=== PATIENT | female | born 1970 | race Caucasian/White ===

== ENCOUNTER 2019-08-09 12:50 | Outpatient (CLI) | payer OTHER, SELFPAY ==
--- NOTE | 2019-08-09 | ECHO_ITS ---
Patient Info Name: Vandana Ojeda Age: 49 years : 1970 Gender: Female Ht: 60 in Wt: 200 lbs BSA: 2.01 m2 HR: 62 bpm BP: 136 Heart Rhythm: Sinus Rhythm Technical Quality: Good Exam Date: 08/09/2019 1:31 PM Exam Location: [facility] Patient Status: Outpatient Admit Date: 08/09/2019 Staff Ordering Physician: RamuNathalia APRN Donkey Engine Firer/Fireman: Karo Meng RDCS Attending Provider: Bernadine*Nathalia APRN Exam Type: CA echo doppler color flow Study Info Indications - C/O SOB PULM HTN Complete two-dimensional, color flow and Doppler transthoracic echocardiogram is performed. Summary 1. Left ventricular chamber dimension is normal. 2. Left ventricular systolic function is normal, estimated at 65-70%. 3. There is mildly increased left ventricular wall thickness. 4. Left ventricular septal wall motion is normal. 5. The left ventricular diastolic function is grade I diastolic dysfunction. 6. Global longitudinal strain is normal at -17 %. 7. There is mild mitral valve regurgitation. 8. There is mild tricuspid valve regurgitation. 9. No pulmonary hypertension, estimated pulmonary arterial systolic pressure is 20 mmHg. Left Ventricle Left ventricular chamber dimension is normal. Left ventricular systolic function is normal, estimated at 65-70%. There is mildly increased left ventricular wall thickness. Left ventricular septal wall motion is normal. The left ventricular diastolic function is grade I diastolic dysfunction. Global longitudinal strain is normal at -17 %. Right Ventricle Right ventricular chamber dimension is normal. Right ventricular systolic function is normal. Left Atria Left atrial chamber dimension is normal. Right Atria Right atrial chamber dimension is normal. Atrial Septum Intact interatrial septum visualized by color flow imaging. Aortic Valve The aortic valve is trileaflet. There is mild aortic valve sclerosis. There is no aortic valve stenosis. There is trace aortic valve regurgitation. Pulmonic Valve The pulmonic valve is normal. There is no pulmonic valve stenosis. There is trace pulmonic regurgitation. Mitral Valve The mitral valve has calcified annulus. There is no mitral valve stenosis. There is mild mitral valve regurgitation. Tricuspid Valve The tricuspid valve leaflets are normal. There is no significant tricuspid valve stenosis. There is mild tricuspid valve regurgitation. No pulmonary hypertension, estimated pulmonary arterial systolic pressure is 20 mmHg. Pericardium/Pleural The pericardium appears normal. There is no pericardial effusion. Inferior Vena Cava Dilated inferior vena cava with >50% collapse upon inspiration consistent with elevated right atrial pressure, 10 mmHg. Aorta The aortic root size at the sinus of Valsalva is normal. The prox ascending aorta size is normal. Left Ventricular Outflow Tract Name Value Normal LVOT 2D LVOT Diameter 2.0 cm LVOT Doppler LVOT Peak Gradient 6 mmHg LVOT Mean Gradient 3 mmHg LVOT VTI
== END 2019-08-09 12:51 | disposition home or self-care (01) ==
PROVIDERS: PCP Physician Assistant; Visit Provider Nurse Practitioner Gerontology
DX: I27.20 Pulmonary hypertension, unspecified (principal); I34.0 Nonrheumatic mitral (valve) insufficiency; I36.1 Nonrheumatic tricuspid (valve) insufficiency
CPT/HCPCS: 93306

== ENCOUNTER 2019-12-04 07:45 | Outpatient (CLI) | payer OTHER, SELFPAY ==
--- NOTE | 2019-12-08 03:17 | SLEEP_ITS ---
Home Sleep Study DATE OF STUDY: 12/04/2019 ORDERING PROVIDER: Nathalia Guallpa, nurse practitioner. REASON FOR THE STUDY: EB. HISTORY: This patient is a 49-year-old female, 5 feet tall, weighing 205 pounds with a body mass index of 40 kg/metered square. She did not indicate on the sleep survey what her main problem is regarding her sleep. She does say that she has had problems for greater than 2 years. It is mildly upsetting that she does wake up during the night and has excessive daytime sleepiness. She does not awaken from sleep feeling short of breath. She rarely awakens at night with heartburn, belching, or coughing. She rarely snores at night and rarely is loud enough that others complain about it. She occasionally has trouble sleeping with a cold. She does not wake up gasping for breath at night. She occasionally has breathing problems at night observed by others and occasionally sweats excessively at night. She rarely notices her heart pounding or beating irregularly at night. She frequently falls asleep during the day, but never involuntarily, never while driving. She does not fall asleep during physical effort. She does not experience muscle tone, weakness with strong emotion. She rarely has daytime difficulties due to excessive sleepiness. She does not feel paralyzed on waking or falling asleep. Does not have vivid dreamlike scenes upon awakening or falling asleep and is never afraid to go to sleep. She denies having nightmares. She does not remember her dreams. She rarely has racing thoughts. She denies feeling sadness or depression. She rarely has anxiety. She frequently has muscular tension. She occasionally notices parts of her body jerking. She occasionally kicks at night. She frequently has crawling and aching feelings in her legs. She occasionally has leg pain at night. She does not have morning jaw pain. She occasionally grinds her teeth at night. She is not bothered during the day by pain. She rarely is awakened by pain during the night. She occasionally wakes up feeling stiff in the morning, rarely with sore achy muscles, frequently with pain in the neck and spine. She has stomach problems, headaches, and takes antacids regularly. She goes to bed at midnight, takes a variable amount of time for her to fall asleep. She typically wakes up 4-5 times at night and will stay awake for 20 minutes. She wakes in the morning at 8:30 a.m. Weekend reveals that she goes to bed later about 1 a.m. and wakes up at 8:30 a.m. as well. She does take naps. A short nap may be refreshing. She feels good most mornings. She feels better in the morning than other times a day. MEDICAL COMORBIDITIES: Hypertension, hyperlipidemia, pulmonary hypertension, asthma. MEDICATIONS: 1. Atorvastatin 1 daily. 2. Metoprolol once daily. 3. Lisinopril 1 daily. HABITS: Quit tobacco 5 years ago. Caffeine, 2 L soda per day. No alcohol. DESCRIPTION OF THE STUDY: On the [place] Sleepiness Scale, her score is 9. This was conducted as a portable unattended type III home sleep test with 4-channel monitoring including respiratory effort channel, snoring channel, oxygen saturation channel, and heart rate channel. The study was scored using [facility] guidelines. Duration of the study was 9 hours 13 minutes. The apnea-hypopnea index is 2.8. Oxygen desaturation index is 2.1. Both of these are normal values. Lowest desaturation is 80%, which is below normal. She had 7 apneas. Four apneas or 57% of her apneas were obstructive, 3 apneas or 43% were central, she had 19 hypopneas, 270 snoring events and 19 desaturations, spending no time below 88%. Heart rate ranged from 45 to 128. IMPRESSION: 1. This home sleep test does not show evidence of significant sl
== END 2019-12-04 07:46 | disposition home or self-care (01) ==
LOC: ANHCSM 07:45
PROVIDERS: PCP Physician Assistant; Visit Provider Nurse Practitioner Gerontology
DX: G47.33 Obstructive sleep apnea (adult) (pediatric) (principal); Z68.41 Body mass index [BMI] 40.0-44.9, adult; I10 Essential (primary) hypertension; E78.5 Hyperlipidemia, unspecified; J45.909 Unspecified asthma, uncomplicated; I27.20 Pulmonary hypertension, unspecified
CPT/HCPCS: 95806

== ENCOUNTER 2020-09-25 14:52 | Outpatient (CLI) | payer OTHER, SELFPAY ==
--- NOTE | ~2020-09-25 | MM_ITS ---
EXAMINATION: MM screening [facility] BI w shira HISTORY: Screening mammogram TECHNIQUE: Craniocaudal and mediolateral oblique 3-D tomosynthesis images were obtained and synthetic 2-D images were generated. CAD analysis was submitted and interpreted. COMPARISON: 04/10/1917, 04/06/2013 BREAST PARENCHYMAL COMPOSITION: There are scattered areas of fibroglandular density. FINDINGS: There is no evidence of suspicious mass, calcification, or architectural distortion to sugg est malignancy in either breast. There has been no suspicious interval change. IMPRESSION: 1. No mammographic evidence of malignancy. 2. Recommend routine screening mammography in one year. BI-RADS Category 1: Negative Reviewed, dictated and finalized at location A.
== END 2020-09-25 14:53 | disposition home or self-care (01) ==
LOC: ANHIMG 14:53
PROVIDERS: PCP Physician Assistant; Visit Provider Physician Assistant
DX: Z12.31 Encounter for screening mammogram for malignant neoplasm of breast (principal)
CPT/HCPCS: 77063; 77067

== ENCOUNTER 2021-09-15 10:44 | Emergency (ER) | payer OTHER, SELFPAY ==
[2021-09-15] VITALS (11 sets, daily range): BP systolic 166–184; BP diastolic 86–116; PULSE 78–90; RESP 16–31; TEMP 36.6; O2SAT 95–100
--- NOTE | ~2021-09-15 | XR_ITS ---
XR chest 2V DATE: 09/15/2021 13:03 INDICATION: Shortness of breath. History of asthma. TECHNIQUE: PA and lateral views COMPARISON: 03/09/2019 2 view chest FINDINGS: Normal heart size. No hilar or mediastinal enlargement. No pulmonary infiltrate or consolid ation, pleural effusion or pulmonary vascular congestion or pneumothorax. Postoperative change of the posteromedial left upper quadrant of the abdomen. Included skeletal structures are unremarkable. IMPRESSION: Postoperative change, left posteromedial abdomen No active cardiopulmonary disease Reviewed, dictated and finalized at location B.
--- NOTE | 2021-09-15 10:55 | ECG_ITS ---
Measurements Intervals [place] Rate: 81 P: 68 FL: 225 QRS: 23 QRSD: 93 T: 47 QT: 346 QTc: 403 Interpretive Statements REDUCED ECG QUALITY BECAUSE OF BASELINE MOTION ARTIFACT SINUS RHYTHM WITH FIRST DEGREE AV BLOCK NO PREVIOUS ECG AVAILABLE FOR COMPARISON Electronically Signed On 09-15-2021 15:50:26 CDT by Manuelito Tan M.D.
[2021-09-15 11:11] LABS: Basophils Percent Auto 0.3 % (0.2-1.2); Eosinophils Absolute Auto 0.5 K/mm3 (0-0.3); Eosinophils Percent Auto 4.7 % (0-4.4); Hematocrit 43.3 % (37.0-47.0); Hemoglobin 14.5 g/dL (12.0-15.0); Immature Granulocyte Absolute 0.03 K/mm3 (0.00-0.031); Immature Granulocyte Percent A 0.3 % (0-0.5); Lymphocytes Absolute Auto 2.72 K/mm3 (0.9-3.2); Mean Corpuscular HGB Conc 33.5 g/dl (32-36); Mean Corpuscular Hemoglobin 29.7 pg (26-34); Mean Corpuscular Volume 88.7 fl (80-100); Mean Platelet Volume 9.3 fl (7.4-10.4); Monocytes Absolute Auto 0.5 K/mm3 (0.1-0.6); Monocytes Percent Auto 5.5 % (2.6-8.5); Neutrophils Absolute Auto 5.9 K/mm3 (1.3-6.7); Neutrophils Percent Auto 61.2 % (45.5-73.1); Platelet Count Result 319 k/mm3 (150-375); Red Blood Count 4.88 M/mm3 (4.2-5.4); Red Cell Distribution Width 13.1 % (11.5-14.5); White Blood Count 9.7 K/mm3 (4.5-10.0)
--- NOTE | 2021-09-15 11:14 | PC.NURSE ---
RT at bedside to obtain blood gas and provide breathing tx.
[2021-09-15] MEDS: ALBUTEROL SULFATE NEB 2.5 MG/3 ML INH 15 MG INHALATION (11:15)
[2021-09-15] MEDS: IPRATROPIUM BR 0.02% INH SOLN 0.5 MG/2.5 ML VIAL 1.5 MG INHALATION (11:16)
[2021-09-15] MEDS: methylPREDNISolone SOD SUCC 125 MG VIAL IV PUSH (11:22)
[2021-09-15 11:24] LABS: Alanine Aminotransferase 21 U/L (6-35); Albumin Level 4.4 g/dL (3.5-5.1); Alkaline Phosphatase 113 U/L (38-126); Anion Gap 5 mmol/L (8-16); Aspartate Amino Transferase 22 U/L (14-36); Bilirubin,Total 0.3 mg/dL (0.2-1.3); Blood Urea Nitrogen 13 mg/dL (7-17); Calcium 8.9 mg/dL (8.4-10.2); Carbon Dioxide 28 mmol/L (22-30); Chloride 106 mmol/L (98-107); Estimated CRCL calculation 63 ml/min; Estimated Glomerular Filt Rate 59; Glucose 131 mg/dL (65-110); Potassium 4.8 mmol/L (3.4-5.0); Sodium 139 mmol/L (137-145)
--- NOTE | 2021-09-15 13:35 | ED.SOB ---
HPI - SOB/Dyspnea General Chief Complaint: Shortness of Breath/Dyspnea Stated Complaint: dificulty breathing - thinks it could be covid Time Seen by Provider: 09/15/21 11:02 History of Present Illness HPI Narrative: Patient is a 51-year-old female who presents ER with shortness of breath. Worsening over the last week. No improvement with nebulizers at home. No fevers or chills or sweats. No chest pain or chest pressure. Has history of asthma. No productive cough. Related Data Home Medications Medication Instructions Recorded Confirmed albuterol sulfate 90 mcg/actuation inhalation 03/09/19 05/05/21 aerosol inhaler atorvastatin 20 mg tablet 03/09/19 05/05/21 fluticasone furoate 100 inhalation 03/09/19 05/05/21 mcg/actuation blister powder for inhalation (Arnuity Ellipta) lisinopril 20 mg tablet 03/09/19 05/05/21 metoprolol tartrate 50 mg tablet 03/09/19 05/05/21 Allergies Allergy/AdvReac Type Severity Reaction Status Date / Time DOGS Allergy Severe ASTHMA Uncoded 09/15/21 11:23 ATTACKS Review of Systems Review of Systems: All systems reviewed & are unremarkable except as noted in HPI and below Constitutional: Constitutional: Denies chills, Denies fatigue and Denies fever(s) ENT: Denies nasal congestion and Denies sore throat Cardiovascular: Cardiovascular: Denies chest pain, Denies rapid heart rate and Denies radiating jaw, neck or arm pain Respiratory: Respiratory: Reports cough, Reports dyspnea and Reports wheezing Gastrointestinal: Gastrointestinal: Denies abdominal pain, Denies nausea and Denies vomiting Genitourinary: Genitourinary: Denies nocturia and Denies dysuria [facility] Past Medical History Medical History (Updated 09/15/21 @ 13:49 by Jeremi Potter MD) Anemia no iron--had IV injection Asthma Hypercholesterolemia Hypertension Screening mammogram, encounter for Surgical History Surgical History (Updated 05/01/21 @ 11:24 by Mili Savage) History of abdominal supracervical subtotal hysterectomy 08/26/17 Supracx abdominal hyst w/ovarian preservation--enlarged uterine fibroid History of 02/01/98 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 History of tubal ligation 02/01/98 Family History Family History (Updated 05/01/21 @ 11:25 by Mili Savage) Other Acute myocardial infarction maternal uncle Sibling Kidney disease brother--pt donated 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 Social History Social History (Updated 05/05/21 @ 10:55 by Nellie Montgomery, [facility]) Smoking status: Former smoker Alcohol intake: never Substance use: never Substance use type: does not use Additional living arrangements comments: spouse Additional occupation/education comments: housewife Gender identity (if verbalized by the patient): Female Sexual Orientation (if Verbalized by the Patient): Straight or Heterosexual Exam Narrative: GENERAL: Uncomfortable-appearing, well-nourished, and in mild distress. HEAD: Normocephalic, atraumatic. ENT: Mucous membranes moist. CHEST: Increased respiratory rate with diffuse expiratory wheezing with poor air volume. HEART: Tachycardic and regular. Normal peripheral pulses. ABDOMEN: Soft, nontender, nondistended. EXTREMITIES: Normal range of motion. No edema. SKIN: Warm, dry, no rash. NEURO: Alert and oriented x3. PSYCH: Normal mood and affect. Course Course Emergency Course: Lungs markedly improved after an hour-long nebulizer treatment. We will start on steroids. Patient requesting COVID swabs will be provided. Vital Signs Vital signs: Vital Signs Temperature 97.8 F 09/15/21 10:49 Pulse Rate 86 09/15/21 10:49 Respiratory Rate 20 09/15/21 10:49 Blood Pressure 184/116 H 09/15/21 10:49 Pulse Oximetry 99 09/15/21 10:49 Oxygen Delivery Room Air 09/15/21 10:49 Temperature 97.8 F 09/15/21 10:49 Pulse Rate 90 09/15/21 13:00 Respiratory Rate 23 H 09/15/21 13:00 Bl
[2021-09-15 14:42] LABS: SARS-CoV-2 RNA PCR Negative
== END 2021-09-15 14:04 | disposition home or self-care (01) ==
PROVIDERS: Emergency Provider Emergency Medicine; PCP Physician Assistant
DX: J45.901 Unspecified asthma with (acute) exacerbation (principal); Z20.822 Contact with and (suspected) exposure to COVID-19; E78.00 Pure hypercholesterolemia, unspecified; I10 Essential (primary) hypertension; Z90.5 Acquired absence of kidney; Z90.710 Acquired absence of both cervix and uterus; Z86.2 Personal history of diseases of the blood and blood-forming organs and certain disorders involving the immune mechanism; Z87.891 Personal history of nicotine dependence; I44.0 Atrioventricular block, first degree
CPT/HCPCS: 36415; 71046; 80053; 85025; 93005; 94640; 96374; 99284; C9803; J2930; U0003; U0005

== ENCOUNTER 2021-09-17 02:42 | Inpatient (IN) | payer OTHER, SELFPAY ==
[2021-09-17] VITALS (64 sets, daily range): BP systolic 86–207; BP diastolic 52–152; PULSE 89–154; RESP 24–43; TEMP 36–37.6; O2SAT 86–100; BMI 43.0
--- NOTE | ~2021-09-17 | CT_ITS ---
EXAMINATION: CT soft tissue neck wo con DATE: 09/21/2021 09:52 INDICATION: Evaluate for swelling TECHNIQUE: Computed tomography (CT) of the neck was performed without intravenous contrast. Automated exposure control and iterative reconstruction technique were employed. The dose-length product was 5 99.36 mGy-cm. COMPARISON: None FINDINGS: Motion limited examination. Endotracheal tube, in good position. Partially visualized NG tube. The th yroid gland is unremarkable. The submandibular and parotid glands are symmetric. There is no cerv ical lymphadenopathy. There are no masses identified. The superior mediastinum is unremarkable. The airway is unremarkable. Parapharyngeal and pre-glottic fat planes are preserved. The orbits a re unremarkable. Visualized sinuses and mastoid air cells are well aerated. Apices are clear. Re versed cervical lordosis, likely positional. IMPRESSION: Motion limited examination. Within that constraint, no significant abnormality detected in the neck. Reviewed, dictated and finalized at location K.
--- NOTE | ~2021-09-17 | XR_ITS ---
XR chest 1V portable DATE: 09/22/2021 05:49 INDICATION: Acute respiratory failure TECHNIQUE: Portable upright AP chest on 09/2021 at 0513 hours COMPARISON: 09/21/2021 CT chest high resolution scan 09/21/2021 portable AP chest at 0522 hours FINDINGS: ET and NG tubes have been removed since 09/22/2019. Right upper extremity PIC catheter tip overlies superior vena cava. No pulmonary infiltrate or consolidation, pleural effusion or pulmonary vascular congestion or pneumo thorax. Normal heart size. IMPRESSION: Removal of ET and NG tubes; no active cardiopulmonary disease Reviewed, dictated and finalized at location A.
--- NOTE | ~2021-09-17 | CT_ITS ---
EXAMINATION: CT chest high resolution wo co DATE: 09/21/2021 09:53 INDICATION: respiratory failure TECHNIQUE: Computed tomography (CT) of the chest was performed without intravenous contrast. Automate d exposure control and iterative reconstruction technique were employed. The dose-length product was 763.88 mGy-cm. COMPARISON: CT soft tissue neck, same date. FINDINGS: CHEST: Motion limited examination. Endotracheal and nasogastric tubes, in good position. Thoracic aorta: No significant dilation or calcification. Lung parenchyma and airways: Lungs are clear. Secretions in the right mainstem bronchus. Thoracic inlet, axillae and chest wall: No thyroid or soft tissue mass. No axillary lymphadenopathy. Lateral subcutaneous chest wall edema. Mediastinum: No mass or lymphadenopathy. Heart and pericardium: Normal heart size. No pericardial effusion. Coronary artery calcifications: Mild. Pleura: No effusion or mass. Upper abdomen: Partially visualized air-filled dilated loop of transverse colon, otherwise no signifi cant finding. Thoracic bones: No acute osseous finding in the chest. IMPRESSION: Motion limited examination. Endotracheal and nasogastric tubes, in good position. Small focus of secr etions in the right mainstem bronchus. I'll chest wall edema. Partially visualized air-filled, dilate d loop of transverse colon. Reviewed, dictated and finalized at location K. IMPRESSION: Motion limited examination. Endotracheal and nasogastric tubes, in good positio n. Small focus of secretions in the right mainstem bronchus. I'll chest wall ed percy. Partially visualized air-filled, dilated loop of transverse colon.
--- NOTE | ~2021-09-17 | XR_ITS ---
EXAMINATION: XR chest 1V portable 09/17/2021 03:51 INDICATION: Shortness of breath PROCEDURE: AP portable chest COMPARISON: Comparison to multiple prior studies sequentially, with oldest reviewed study dated 02/19. FINDINGS: The lungs are clear. The lungs are hyperinflated which is consistent with, but not diagnost ic of chronic obstructive pulmonary disease. The cardiomediastinal silhouette is within normal limits . There are no pleural effusions. There is no pneumothorax suspected. IMPRESSION: 1: NO ACUTE CARDIOPULMONARY DISEASE. Reviewed, dictated and finalized at location A.
--- NOTE | ~2021-09-17 | XR_ITS ---
MODIFIED ESOPHAGRAM HISTORY: Recent extubation TECHNIQUE: Modified barium esophagram was performed on 03/29/2021. I administered fluoroscopy and perfo rmed the exam with speech pathologist. Patient was seated for lateral fluoroscopic imaging for inges tion of thin liquids, pudding, solids and quantified amounts, followed by thin liquids in uncontrolle d amounts. This was recorded on tape. A single fluoroscopic spot image was also recorded. The DAP for this procedure was 1.127 Gycm2. The amount of fluoroscopy time used during this procedure was 1.3 mi nutes. FINDINGS: Oral stage: Adequate function. Pharyngeal stage: Adequate function. Cervical/esophageal stage: Adequate function. There appeared to be subtle increased soft tissue density projecting over the region of the piriform sinuses although no filling defect is appreciated with real-time swallowing. On review of the recent prior CT of the neck there appears to be some mild swelling along the bilateral aryepiglottic folds. The epiglottis however appears normal in the current study. IMPRESSION: 1. Patient tolerated regular consistency oral feedings in the upright position. Please correlate wit h speech pathologist findings and specific feeding recommendations. 2. Subtle increased soft tissue density project over the region of the piriform sinuses which based o n prior CT appears to result from relatively symmetric swelling along the aryepiglottic folds but wit h normal-appearing epiglottis. There is may reflect response to recent intubation. Reviewed, dictated and finalized at location A. IMPRESSION: 1. Patient tolerated regular consistency oral feedings in the upright position. Please correlate with speech pathologist findings and specific feeding recomm endations. 2. Subtle increased soft tissue density project over the region of the piriform sinuses which based on prior CT appears to result from relatively symmetric sw elling along the aryepiglottic folds but with normal-appearing epiglottis. Ther e is may reflect response to recent intubation.
--- NOTE | ~2021-09-17 | XR_ITS ---
XR chest 1V portable DATE: 09/19/2021 05:53 INDICATION: Acute respiratory failure TECHNIQUE: Portable AP chest on 09/19/2021 at 0522 hours COMPARISON: 09/18/2021 portable AP chest at 0525 hours FINDINGS: ET tube tip in satisfactory position 4.5 cm above pati. NG tube in stomach. Right upper extremity PIC catheter tip overlies the mid superior vena cava. Normal heart size. The lungs are clear of infiltrate or consolidation. No pleural effusion or pulmona ry vascular congestion or pneumothorax. Surgical clips, medial left upper quadrant. IMPRESSION: No active cardiopulmonary disease or significant change since 09/18/2021 Reviewed, dictated and finalized at location A. IMPRESSION: No active cardiopulmonary disease or significant change since 2021
--- NOTE | ~2021-09-17 | XR_ITS ---
XR chest 1V portable DATE: 09/21/2021 05:50 INDICATION: Acute respiratory failure TECHNIQUE: Portable AP chest on 09/21/2021 at 0522 hours COMPARISON: 09/20/2021 portable AP chest at 1314 hours FINDINGS: ET tube in satisfactory position 4.6 cm above pati. NG tube in stomach. Right upper extremity PIC catheter tip overlies superior vena cava. Normal heart size. No pulmonary infiltrate or consolidation, pleural effusion or pulmonary vascular congestion or pneumo thorax is detected. Surgical clips overlie the upper mid abdomen. IMPRESSION: No active cardiopulmonary disease Reviewed, dictated and finalized at location A.
--- NOTE | ~2021-09-17 | XR_ITS ---
EXAMINATION: XR chest ET placement, XR abdomen NG/feed tube insert DATE: 09/17/2021 07:31 INDICATION: Endotracheal tube placement TECHNIQUE: 1. Frontal view of the chest was obtained. 2. Portable AP supine view of the upper abdomen was obtained for assessment of nasogastric tube place ment. COMPARISON: Chest radiograph dated 09/17/2021 FINDINGS: Chest: Endotracheal tube tip at the level of the thoracic inlet projecting 8 cm above level of the pati. L ungs are clear with no focal airspace opacities, pulmonary edema, pleural effusion or pneumothorax. T he cardiomediastinal silhouette is normal. Visualized bones and soft tissues are unremarkable. Abdomen: Nasogastric tube tip in proximal side port in the body of the stomach. Surgical clips in the left upp er quadrant IMPRESSION: 1. Endotracheal tube tip 8 cm above the pati. Consider advancement by 5 cm. 2. No acute cardiopulmonary disease. 3. Nasogastric tube in the stomach. Reviewed, dictated and finalized at location A. IMPRESSION: 1. Endotracheal tube tip 8 cm above the pati. Consider advancement by 5 cm. 2. No acute cardiopulmonary disease. 3. Nasogastric tube in the stomach.
--- NOTE | ~2021-09-17 | XR_ITS ---
EXAMINATION: XR chest 1V portable DATE: 09/18/2021 06:02 INDICATION: Acute respiratory failure TECHNIQUE: AP view of the chest was obtained. COMPARISON: Chest radiograph dated 09/17/21 FINDINGS: Endotracheal tube tip 5.5 cm above the pati. Nasogastric tube extends below the left hemidiaphragm with distal tip collimated off the study. Right upper extremity peripherally inserted central venous catheter (PICC) tip at the mid superior vena cava. Lungs are remain clear with no focal airspace opacities, pulmonary edema, pleural effusion or pneumot horax. The cardiomediastinal silhouette is normal. Surgical clips in the left epigastric region. IMPRESSION: 1. No acute cardiopulmonary disease. Reviewed, dictated and finalized at location A.
--- NOTE | ~2021-09-17 | XR_ITS ---
XR chest 1V portable DATE: 09/20/2021 13:19 INDICATION: Decreased oxygenation TECHNIQUE: Portable AP chest on 09/20/2021 at 1314 hours COMPARISON: 09/20/2021 portable AP chest at 0541 hours FINDINGS: ET tube 5 cm above pati. NG tube in stomach. Right upper stomach the catheter tip overlie s superior vena cava. Normal heart size. No pulmonary infiltrate or consolidation, pleural effusion or pulmonary vascular congestion or pneumo thorax is detected. IMPRESSION: No active cardiopulmonary disease Reviewed, dictated and finalized at location A.
--- NOTE | ~2021-09-17 | XR_ITS ---
XR chest 1V portable DATE: 09/20/2021 06:41 INDICATION: Acute respiratory failure TECHNIQUE: Portable AP chest on 09/20/2021 at 0541 hours COMPARISON: 09/19/2021 portable AP chest at 0522 hours FINDINGS: ET tube tip approximately 5.5 cm above pati; ideal range is 2 5 cm. NG tube in stomach. Right extremity PIC catheter tip overlies superior vena cava. Normal heart size. No pulmonary infiltrate or consolidation, pleural effusion or pulmonary vascular congestion or pneumo thorax. IMPRESSION: No active cardiopulmonary disease Reviewed, dictated and finalized at location A.
[2021-09-17 03:04] LABS: Alveolar/Arterial O2 Gradient 561.1 mmHg; Base Excess ABG -7.6 mEq/l (+/-2.0); Fractional Inspired Oxygen 100 %; HCO3 ABG 23.9 mEq/l (22.0-26.0); Oxygen Content ABG 19.4 %vol (16.0-22.0); Oxygen Saturation ABG 88.6 % (95.0-100.0); Oxyhemoglobin 89.4 % THb (90.0-100.0); PO2 ABG 74.2 mmHg (80.0-100.0); PO2 FiO2 Ratio Arterial Blood 0.74 %; Total Hemoglobin 15.4 g/dL (12.0-18.0)
[2021-09-17 03:05] LABS: Device NASAL CANNULA; Modified Allen's Test Pass; PCO2 ABG 77.7 mmHg (35.0-45.0); Site Drawn LEFT RADIAL; pH ABG 7.105 (7.350-7.450)
[2021-09-17] MEDS: IPRATROPIUM BR 0.02% INH SOLN 0.5 MG/2.5 ML VIAL 2 MG INHALATION (03:06)
[2021-09-17] MEDS: ALBUTEROL SULFATE NEB 2.5 MG/3 ML INH 10 MG INHALATION (03:06)
[2021-09-17 03:36] LABS: Basophils Percent Auto 0.1 % (0.2-1.2); Eosinophils Percent Auto 0.1 % (0-4.4); Hematocrit 43.7 % (37.0-47.0); Hemoglobin 14.2 g/dL (12.0-15.0); Immature Granulocyte Absolute 0.42 K/mm3 (0.00-0.031); Immature Granulocyte Percent A 1.1 % (0-0.5); Lymphocytes Absolute Auto 7.78 K/mm3 (0.9-3.2); Lymphocytes Percent Auto 20.4 % (18.3-44.2); Mean Corpuscular HGB Conc 32.5 g/dl (32-36); Mean Corpuscular Hemoglobin 29.8 pg (26-34); Mean Corpuscular Volume 91.6 fl (80-100); Mean Platelet Volume 9.9 fl (7.4-10.4); Neutrophils Absolute Auto 26.8 K/mm3 (1.3-6.7); Neutrophils Percent Auto 70.3 % (45.5-73.1); Platelet Count Result 517 k/mm3 (150-375); Red Blood Count 4.77 M/mm3 (4.2-5.4); Red Cell Distribution Width 13.4 % (11.5-14.5); White Blood Count 38.1 K/mm3 (4.5-10.0)
--- NOTE | 2021-09-17 03:39 | ECG_ITS ---
Measurements Intervals [place] Rate: 124 P: 77 CA: 184 QRS: -16 QRSD: 106 T: 83 QT: 303 QTc: 436 Interpretive Statements SINUS TACHYCARDIA WITH FREQUENT VENTRICULAR PREMATURE COMPLEXES INCOMPLETE RIGHT BUNDLE BRANCH BLOCK [90+ ms QRS DURATION, TERMINAL R IN V1/V2, 40+ ms S IN I/aVL/V4/V5/V6] SEPTAL MYOCARDIAL INFARCTION , OF INDETERMINATE AGE [40+ ms Q WAVE IN V1/V2] LARGE AMOUNT OF BASELINE ARTIFACT BUT PROBABLY NO SIGNIFICANT CHANGE COMPARED TO THE PRIOR TRACING Electronically Signed On 09-17-2021 12:42:25 CDT by Beata Hernández M.D.
--- NOTE | 2021-09-17 03:52 | ED.ASTHMA ---
HPI - Asthma General Chief Complaint: Asthma Stated Complaint: SOB/Asthma Time Seen by Provider: 09/17/21 02:44 History of Present Illness HPI Narrative: 51-year-old female history of asthma presented to the emergency department for evaluation of worsening shortness of breath. Patient states over the last few days she has had a persistent asthma exacerbation. Patient was evaluated in the emergency department on Wednesday and states she did get a continuous neb and did feel improved at the time. Patient states that Wednesday night she began worsening and felt poorly throughout the day on Wednesday. Patient presented to the emerge department on Wednesday night with significant difficulty breathing. Patient was tripoding and in mild distress. Patient states her last admission for asthma was approximately 3 years ago. Patient has never been intubated. Patient is unsure of any triggers that may have caused this asthma exacerbation. Patient denies any changes to medications and denies any new pets or exposure to allergens. Related Data Home Medications Medication Instructions Recorded Confirmed albuterol sulfate 90 mcg/actuation inhalation 03/09/19 05/05/21 aerosol inhaler atorvastatin 20 mg tablet 03/09/19 05/05/21 fluticasone furoate 100 inhalation 03/09/19 05/05/21 mcg/actuation blister powder for inhalation (Arnuity Ellipta) lisinopril 20 mg tablet 03/09/19 05/05/21 metoprolol tartrate 50 mg tablet 03/09/19 05/05/21 Allergies Allergy/AdvReac Type Severity Reaction Status Date / Time DOGS Allergy Severe ASTHMA Uncoded 09/15/21 11:23 ATTACKS Review of Systems Review of Systems: CONSTITUTIONAL: Denies fever, chills, or sweats. EYES: Denies visual changes, redness, or discharge. ENT: Denies rhinorrhea, congestion, sore throat, or otalgia. CARDIOVASCULAR: Denies chest pain, palpitations, or edema. RESPIRATORY: Respiratory distress, see HPI GASTROINTESTINAL: Denies abdominal pain, nausea, vomiting, or diarrhea. GENITOURINARY: Denies dysuria or hematuria. SKIN: Denies rash or itching. MUSCULOSKELETAL: Denies back pain, joint pain, or myalgia. NEUROLOGIC: Denies headache, numbness, or weakness. [facility] Past Medical History Medical History (Updated 09/17/21 @ 06:16 by Tim Griffin MD) Anemia no iron--had IV injection Asthma Hypercholesterolemia Hypertension Screening mammogram, encounter for Surgical History Surgical History (Updated 05/01/21 @ 11:24 by Mili Savage) History of abdominal supracervical subtotal hysterectomy 08/26/17 Supracx abdominal hyst w/ovarian preservation--enlarged uterine fibroid History of 02/01/98 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 History of tubal ligation 02/01/98 Family History Family History (Updated 05/01/21 @ 11:25 by Mili Savage) Other Acute myocardial infarction maternal uncle Sibling Kidney disease brother--pt donated 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 Social History Social History (Updated 05/05/21 @ 10:55 by Nellie Montgomery [facility]) Smoking status: Former smoker Alcohol intake: never Substance use: never Substance use type: does not use Additional living arrangements comments: spouse Additional occupation/education comments: housewife Gender identity (if verbalized by the patient): Female Sexual Orientation (if Verbalized by the Patient): Straight or Heterosexual Exam Narrative: APPEARANCE: Respiratory distress HEAD: normocephalic, atraumatic. EYES: PERRLA/EOMI, conjunctivae clear. NOSE: Normal no drainage THROAT: Pharynx clear, no exudate. NECK: Supple. No adenopathy, no masses. RESPIRATORY: Extensive wheezing, tachypnea CARDIOVASCULAR: Tachycardia ABDOMINAL: Soft, nontender, nondistended, normal bowel sounds MUSCULOSKELETAL: Moves all extremities. Strength/ROM intact, No edema, No calf tenderness. NEURO: Alert. Cranial nerves II through XII intact. Grossly intact SKIN: Warm, dry. Nor
[2021-09-17] MEDS: MAGNESIUM SULF 1 GM/D5W 100 ML 1 GM/100 ML BAG IVPB (03:55)
[2021-09-17 04:07] LABS: Alanine Aminotransferase 53 U/L (6-35); Albumin Level 4.3 g/dL (3.5-5.1); Alkaline Phosphatase 102 U/L (38-126); Anion Gap 11 mmol/L (8-16); Aspartate Amino Transferase 63 U/L (14-36); Bilirubin,Total 0.2 mg/dL (0.2-1.3); Blood Urea Nitrogen 27 mg/dL (7-17); Calcium 8.7 mg/dL (8.4-10.2); Carbon Dioxide 23 mmol/L (22-30); Chloride 109 mmol/L (98-107); Estimated CRCL calculation 53 ml/min; Estimated Glomerular Filt Rate 48; Glucose 260 mg/dL (65-110); Potassium 4.4 mmol/L (3.4-5.0); Sodium 143 mmol/L (137-145)
[2021-09-17] MEDS: SODIUM CHLORIDE 0.9% IV 1,000 ML 999 ML IV CONT (04:15)
[2021-09-17] MEDS: ALBUTEROL SULFATE NEB 2.5 MG/3 ML INH 5 MG INHALATION (05:25)
--- NOTE | 2021-09-17 06:28 | ADMGEN ---
This patient, Vandana Ojeda, was admitted to Intensive Care Unit-7. Patient/family oriented to hospital policies and general routines including ID bracelet, bed and alarms, visiting hours, pain management, procedures, bathroom and other care routines, personal items, smoking policy, room service/diet, and visiting hours. Information on how to activate the Rapid Response Team has been discussed. Patient/Family are encouraged to report perceived risks to care and to ask questions if they do not understand what they are told or what they should do.
[2021-09-17 06:34] LABS: Alveolar/Arterial O2 Gradient 51.1 mmHg; Base Excess ABG -7.6 mEq/l (+/-2.0); Fractional Inspired Oxygen 35 %; HCO3 ABG 18.3 mEq/l (22.0-26.0); Oxygen Content ABG 20.3 %vol (16.0-22.0); Oxygen Saturation ABG 98.8 % (95.0-100.0); Oxyhemoglobin 97.5 % THb (90.0-100.0); PCO2 ABG 38.3 mmHg (35.0-45.0); PO2 ABG 153.9 mmHg (80.0-100.0); Total Hemoglobin 14.6 g/dL (12.0-18.0)
[2021-09-17 06:35] LABS: pH ABG 7.296 (7.350-7.450)
[2021-09-17 06:36] LABS: Site Drawn RIGHT RADIAL
[2021-09-17 06:37] LABS: Modified Allen's Test Pass
[2021-09-17] MEDS: methylPREDNISolone SOD SUCC 125 MG VIAL IV PUSH (07:37)
[2021-09-17] MEDS: MIDAZOLAM 100MG/NS 100ML(*CRX) 100 MG/100 ML BAG IV CONT (07:38)
[2021-09-17] MEDS: FENTANYL 2,500MCG/NS250ML(*CRX 2,500 MCG/250 ML BAG IV CONT (07:39)
[2021-09-17] MEDS: ROCURONIUM BROMIDE 50 MG/5 ML VIAL IV PUSH ×2 (08:05→09:53)
[2021-09-17] MEDS: fentaNYL CITRATE INJ (*CRX) 100 MCG/2 ML VIAL IV PUSH ×2 (08:06→08:30)
[2021-09-17 08:09] LABS: Device NON-INVASIVE VENT
[2021-09-17] MEDS: BUDESONIDE RESPULE NEB 0.5 MG/2 ML AMP INHALATION ×2 (08:10→19:40)
[2021-09-17] MEDS: IPRATROPIUM BR 0.02% INH SOLN 0.5 MG/2.5 ML VIAL INHALATION ×2 (08:10→19:40)
[2021-09-17] MEDS: SODIUM CHLORIDE 0.9% IV 500 ML IV CONT ×2 (08:30→09:53)
[2021-09-17] MEDS: LIDOCAINE HCL 1% PF INJ 5 ML VIAL INFILTRATE (08:45)
[2021-09-17] MEDS: SODIUM CHLORIDE 0.9% IV 1,000 ML 75 ML IV CONT ×2 (08:46→15:48)
[2021-09-17] MEDS: MAGNESIUM SULF 2 GM/WATER 50ML 2 GM/50 ML BAG IVPB (08:47)
[2021-09-17 09:38] LABS: Alveolar/Arterial O2 Gradient 188.1 mmHg; Base Excess ABG -9.1 mEq/l (+/-2.0); Fractional Inspired Oxygen 100 %; HCO3 ABG 20.4 mEq/l (22.0-26.0); Oxygen Content ABG 20.7 %vol (16.0-22.0); Oxygen Saturation ABG 99.8 % (95.0-100.0); Oxyhemoglobin 98.2 % THb (90.0-100.0); PCO2 ABG 59.4 mmHg (35.0-45.0); PO2 ABG 465.5 mmHg (80.0-100.0); PO2 FiO2 Ratio Arterial Blood 4.66 %; Total Hemoglobin 14.1 g/dL (12.0-18.0)
[2021-09-17 09:39] LABS: pH ABG 7.153 (7.350-7.450)
[2021-09-17] MEDS: PANTOPRAZOLE SODIUM IV 40 MG VIAL IV PUSH (09:39)
[2021-09-17] MEDS: ENOXAPARIN 40 MG/0.4 ML SYRINGE SUB-Q (09:39)
[2021-09-17 09:40] LABS: Arterial Blood Gas PEEP 5 cmH2O; Arterial Blood Gas Tidal Volume 350 ml; Arterial Blood Gas Vent Mode CMV; Arterial Blood Gas Ventilator rate 22 /MIN; Device VENTILATOR; Modified Allen's Test Pass; Site Drawn RIGHT RADIAL
[2021-09-17] MEDS: CISATRACURIUM BESYLATE 200 MG in DEXTROSE 5% 80 ML 9 ML IV CONT (10:32)
--- NOTE | 2021-09-17 11:30 | PM.CNPUL ---
Assessment and Plan Assessment and plan (1) Asthma with status asthmaticus in adult: Qualifiers: Asthma severity: severe Code(s): J45.902 - Unspecified asthma with status asthmaticus Status: Acute Assessment and Plan: patient with a history of lifelong asthma was never been intubated and over the last year was only using p.r.n. inhaled corticosteroids on an infrequent basis according to the . Patient with 5 days worsening shortness of breath and she told her that this was her typical asthma symptoms. Patient continue to deteriorate and presented to the hospital on 09/15 and was treated with oral oral prednisone. She continued to do worsen was re-presented to the emergency room on 09/17 with status asthmaticus failing BiPAP and requiring intubation. Chest x-ray with no evidence of focal infiltrates, no evidence of cardiac diseases. Patient had 1 COVID test negative on 09/15 and I will repeat that today. Will send blood and sputum cultures. She is unvaccinated. I will send influenza swab. I will send an extended viral RNA pathogen swab looking for additional respiratory viral infections. Agree with Solu-Medrol 60 mg IV q.6 hours, levalbuterol 1.25 Q 6, ipratropium 0.5 mg q.4 hours, budesonide 0.5 mg q.12 hours. Agree with empiric treatment with ceftriaxone. Vent management per ICU team. Agree with paralytic and goal plateau pressure less than 30 at this time. Discussed with over the phone. Discussed with wet end helper Dr. Griffin at bedside. will follow with you. History of Present Illness History of Present Illness Consult date: 09/17/21 Chief complaint: Status asthmaticus Narrative: 09/17/2021: This is a new pulmonary consult for asthma exacerbation requiring mechanical ventilation 51-year-old woman with a history of obesity and asthma. I spoke with the . The patient has asthma since childhood and is been on and off of Medicine since then. She has never been intubated in the past and her asthma is monitored by her primary physician. She takes an inhaler and uses it intermittently and at times does not need any inhalers. He says her activities of daily living are on limited by her asthma. On 09/12 the patient developed mild shortness of breath and she started using her inhalers more regularly. The denied any fever, chills, rigors, change in her breathing status at that time. She continued to get worse and the patient was seen in the emergency department on 09/15/2021 for shortness of breath and dyspnea. The note stated she was worse over the last week with no improvement with nebulizers at home. She denied fever chills or sweat this. No cough. She had diffuse expiratory wheezes with poor air volume, she was afebrile, sats were 99% on room air white blood cell count was 9.7 with eosinophils 4.7% equal 456/uL. chest x-ray was with no active disease. COVID RT PCR test was negative. Patient was discharged home with prednisone 50 mg p.o. q.day x7 days and to continue her Arnuity ellipta 100. patient returned to the emergency department on 09/17/2021 at 2:44 a.m. with worsening shortness of breath. the note states that she got worse on 09/16 and presented in a tripod in position in mild respiratory distress. the patient was given Decadron by EMS.Patient was treated for an asthma exacerbation with IV steroids, bronchodilators, magnesium and Initial blood gas was 7.11/78/74. Patient was placed on BiPAP and the ED note states that she looked improved. Repeat blood gas at 6:20 a.m. on noninvasive ventilation demonstrates a pH of 7.38/38/153. It appears patient was intubated shortly after this blood gas. patient smoked tobacco from [id number] at approximately a quarter pack a day For 0 point 2 5 pack years. Patient smokes marijuana cigarettes 1-2 a day for as long as the has known her which is 27 years. The denies that
[2021-09-17 12:04] LABS: Alveolar/Arterial O2 Gradient 149.3 mmHg; Base Excess ABG -8.3 mEq/l (+/-2.0); Fractional Inspired Oxygen 50 %; HCO3 ABG 20.4 mEq/l (22.0-26.0); Oxygen Content ABG 19.6 %vol (16.0-22.0); Oxygen Saturation ABG 98.3 % (95.0-100.0); Oxyhemoglobin 97.1 % THb (90.0-100.0); PCO2 ABG 54.9 mmHg (35.0-45.0); PO2 ABG 145.4 mmHg (80.0-100.0); PO2 FiO2 Ratio Arterial Blood 2.91 %; Total Hemoglobin 14.2 g/dL (12.0-18.0)
[2021-09-17 12:05] LABS: Arterial Blood Gas PEEP 0 cmH2O; Arterial Blood Gas Vent Mode CMV; Arterial Blood Gas Ventilator rate 24 /MIN; Device VENTILATOR; Modified Allen's Test Pass; Site Drawn RIGHT RADIAL; pH ABG 7.188 (7.350-7.450)
[2021-09-17 12:06] LABS: Arterial Blood Gas Tidal Volume 420 ml
[2021-09-17 12:28] LABS: Amphetamine Screen Urine Negative (Negative); Barbiturate Screen Urine Negative (Negative); Benzodiazepines Screen Urine Positive (Negative); Cannabinoid Screen Urine Positive (Negative); Cocaine Screen Urine Negative (Negative); Methadone Screen Urine Negative (Negative); Opiate Screen Urine Negative (Negative); Phencyclidine Screen Urine Negative (Negative)
[2021-09-17 13:05] LABS: Influenza A QL RT-PCR Negative (Negative); Influenza B QL RT-PCR Negative (Negative); SARS-CoV-2 RNA PCR Negative
[2021-09-17] MEDS: methylPREDNISolone SOD SUCC 125 MG VIAL 60 MG IV PUSH ×3 (13:08→23:39)
[2021-09-17] MEDS: CENTRAL LINE FLUSH 10 ML IV PUSH ×2 (13:09→20:31)
[2021-09-17] MEDS: IPRATROPIUM BR 0.02% INH SOLN 0.5 MG/2.5 ML VIAL 1 MG INHALATION (13:37)
[2021-09-17] MEDS: ALBUTEROL SULFATE NEB 2.5 MG/3 ML INH 15 MG INHALATION (13:38)
--- NOTE | 2021-09-17 13:51 | WPDCNINT ---
Assessment and Plan Assessment and plan (1) Asthma with status asthmaticus in adult: Qualifiers: Asthma severity: severe Code(s): J45.902 - Unspecified asthma with status asthmaticus Status: Acute Assessment and Plan: Patient presented with increasing shortness of breath, likely related to asthma exacerbation/status asthmaticus. -patient is intubated on 09/17/2021 upon arrival to the ICU as she was in impending respiratory failure with significant tachypnea with respiratory rates of 40s to 50s, in tripod position, using accessory muscles of respiration. -currently on CMV mode of ventilation, peep of 6 and 50% FiO2 -chest x-ray and ABGs reviewed -patient had some elevated peak pressures which are likely from increased airway resistance -continue bronchodilators and p.r.n. continuous nebs as needed -continue Pulmicort -continue steroids -start patient on ceftriaxone -sedated with fentanyl, Versed. - Nimbex infusion neuromuscular blockade -appreciate pulmonology evaluation and recommendations (2) Hypertension: Code(s): I10 - Essential (primary) hypertension Status: Acute Assessment and Plan: Blood pressures have been stable off blood pressure medications -likely due to positive pressure ventilation and sedation medication (3) Hypercholesterolemia: Code(s): E78.00 - Pure hypercholesterolemia, unspecified Status: Acute Assessment and Plan: Will restart statin once patient is able to take p.o. Additional Plan DVT prophylaxis: Lovenox Stress ulcer prophylaxis: Protonix Nutrition: Will start tube feeds in a.m. Discussed with and daughter and updated them with patient's condition and plan of care. I answered all questions Code status: Full code Critical care time spent: 47 minutes This dictation may have been done utilizing a voice recognition system. Attempts have been made to correct errors. However, there may be uncorrected grammatical, spelling, and recognition errors present. Due to a high probability of clinically significant, life threatening deterioration, the patient required my highest level of preparedness to intervene emergently and I personally spent this critical care time directly and personally managing the patient. This critical care time included obtaining a history; examining the patient; pulse oximetry; ordering and review of studies; arranging urgent treatment with development of a management plan; evaluation of patient's response to treatment; frequent reassessment; and discussions with other providers. It was exclusive of separately billable procedures and treating other patients and teaching time. Please see Assessment and Plan section and the rest of the note for further information on patient assessment and treatment Survey Data Technician Consult Note Consult date: 09/17/21 Reason for consult: Asthma exacerbation/status asthmaticus, elevated creatinine HPI: Vandana Ojeda is a 51 year old female with past medical history of asthma, anemia, hyperlipidemia, essential hypertension presented the ED with increasing shortness of breath which has been ongoing for almost a week with worsened in the last few days. She was in the ED on 09/15/2021 and was given a continuous neb and improved at that time was sent home. Patient was tripoding and was in respiratory distress in the ED. She was placed on BiPAP as her initial ABGs were 7.10/77/74/23/80 8% on 10 L nasal cannula. Patient was placed on BiPAP and sent to the ICU for further management. When I saw the patient this morning she was breathing 40-50 times a minute and was using her accessory muscles of respiration. She was in impending respiratory failure and I discussed with her regarding early intubation to which she agreed. Patient was successfully intubated and placed on mechanical ventilation. Currently sedated with fentanyl and Versed infusion, she is also on Nimbex infusion for neuromuscular blockad
--- NOTE | 2021-09-17 13:54 | PM.IMHP ---
H&P: HPI History of Present Illness Date/Time: 09/17/21 13:54 Chief Complaint: 51-year-old female history of asthma presented to the emergency department for evaluation of worsening shortness of breath.? Patient states over the last few days she has had a persistent asthma exacerbation.? Patient was evaluated in the emergency department on Wednesday and states she did get a continuous neb and did feel improved at the time.? Patient states that Wednesday night she began worsening and felt poorly throughout the day on Wednesday.? Patient presented to the emerge department on Wednesday night with significant difficulty breathing.? Patient was tripoding and in mild distress. Patient states her last admission for asthma was approximately 3 years ago.? Patient has never been intubated.? Patient is unsure of any triggers that may have caused this asthma exacerbation.? Patient denies any changes to medications and denies any new pets or exposure to allergens. Review of Systems Review of Systems: ROS unobtainable: Yes unobtainable due to endotracheal tube, unobtainable due to medical condition and unobtainable due to mental status PMFSH Past Medical History Medical History (Updated 09/17/21 @ 13:57 by Manuelito Narvaez MD) Anemia no iron--had IV injection Asthma Hypercholesterolemia Hypertension Screening mammogram, encounter for Surgical History Surgical History (Updated 05/01/21 @ 11:24 by Mili Savage) History of abdominal supracervical subtotal hysterectomy 08/26/17 Supracx abdominal hyst w/ovarian preservation--enlarged uterine fibroid History of 02/01/98 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 History of tubal ligation 02/01/98 Family History Family History Other Acute myocardial infarction maternal uncle Sibling Kidney disease brother--pt donated 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 Social History Social History (Updated 05/05/21 @ 10:55 by KIMMIE Godinez) Smoking packs per day: 0.5 Smoking cigarettes per day: 10.0 Years smoked: 5 Smoking pack-years: 2.50 Smoking status: Former smoker Second hand tobacco smoke exposure: Yes Alcohol intake: never Substance use: never Substance use type: does not use Additional living arrangements comments: spouse Additional occupation/education comments: housewife Gender identity (if verbalized by the patient): Female Sexual Orientation (if Verbalized by the Patient): Straight or Heterosexual Spiritual care concerns: No Meds Home Medications and Allergies Home Medications Medication Instructions Recorded Confirmed Type albuterol sulfate 90 mcg/actuation 2 puff inhalation Q4-6H PRN 03/09/19 09/17/21 Rx aerosol inhaler (Ventolin HFA) shortness of breath or wheezing #18 grams atorvastatin 20 mg tablet 20 mg PO DAILY 03/09/19 09/17/21 History fluticasone furoate 100 100 mcg inhalation BID 03/09/19 09/17/21 History mcg/actuation blister powder for inhalation (Arnuity Ellipta) lisinopril 20 mg tablet 20 mg PO DAILY 03/09/19 09/17/21 History metoprolol tartrate 50 mg tablet 50 mg PO DAILY 03/09/19 09/17/21 History prednisone 50 mg tablet 50 mg PO DAILY #7 tabs 09/15/21 09/17/21 Rx Allergies Allergy/AdvReac Type Severity Reaction Status Date / Time dog dander Allergy Wheezing Verified 09/17/21 10:23 Vital Signs Vital Signs - 24 hr 09/17/21 02:44 09/17/21 03:00 09/17/21 03:16 Temperature 97.6 F Pulse Rate 128 H Respiratory Rate 40 H 38 H 39 H Blood Pressure 174/126 H Pulse Oximetry 86 L 97 Oxygen Delivery Non-Rebreather Mask BiPAP Oxygen Flow Rate 12 Fraction of Inspired Oxygen 09/17/21 03:40 09/17/21 03:36 09/17/21 04:16 Temperature Pulse Rate Respiratory Rate 41 H Blood Pressure Pulse Oximetry 100 Oxygen Delivery BiPAP BiPAP Oxygen Flow Rate Fraction of Inspired Oxygen 09/17/21 04:32 06
[2021-09-17 15:48] LABS: Alveolar/Arterial O2 Gradient 94.4 mmHg; Base Excess ABG -8.5 mEq/l (+/-2.0); Fractional Inspired Oxygen 40 %; HCO3 ABG 19.1 mEq/l (22.0-26.0); Oxygen Content ABG 18.5 %vol (16.0-22.0); Oxygen Saturation ABG 98.2 % (95.0-100.0); Oxyhemoglobin 97.6 % THb (90.0-100.0); PCO2 ABG 47.6 mmHg (35.0-45.0); PO2 ABG 136.1 mmHg (80.0-100.0); Total Hemoglobin 13.3 g/dL (12.0-18.0)
[2021-09-17 15:50] LABS: Modified Allen's Test Pass; Site Drawn RIGHT RADIAL; pH ABG 7.221 (7.350-7.450)
[2021-09-17 15:51] LABS: Arterial Blood Gas PEEP 6 cmH2O; Arterial Blood Gas Tidal Volume 380 ml; Arterial Blood Gas Vent Mode CMV; Arterial Blood Gas Ventilator rate 24 /MIN; Device VENTILATOR
[2021-09-17 16:45] LABS: Glucose Point of Care 201 mg/dl (65-105)
[2021-09-17] MEDS: CISATRACURIUM BESYLATE 200 MG in DEXTROSE 5% 80 ML 12 ML IV CONT (17:17)
[2021-09-17] MEDS: INSULIN ASPART (*BKC) 100 UNITS/ML SUB-Q (17:19)
[2021-09-17] MEDS: MINERAL OIL/WHITE PETROLATUM OINTMENT 1 APPLIC EACH EYE (20:31)
[2021-09-17 23:58] LABS: Glucose Point of Care 138 mg/dl (65-105)
[2021-09-18] VITALS (51 sets, daily range): BP systolic 94–138; BP diastolic 55–81; PULSE 81–104; RESP 20–28; TEMP 36.4–36.9; O2SAT 95–100
[2021-09-18] MEDS: IPRATROPIUM BR 0.02% INH SOLN 0.5 MG/2.5 ML VIAL INHALATION ×7 (00:50→23:53)
[2021-09-18] MEDS: MIDAZOLAM 100MG/NS 100ML(*CRX) 100 MG/100 ML BAG IV CONT (01:37)
[2021-09-18] MEDS: FENTANYL 2,500MCG/NS250ML(*CRX 2,500 MCG/250 ML BAG 12.5 MCG IV CONT (03:20)
[2021-09-18] MEDS: SODIUM CHLORIDE 0.9% IV 1,000 ML 75 ML IV CONT ×2 (03:24→17:20)
[2021-09-18] MEDS: CISATRACURIUM BESYLATE 200 MG in DEXTROSE 5% 80 ML 7.5 ML IV CONT (03:24)
[2021-09-18] MEDS: methylPREDNISolone SOD SUCC 125 MG VIAL 60 MG IV PUSH ×4 (05:24→23:47)
[2021-09-18 05:27] LABS: Basophils Percent Auto 0.1 % (0.2-1.2); Hematocrit 36.7 % (37.0-47.0); Hemoglobin 11.9 g/dL (12.0-15.0); Immature Granulocyte Percent A 0.7 % (0-0.5); Lymphocytes Percent Auto 5.7 % (18.3-44.2); Mean Corpuscular HGB Conc 32.4 g/dl (32-36); Mean Corpuscular Volume 92.4 fl (80-100); Mean Platelet Volume 9.5 fl (7.4-10.4); Monocytes Absolute Auto 0.7 K/mm3 (0.1-0.6); Monocytes Percent Auto 4.7 % (2.6-8.5); Neutrophils Absolute Auto 12.4 K/mm3 (1.3-6.7); Neutrophils Percent Auto 88.8 % (45.5-73.1); Platelet Count Result 227 k/mm3 (150-375); Red Blood Count 3.97 M/mm3 (4.2-5.4); Red Cell Distribution Width 13.6 % (11.5-14.5)
[2021-09-18 05:31] LABS: Glucose Point of Care 172 mg/dl (65-105)
[2021-09-18 05:40] LABS: Alanine Aminotransferase 36 U/L (6-35); Albumin Level 3.3 g/dL (3.5-5.1); Alkaline Phosphatase 74 U/L (38-126); Anion Gap 2 mmol/L (8-16); Aspartate Amino Transferase 35 U/L (14-36); Bilirubin,Total 0.2 mg/dL (0.2-1.3); Blood Urea Nitrogen 22 mg/dL (7-17); Calcium 7.8 mg/dL (8.4-10.2); Carbon Dioxide 22 mmol/L (22-30); Chloride 113 mmol/L (98-107); Estimated CRCL calculation 63 ml/min; Estimated Glomerular Filt Rate 59; Glucose 163 mg/dL (65-110); Potassium 5.2 mmol/L (3.4-5.0); Sodium 137 mmol/L (137-145)
[2021-09-18 05:42] LABS: Lactic Acid Reflex 1.1 mmol/L (0.7-2.0); Magnesium 2.7 mg/dL (1.6-2.3); Phosphorus 2.3 mg/dL (2.5-4.5)
[2021-09-18 05:50] LABS: Alveolar/Arterial O2 Gradient 89.6 mmHg; Base Excess ABG -2.4 mEq/l (+/-2.0); Carboxyhemoglobin 0.3 % THb (0-2.0); Fractional Inspired Oxygen 30 %; HCO3 ABG 22.6 mEq/l (22.0-26.0); Methemoglobin ABG 0.4 %THb (0-1.5); Oxygen Content ABG 17.2 %vol (16.0-22.0); Oxygen Saturation ABG 95.1 % (95.0-100.0); Oxyhemoglobin 94.7 % THb (90.0-100.0); PO2 ABG 77.3 mmHg (80.0-100.0); PO2 FiO2 Ratio Arterial Blood 2.58 %; Reduced Hemoglobin 4.6 %THb (0-5.0); Total Hemoglobin 12.9 g/dL (12.0-18.0)
[2021-09-18 05:52] LABS: Device VENTILATOR; Modified Allen's Test Pass; Site Drawn LEFT RADIAL
[2021-09-18 05:53] LABS: Arterial Blood Gas PEEP 6 cmH2O; Arterial Blood Gas Tidal Volume 380 ml; Arterial Blood Gas Vent Mode CMV; Arterial Blood Gas Ventilator rate 24 /MIN
[2021-09-18] MEDS: BUDESONIDE RESPULE NEB 0.5 MG/2 ML AMP INHALATION ×2 (08:11→20:44)
[2021-09-18] MEDS: ENOXAPARIN 40 MG/0.4 ML SYRINGE SUB-Q (08:38)
[2021-09-18] MEDS: MINERAL OIL/WHITE PETROLATUM OINTMENT 1 APPLIC EACH EYE ×2 (08:38→20:15)
[2021-09-18] MEDS: PANTOPRAZOLE SODIUM IV 40 MG VIAL IV PUSH (08:38)
[2021-09-18] MEDS: CENTRAL LINE FLUSH 10 ML IV PUSH ×3 (08:39→20:15)
[2021-09-18] MEDS: SODIUM PHOSPHATE 20 MM in DEXTROSE 5% IN WATER 250 ML 50 MM IVPB (08:39)
--- NOTE | 2021-09-18 09:31 | WPDINTPN ---
Progress Note: A&P Assessment and Plan (1) Asthma with status asthmaticus in adult: Qualifiers: Asthma severity: severe Code(s): J45.902 - Unspecified asthma with status asthmaticus Status: Acute Assessment and Plan: Patient presented with increasing shortness of breath, likely related to asthma exacerbation/status asthmaticus. -patient is intubated on 09/17/2021 upon arrival to the ICU as she was in impending respiratory failure with significant tachypnea with respiratory rates of 40s to 50s, in tripod position, using accessory muscles of respiration. -currently on CMV mode of ventilation, peep of 6 and 30% FiO2 -chest x-ray and ABGs reviewed -patient had some elevated peak pressures which are likely from increased airway resistance, peak airway pressures have been < 30 this morning -continue bronchodilators and continuous nebs as needed -continue Pulmicort -continue steroids -continue ceftriaxone -sedated with fentanyl, Versed. - Nimbex infusion neuromuscular blockade, will start weaning Nimbex -appreciate pulmonology evaluation and recommendations (2) Hypertension: Code(s): I10 - Essential (primary) hypertension Status: Acute Assessment and Plan: Blood pressures have been stable off blood pressure medications -likely due to positive pressure ventilation and sedation medication (3) Hypercholesterolemia: Code(s): E78.00 - Pure hypercholesterolemia, unspecified Status: Acute Assessment and Plan: Will restart statin once patient is able to take p.o. Plan Wean Nimbex Continue mechanical ventilation Continue steroids, antibiotics, bronchodilators Additional Plan DVT prophylaxis: Lovenox Stress ulcer prophylaxis: Protonix Nutrition: Continue tube feeds, patient tolerating Discussed with and daughter and updated them with patient's condition and plan of care. I answered all questions Discussed with business education professor Code status: Full code Critical care time spent: 34 minutes This dictation may have been done utilizing a voice recognition system. Attempts have been made to correct errors. However, there may be uncorrected grammatical, spelling, and recognition errors present. Due to a high probability of clinically significant, life threatening deterioration, the patient required my highest level of preparedness to intervene emergently and I personally spent this critical care time directly and personally managing the patient. This critical care time included obtaining a history; examining the patient; pulse oximetry; ordering and review of studies; arranging urgent treatment with development of a management plan; evaluation of patient's response to treatment; frequent reassessment; and discussions with other providers. It was exclusive of separately billable procedures and treating other patients and teaching time. Please see Assessment and Plan section and the rest of the note for further information on patient assessment and treatment Subjective Date/time seen: 09/18/21 09:31 Interval history: Reason for consult: Asthma exacerbation/status asthmaticus, elevated creatinine 09/18/2021: Patient seen and examined the ICU, remains intubated on CMV mode of ventilation, 40% FiO2 and peep of 6. Sedated with fentanyl, Versed infusion. Patient also on Nimbex for neuromuscular blockade. ABGs much improved this morning. Urine output has been adequate, urine is cloudy. Patient is hemodynamically stable, afebrile. She is tolerating tube feeds Review of Systems Review of Systems: ROS unobtainable: Yes unobtainable due to endotracheal tube, unobtainable due to medical condition and unobtainable due to mental status Exam Narrative: General: Patient is intubated and sedated HEENT: Pupils equal and reactive, ETT in place Neck: Supple, no cervical lymphadenopathy Respiratory: Expiratory and inspiratory wheezing noted, adequate air entry, lung sounds are dim
--- NOTE | 2021-09-18 09:55 | PM.PNPUL ---
Progress Note: A&P Assessment and Plan (1) Asthma with status asthmaticus in adult: Qualifiers: Asthma severity: severe Code(s): J45.902 - Unspecified asthma with status asthmaticus Status: Acute Assessment and Plan: 09/17 patient with a history of lifelong asthma was never been intubated and over the last year was only using p.r.n. inhaled corticosteroids on an infrequent basis according to the . Patient with 5 days worsening shortness of breath and she told her that this was her typical asthma symptoms. Patient continue to deteriorate and presented to the hospital on 09/15 and was treated with oral oral prednisone. She continued to do worsen was re-presented to the emergency room on 09/17 with status asthmaticus failing BiPAP and requiring intubation. Chest x-ray with no evidence of focal infiltrates, no evidence of cardiac diseases. Patient had 1 COVID test negative on 09/15 and I will repeat that today. Will send blood and sputum cultures. She is unvaccinated. I will send influenza swab. I will send an extended viral RNA pathogen swab looking for additional respiratory viral infections. Agree with Solu-Medrol 60 mg IV q.6 hours, levalbuterol 1.25 Q 6, ipratropium 0.5 mg q.4 hours, budesonide 0.5 mg q.12 hours. Agree with empiric treatment with ceftriaxone. Vent management per ICU team. Agree with paralytic and goal plateau pressure less than 30 at this time. Discussed with over the phone. Discussed with software test engineer Dr. Griffin at bedside. 09/18 Patient remains intubated, sedated with fentanyl and Versed, paralyzed. She has faint mid expiratory wheezes today on exam. Her peak airway pressures are improved and currently she is on a rate of 24, tidal volume 380, 30% and 6 of peep with a peak airway pressure of 30. Her blood gases 7.37/40/77. Chest x-ray without acute disease. Overall she has improved. She has less wheezing and her peak airway pressures are decreased. Agree with an attempt to discontinue the paralytic today. Will continue Solu-Medrol 60 mg IV q.6 hours. Continue levalbuterol and ipratropium nebulizers q.4 hours. Empiric treatment with ceftriaxone for now. Blood cultures are negative. Discussed with Dr. Karmally will follow with you. Subjective Date/time seen: 09/18/21 09:55 Interval history: 09/17/2021:? This is a new pulmonary consult for asthma exacerbation requiring mechanical ventilation ?51-year-old woman with a history of obesity and asthma.? ? I spoke with the .? The patient has asthma since childhood and is been on and off of Medicine since then.? She has never been intubated in the past and her asthma is monitored by her primary physician.? She takes an inhaler and uses it intermittently and at times does not need any inhalers.? He says her activities of daily living are on limited by her asthma. ? On 09/12 the patient developed mild shortness of breath and she started using her inhalers more regularly.? The denied any fever, chills, rigors, change in her breathing status at that time.? She continued to get worse and the patient was seen in the emergency department on 09/15/2021 for shortness of breath and dyspnea.? The note stated she was worse over the last week with no improvement with nebulizers at home.? She denied fever chills or sweat this.? No cough.? She had diffuse expiratory wheezes with poor air volume, she was afebrile, sats were 99% on room air white blood cell count was 9.7 with eosinophils 4.7% equal 456/uL.? chest x-ray was with no active disease.? ? COVID RT PCR test was negative.? Patient was discharged home with prednisone 50 mg p.o. q.day x7 days and to continue her Arnuity ellipta 100. ?patient returned to the emergency department on 09/17/2021 at 2:44 a.m. with worsening shortness of breath.? the note states that she got worse on 09/16 and presented in a tripod in position in mild respiratory
--- NOTE | 2021-09-18 11:04 | PCFNICU ---
ICU Rounding Note: Pt current nutrition is Vital 1.2 @ 60ml/hr which is the recommended goal rate. This provides 1584kcals, 99g protein over 22 hrs Nutrition recommendation: Continue with current nutrition support orders. Last recorded weight is 100.5 kg - stable. Bowel Motility: no BM recorded at this time, + bowel sounds Labs Reviewed: hgb:11.9, HCT:36.7, Alb:3.3, K:5.2, BUN:22, Glu:163 Meds Noted: lovenox, solumedrol, versed, protonix Skin: WNL Additional Notes: Pt remains on mechanical ventilation. Started on tube feeds yesterday, advanced to goal rate and is tolerating well. Current tube feed is meeting 100% of estimated needs. Agree with diet orders. Following daily in ICU rounds. Monitor and follow up every /Wednesday.
[2021-09-18 11:05] LABS: Add Urine Microscopic? YES; Appearance Urine Slightly Cloudy (Clear); Bilirubin Urine Negative (Negative); Blood Urine 2+ (Negative); Color Urine Yellow (Yellow); Glucose Urine UA Trace mg/dL (Negative); Ketones Urine Negative (Negative); Leukocyte Esterase Ur Negative LEU/UL (NEGATIVE); Nitrate Urine Negative (Negative); Protein Urine Negative (Negative); Specific Grav Ur >= 1.030 (1.001-1.035); Urobilinogen Urine 0.2 mg/dL (<2.0)
[2021-09-18 11:20] LABS: Mucus Urine Rare /lpf
[2021-09-18 11:48] LABS: Glucose Point of Care 188 mg/dl (65-105)
--- NOTE | 2021-09-18 12:52 | PM.IMPN ---
Progress Note: A&P Assessment and Plan (1) Asthma with status asthmaticus in adult: Qualifiers: Asthma severity: severe Code(s): J45.902 - Unspecified asthma with status asthmaticus Status: Acute Assessment and Plan: the patient is currently sedated on the vent. Continue supportive care. Continue Solu-Medrol and antibiotics. Chest x-ray noted Managed per ICU (2) Asthma: Code(s): J45.909 - Unspecified asthma, uncomplicated Status: Acute Assessment and Plan: see plan above. (3) Hypercholesterolemia: Code(s): E78.00 - Pure hypercholesterolemia, unspecified Status: Acute Assessment and Plan: Monitor (4) Hypertension: Code(s): I10 - Essential (primary) hypertension Status: Acute Assessment and Plan: monitor Subjective Date/time seen: 09/18/21 12:52 Still intubated. Exam Narrative: General: Patient is intubated and sedated HEENT: Pupils equal and reactive, ETT in place Neck: Supple, no cervical lymphadenopathy Respiratory: Expiratory and inspiratory wheezing noted, adequate air entry, lung sounds are diminished Cardiac: S1-S2 is normal, regular rate and rhythm Abdomen: Soft, nontender, obese, nondistended, hypoactive bowel sounds Extremities: No edema, palpable pedal pulses Neuro: Patient is intubated and sedated, currently on neuromuscular blockade. Prior to intubation patient was awake, moving all extremities and answering to questions Skin: No lesions noted Psych: Unable to assess at this time Objective Data Vital Signs Vital Signs: Vital Signs - 24 hr 09/17/21 13:07 09/17/21 13:42 09/17/21 13:43 Temperature Pulse Rate 95 98 96 Respiratory Rate 24 H 24 H Blood Pressure 96/69 L Pulse Oximetry 100 Oxygen Delivery Mechanical Ventilation Fraction of Inspired Oxygen 40 09/17/21 14:00 09/17/21 14:00 09/17/21 15:28 Temperature 97 F L Pulse Rate 96 96 100 Respiratory Rate 24 H 24 H Blood Pressure 97/69 L Pulse Oximetry 100 Oxygen Delivery Fraction of Inspired Oxygen 09/17/21 15:58 09/17/21 16:00 09/17/21 16:00 Temperature 97.1 F L Pulse Rate 101 H 100 Respiratory Rate 24 H Blood Pressure 96/66 L Pulse Oximetry 99 Oxygen Delivery Fraction of Inspired Oxygen 30 09/17/21 16:00 09/17/21 16:32 09/17/21 16:34 Temperature Pulse Rate 100 100 Respiratory Rate 24 H 24 H Blood Pressure 96/66 L Pulse Oximetry 99 Oxygen Delivery Mechanical Ventilation Fraction of Inspired Oxygen 30 09/17/21 16:35 09/17/21 17:17 09/17/21 17:17 Temperature Pulse Rate 100 100 100 Respiratory Rate 24 H 24 H 24 H Blood Pressure 91/61 L 91/61 L Pulse Oximetry Oxygen Delivery Fraction of Inspired Oxygen 09/17/21 17:24 09/17/21 17:19 09/17/21 18:00 Temperature 97.4 F L Pulse Rate 94 93 95 Respiratory Rate 24 H Blood Pressure 88/56 L Pulse Oximetry 100 98 Oxygen Delivery Mechanical Ventilation Fraction of Inspired Oxygen 30 09/17/21 19:44 09/17/21 19:46 09/17/21 19:46 Temperature Pulse Rate 95 95 92 Respiratory Rate 24 H 24 H Blood Pressure 92/57 L Pulse Oximetry 97 Oxygen Delivery Mechanical Ventilation Fraction of Inspired Oxygen 30 09/17/21 19:48 09/17/21 19:50 09/17/21 19:57 Temperature Pulse Rate 92 Respiratory Rate 24 H Blood Pressure Pulse Oximetry Oxygen Delivery Mechanical Ventilation Fraction of Inspired Oxygen 30 30 09/17/21 19:59 09/17/21 20:00 09/17/21 20:00 Temperature 97.2 F L Pulse Rate 92 93 100 Respiratory Rate 24 H 24 H Blood Pressure 94/62 L Pulse Oximetry 99 Oxygen Delivery Fraction of Inspired Oxygen 09/17/21 21:28 09/17/21 22:00 09/17/21 22:00 Temperature 97.4 F L Pulse Rate 94 90 90 Respiratory Rate 24 H 24 H Blood Pressure 90/54 L 94/52 L Pulse Oximetry 100 Oxygen Delivery Fraction of Inspired Oxygen 06
[2021-09-18 16:15] LABS: Glucose Point of Care 156 mg/dl (65-105)
[2021-09-18] MEDS: MIDAZOLAM 100MG/NS 100ML(*CRX) 100 MG/100 ML BAG 6 MG IV CONT (20:16)
[2021-09-18] MEDS: FENTANYL 2,500MCG/NS250ML(*CRX 2,500 MCG/250 ML BAG 15 MCG IV CONT (22:48)
[2021-09-18 23:28] LABS: Glucose Point of Care 181 mg/dl (65-105)
[2021-09-19] VITALS (44 sets, daily range): BP systolic 120–185; BP diastolic 66–124; PULSE 80–142; RESP 17–26; TEMP 36.8–37.5; O2SAT 94–99
[2021-09-19] MEDS: IPRATROPIUM BR 0.02% INH SOLN 0.5 MG/2.5 ML VIAL INHALATION ×5 (04:47→20:11)
[2021-09-19] MEDS: CENTRAL LINE FLUSH 10 ML IV PUSH ×3 (05:18→21:28)
[2021-09-19] MEDS: methylPREDNISolone SOD SUCC 125 MG VIAL 60 MG IV PUSH (05:18)
[2021-09-19 05:21] LABS: Alveolar/Arterial O2 Gradient 86.1 mmHg; Base Excess ABG -2.7 mEq/l (+/-2.0); Carboxyhemoglobin 0.7 % THb (0-2.0); Fractional Inspired Oxygen 30 %; HCO3 ABG 23.1 mEq/l (22.0-26.0); Methemoglobin ABG 0.1 %THb (0-1.5); Oxygen Content ABG 17.5 %vol (16.0-22.0); Oxygen Saturation ABG 94.5 % (95.0-100.0); PCO2 ABG 43.9 mmHg (35.0-45.0); PO2 ABG 76.2 mmHg (80.0-100.0); PO2 FiO2 Ratio Arterial Blood 2.54 %; Reduced Hemoglobin 5.2 %THb (0-5.0); Total Hemoglobin 13.2 g/dL (12.0-18.0); pH ABG 7.339 (7.350-7.450)
[2021-09-19 05:22] LABS: Arterial Blood Gas PEEP 5 cmH2O; Arterial Blood Gas Tidal Volume 380 ml; Arterial Blood Gas Vent Mode CMV; Arterial Blood Gas Ventilator rate 24 /MIN; Device VENTILATOR; Modified Allen's Test Unable to perform; Site Drawn LEFT RADIAL
[2021-09-19 05:45] LABS: Basophils Percent Auto 0.1 % (0.2-1.2); Hematocrit 39.7 % (37.0-47.0); Hemoglobin 12.8 g/dL (12.0-15.0); Immature Granulocyte Percent A 1.7 % (0-0.5); Lymphocytes Absolute Auto 0.75 K/mm3 (0.9-3.2); Lymphocytes Percent Auto 4.3 % (18.3-44.2); Mean Corpuscular HGB Conc 32.2 g/dl (32-36); Mean Corpuscular Volume 93.2 fl (80-100); Mean Platelet Volume 9.6 fl (7.4-10.4); Monocytes Absolute Auto 0.6 K/mm3 (0.1-0.6); Monocytes Percent Auto 3.3 % (2.6-8.5); Neutrophils Absolute Auto 15.7 K/mm3 (1.3-6.7); Neutrophils Percent Auto 90.6 % (45.5-73.1); Platelet Count Result 260 k/mm3 (150-375); Red Blood Count 4.26 M/mm3 (4.2-5.4); Red Cell Distribution Width 13.6 % (11.5-14.5); White Blood Count 17.3 K/mm3 (4.5-10.0)
[2021-09-19 05:53] LABS: Magnesium 2.5 mg/dL (1.6-2.3); Phosphorus 2.8 mg/dL (2.5-4.5)
[2021-09-19 06:37] LABS: Glucose Point of Care 171 mg/dl (65-105)
[2021-09-19] MEDS: SODIUM CHLORIDE 0.9% IV 1,000 ML 75 ML IV CONT (06:45)
[2021-09-19 07:54] LABS: Alanine Aminotransferase 29 U/L (6-35); Albumin Level 3.3 g/dL (3.5-5.1); Alkaline Phosphatase 73 U/L (38-126); Anion Gap 3 mmol/L (8-16); Aspartate Amino Transferase 23 U/L (14-36); Bilirubin,Total < 0.1 mg/dL (0.2-1.3); Blood Urea Nitrogen 27 mg/dL (7-17); Carbon Dioxide 24 mmol/L (22-30); Chloride 114 mmol/L (98-107); Estimated CRCL calculation 71 ml/min; Estimated Glomerular Filt Rate > 60; Glucose 163 mg/dL (65-110); Potassium 5.3 mmol/L (3.4-5.0); Sodium 141 mmol/L (137-145)
[2021-09-19] MEDS: BUDESONIDE RESPULE NEB 0.5 MG/2 ML AMP INHALATION ×2 (08:35→20:11)
[2021-09-19] MEDS: FUROSEMIDE INJ 40 MG/4 ML VIAL 20 MG IV PUSH (09:22)
[2021-09-19] MEDS: MINERAL OIL/WHITE PETROLATUM OINTMENT 1 APPLIC EACH EYE ×2 (09:23→21:28)
[2021-09-19] MEDS: ENOXAPARIN 40 MG/0.4 ML SYRINGE SUB-Q (09:23)
[2021-09-19] MEDS: PANTOPRAZOLE SODIUM IV 40 MG VIAL IV PUSH (09:23)
--- NOTE | 2021-09-19 12:06 | PM.PNPUL ---
Progress Note: A&P Assessment and Plan (1) Asthma with status asthmaticus in adult: Qualifiers: Asthma severity: severe Code(s): J45.902 - Unspecified asthma with status asthmaticus Status: Acute Assessment and Plan: 09/17 patient with a history of lifelong asthma was never been intubated and over the last year was only using p.r.n. inhaled corticosteroids on an infrequent basis according to the . Patient with 5 days worsening shortness of breath and she told her that this was her typical asthma symptoms. Patient continue to deteriorate and presented to the hospital on 09/15 and was treated with oral oral prednisone. She continued to do worsen was re-presented to the emergency room on 09/17 with status asthmaticus failing BiPAP and requiring intubation. Chest x-ray with no evidence of focal infiltrates, no evidence of cardiac diseases. Patient had 1 COVID test negative on 09/15 and I will repeat that today. Will send blood and sputum cultures. She is unvaccinated. I will send influenza swab. I will send an extended viral RNA pathogen swab looking for additional respiratory viral infections. Agree with Solu-Medrol 60 mg IV q.6 hours, levalbuterol 1.25 Q 6, ipratropium 0.5 mg q.4 hours, budesonide 0.5 mg q.12 hours. Agree with empiric treatment with ceftriaxone. Vent management per ICU team. Agree with paralytic and goal plateau pressure less than 30 at this time. Discussed with over the phone. Discussed with leather belt loop cutter Dr. Griffin at bedside. 09/18 Patient remains intubated, sedated with fentanyl and Versed, paralyzed. She has faint mid expiratory wheezes today on exam. Her peak airway pressures are improved and currently she is on a rate of 24, tidal volume 380, 30% and 6 of peep with a peak airway pressure of 30. Her blood gases 7.37/40/77. Chest x-ray without acute disease. Overall she has improved. She has less wheezing and her peak airway pressures are decreased. Agree with an attempt to discontinue the paralytic today. Will continue Solu-Medrol 60 mg IV q.6 hours. Continue levalbuterol and ipratropium nebulizers q.4 hours. Empiric treatment with ceftriaxone for now. Blood cultures are negative. 09/19 Patient remains intubated and sedated with fentanyl and Versed. She has no wheeze on exam. Peak airway pressure is 27. [place] rate of 24, tidal volume 380, 30% and a peep of 5 with a blood gas of 7.34/44/76. chest x-ray with no focal infiltrates and no change from 09/18/2021. G stain of the sputum showed few Gram-negative diplococci, few gram-positive cocci. Agree with spontaneous breathing trial with possible extubation. I will decrease her Solu-Medrol to 20 mg IV q.6 hours. If patient continues to improve would switch her to prednisone 50 mg p.o. q.day starting tomorrow. In-hospital Pulmonary Services will resume on 09/22/2021. Call with questions. Discussed with Dr. Griffin Will follow with you. Subjective Date/time seen: 09/19/21 12:06 Interval history: 09/17/2021:? This is a new pulmonary consult for asthma exacerbation requiring mechanical ventilation ?51-year-old woman with a history of obesity and asthma.? ? I spoke with the .? The patient has asthma since childhood and is been on and off of Medicine since then.? She has never been intubated in the past and her asthma is monitored by her primary physician.? She takes an inhaler and uses it intermittently and at times does not need any inhalers.? He says her activities of daily living are on limited by her asthma. ? On 09/12 the patient developed mild shortness of breath and she started using her inhalers more regularly.? The denied any fever, chills, rigors, change in her breathing status at that time.? She continued to get worse and the patient was seen in the emergency department on 09/15/2021 for shortness of breath and dyspnea.? The note stated she was worse ov
[2021-09-19 12:10] LABS: Glucose Point of Care 161 mg/dl (65-105)
--- NOTE | 2021-09-19 12:11 | PCNFU ---
Nutrition Follow-Up Complete: Inadequate energy intake related to NPO with mechanical ventilation as evidenced by current condition. Goal: Meet nutritional needs Patient is progressing towards goal. Pt current nutrition is Vital AF 1.2 at 60 ml/hr over 22 hours. Last recorded weight is 103.2 kg, up from 100 kg on admit. Bowel Motility:No BM reported plans to start miralax today. Labs Reviewed:Glu 163, BUN 27, K 5.3,Alb 3.3,Mg 2.5 Meds Noted:Fentanyl, Versed, Miralax, Rocephin, Lovenox, Solu Medrol, Protonix Skin: WNL Additional Notes: Patient seen today for nutrition follow up. She remains on mechanical vent and tube feedings of Vital AF 1.2 at 60 ml/hr and tolerating per nursing. Hopefully extubating today, Sedation coming down. Current tube feeding is providing 1584 kcals/99 gms protein, meeting 100% of caloric and protein needs. Free water flush 30 ml q 4 hours. Agree with diet orders. MOnitoring: Monitor start of tubefeeding, tolerance, wt, labs. Follow in ICU rounds daily and /Wednesday
--- NOTE | 2021-09-19 12:14 | PM.IMPN ---
Progress Note: A&P Assessment and Plan (1) Asthma with status asthmaticus in adult: Qualifiers: Asthma severity: severe Code(s): J45.902 - Unspecified asthma with status asthmaticus Status: Acute Assessment and Plan: the patient is currently sedated on the vent. Continue supportive care. Continue Solu-Medrol and antibiotics. Chest x-ray noted Will follow sputum cultures (2) Asthma: Code(s): J45.909 - Unspecified asthma, uncomplicated Status: Acute Assessment and Plan: see plan above. (3) Hypercholesterolemia: Code(s): E78.00 - Pure hypercholesterolemia, unspecified Status: Acute Assessment and Plan: Monitor (4) Hypertension: Code(s): I10 - Essential (primary) hypertension Status: Acute Assessment and Plan: monitor Additional Plan DVT prophylaxis: Lovenox Stress ulcer prophylaxis: Protonix Nutrition: Continue tube feeds, patient tolerating Discussed with and daughter and updated them with patient's condition and plan of care. I answered all questions Discussed with dean of admissions Code status: Full code Critical care time spent: 34 minutes This dictation may have been done utilizing a voice recognition system. Attempts have been made to correct errors. However, there may be uncorrected grammatical, spelling, and recognition errors present. Due to a high probability of clinically significant, life threatening deterioration, the patient required my highest level of preparedness to intervene emergently and I personally spent this critical care time directly and personally managing the patient. This critical care time included obtaining a history; examining the patient; pulse oximetry; ordering and review of studies; arranging urgent treatment with development of a management plan; evaluation of patient's response to treatment; frequent reassessment; and discussions with other providers. It was exclusive of separately billable procedures and treating other patients and teaching time. Please see Assessment and Plan section and the rest of the note for further information on patient assessment and treatment Subjective Date/time seen: 09/19/21 12:14 Still intubated and sedated Exam Narrative: General: Patient is intubated and sedated HEENT: Pupils equal and reactive, ETT in place Neck: Supple, no cervical lymphadenopathy Respiratory: Expiratory and inspiratory wheezing noted, adequate air entry, lung sounds are diminished Cardiac: S1-S2 is normal, regular rate and rhythm Abdomen: Soft, nontender, obese, nondistended, hypoactive bowel sounds Extremities: No edema, palpable pedal pulses Neuro: Patient is intubated and sedated, currently on neuromuscular blockade. Prior to intubation patient was awake, moving all extremities and answering to questions Skin: No lesions noted Psych: Unable to assess at this time Objective Data Vital Signs Vital Signs: Vital Signs - 24 hr 09/18/21 12:26 09/18/21 12:27 09/18/21 13:51 Temperature Pulse Rate 104 H 102 H 104 H Respiratory Rate 24 H 24 H 28 H Blood Pressure Pulse Oximetry Oxygen Delivery Fraction of Inspired Oxygen 09/18/21 15:20 09/18/21 15:22 09/18/21 14:00 Temperature Pulse Rate 94 93 97 Respiratory Rate 24 H Blood Pressure Pulse Oximetry 99 Oxygen Delivery Mechanical Ventilation Fraction of Inspired Oxygen 09/18/21 14:00 09/18/21 14:00 09/18/21 15:55 Temperature 98.1 F Pulse Rate 97 97 95 Respiratory Rate 24 H 24 H 24 H Blood Pressure 122/70 Pulse Oximetry 96 Oxygen Delivery Fraction of Inspired Oxygen 09/18/21 15:56 09/18/21 16:00 09/18/21 16:00 Temperature 98.3 F Pulse Rate 95 95 Respiratory Rate 24 H 24 H Blood Pressure 109/67 Pulse Oximetry 98 Oxygen Delivery Fraction of Inspired Oxygen 09/18/21 16:00 09/18/21 16:00 09/18/21 17:16 Temperature Pul
--- NOTE | 2021-09-19 12:15 | WPDINTPN ---
Progress Note: A&P Assessment and Plan (1) Asthma with status asthmaticus in adult: Qualifiers: Asthma severity: severe Code(s): J45.902 - Unspecified asthma with status asthmaticus Status: Acute Assessment and Plan: Patient presented with increasing shortness of breath, likely related to asthma exacerbation/status asthmaticus. -patient is intubated on 09/17/2021 upon arrival to the ICU as she was in impending respiratory failure with significant tachypnea with respiratory rates of 40s to 50s, in tripod position, using accessory muscles of respiration. -currently on CMV mode of ventilation, peep of 6 and 30% FiO2 -chest x-ray and ABGs reviewed -patient had some elevated peak pressures which are likely from increased airway resistance, peak airway pressures have been < 30 this morning -continue bronchodilators and continuous nebs as needed -continue Pulmicort -decrease Solu-Medrol -continue ceftriaxone -sedated with fentanyl, Versed. Have asked the bedside RN to decreased/wean sedation to evaluate for extubation -patient has been off Nimbex in 09/18 -appreciate pulmonology evaluation and recommendations (2) Hypertension: Code(s): I10 - Essential (primary) hypertension Status: Acute Assessment and Plan: Blood pressures have been stable off blood pressure medications -likely due to positive pressure ventilation and sedation medication (3) Hypercholesterolemia: Code(s): E78.00 - Pure hypercholesterolemia, unspecified Status: Acute Assessment and Plan: Will restart statin once patient is able to take p.o. Plan Wean sedation to of to evaluate for extubation Will decrease steroids Additional Plan DVT prophylaxis: Lovenox Stress ulcer prophylaxis: Protonix Nutrition: Tolerating tube feeds, will currently hold it for possible extubation Discussed with and daughter and updated them with patient's condition and plan of care. I answered all questions Discussed with transportation mechanic Code status: Full code Critical care time spent: 35 minutes This dictation may have been done utilizing a voice recognition system. Attempts have been made to correct errors. However, there may be uncorrected grammatical, spelling, and recognition errors present. Due to a high probability of clinically significant, life threatening deterioration, the patient required my highest level of preparedness to intervene emergently and I personally spent this critical care time directly and personally managing the patient. This critical care time included obtaining a history; examining the patient; pulse oximetry; ordering and review of studies; arranging urgent treatment with development of a management plan; evaluation of patient's response to treatment; frequent reassessment; and discussions with other providers. It was exclusive of separately billable procedures and treating other patients and teaching time. Please see Assessment and Plan section and the rest of the note for further information on patient assessment and treatment Subjective Date/time seen: 09/19/21 12:15 Interval history: Reason for consult: Asthma exacerbation/status asthmaticus, elevated creatinine 09/19/2021: Patient seen and examined the ICU, remains intubated on CMV mode of ventilation, peep of 5 and 30% FiO2. Sedated with fentanyl and Versed infusion. Patient does open her eyes and follows simple commands. She has off Nimbex since yesterday. Urine output has been adequate. Hemodynamically stable, tolerating tube feeds and afebrile Review of Systems Review of Systems: ROS unobtainable: Yes unobtainable due to endotracheal tube, unobtainable due to medical condition and unobtainable due to mental status Exam Narrative: General: Patient is intubated and sedated HEENT: Pupils equal and reactive, ETT in place Neck: Supple, no cervical lymphadenopathy Respiratory: Clear to auscultation bilaterally, d
[2021-09-19] MEDS: MIDAZOLAM 100MG/NS 100ML(*CRX) 100 MG/100 ML BAG IV CONT (13:27)
[2021-09-19 15:54] LABS: Glucose Point of Care 151 mg/dl (65-105)
[2021-09-19] MEDS: FENTANYL 2,500MCG/NS250ML(*CRX 2,500 MCG/250 ML BAG 10 MCG IV CONT (16:01)
[2021-09-19] MEDS: methylPREDNISolone SOD SUCC 40 MG VIAL 20 MG IV PUSH (17:17)
[2021-09-19 17:53] LABS: Glucose Point of Care 157 mg/dl (65-105)
[2021-09-19 18:07] LABS: Glucose Point of Care 163 mg/dl (65-105)
[2021-09-20] VITALS (64 sets, daily range): BP systolic 115–168; BP diastolic 70–118; PULSE 71–154; RESP 17–50; TEMP 37.1–37.9; O2SAT 92–99
[2021-09-20 00:47] LABS: Glucose Point of Care 156 mg/dl (65-105)
[2021-09-20] MEDS: methylPREDNISolone SOD SUCC 40 MG VIAL 20 MG IV PUSH ×2 (01:04→06:18)
[2021-09-20] MEDS: IPRATROPIUM BR 0.02% INH SOLN 0.5 MG/2.5 ML VIAL INHALATION ×7 (01:14→23:47)
[2021-09-20 04:47] LABS: Basophils Percent Auto 0.1 % (0.2-1.2); Hematocrit 39.5 % (37.0-47.0); Hemoglobin 12.6 g/dL (12.0-15.0); Immature Granulocyte Absolute 0.33 K/mm3 (0.00-0.031); Immature Granulocyte Percent A 2.2 % (0-0.5); Lymphocytes Absolute Auto 0.96 K/mm3 (0.9-3.2); Lymphocytes Percent Auto 6.5 % (18.3-44.2); Mean Corpuscular HGB Conc 31.9 g/dl (32-36); Mean Corpuscular Hemoglobin 29.6 pg (26-34); Mean Corpuscular Volume 92.7 fl (80-100); Mean Platelet Volume 9.6 fl (7.4-10.4); Monocytes Absolute Auto 0.7 K/mm3 (0.1-0.6); Monocytes Percent Auto 4.9 % (2.6-8.5); Neutrophils Absolute Auto 12.7 K/mm3 (1.3-6.7); Neutrophils Percent Auto 86.3 % (45.5-73.1); Nucleated Red Blood Cells Perc 0.2 % (0.0-0.2); Platelet Count Result 215 k/mm3 (150-375); Red Blood Count 4.26 M/mm3 (4.2-5.4); Red Cell Distribution Width 13.6 % (11.5-14.5); White Blood Count 14.7 K/mm3 (4.5-10.0)
[2021-09-20 05:00] LABS: Alanine Aminotransferase 24 U/L (6-35); Albumin Level 3.4 g/dL (3.5-5.1); Alkaline Phosphatase 81 U/L (38-126); Anion Gap 0 mmol/L (8-16); Aspartate Amino Transferase 26 U/L (14-36); Bilirubin,Total 0.2 mg/dL (0.2-1.3); Blood Urea Nitrogen 35 mg/dL (7-17); Calcium 8.1 mg/dL (8.4-10.2); Carbon Dioxide 30 mmol/L (22-30); Chloride 110 mmol/L (98-107); Estimated CRCL calculation 74 ml/min; Estimated Glomerular Filt Rate > 60; Glucose 191 mg/dL (65-110); Magnesium 2.2 mg/dL (1.6-2.3); Phosphorus 3.2 mg/dL (2.5-4.5); Potassium 5.8 mmol/L (3.4-5.0); Sodium 140 mmol/L (137-145)
[2021-09-20 05:17] LABS: Alveolar/Arterial O2 Gradient 86.2 mmHg; Base Excess ABG 2.5 mEq/l (+/-2.0); Carboxyhemoglobin 0.3 % THb (0-2.0); Fractional Inspired Oxygen 30 %; HCO3 ABG 28.3 mEq/l (22.0-26.0); Methemoglobin ABG 0.3 %THb (0-1.5); Oxygen Content ABG 18.1 %vol (16.0-22.0); Oxygen Saturation ABG 93.9 % (95.0-100.0); Oxyhemoglobin 93.4 % THb (90.0-100.0); PCO2 ABG 48.4 mmHg (35.0-45.0); PO2 ABG 70.8 mmHg (80.0-100.0); PO2 FiO2 Ratio Arterial Blood 2.36 %; Total Hemoglobin 13.8 g/dL (12.0-18.0); pH ABG 7.385 (7.350-7.450)
[2021-09-20 05:18] LABS: Device VENTILATOR; Modified Allen's Test Pass; Site Drawn LEFT RADIAL
[2021-09-20 05:19] LABS: Arterial Blood Gas PEEP 5 cmH2O; Arterial Blood Gas Tidal Volume 380 ml; Arterial Blood Gas Vent Mode CMV; Arterial Blood Gas Ventilator rate 24 /MIN
[2021-09-20] MEDS: INSULIN ASPART (*BKC) 100 UNITS/ML SUB-Q (06:17)
[2021-09-20] MEDS: CENTRAL LINE FLUSH 10 ML IV PUSH ×3 (06:18→22:00)
[2021-09-20] MEDS: ALBUTEROL SULFATE NEB 2.5 MG/3 ML INH (07:47)
[2021-09-20] MEDS: ALBUTEROL SULFATE NEB 2.5 MG/3 ML INH 10 MG INHALATION (07:50)
[2021-09-20] MEDS: DEXTROSE 50% 25 GM/50 ML SYRINGE IV PUSH (08:01)
[2021-09-20] MEDS: SODIUM BICARBONATE 8.4% 50 MEQ/50 ML SYRINGE IV PUSH (08:01)
[2021-09-20] MEDS: SODIUM POLYSTYRENE SULFONONATE 15 GM/60 ML BTL 30 GM PO (08:01)
[2021-09-20] MEDS: dexmedeTOMIDine 400 MCG/100 ML 400 MCG/100 ML BAG 5.47 MCG IV CONT (08:02)
[2021-09-20] MEDS: INSULIN HUMAN REGULAR (*BKC) 100 UNITS/ML 10 UNITS IV PUSH (08:02)
[2021-09-20] MEDS: MINERAL OIL/WHITE PETROLATUM OINTMENT 1 APPLIC EACH EYE ×2 (08:03→21:00)
[2021-09-20] MEDS: ENOXAPARIN 40 MG/0.4 ML SYRINGE SUB-Q (08:03)
[2021-09-20] MEDS: PANTOPRAZOLE SODIUM IV 40 MG VIAL IV PUSH (08:03)
[2021-09-20] MEDS: BUDESONIDE RESPULE NEB 0.5 MG/2 ML AMP INHALATION ×2 (08:52→20:00)
[2021-09-20] MEDS: FENTANYL 2,500MCG/NS250ML(*CRX 2,500 MCG/250 ML BAG 7.5 MCG IV CONT (08:56)
--- NOTE | 2021-09-20 09:21 | WPDINTPN ---
Progress Note: A&P Assessment and Plan (1) Asthma with status asthmaticus in adult: Qualifiers: Asthma severity: severe Code(s): J45.902 - Unspecified asthma with status asthmaticus Status: Acute Assessment and Plan: Patient presented with increasing shortness of breath, likely related to asthma exacerbation/status asthmaticus. -patient is intubated on 09/17/2021 upon arrival to the ICU as she was in impending respiratory failure with significant tachypnea with respiratory rates of 40s to 50s, in tripod position, using accessory muscles of respiration. -currently on CMV mode of ventilation, peep of 6 and 30% FiO2 -chest x-ray and ABGs reviewed -patient had some elevated peak pressures which are likely from increased airway resistance, peak airway pressures have been < 30 this morning -continue bronchodilators and continuous nebs as needed -continue Pulmicort -decrease Solu-Medrol -continue ceftriaxone -patient started on Precedex infusion, have asked the bedside RN to decrease the fentanyl and Versed to off. Once patient is more awake will place patient on SBT and evaluate for extubation -patient has been off Nimbex in 09/18 -appreciate pulmonology evaluation and recommendations (2) Hypertension: Code(s): I10 - Essential (primary) hypertension Status: Acute Assessment and Plan: Blood pressures have been stable off blood pressure medications -likely due to positive pressure ventilation and sedation medication (3) Hypercholesterolemia: Code(s): E78.00 - Pure hypercholesterolemia, unspecified Status: Acute Assessment and Plan: Will restart statin once patient is able to take p.o. (4) Hyperkalemia: Code(s): E87.5 - Hyperkalemia Status: Acute Assessment and Plan: Will treat with insulin, D50, bicarb, Kayexalate -check repeat potassium today Plan Wean sedation to of to evaluate for extubation Will decrease steroids Additional Plan DVT prophylaxis: Lovenox Stress ulcer prophylaxis: Protonix Nutrition: Tolerating tube feeds, will currently hold it for possible extubation Discussed with and daughter and updated them with patient's condition and plan of care. I answered all questions Code status: Full code Critical care time spent: 33 minutes This dictation may have been done utilizing a voice recognition system. Attempts have been made to correct errors. However, there may be uncorrected grammatical, spelling, and recognition errors present. Due to a high probability of clinically significant, life threatening deterioration, the patient required my highest level of preparedness to intervene emergently and I personally spent this critical care time directly and personally managing the patient. This critical care time included obtaining a history; examining the patient; pulse oximetry; ordering and review of studies; arranging urgent treatment with development of a management plan; evaluation of patient's response to treatment; frequent reassessment; and discussions with other providers. It was exclusive of separately billable procedures and treating other patients and teaching time. Please see Assessment and Plan section and the rest of the note for further information on patient assessment and treatment Subjective Date/time seen: 09/20/21 09:21 Interval history: Reason for consult: Asthma exacerbation/status asthmaticus, elevated creatinine 09/20/2021: Patient remains intubated, CMV mode of ventilation, peep of 5, 30% FiO2. Sedated with fentanyl and Versed infusion, opens eyes and follows simple commands in all extremities. Urine output has been good in response to diuresis. Patient is hemodynamically stable, T-max of 100.1?. Patient has been tolerating the tube feeds. Potassium 5.8 this morning Review of Systems Review of Systems: ROS unobtainable: Yes unobtainable due to endotracheal tube, unobtainable due to medical
[2021-09-20 10:20] LABS: Anion Gap -1 mmol/L (8-16); Blood Urea Nitrogen 34 mg/dL (7-17); Calcium 8.1 mg/dL (8.4-10.2); Carbon Dioxide 33 mmol/L (22-30); Chloride 111 mmol/L (98-107); Estimated CRCL calculation 67 ml/min; Estimated Glomerular Filt Rate 59; Glucose 145 mg/dL (65-110); Potassium 4.5 mmol/L (3.4-5.0); Sodium 143 mmol/L (137-145)
--- NOTE | 2021-09-20 10:48 | PCFNICU ---
ICU Rounding Note: Pt current nutrition is Vital AF 1.2 at 60 ml/hr over 22 hours. Last recorded weight is 109.3 kg, up from 100 kg on admit. Bowel Motility:No BM noted, starting Miralax today. Labs Reviewed:Glu 191, BUN 35, K 5.8,Alb 3.4 Meds Noted:Miralax,Solu Medrol, Lovenox, Rocephin, NovoLog, Atrovent, Protonix, Xopenex. Skin: WNL Additional Notes: Patient remains on mechanical vent. Plans for possible extubation today, breathing trial. TF on hold. Sedation is off. Monitoring: Following daily in ICU rounds and reassessing ever /Wednesday.
--- NOTE | 2021-09-20 11:23 | PCRCNOTE ---
Cuff Leak maneuver performed at 1035. Positive for air leak. Cuff returned to mimimal leak for correct ventilation.
[2021-09-20 12:02] LABS: Glucose Point of Care 168 mg/dl (65-105)
--- NOTE | 2021-09-20 12:42 | PM.IMPN ---
Progress Note: A&P Assessment and Plan (1) Asthma with status asthmaticus in adult: Qualifiers: Asthma severity: severe Code(s): J45.902 - Unspecified asthma with status asthmaticus Status: Acute Assessment and Plan: the patient is currently sedated on the vent. Continue supportive care. Continue Solu-Medrol and antibiotics. Chest x-ray noted Will follow sputum cultures (2) Asthma: Code(s): J45.909 - Unspecified asthma, uncomplicated Status: Acute Assessment and Plan: see plan above. (3) Hypercholesterolemia: Code(s): E78.00 - Pure hypercholesterolemia, unspecified Status: Acute Assessment and Plan: Monitor (4) Hypertension: Code(s): I10 - Essential (primary) hypertension Status: Acute Assessment and Plan: monitor Additional Plan DVT prophylaxis: Lovenox Stress ulcer prophylaxis: Protonix Nutrition: Continue tube feeds, patient tolerating Discussed with and daughter and updated them with patient's condition and plan of care. I answered all questions Discussed with semiconductor dies loader Code status: Full code Critical care time spent: 34 minutes This dictation may have been done utilizing a voice recognition system. Attempts have been made to correct errors. However, there may be uncorrected grammatical, spelling, and recognition errors present. Due to a high probability of clinically significant, life threatening deterioration, the patient required my highest level of preparedness to intervene emergently and I personally spent this critical care time directly and personally managing the patient. This critical care time included obtaining a history; examining the patient; pulse oximetry; ordering and review of studies; arranging urgent treatment with development of a management plan; evaluation of patient's response to treatment; frequent reassessment; and discussions with other providers. It was exclusive of separately billable procedures and treating other patients and teaching time. Please see Assessment and Plan section and the rest of the note for further information on patient assessment and treatment Subjective Date/time seen: 09/20/21 12:42 Intubated Exam Narrative: General: Patient is intubated and sedated HEENT: Pupils equal and reactive, ETT in place Neck: Supple, no cervical lymphadenopathy Respiratory: Clear to auscultation bilaterally, decreased at bases, no wheezing noted today Cardiac: S1-S2 is normal, regular rate and rhythm Abdomen: Soft, nontender, obese, nondistended, hypoactive bowel sounds Extremities: No edema, palpable pedal pulses Neuro: Patient is intubated and sedated. She opens her eyes and follows simple commands Skin: No lesions noted Psych: Unable to assess at this time Objective Data Vital Signs Vital Signs: Vital Signs - 24 hr 09/19/21 13:23 09/19/21 13:24 09/19/21 13:27 Temperature Pulse Rate 93 91 97 Respiratory Rate 24 H 24 H 24 H Blood Pressure Pulse Oximetry Oxygen Delivery Fraction of Inspired Oxygen 09/19/21 13:27 09/19/21 14:01 09/19/21 14:03 Temperature Pulse Rate 97 89 82 Respiratory Rate 24 H 24 H Blood Pressure Pulse Oximetry 98 Oxygen Delivery Mechanical Ventilation Fraction of Inspired Oxygen 30 09/19/21 14:00 09/19/21 14:44 09/19/21 14:00 Temperature 99.0 F Pulse Rate 89 89 91 Respiratory Rate 24 H Blood Pressure 139/92 H Pulse Oximetry 95 Oxygen Delivery Fraction of Inspired Oxygen 09/19/21 15:20 09/19/21 15:22 09/19/21 16:00 Temperature 99.0 F Pulse Rate 93 100 94 Respiratory Rate 24 H 24 H 17 Blood Pressure 140/91 H Pulse Oximetry 99 Oxygen Delivery Fraction of Inspired Oxygen 09/19/21 16:01 09/19/21 16:01 09/19/21 16:00 Temperature Pulse Rate 102 H 102 H 99 Respiratory Rate 26 H 26 H 26 H Blood Pressure Pulse Oximetry Oxygen Delivery
[2021-09-20] MEDS: FUROSEMIDE INJ 40 MG/4 ML VIAL 20 MG IV PUSH (13:18)
[2021-09-20] MEDS: methylPREDNISolone SOD SUCC 125 MG VIAL IV PUSH (13:18)
[2021-09-20] MEDS: dexmedeTOMIDine 400 MCG/100 ML 400 MCG/100 ML BAG 13.66 MCG IV CONT (15:15)
[2021-09-20] MEDS: hydrALAZINE HCL 20 MG/ML VIAL 10 MG IV PUSH (15:16)
[2021-09-20] MEDS: MIDAZOLAM HCL (*CRX) 2 MG/2 ML VIAL IV PUSH ×2 (15:42→16:07)
[2021-09-20] MEDS: MIDAZOLAM 100MG/NS 100ML(*CRX) 100 MG/100 ML BAG IV CONT (16:17)
[2021-09-20] MEDS: methylPREDNISolone SOD SUCC 40 MG VIAL IV PUSH (17:33)
[2021-09-20 17:39] LABS: Glucose Point of Care 195 mg/dl (65-105)
[2021-09-20] MEDS: dexmedeTOMIDine 400 MCG/100 ML 400 MCG/100 ML BAG 30.06 MCG IV CONT (18:19)
--- NOTE | 2021-09-20 19:23 | PC.NURSE ---
Patient become excessively agitated at approximately 1500, patient was gagging, attempting to reach for intubation tube, sitting up in bed. Patient became tachycardic, and hypertensive. Dr. Griffin notified, orders obtained for Versed 2 mg ivp. Will continue to monitor closely.
[2021-09-20] MEDS: dexmedeTOMIDine 400 MCG/100 ML 400 MCG/100 ML BAG 35.52 MCG IV CONT (21:24)
[2021-09-21] VITALS (41 sets, daily range): BP systolic 121–173; BP diastolic 49–102; PULSE 69–122; RESP 17–37; TEMP 35.9–36.8; O2SAT 95–100
[2021-09-21] MEDS: INSULIN ASPART (*BKC) 100 UNITS/ML SUB-Q ×3 (00:06→13:00)
[2021-09-21] MEDS: dexmedeTOMIDine 400 MCG/100 ML 400 MCG/100 ML BAG 35.52 MCG IV CONT (00:08)
[2021-09-21 00:14] LABS: Glucose Point of Care 207 mg/dl (65-105)
[2021-09-21] MEDS: methylPREDNISolone SOD SUCC 40 MG VIAL IV PUSH ×5 (00:59→23:46)
[2021-09-21] MEDS: hydrALAZINE HCL 20 MG/ML VIAL 10 MG IV PUSH ×4 (02:31→22:12)
[2021-09-21] MEDS: dexmedeTOMIDine 400 MCG/100 ML 400 MCG/100 ML BAG 32.79 MCG IV CONT ×3 (03:00→08:45)
[2021-09-21] MEDS: IPRATROPIUM BR 0.02% INH SOLN 0.5 MG/2.5 ML VIAL INHALATION ×6 (04:04→23:28)
[2021-09-21 04:34] LABS: Basophils Percent Auto 0.2 % (0.2-1.2); Hematocrit 41.6 % (37.0-47.0); Hemoglobin 13.6 g/dL (12.0-15.0); Immature Granulocyte Absolute 0.22 K/mm3 (0.00-0.031); Lymphocytes Absolute Auto 0.86 K/mm3 (0.9-3.2); Lymphocytes Percent Auto 7.9 % (18.3-44.2); Mean Corpuscular HGB Conc 32.7 g/dl (32-36); Mean Corpuscular Hemoglobin 29.5 pg (26-34); Mean Corpuscular Volume 90.2 fl (80-100); Mean Platelet Volume 9.3 fl (7.4-10.4); Monocytes Absolute Auto 0.4 K/mm3 (0.1-0.6); Monocytes Percent Auto 3.4 % (2.6-8.5); Neutrophils Absolute Auto 9.4 K/mm3 (1.3-6.7); Neutrophils Percent Auto 86.5 % (45.5-73.1); Nucleated Red Blood Cells Perc 0.2 % (0.0-0.2); Platelet Count Result 190 k/mm3 (150-375); Red Blood Count 4.61 M/mm3 (4.2-5.4); Red Cell Distribution Width 13.2 % (11.5-14.5); White Blood Count 10.9 K/mm3 (4.5-10.0)
[2021-09-21 04:43] LABS: Alanine Aminotransferase 24 U/L (6-35); Albumin Level 3.3 g/dL (3.5-5.1); Alkaline Phosphatase 66 U/L (38-126); Anion Gap 4 mmol/L (8-16); Aspartate Amino Transferase 24 U/L (14-36); Bilirubin,Total 0.4 mg/dL (0.2-1.3); Blood Urea Nitrogen 35 mg/dL (7-17); Calcium 8.1 mg/dL (8.4-10.2); Carbon Dioxide 31 mmol/L (22-30); Chloride 104 mmol/L (98-107); Estimated CRCL calculation 82 ml/min; Estimated Glomerular Filt Rate > 60; Glucose 214 mg/dL (65-110); Magnesium 2.2 mg/dL (1.6-2.3); Phosphorus 4.5 mg/dL (2.5-4.5); Sodium 139 mmol/L (137-145)
[2021-09-21] MEDS: CENTRAL LINE FLUSH 10 ML IV PUSH ×3 (05:10→21:05)
[2021-09-21 05:33] LABS: Alveolar/Arterial O2 Gradient 88.8 mmHg; Base Excess ABG 4.4 mEq/l (+/-2.0); Carboxyhemoglobin 0.3 % THb (0-2.0); Device VENTILATOR; Fractional Inspired Oxygen 30 %; HCO3 ABG 28.1 mEq/l (22.0-26.0); Methemoglobin ABG 0.4 %THb (0-1.5); Modified Allen's Test Unable to perform; Oxygen Content ABG 19.5 %vol (16.0-22.0); Oxygen Saturation ABG 96.5 % (95.0-100.0); Oxyhemoglobin 94.7 % THb (90.0-100.0); PCO2 ABG 38.6 mmHg (35.0-45.0); PO2 ABG 79.7 mmHg (80.0-100.0); PO2 FiO2 Ratio Arterial Blood 2.66 %; Reduced Hemoglobin 4.6 %THb (0-5.0); Site Drawn LEFT RADIAL; Total Hemoglobin 14.6 g/dL (12.0-18.0)
[2021-09-21 05:34] LABS: Arterial Blood Gas PEEP 5 cmH2O; Arterial Blood Gas Tidal Volume 380 ml; Arterial Blood Gas Vent Mode CMV; Arterial Blood Gas Ventilator rate 24 /MIN
[2021-09-21] MEDS: BUDESONIDE RESPULE NEB 0.5 MG/2 ML AMP INHALATION ×2 (08:12→20:10)
[2021-09-21] MEDS: MIDAZOLAM 100MG/NS 100ML(*CRX) 100 MG/100 ML BAG IV CONT (08:48)
[2021-09-21] MEDS: MINERAL OIL/WHITE PETROLATUM OINTMENT 1 APPLIC EACH EYE (08:49)
[2021-09-21] MEDS: ENOXAPARIN 40 MG/0.4 ML SYRINGE SUB-Q (08:51)
[2021-09-21] MEDS: PANTOPRAZOLE SODIUM IV 40 MG VIAL IV PUSH (08:52)
[2021-09-21] MEDS: MIDAZOLAM HCL (*CRX) 2 MG/2 ML VIAL 4 MG IV PUSH (09:23)
--- NOTE | 2021-09-21 11:12 | PM.IMPN ---
Progress Note: A&P Assessment and Plan (1) Asthma with status asthmaticus in adult: Qualifiers: Asthma severity: severe Code(s): J45.902 - Unspecified asthma with status asthmaticus Status: Acute Assessment and Plan: Patient is now extubated and on BiPAP. Continue Solu-Medrol and antibiotics. Continue bronchodilators. Chest x-ray noted Will follow sputum cultures (2) Asthma: Code(s): J45.909 - Unspecified asthma, uncomplicated Status: Acute Assessment and Plan: see plan above. (3) Hypercholesterolemia: Code(s): E78.00 - Pure hypercholesterolemia, unspecified Status: Acute Assessment and Plan: Monitor (4) Hypertension: Code(s): I10 - Essential (primary) hypertension Status: Acute Assessment and Plan: monitor Subjective Date/time seen: 09/21/21 11:12 September 21, 2021 Patient is now extubated and on BiPAP. Exam Narrative: General: Patient is intubated and sedated HEENT: Pupils equal and reactive, ETT in place Neck: Supple, no cervical lymphadenopathy Respiratory: Clear to auscultation bilaterally, decreased at bases, no wheezing noted today Cardiac: S1-S2 is normal, regular rate and rhythm Abdomen: Soft, nontender, obese, nondistended, hypoactive bowel sounds Extremities: No edema, palpable pedal pulses Neuro: Patient is intubated and sedated. She opens her eyes and follows simple commands Skin: No lesions noted Psych: Unable to assess at this time Objective Data Vital Signs Vital Signs: Vital Signs - 24 hr 09/20/21 11:40 09/20/21 12:00 09/20/21 13:19 Temperature 99.8 F H Pulse Rate 82 88 104 H Respiratory Rate 17 27 H 30 H Blood Pressure 168/93 H Pulse Oximetry 96 Oxygen Delivery Fraction of Inspired Oxygen 09/20/21 12:45 09/20/21 12:00 09/20/21 12:00 Temperature Pulse Rate 86 86 Respiratory Rate Blood Pressure Pulse Oximetry 95 Oxygen Delivery Mechanical Ventilation Fraction of Inspired Oxygen 30 30 09/20/21 14:00 09/20/21 12:00 09/20/21 14:00 Temperature Pulse Rate 83 91 86 Respiratory Rate 24 H 24 H Blood Pressure 167/107 H Pulse Oximetry 94 92 Oxygen Delivery Mechanical Ventilation Fraction of Inspired Oxygen 30 09/20/21 15:15 09/20/21 15:15 09/20/21 15:42 Temperature Pulse Rate 81 81 124 H Respiratory Rate 24 H 24 H 46 H Blood Pressure Pulse Oximetry Oxygen Delivery Fraction of Inspired Oxygen 09/20/21 14:00 09/20/21 12:20 09/20/21 15:59 Temperature Pulse Rate 86 132 H 86 Respiratory Rate 48 H Blood Pressure Pulse Oximetry 95 95 Oxygen Delivery Mechanical Ventilation Mechanical Ventilation Fraction of Inspired Oxygen 30 30 09/20/21 16:03 09/20/21 16:17 09/20/21 16:00 Temperature Pulse Rate 102 H 102 H 99 Respiratory Rate 30 H 35 H 30 H Blood Pressure Pulse Oximetry 98 Oxygen Delivery Mechanical Ventilation Fraction of Inspired Oxygen 35 09/20/21 17:00 09/20/21 17:45 09/20/21 12:30 Temperature Pulse Rate 99 120 H 120 H Respiratory Rate 26 H 35 H 34 H Blood Pressure Pulse Oximetry Oxygen Delivery Fraction of Inspired Oxygen 09/20/21 16:20 09/20/21 18:17 09/20/21 18:19 Temperature Pulse Rate 116 H 115 H 115 H Respiratory Rate 32 H 49 H 49 H Blood Pressure Pulse Oximetry Oxygen Delivery Fraction of Inspired Oxygen 09/20/21 18:19 09/20/21 18:20 09/20/21 16:00 Temperature Pulse Rate 115 H 115 H Respiratory Rate 49 H 49 H Blood Pressure Pulse Oximetry Oxygen Delivery Fraction of Inspired Oxygen 35 09/20/21 16:00 09/20/21 18:00 09/20/21 16:00 Temperature 100.3 F H Pulse Rate 103 H 99 103 H Respiratory Rate 30 H 35 H Blood Pressure 145/118 H 135/116 H Pulse Oximetry 97 98 Oxygen Delivery Fraction of Inspired Oxygen 09/20/21 18:00 09/20/21 20:00 09/20/21 20:10 Temperature Pulse
[2021-09-21 12:22] LABS: Glucose Point of Care 202 mg/dl (65-105)
--- NOTE | 2021-09-21 12:30 | WPDINTPN ---
Progress Note: A&P Assessment and Plan (1) Asthma with status asthmaticus in adult: Qualifiers: Asthma severity: severe Code(s): J45.902 - Unspecified asthma with status asthmaticus Status: Acute Assessment and Plan: Patient presented with increasing shortness of breath, likely related to asthma exacerbation/status asthmaticus. -patient is intubated on 09/17/2021 upon arrival to the ICU as she was in impending respiratory failure with significant tachypnea with respiratory rates of 40s to 50s, in tripod position, using accessory muscles of respiration. -currently on CMV mode of ventilation, peep of 6 and 30% FiO2 -chest x-ray and ABGs reviewed -continue bronchodilators and continuous nebs as needed -continue Pulmicort -decrease Solu-Medrol -continue ceftriaxone -patient was down in the radiology department over CT scan of the soft tissue neck and CT chest and axilla extubated herself. Sedation was stopped completely and patient was bagged up to the ICU, placed on BiPAP doing well (2) Hypertension: Code(s): I10 - Essential (primary) hypertension Status: Acute Assessment and Plan: Blood pressures have been stable off blood pressure medications -likely due to positive pressure ventilation and sedation medication -p.r.n. hydralazine for the (3) Hypercholesterolemia: Code(s): E78.00 - Pure hypercholesterolemia, unspecified Status: Acute Assessment and Plan: Will restart statin once patient is able to take p.o. (4) Hyperkalemia: Code(s): E87.5 - Hyperkalemia Status: Acute Assessment and Plan: Resolved Plan Continue BiPAP Additional Plan DVT prophylaxis: Lovenox Stress ulcer prophylaxis: Protonix Nutrition: Continue NPO for now, will obtain swallow test in the morning Discussed with and daughter and updated them with patient's condition and plan of care. I answered all questions Code status: Full code Critical care time spent: 33 minutes This dictation may have been done utilizing a voice recognition system. Attempts have been made to correct errors. However, there may be uncorrected grammatical, spelling, and recognition errors present. Due to a high probability of clinically significant, life threatening deterioration, the patient required my highest level of preparedness to intervene emergently and I personally spent this critical care time directly and personally managing the patient. This critical care time included obtaining a history; examining the patient; pulse oximetry; ordering and review of studies; arranging urgent treatment with development of a management plan; evaluation of patient's response to treatment; frequent reassessment; and discussions with other providers. It was exclusive of separately billable procedures and treating other patients and teaching time. Please see Assessment and Plan section and the rest of the note for further information on patient assessment and treatment Subjective Date/time seen: 09/21/21 12:30 Interval history: Reason for consult: Asthma exacerbation/status asthmaticus, elevated creatinine 09/21/2020: Patient patient remains intubated on CMV mode of ventilation, peep of 5 in 30% FiO2. She was on Precedex infusion and Versed infusion for sedation. Patient was down for CT scan of the soft tissue neck and CT chest and Ext accidentally extubated herself and accidentally extubated herself. Patient was brought up to the ICU, placed on BiPAP and remained stable. Patient is afebrile, hemodynamically stable, adequate urine output. Off all sedation at this time. On BiPAP as she was drowsy. Review of Systems Review of Systems: ROS unobtainable: Yes unobtainable due to medical condition and unobtainable due to mental status Exam Narrative: General: Patient is intubated and sedated HEENT: Pupils equal and reactive, BiPAP in place Neck: Supple, no cervical lymphadenopathy R
[2021-09-22] VITALS (30 sets, daily range): BP systolic 151–182; BP diastolic 88–101; PULSE 81–124; RESP 11–22; TEMP 35.9–37.4; O2SAT 93–98
[2021-09-22] MEDS: hydrALAZINE HCL 20 MG/ML VIAL 10 MG IV PUSH ×3 (02:30→12:17)
[2021-09-22 04:52] LABS: Basophils Absolute Auto 0.1 K/mm3 (0.0-0.1); Basophils Percent Auto 0.4 % (0.2-1.2); Hematocrit 44.8 % (37.0-47.0); Hemoglobin 15.1 g/dL (12.0-15.0); Immature Granulocyte Absolute 0.71 K/mm3 (0.00-0.031); Immature Granulocyte Percent A 3.7 % (0-0.5); Lymphocytes Absolute Auto 0.84 K/mm3 (0.9-3.2); Lymphocytes Percent Auto 4.4 % (18.3-44.2); Mean Corpuscular HGB Conc 33.7 g/dl (32-36); Mean Corpuscular Hemoglobin 29.8 pg (26-34); Mean Corpuscular Volume 88.5 fl (80-100); Monocytes Absolute Auto 0.9 K/mm3 (0.1-0.6); Monocytes Percent Auto 4.6 % (2.6-8.5); Neutrophils Absolute Auto 16.8 K/mm3 (1.3-6.7); Neutrophils Percent Auto 86.9 % (45.5-73.1); Nucleated Red Blood Cells Perc 0.1 % (0.0-0.2); Platelet Count Result 309 k/mm3 (150-375); Red Blood Count 5.06 M/mm3 (4.2-5.4); Red Cell Distribution Width 13.6 % (11.5-14.5); White Blood Count 19.3 K/mm3 (4.5-10.0)
[2021-09-22 05:01] LABS: Alanine Aminotransferase 25 U/L (6-35); Albumin Level 3.4 g/dL (3.5-5.1); Alkaline Phosphatase 75 U/L (38-126); Anion Gap 0 mmol/L (8-16); Aspartate Amino Transferase 25 U/L (14-36); Bilirubin,Total 0.5 mg/dL (0.2-1.3); Blood Urea Nitrogen 32 mg/dL (7-17); Calcium 8.3 mg/dL (8.4-10.2); Carbon Dioxide 33 mmol/L (22-30); Chloride 106 mmol/L (98-107); Estimated CRCL calculation 79 ml/min; Estimated Glomerular Filt Rate > 60; Glucose 194 mg/dL (65-110); Magnesium 2.3 mg/dL (1.6-2.3); Phosphorus 3.6 mg/dL (2.5-4.5); Potassium 4.6 mmol/L (3.4-5.0); Sodium 139 mmol/L (137-145)
[2021-09-22] MEDS: IPRATROPIUM BR 0.02% INH SOLN 0.5 MG/2.5 ML VIAL INHALATION ×5 (05:06→20:02)
[2021-09-22] MEDS: CENTRAL LINE FLUSH 10 ML IV PUSH ×3 (05:08→21:04)
[2021-09-22] MEDS: methylPREDNISolone SOD SUCC 40 MG VIAL IV PUSH ×4 (05:08→23:47)
[2021-09-22 05:33] LABS: Alveolar/Arterial O2 Gradient 89.1 mmHg; Base Excess ABG 5.4 mEq/l (+/-2.0); Carboxyhemoglobin 0.3 % THb (0-2.0); Fractional Inspired Oxygen 30 %; HCO3 ABG 28.2 mEq/l (22.0-26.0); Methemoglobin ABG 0.3 %THb (0-1.5); Oxygen Content ABG 21.7 %vol (16.0-22.0); Oxygen Saturation ABG 97.1 % (95.0-100.0); Oxyhemoglobin 95.7 % THb (90.0-100.0); PCO2 ABG 35.6 mmHg (35.0-45.0); PO2 FiO2 Ratio Arterial Blood 2.77 %; Reduced Hemoglobin 3.7 %THb (0-5.0); Total Hemoglobin 16.1 g/dL (12.0-18.0)
[2021-09-22 05:38] LABS: Device BIPAP; Inspiratory Pressure 12 cmH2O; Modified Allen's Test Pass; Site Drawn LEFT RADIAL; pH ABG 7.517 (7.350-7.450)
[2021-09-22 05:39] LABS: Expiratory Pressure 6 cmH2O
[2021-09-22] MEDS: BUDESONIDE RESPULE NEB 0.5 MG/2 ML AMP INHALATION ×2 (08:23→20:02)
[2021-09-22] MEDS: ENOXAPARIN 40 MG/0.4 ML SYRINGE SUB-Q (08:49)
[2021-09-22] MEDS: PANTOPRAZOLE SODIUM IV 40 MG VIAL IV PUSH (08:51)
--- NOTE | 2021-09-22 09:15 | WPDINTPN ---
Progress Note: A&P Assessment and Plan (1) Asthma with status asthmaticus in adult: Qualifiers: Asthma severity: severe Code(s): J45.902 - Unspecified asthma with status asthmaticus Status: Acute Assessment and Plan: Patient presented with increasing shortness of breath, likely related to asthma exacerbation/status asthmaticus. -patient is intubated on 09/17/2021 upon arrival to the ICU as she was in impending respiratory failure with significant tachypnea with respiratory rates of 40s to 50s, in tripod position, using accessory muscles of respiration. -09/21/2021: patient was down in the radiology department over CT scan of the soft tissue neck and CT chest and self extubated. Sedation was stopped completely and patient was bagged up to the ICU, -currently on BiPAP, will switch to nasal cannula -chest x-ray and ABGs reviewed -continue bronchodilators and continuous nebs as needed -continue Pulmicort -decrease Solu-Medrol -continue ceftriaxone -up in chair -speech for swallow evaluation (2) Hypertension: Code(s): I10 - Essential (primary) hypertension Status: Acute Assessment and Plan: Blood pressures have been stable off blood pressure medications -will restart home blood pressure medications once able to take p.o. -p.r.n. hydralazine (3) Hypercholesterolemia: Code(s): E78.00 - Pure hypercholesterolemia, unspecified Status: Acute Assessment and Plan: Will restart statin once patient is able to take p.o. (4) Hyperkalemia: Code(s): E87.5 - Hyperkalemia Status: Acute Assessment and Plan: Resolved Plan Speech consult for bedside swallow test Additional Plan DVT prophylaxis: Lovenox Stress ulcer prophylaxis: Protonix Nutrition: Continue NPO for now, will obtain swallow test this morning Discussed with and daughter and updated them with patient's condition and plan of care. I answered all questions Code status: Full code Critical care time spent: 32 minutes This dictation may have been done utilizing a voice recognition system. Attempts have been made to correct errors. However, there may be uncorrected grammatical, spelling, and recognition errors present. Due to a high probability of clinically significant, life threatening deterioration, the patient required my highest level of preparedness to intervene emergently and I personally spent this critical care time directly and personally managing the patient. This critical care time included obtaining a history; examining the patient; pulse oximetry; ordering and review of studies; arranging urgent treatment with development of a management plan; evaluation of patient's response to treatment; frequent reassessment; and discussions with other providers. It was exclusive of separately billable procedures and treating other patients and teaching time. Please see Assessment and Plan section and the rest of the note for further information on patient assessment and treatment Subjective Date/time seen: 09/22/21 09:15 Interval history: Reason for consult: Asthma exacerbation/status asthmaticus, elevated creatinine 09/22/2021: Patient remains on BiPAP, 02/24, 30% FiO2 with good O2 sats. Patient is awake, nods to questions and follows simple commands in all extremities. Urine output has been adequate, patient is afebrile, hemodynamically stable. Had been hypertensive overnight requiring hydralazine p.r.n. no issues overnight. Patient denies any chest pain, shortness of breath, abdominal pain, nausea, vomiting Review of Systems Review of Systems: All systems reviewed & are unremarkable except as noted in HPI and below Exam Narrative: General: Patient in bed with no acute distress HEENT: Pupils equal and reactive, BiPAP in place Neck: Supple, no cervical lymphadenopathy Respiratory: Clear to auscultation bilaterally, decreased at bases, no wheezing noted today Cardiac:
--- NOTE | 2021-09-22 10:21 | PCSTNOTE ---
Please refer to the Bedside Swallow Evaluation in the EMR. Please note, silent aspiration cannot be ruled out at bedside.
--- NOTE | 2021-09-22 11:03 | PCOTNOTE ---
Attempted to see patient for OT evaluation. BP is high at this time. RN reports they are waiting on BP meds at this time. Will continue to attempt when more medically stable.
--- NOTE | 2021-09-22 11:07 | PCPTNOTE ---
Attempted to see patient for PT evaluation. BP is high at this time and RN reports they are waiting on BP meds at this time. Will continue to attempt when more medically stable.
[2021-09-22] MEDS: lisinopriL 20 MG TABLET PO (11:30)
[2021-09-22] MEDS: METOPROLOL TARTRATE 50 MG TAB PO (11:30)
[2021-09-22 12:43] LABS: Glucose Point of Care 184 mg/dl (65-105)
--- NOTE | 2021-09-22 12:53 | PM.IMPN ---
Progress Note: A&P Assessment and Plan (1) Asthma with status asthmaticus in adult: Qualifiers: Asthma severity: severe Code(s): J45.902 - Unspecified asthma with status asthmaticus Status: Acute Assessment and Plan: Extubated Continue steroids and Rocephin. Continue inhalers and bronchodilators. Continue oxygen. Speech pathology see the patient (2) Hypertension: Code(s): I10 - Essential (primary) hypertension Status: Acute Assessment and Plan: Continue home meds. Monitor blood pressure (3) Hypercholesterolemia: Code(s): E78.00 - Pure hypercholesterolemia, unspecified Status: Acute Assessment and Plan: Continue home meds (4) Hyperkalemia: Code(s): E87.5 - Hyperkalemia Status: Acute Assessment and Plan: Resolved Subjective Date/time seen: 09/22/21 12:53 Off the ventilator. Now on 4liters nasal cannula. Exam Narrative: General: Patient in bed with no acute distress HEENT: Pupils equal and reactive, Neck: Supple, no cervical lymphadenopathy Respiratory: Clear to auscultation bilaterally, decreased at bases, no wheezing noted today Cardiac: S1-S2 is normal, tachycardic Abdomen: Soft, nontender, obese, nondistended, hypoactive bowel sounds Extremities: No edema, palpable pedal pulses Neuro: Patient is awake, alert, follows simple commands and nods to questions Skin: No lesions noted Psych: Anxious Objective Data Vital Signs Vital Signs: Vital Signs - 24 hr 09/21/21 14:04 09/21/21 14:00 09/21/21 14:00 Temperature Pulse Rate 95 96 96 Respiratory Rate 18 18 Blood Pressure 157/49 H Pulse Oximetry 99 99 Oxygen Delivery BiPAP Fraction of Inspired Oxygen 09/21/21 16:19 09/21/21 16:22 09/21/21 16:34 Temperature Pulse Rate 110 H 110 H 110 H Respiratory Rate 21 H 21 H 22 H Blood Pressure Pulse Oximetry 98 Oxygen Delivery BiPAP Fraction of Inspired Oxygen 09/21/21 16:00 09/21/21 16:00 09/21/21 16:00 Temperature 97.8 F Pulse Rate 95 114 H 114 H Respiratory Rate 20 20 Blood Pressure 160/93 H Pulse Oximetry 98 98 Oxygen Delivery BiPAP Fraction of Inspired Oxygen 50 09/21/21 18:00 09/21/21 18:00 09/21/21 19:52 Temperature Pulse Rate 107 H 107 H 118 H Respiratory Rate 17 24 H Blood Pressure 173/94 H Pulse Oximetry 99 Oxygen Delivery Fraction of Inspired Oxygen 09/21/21 20:00 09/21/21 20:00 09/21/21 20:00 Temperature 97.8 F Pulse Rate 119 H 120 H 120 H Respiratory Rate 20 22 H Blood Pressure 166/102 H Pulse Oximetry 96 96 Oxygen Delivery BiPAP Fraction of Inspired Oxygen 40 09/21/21 19:45 09/21/21 20:49 09/21/21 20:10 Temperature Pulse Rate 122 H 114 H 116 H Respiratory Rate 22 H 22 H 22 H Blood Pressure 162/94 H Pulse Oximetry 98 Oxygen Delivery BiPAP Fraction of Inspired Oxygen 09/21/21 21:00 09/21/21 22:00 09/21/21 22:00 Temperature Pulse Rate 117 H 117 H Respiratory Rate 21 H Blood Pressure 161/89 H 162/97 H Pulse Oximetry 97 Oxygen Delivery Fraction of Inspired Oxygen 09/21/21 23:01 09/21/21 23:28 09/21/21 23:41 Temperature Pulse Rate 120 H 118 H Respiratory Rate 18 18 Blood Pressure 152/82 H Pulse Oximetry 95 Oxygen Delivery BiPAP Fraction of Inspired Oxygen 09/21/21 23:42 09/21/21 23:53 09/22/21 00:00 Temperature 99.3 F Pulse Rate 118 H 120 H 120 H Respiratory Rate 20 17 19 Blood Pressure 156/88 H Pulse Oximetry 96 95 Oxygen Delivery BiPAP Fraction of Inspired Oxygen 30 09/22/21 00:00 09/22/21 02:15 09/22/21 02:00 Temperature Pulse Rate 124 H 113 H 116 H Respiratory Rate 18 Blood Pressure Pulse Oximetry 96 Oxygen Delivery BiPAP Fraction of Inspired Oxygen 09/22/21 02:00 09/22/21 04:00 09/22/21 04:00 Temperature 98.6 F Pulse Rate 116 H 116 H 116 H Respiratory Rate 18 20 15 Blood Pressure 169/98 H 161/
--- NOTE | 2021-09-22 12:58 | PC.NURSE ---
This patient, Vandana Ojeda, was transferred to [facility] on 09/22/21 at 1232. Personal belongings sent with patient. Report given to Chloé MARTE. Appropriate documentation sent with patient.
--- NOTE | 2021-09-22 18:35 | PM.PNPUL ---
Progress Note: A&P Assessment and Plan (1) Asthma with status asthmaticus in adult: Qualifiers: Asthma severity: severe Code(s): J45.902 - Unspecified asthma with status asthmaticus Status: Acute Assessment and Plan: 09/17 patient with a history of lifelong asthma was never been intubated and over the last year was only using p.r.n. inhaled corticosteroids on an infrequent basis according to the . Patient with 5 days worsening shortness of breath and she told her that this was her typical asthma symptoms. Patient continue to deteriorate and presented to the hospital on 09/15 and was treated with oral oral prednisone. She continued to do worsen was re-presented to the emergency room on 09/17 with status asthmaticus failing BiPAP and requiring intubation. Chest x-ray with no evidence of focal infiltrates, no evidence of cardiac diseases. Patient had 1 COVID test negative on 09/15 and I will repeat that today. Will send blood and sputum cultures. She is unvaccinated. I will send influenza swab. I will send an extended viral RNA pathogen swab looking for additional respiratory viral infections. Agree with Solu-Medrol 60 mg IV q.6 hours, levalbuterol 1.25 Q 6, ipratropium 0.5 mg q.4 hours, budesonide 0.5 mg q.12 hours. Agree with empiric treatment with ceftriaxone. Vent management per ICU team. Agree with paralytic and goal plateau pressure less than 30 at this time. Discussed with over the phone. Discussed with cupola melter helper Dr. Griffin at bedside. 09/18 Patient remains intubated, sedated with fentanyl and Versed, paralyzed. She has faint mid expiratory wheezes today on exam. Her peak airway pressures are improved and currently she is on a rate of 24, tidal volume 380, 30% and 6 of peep with a peak airway pressure of 30. Her blood gases 7.37/40/77. Chest x-ray without acute disease. Overall she has improved. She has less wheezing and her peak airway pressures are decreased. Agree with an attempt to discontinue the paralytic today. Will continue Solu-Medrol 60 mg IV q.6 hours. Continue levalbuterol and ipratropium nebulizers q.4 hours. Empiric treatment with ceftriaxone for now. Blood cultures are negative. 09/19 Patient remains intubated and sedated with fentanyl and Versed. Peak airway pressure is 27, rate of 24, tidal volume 380, 30% and a peep of 5 with a blood gas of 7.34/44/76. Chest x-ray with no focal infiltrates and no change from 09/18/2021. G stain of the sputum showed few Gram-negative diplococci, few gram-positive cocci. Decrease her Solu-Medrol to 20 mg IV q.6 hours. 09/21 Patient self extubated. 09/22 Improving; moved to Room 261. Will get Adrian out. Dr Griffin ordered PT/OT to start tomorrow. transition to oral steroids. She needs swallow evaluation tomorrow, coughs with eating. Time Spent With Patient Time with patient: 15 - 25 minutes Subjective Date/time seen: 09/22/21 18:35 Interval history: Her and son are at the bedside. She feels better, has a Adrian in place, and has not been out of bed today. Moved to [address] [place] [address]. Little coughing, less wheezing. follow up : ?51-year-old woman with a history of asthma since childhood, on and off of medication since then. ? She developed symptoms 09/12 with shortness of breath, increased use of her inhalers, worsened, came to the ER 09/15 as she was no better using her nebulizer at home, no fever, cough. She went home with prednisone 50 mg x 7 days and her baseline Arnuity Ellipta, COVID test negative. Saturation was 99% on RA. Returned to ER 09/17 hand i blocker hours with increased dyspnea, was treated for an asthma exacerbation with IV steroids, bronchodilators, magnesium and?initial blood gas was 7.11/78/74, treated with BiPAP and looked better in the ER. Repeat blood gas at 6:20 a.m. on noninvasive ventilation demonstrates a pH of 7
[2021-09-22 18:55] LABS: Glucose Point of Care 192 mg/dl (65-105)
[2021-09-23] VITALS (24 sets, daily range): BP systolic 147–177; BP diastolic 76–98; PULSE 70–101; RESP 16–22; TEMP 35.9–37.1; O2SAT 91–98
[2021-09-23 00:13] LABS: Glucose Point of Care 155 mg/dl (65-105)
[2021-09-23] MEDS: IPRATROPIUM BR 0.02% INH SOLN 0.5 MG/2.5 ML VIAL INHALATION ×5 (00:32→20:13)
[2021-09-23] MEDS: methylPREDNISolone SOD SUCC 40 MG VIAL IV PUSH ×2 (06:06→16:34)
[2021-09-23] MEDS: CENTRAL LINE FLUSH 10 ML IV PUSH ×3 (06:14→20:52)
[2021-09-23 06:24] LABS: Glucose Point of Care 194 mg/dl (65-105)
[2021-09-23 08:00] LABS: Glucose Point of Care 187 mg/dl (65-105)
[2021-09-23] MEDS: ENOXAPARIN 40 MG/0.4 ML SYRINGE SUB-Q (09:02)
[2021-09-23] MEDS: PANTOPRAZOLE SODIUM IV 40 MG VIAL IV PUSH (09:03)
[2021-09-23] MEDS: METOPROLOL TARTRATE 50 MG TAB PO (09:04)
[2021-09-23] MEDS: lisinopriL 20 MG TABLET PO (09:05)
[2021-09-23] MEDS: ATORVASTATIN 20 MG TABLET PO (09:05)
[2021-09-23] MEDS: BUDESONIDE RESPULE NEB 0.5 MG/2 ML AMP INHALATION ×2 (09:05→20:13)
[2021-09-23 12:05] LABS: Glucose Point of Care 193 mg/dl (65-105)
--- NOTE | 2021-09-23 12:17 | PM.IMPN ---
Progress Note: A&P Assessment and Plan (1) Asthma with status asthmaticus in adult: Qualifiers: Asthma severity: severe Code(s): J45.902 - Unspecified asthma with status asthmaticus Status: Acute Assessment and Plan: Extubated and she is currently on 2-3 L nasal cannula Will decrease her steroids stopped her antibiotics Patient received days of Rocephin Continue inhalers and bronchodilators. Continue oxygen. (2) Hypertension: Code(s): I10 - Essential (primary) hypertension Status: Acute Assessment and Plan: Continue home meds. Monitor blood pressure (3) Hypercholesterolemia: Code(s): E78.00 - Pure hypercholesterolemia, unspecified Status: Acute Assessment and Plan: Continue home meds (4) Hyperkalemia: Code(s): E87.5 - Hyperkalemia Status: Acute Assessment and Plan: Resolved Additional Plan DVT prophylaxis: Lovenox Stress ulcer prophylaxis: Protonix Nutrition: Continue NPO for now, will obtain swallow test this morning Discussed with and daughter and updated them with patient's condition and plan of care. I answered all questions Code status: Full code Critical care time spent: 32 minutes This dictation may have been done utilizing a voice recognition system. Attempts have been made to correct errors. However, there may be uncorrected grammatical, spelling, and recognition errors present. Due to a high probability of clinically significant, life threatening deterioration, the patient required my highest level of preparedness to intervene emergently and I personally spent this critical care time directly and personally managing the patient. This critical care time included obtaining a history; examining the patient; pulse oximetry; ordering and review of studies; arranging urgent treatment with development of a management plan; evaluation of patient's response to treatment; frequent reassessment; and discussions with other providers. It was exclusive of separately billable procedures and treating other patients and teaching time. Please see Assessment and Plan section and the rest of the note for further information on patient assessment and treatment Subjective Date/time seen: 09/23/21 12:17 Reports shortness of breath is much improved Exam Narrative: General: Patient in bed with no acute distress HEENT: Pupils equal and reactive, Neck: Supple, no cervical lymphadenopathy Respiratory: Clear to auscultation bilaterally, decreased at bases, no wheezing noted today Cardiac: S1-S2 is normal, tachycardic Abdomen: Soft, nontender, obese, nondistended, hypoactive bowel sounds Extremities: No edema, palpable pedal pulses Neuro: Patient is awake, alert, follows simple commands and nods to questions Skin: No lesions noted Psych: Anxious Objective Data Vital Signs Vital Signs: Vital Signs - 24 hr 09/22/21 12:48 09/22/21 12:58 09/22/21 16:00 Temperature Pulse Rate 110 H 107 H 84 Respiratory Rate 20 20 Blood Pressure Pulse Oximetry Oxygen Delivery Oxygen Flow Rate 09/22/21 14:00 09/22/21 16:51 09/22/21 16:58 Temperature 97.8 F Pulse Rate 99 98 102 H Respiratory Rate 18 20 20 Blood Pressure 151/92 H Pulse Oximetry 96 Oxygen Delivery Oxygen Flow Rate 09/22/21 16:59 09/22/21 18:00 09/22/21 20:05 Temperature 98.7 F Pulse Rate 84 81 Respiratory Rate 18 19 Blood Pressure 173/95 H Pulse Oximetry 96 98 Oxygen Delivery Nasal Cannula Oxygen Flow Rate 4 09/22/21 20:06 09/22/21 20:15 09/22/21 21:16 Temperature 96.6 F L Pulse Rate 90 87 Respiratory Rate 19 20 Blood Pressure 182/98 H Pulse Oximetry 96 96 Oxygen Delivery Nasal Cannula Oxygen Flow Rate 4 09/22/21 20:00 09/22/21 20:00 09/22/21 23:49 Temperature 97.1 F L Pulse Rate 84 87 Respiratory Rate 20 Blood Pressure 166/89 H Pulse Oximetry 96 93 Oxygen Delivery Francisco
--- NOTE | 2021-09-23 13:09 | PCNFU ---
Nutrition Follow-Up Complete: Suboptimal po intake related to appetite and recent extubation as evidenced by pt report Goal:Meet nutritional needs. Pt is progressing towards goal. Continue with current goal. Pt current nutrition is heart health, soft and bite sized level 6. Nutrition recommendation: Add Ensure compact BID Last recorded weight is 101.2 kg - stable. Bowel Motility: No BM recorded Labs Reviewed: Hgb: 15.1, BUN:32, Glu:194 Meds Noted:lovenox, solumedrol Skin: WNL Additional Notes: pt has been extubated, po diet initiated. Pt reports poor appetite at this time, intake overall poor but is improving. Agreed to ensure compact BID until appetite picks up. Agree with diet orders. Monitor intake, wt, labs. Follow up in 3 days.
[2021-09-23] MEDS: hydrALAZINE HCL 20 MG/ML VIAL 10 MG IV PUSH (16:33)
[2021-09-24] VITALS (24 sets, daily range): BP systolic 141–159; BP diastolic 83–92; PULSE 64–99; RESP 12–22; TEMP 36–36.4; O2SAT 94–100
[2021-09-24] MEDS: IPRATROPIUM BR 0.02% INH SOLN 0.5 MG/2.5 ML VIAL INHALATION ×5 (00:07→23:51)
[2021-09-24] MEDS: CENTRAL LINE FLUSH 10 ML IV PUSH ×2 (05:37→13:21)
[2021-09-24 06:17] LABS: Hematocrit 42.6 % (37.0-47.0); Hemoglobin 13.9 g/dL (12.0-15.0); Mean Corpuscular HGB Conc 32.6 g/dl (32-36); Mean Corpuscular Hemoglobin 29.4 pg (26-34); Mean Corpuscular Volume 90.1 fl (80-100); Mean Platelet Volume 9.9 fl (7.4-10.4); Platelet Count Result 188 k/mm3 (150-375); Red Blood Count 4.73 M/mm3 (4.2-5.4); Red Cell Distribution Width 13.2 % (11.5-14.5); White Blood Count 16.3 K/mm3 (4.5-10.0)
[2021-09-24 08:06] LABS: Anion Gap 2 mmol/L (8-16); Blood Urea Nitrogen 27 mg/dL (7-17); Calcium 7.8 mg/dL (8.4-10.2); Carbon Dioxide 28 mmol/L (22-30); Chloride 101 mmol/L (98-107); Estimated CRCL calculation 79 ml/min; Estimated Glomerular Filt Rate > 60; Glucose 174 mg/dL (65-110); Potassium 5.8 mmol/L (3.4-5.0); Sodium 131 mmol/L (137-145)
[2021-09-24] MEDS: BUDESONIDE RESPULE NEB 0.5 MG/2 ML AMP INHALATION ×2 (08:45→20:45)
[2021-09-24] MEDS: METOPROLOL TARTRATE 50 MG TAB PO (08:46)
[2021-09-24] MEDS: PANTOPRAZOLE SODIUM IV 40 MG VIAL IV PUSH (08:46)
[2021-09-24] MEDS: ATORVASTATIN 20 MG TABLET PO (08:47)
[2021-09-24] MEDS: ENOXAPARIN 40 MG/0.4 ML SYRINGE SUB-Q (08:47)
[2021-09-24] MEDS: lisinopriL 20 MG TABLET PO (08:47)
[2021-09-24] MEDS: SODIUM ZIRCONIUM CYCLOSILICATE 10 GM POWD.PACK PO (10:24)
[2021-09-24] MEDS: methylPREDNISolone SOD SUCC 40 MG VIAL IV PUSH ×2 (11:11→17:10)
[2021-09-24 13:26] LABS: Reference Lab Test Result Not Detected
--- NOTE | 2021-09-24 15:59 | PM.IMPN ---
Progress Note: A&P Assessment and Plan (1) Asthma with status asthmaticus in adult: Qualifiers: Asthma severity: severe Code(s): J45.902 - Unspecified asthma with status asthmaticus Status: Acute Assessment and Plan: self extubated on 09/21 and she is currently on 2-3 L nasal cannula Will will taper her steroids currently taking methylprednisone 40 mg b.i.d., patient seen pulmonology and further recommendation to follow, stopped her antibiotics Patient received days of Rocephin Continue inhalers and bronchodilators. Continue oxygen. (2) Hypertension: Code(s): I10 - Essential (primary) hypertension Status: Acute Assessment and Plan: Continue home meds. Monitor blood pressure (3) Hypercholesterolemia: Code(s): E78.00 - Pure hypercholesterolemia, unspecified Status: Acute Assessment and Plan: Continue home meds (4) Hyperkalemia: Code(s): E87.5 - Hyperkalemia Status: Acute Assessment and Plan: Resolved Subjective Date/time seen: 09/24/21 15:59 today patient states feeling been ambulating in the room when working with physical therapy, had a BM today, has no new complaints Review of Systems Review of Systems: All systems reviewed & are unremarkable except as noted in HPI and below Exam Narrative: morbidly obese Patient is comfortable, NAD HEENT: eyes are clear and none icteric LUNGS: normal respiratory effort ABD: distended Lower extremities: no edema SKIN: nonjaundiced Neuro: grossly intact. Objective Data Vital Signs Vital Signs: Vital Signs - 24 hr 09/23/21 16:00 09/23/21 16:10 09/23/21 18:50 Temperature 96.7 F L Pulse Rate 85 78 94 Respiratory Rate 17 18 Blood Pressure 147/76 H Pulse Oximetry 91 Oxygen Delivery Oxygen Flow Rate 09/23/21 20:17 09/23/21 20:18 09/23/21 20:31 Temperature Pulse Rate 97 89 Respiratory Rate 22 H 19 Blood Pressure Pulse Oximetry 93 Oxygen Delivery Nasal Cannula Oxygen Flow Rate 4 09/23/21 21:01 09/23/21 20:00 09/24/21 00:10 Temperature 98.7 F Pulse Rate 97 101 H 98 Respiratory Rate 20 20 Blood Pressure 164/93 H Pulse Oximetry 93 Oxygen Delivery Oxygen Flow Rate 09/24/21 00:20 09/24/21 00:00 09/24/21 00:45 Temperature 97 F L Pulse Rate 95 99 89 Respiratory Rate 20 20 Blood Pressure 156/84 H Pulse Oximetry 95 Oxygen Delivery Oxygen Flow Rate 09/24/21 03:46 09/24/21 04:00 09/24/21 04:19 Temperature 97.2 F L Pulse Rate 81 96 85 Respiratory Rate 20 16 Blood Pressure 159/83 H Pulse Oximetry 94 Oxygen Delivery Oxygen Flow Rate 09/24/21 04:27 09/24/21 08:46 09/24/21 08:50 Temperature Pulse Rate 89 84 81 Respiratory Rate 16 14 12 Blood Pressure Pulse Oximetry Oxygen Delivery Oxygen Flow Rate 09/24/21 08:46 09/24/21 10:22 09/24/21 08:00 Temperature 96.8 F L Pulse Rate 89 64 90 Respiratory Rate 20 Blood Pressure 157/91 H Pulse Oximetry 100 Oxygen Delivery Oxygen Flow Rate 09/24/21 08:00 09/24/21 12:00 09/24/21 14:14 Temperature Pulse Rate 78 72 Respiratory Rate 12 Blood Pressure Pulse Oximetry 95 Oxygen Delivery Nasal Cannula Oxygen Flow Rate 4 09/24/21 14:16 09/24/21 14:05 Temperature 97.2 F L Pulse Rate 82 71 Respiratory Rate 14 20 Blood Pressure 150/89 H Pulse Oximetry 96 Oxygen Delivery Oxygen Flow Rate Intake/Output Intake/Output: Intake & Output 09/21/21 09/22/21 09/23/21 09/24/21 23:59 23:59 23:59 23:59 Intake Total 1036 170 680 750 Output Total 1179 2050 1350 200 Balance 139 -3719 -882 550 Meds/Results Medications: Active Medications Generic Name Dose Route Start Last Admin Trade Name Freq PRN Reason Stop Dose Admin Atorvastatin Calcium 20 mg 09/23/21 09:00 09/24/21 08:47 Atorvastatin 20 Mg Tablet PO 20 mg DAILY JULIANA Administration Budesonide 0.5 m
[2021-09-25] VITALS (27 sets, daily range): BP systolic 141–151; BP diastolic 78–94; PULSE 62–87; RESP 14–20; TEMP 36.2–36.8; O2SAT 95–98
[2021-09-25] MEDS: CENTRAL LINE FLUSH 10 ML IV PUSH ×4 (00:14→21:00)
[2021-09-25] MEDS: IPRATROPIUM BR 0.02% INH SOLN 0.5 MG/2.5 ML VIAL INHALATION ×4 (04:32→19:55)
[2021-09-25] MEDS: PANTOPRAZOLE SODIUM IV 40 MG VIAL IV PUSH (09:34)
[2021-09-25] MEDS: ENOXAPARIN 40 MG/0.4 ML SYRINGE SUB-Q (09:34)
[2021-09-25] MEDS: lisinopriL 20 MG TABLET PO (09:34)
[2021-09-25] MEDS: methylPREDNISolone SOD SUCC 40 MG VIAL IV PUSH ×2 (09:34→16:56)
[2021-09-25] MEDS: ATORVASTATIN 20 MG TABLET PO (09:35)
[2021-09-25] MEDS: METOPROLOL TARTRATE 50 MG TAB PO (09:35)
[2021-09-25] MEDS: SODIUM ZIRCONIUM CYCLOSILICATE 10 GM POWD.PACK PO (09:35)
--- NOTE | 2021-09-25 11:00 | PCRCNOTE ---
Window of time for administration has passed. See next scheduled administration.
--- NOTE | 2021-09-25 15:04 | PM.PNPUL ---
Progress Note: A&P Assessment and Plan (1) Asthma with status asthmaticus in adult: Qualifiers: Asthma severity: severe Code(s): J45.902 - Unspecified asthma with status asthmaticus Status: Acute Assessment and Plan: 09/17 patient with lifelong asthma, never before intubated, worse over the last year, only using p.r.n. inhaled corticosteroids on an infrequent basis according to the . Admitted with 5 days worsening shortness of breath, presented at the hospital 09/15, treated with oral prednisone, deteriorated, re-presented to the emergency room on 09/17 with status asthmaticus failing BiPAP and requiring intubation. Chest x-ray with no evidence of focal infiltrates, no evidence of cardiac diseases. COVID test negative on 09/15. She is unvaccinated. Negative influenza A and B, negative COVID SARS-CoV-2 PRC 09/15 and 09/17. Solu-Medrol 60 mg IV q.6 hours, levalbuterol 1.25 Q 6, ipratropium 0.5 mg q.4 hours, budesonide 0.5 mg q.12 hours. Agree with empiric treatment with ceftriaxone. Vent management per ICU team. Agree with paralytic and goal plateau pressure less than 30 at this time. 09/18 Patient remains intubated, sedated with fentanyl and Versed, paralyzed. She has faint mid expiratory wheezes today on exam. Her peak airway pressures are improved and currently she is on a rate of 24, tidal volume 380, 30% and 6 of peep with a peak airway pressure of 30. Her blood gases 7.37/40/77. Chest x-ray without acute disease. Overall she has improved. She has less wheezing and her peak airway pressures are decreased. Agree with an attempt to discontinue the paralytic today. Will continue Solu-Medrol 60 mg IV q.6 hours. Continue levalbuterol and ipratropium nebulizers q.4 hours. Empiric treatment with ceftriaxone for now. Blood cultures are negative. 09/19 Patient remains intubated and sedated with fentanyl and Versed. Peak airway pressure is 27, rate of 24, tidal volume 380, 30% and a peep of 5 with a blood gas of 7.34/44/76. Chest x-ray with no focal infiltrates and no change from 09/18/2021. G stain of the sputum showed few Gram-negative diplococci, few gram-positive cocci. Decrease her Solu-Medrol to 20 mg IV q.6 hours. 09/21 Patient self extubated. 09/22 Improving; moved to Room 261. Will get Adrian out. Dr Griffin ordered PT/OT to start tomorrow. transition to oral steroids. She needs swallow evaluation tomorrow, coughs with eating. 09/25 Better, on 2 L/min; less coughing with eating. She will need a modified barium swallow with Speech Therapy, peak flow monitoring, more intensive education and follow up. She has a PF meter somewhere at home, does not know where, and she has never used it consistently. This is important as peak flows can drop 12-24 hours before symptoms appear. Plan PLAN: 1. Mod Barium Swallow with Speech Therapy. 2. Wean O2. She is on 2 L/minute, saturation is 95%, has been weaning O2 each day. 3. Peak Flow monitoring. She has a monitor at home, needs education, training to use and understand meaning of the values. 4. Stop solumedrol 40 mg IV BID, start oral prednisone 50 mg Q am starting tomorrow. Discussed with Dr Hill. She is better and close to discharge. Subjective Date/time seen: 09/25/21 15:04 Interval history: Her daughter Jerry is at the bedside. The patient feels better, now in Room 259. She has less coughing, no wheezing, and she is not coughing as much with eating. Her bedside swallow said that she could still have silent aspiration. follow up : ?51-year-old woman with a history of asthma since childhood, on and off of medication since then. ? She developed symptoms 09/12 with shortness of breath, increased use of her inhalers, worsened, came to the ER 09/15 as she was no better using her nebulizer at home, no fever, cough. She went home with prednisone 50 mg x 7 days and her baseline Arnuity Ellipt
--- NOTE | 2021-09-25 16:13 | PM.IMPN ---
Progress Note: A&P Assessment and Plan (1) Asthma with status asthmaticus in adult: Qualifiers: Asthma severity: severe Code(s): J45.902 - Unspecified asthma with status asthmaticus Status: Acute Assessment and Plan: self extubated on 09/21 and she is currently on 2-3 L nasal cannula Will will taper her steroids currently taking methylprednisone 40 mg b.i.d., patient seen pulmonology and further recommendation to follow, stopped her antibiotics Patient received days of Rocephin Continue inhalers and bronchodilators. Continue oxygen. 09/25/2021 interval history: today patient remains on room air sitting in the chair and working with physical therapy is feeling much better denies any cough shortness of breath or wheeze, currently patient is being treated methylprednisone 40 mg b.i.d. and bronchodilator patient is seen by Dr. Bland skelp processor and discussed concern for aspiration pneumonia to further evaluate modified swallow study is ordered will follow-up and further recommendation to follow. (2) Hypertension: Code(s): I10 - Essential (primary) hypertension Status: Acute Assessment and Plan: Continue home meds. Monitor blood pressure (3) Hypercholesterolemia: Code(s): E78.00 - Pure hypercholesterolemia, unspecified Status: Acute Assessment and Plan: Continue home meds (4) Hyperkalemia: Code(s): E87.5 - Hyperkalemia Status: Acute Assessment and Plan: Resolved Subjective Date/time seen: 09/25/21 16:13 09/25/2021 interval history: today patient remains on room air sitting in the chair and working with physical therapy is feeling much better denies any cough shortness of breath or wheeze, currently patient is being treated methylprednisone 40 mg b.i.d. and bronchodilator patient is seen by Dr. Bland skelp processor and discussed concern for aspiration pneumonia to further evaluate modified swallow study is ordered will follow-up and further recommendation to follow. Review of Systems Review of Systems: All systems reviewed & are unremarkable except as noted in HPI and below Exam Narrative: morbidly obese Patient is comfortable, NAD HEENT: eyes are clear and none icteric LUNGS: normal respiratory effort ABD: distended Lower extremities: no edema SKIN: nonjaundiced Neuro: grossly intact. Objective Data Vital Signs Vital Signs: Vital Signs - 24 hr 09/24/21 17:55 09/24/21 20:38 09/24/21 20:50 Temperature 97.4 F L 97.6 F Pulse Rate 85 72 Respiratory Rate 22 H 12 Blood Pressure 156/85 H 141/92 H Pulse Oximetry 99 99 97 Oxygen Delivery Nasal Cannula Oxygen Flow Rate 4 09/24/21 20:50 09/24/21 20:00 09/24/21 20:00 Temperature Pulse Rate 80 72 Respiratory Rate 14 Blood Pressure Pulse Oximetry 97 Oxygen Delivery Nasal Cannula Oxygen Flow Rate 4 09/24/21 23:53 09/24/21 21:35 09/24/21 21:17 Temperature Pulse Rate 74 77 Respiratory Rate 14 14 Blood Pressure Pulse Oximetry 97 Oxygen Delivery Nasal Cannula Oxygen Flow Rate 3 09/25/21 01:47 09/25/21 00:00 09/25/21 01:04 Temperature 98.2 F Pulse Rate 71 77 71 Respiratory Rate 16 14 Blood Pressure 145/91 H Pulse Oximetry 98 Oxygen Delivery Oxygen Flow Rate 09/25/21 04:34 09/25/21 04:44 09/25/21 04:48 Temperature 97.7 F Pulse Rate 72 70 85 Respiratory Rate 14 14 16 Blood Pressure 151/91 H Pulse Oximetry 95 Oxygen Delivery Oxygen Flow Rate 09/25/21 04:00 09/25/21 04:40 09/25/21 05:05 Temperature Pulse Rate 80 Respiratory Rate Blood Pressure Pulse Oximetry 98 97 Oxygen Delivery Nasal Cannula Nasal Cannula Oxygen Flow Rate 3 2 09/25/21 09:35 09/25/21 09:51 09/25/21 08:00 Temperature Pulse Rate 87 83 85 Respiratory Rate 16 Blood Pressure Pulse Oximetry 98 Oxygen Delivery Nasal Cannula Oxygen Flow Rate 2 09/25/21 09:58 09/25/21 11:16 07
[2021-09-25] MEDS: BUDESONIDE RESPULE NEB 0.5 MG/2 ML AMP INHALATION (19:55)
[2021-09-26] VITALS (28 sets, daily range): BP systolic 113–148; BP diastolic 63–99; PULSE 64–111; RESP 12–20; TEMP 36–37; O2SAT 94–98
[2021-09-26] MEDS: IPRATROPIUM BR 0.02% INH SOLN 0.5 MG/2.5 ML VIAL INHALATION ×6 (00:33→23:24)
[2021-09-26] MEDS: CENTRAL LINE FLUSH 10 ML IV PUSH ×3 (06:57→21:22)
[2021-09-26] MEDS: ENOXAPARIN 40 MG/0.4 ML SYRINGE SUB-Q (08:23)
[2021-09-26] MEDS: ATORVASTATIN 20 MG TABLET PO (08:24)
[2021-09-26] MEDS: lisinopriL 20 MG TABLET PO (08:24)
[2021-09-26] MEDS: METOPROLOL TARTRATE 50 MG TAB PO (08:25)
[2021-09-26] MEDS: predniSONE 40 MG, predniSONE 10 MG 50 MG PO (08:26)
[2021-09-26] MEDS: PANTOPRAZOLE SODIUM IV 40 MG VIAL IV PUSH (08:26)
[2021-09-26] MEDS: BUDESONIDE RESPULE NEB 0.5 MG/2 ML AMP INHALATION ×2 (08:38→19:52)
--- NOTE | 2021-09-26 09:15 | PCNFU ---
Nutrition Follow-Up Complete: Inadequate energy intake related to reduced appetite and intake as evidenced by pt report Goal: PO intake 75% or greater most meals. Pt is progressing towards goal. Continue with current goal. Pt current nutrition is Heart healthy, soft and bite sized level 6, Ensure compact BID in place. Nutrition recommendation: Continue with current plan of care. Last recorded weight is 96.8 kg - down from 100kg at admit. Bowel Motility: +BM 09/25 Labs Reviewed: NA:131, K:5.8, BUN:27, Glu:174 Meds Noted: lovenox, protonix, prednisone Skin: WNL Additional Notes: Pt continues on a heart healthy, soft and bite sized level 6 diet, Ensure compact BID. Intake has improved to 50-75% most meals. Agree with diet order. Monitor intake, wt, labs. Follow up in 5 days.
[2021-09-26] MEDS: SODIUM ZIRCONIUM CYCLOSILICATE 10 GM POWD.PACK 15 GM PO (10:29)
[2021-09-26] MEDS: CENTRAL LINE FLUSH 20 ML IV PUSH (11:12)
[2021-09-26 11:33] LABS: Anion Gap 3 mmol/L (8-16); Blood Urea Nitrogen 25 mg/dL (7-17); Calcium 8.5 mg/dL (8.4-10.2); Carbon Dioxide 30 mmol/L (22-30); Chloride 99 mmol/L (98-107); Estimated CRCL calculation 68 ml/min; Estimated Glomerular Filt Rate > 60; Glucose 177 mg/dL (65-110); Potassium 4.1 mmol/L (3.4-5.0); Sodium 132 mmol/L (137-145)
--- NOTE | 2021-09-26 11:57 | PCCCNOTE ---
On 09/26/21, the student, [Grace Medina ], provided care and completed [facility] documentation on this patient. I have reviewed the student's documentation and agree with the findings.
--- NOTE | 2021-09-26 16:36 | PM.PNPUL ---
Progress Note: A&P Assessment and Plan (1) Asthma with status asthmaticus in adult: Qualifiers: Asthma severity: severe Code(s): J45.902 - Unspecified asthma with status asthmaticus Status: Acute Assessment and Plan: 09/17 patient with lifelong asthma, never before intubated, worse over the last year, only using p.r.n. inhaled corticosteroids on an infrequent basis according to the . Admitted with 5 days worsening shortness of breath, presented at the hospital 09/15, treated with oral prednisone, deteriorated, re-presented to the emergency room on 09/17 with status asthmaticus failing BiPAP and requiring intubation. Chest x-ray with no evidence of focal infiltrates, no evidence of cardiac diseases. COVID test negative on 09/15. She is unvaccinated. Negative influenza A and B, negative COVID SARS-CoV-2 PRC 09/15 and 09/17. Solu-Medrol 60 mg IV q.6 hours, levalbuterol 1.25 Q 6, ipratropium 0.5 mg q.4 hours, budesonide 0.5 mg q.12 hours. Agree with empiric treatment with ceftriaxone. Vent management per ICU team. Agree with paralytic and goal plateau pressure less than 30 at this time. 09/18 Patient remains intubated, fentanyl and Versed, paralyzed. ABG 7.37/40/77. Chest x-ray :without acute disease. Discontinue the paralytic today. Wean Solu-Medrol 60 mg IV q.6 hours. Continue levalbuterol and ipratropium nebulizers q.4 hours. Empiric treatment with ceftriaxone for now. Blood cultures are negative. 09/19 Patient remains intubated and sedated with fentanyl and Versed. Peak airway pressure is 27, rate of 24, tidal volume 380, 30% and a peep of 5 with a blood gas of 7.34/44/76. Chest x-ray with no focal infiltrates and no change from 09/18/2021. G stain of the sputum showed few Gram-negative diplococci, few gram-positive cocci. Decrease her Solu-Medrol to 20 mg IV q.6 hours. 09/21 Patient self extubated. 09/22 Improving; moved to Room 261. Will get Adrian out. Dr Griffin ordered PT/OT to start tomorrow. transition to oral steroids. She needs swallow evaluation tomorrow, coughs with eating. 09/25 Better, on 2 L/min; less coughing with eating. She will need a modified barium swallow with Speech Therapy, peak flow monitoring, more intensive education and follow up. She has a PF meter somewhere at home, does not know where, and she has never used it consistently. This is important as peak flows can drop 12-24 hours before symptoms appear. 09/26/2021 -MBS- nothing terrible. Patient tolerated regular consistency oral feedings in the upright position.? Please correlate with speech pathologist findings and specific feeding recommendations. Subtle increased soft tissue density project over the region of the piriform sinuses which based on prior CT appears to result from relatively symmetric swelling along the aryepiglottic folds but with normal-appearing epiglottis. There is may reflect response to recent intubation. 09/27/2021- better. Had nephrology consult for hyperkalemia. PF 80%. RA saturaton 96%. Education given regarding PF meter use, recording values, website [email or web address] given. She needs prednisone taper, f/u in our office in 2 weeks. Office phone number given. d/w Dr Hill. Needs IgE, [place] Allergen panel and alpha-1 labs on f/u visit in 2 weeks. Subjective Date/time seen: 09/27/21 11:40 Interval history: 09/27/2021; Follow up visit, Room 257. follow up : ?51-year-old woman with a history of asthma since childhood, on and off of medication since then. ? She developed symptoms 09/12 with shortness of breath, increased use of her inhalers, worsened, came to the ER 09/15 as she was no better using her nebulizer at home, no fever, cough. She went home with prednisone 50 mg x 7 days and her baseline Arnuity Ellipta, COVID test negative. Saturation was 99% on RA. Returned to ER 09/17 pearl hand hours with increased dyspnea, was treated for an asthma exace
--- NOTE | 2021-09-26 16:55 | PCOTNOTE ---
D/C pt. from occupational therapy services. Pt. has displayed return to baseline function. No additional skilled OT services recommended at this time.
[2021-09-26 18:18] LABS: Anion Gap 6 mmol/L (8-16); Blood Urea Nitrogen 29 mg/dL (7-17); Calcium 8.4 mg/dL (8.4-10.2); Carbon Dioxide 28 mmol/L (22-30); Chloride 100 mmol/L (98-107); Estimated CRCL calculation 57 ml/min; Estimated Glomerular Filt Rate 53; Glucose 163 mg/dL (65-110); Potassium 4.6 mmol/L (3.4-5.0); Sodium 134 mmol/L (137-145)
[2021-09-27] VITALS (12 sets, daily range): BP systolic 111–129; BP diastolic 74–87; PULSE 72–115; RESP 17–20; TEMP 36.3–36.6; O2SAT 97–100
[2021-09-27] MEDS: IPRATROPIUM BR 0.02% INH SOLN 0.5 MG/2.5 ML VIAL INHALATION ×3 (04:36→12:23)
[2021-09-27] MEDS: CENTRAL LINE FLUSH 10 ML IV PUSH (05:40)
[2021-09-27 06:05] LABS: Anion Gap 0 mmol/L (8-16); Blood Urea Nitrogen 25 mg/dL (7-17); Calcium 8.2 mg/dL (8.4-10.2); Carbon Dioxide 31 mmol/L (22-30); Chloride 102 mmol/L (98-107); Estimated CRCL calculation 67 ml/min; Estimated Glomerular Filt Rate > 60; Glucose 95 mg/dL (65-110); Sodium 133 mmol/L (137-145)
[2021-09-27] MEDS: BUDESONIDE RESPULE NEB 0.5 MG/2 ML AMP INHALATION (07:40)
[2021-09-27] MEDS: ATORVASTATIN 20 MG TABLET PO (08:15)
[2021-09-27] MEDS: lisinopriL 20 MG TABLET PO (08:15)
[2021-09-27] MEDS: predniSONE 40 MG, predniSONE 10 MG 50 MG PO (08:15)
[2021-09-27] MEDS: METOPROLOL TARTRATE 50 MG TAB PO (08:15)
[2021-09-27] MEDS: PANTOPRAZOLE SODIUM IV 40 MG VIAL IV PUSH (08:16)
[2021-09-27] MEDS: ENOXAPARIN 40 MG/0.4 ML SYRINGE SUB-Q (08:21)
[2021-09-27] MEDS: ACETAMINOPHEN 500 MG TABLET 1000 MG PO (08:23)
[2021-09-27 09:26] LABS: Creatine Kinase 60 U/L (30-135)
--- NOTE | 2021-09-27 09:38 | PM.CNNEP ---
Assessment and Plan Additional Plan 1. The patient had hyperkalemia intermittently through the hospital stay. The patient does not have any significant evidence of increased potassium intake orally. Her CPK is normal and her hemoglobin is not dropping so rhabdomyolysis and myolysis are not likely. Large GI bleeds can also increase potassium absorption but her hemoglobin is not dropping and she has no symptoms of this. The patient is on lisinopril which can cause hyperkalemia. Otherwise the patient is not on any medications that would do this. She does not seem to have a renal tubular acidosis as her bicarbonate level is not low. In addition this is not a chronic problem. At this point we should stop her lisinopril. She does not have diabetes or proteinuria so there is nothing special about lisinopril in this particular case. If she remained in the hospital I would just wait for her potassium to rise again and then would check some tests such as urine potassium, creatinine, and also cortisol, renin, and aldosterone levels. The patient is eager to go home. She can follow-up with us as an outpatient or follow with her primary care doctor and come to us if the potassium rises again. She should probably get another potassium on Wednesday just to be sure it does not continue to rise. 2. The patient has hypertension. She is on metoprolol and lisinopril. We are stopping the latter. Perhaps hydrochlorothiazide might be a reasonable option for her to replace the lisinopril. 3. The patient has asthma. Dr. Bland is working on this. 4. patient has hyperlipidemia. She is on atorvastatin. History of Present Illness Reason for Consult Consult date: 09/27/21 Chief Complaint Chief complaint: Status asthmaticus History of Present Illness Narrative: In the meantime she had a high potassium. It was in the mid to high 5s between 09/18 and 09/20. On the was 5.8. Yesterday it was 4.1 and today was 5.0. She was given Lokelma yesterday. The patient has never had high potassium before. She does not eat a high potassium diet. She is not on any potassium retaining drugs. She is on lisinopril. She has normal kidney function. She has never had a history of bloody urine foamy urine kidney stones or bladder infections. She takes an occasional Advil maybe twice a month for headaches. Her creatinine is normal. Her CPK is normal. Her bicarbonate was level is normal to high. She says the sometimes they have some trouble drawing her blood but not consistently. There is no sign of hemolysis on her blood samples. She does have a mildly high white cell count but not severely high. She does not have a high platelet count or hemoglobin. She says she was told that she was going to go home today and is very eager for discharge. Review of Systems Constitutional: Constitutional: Reports no additional constitutional complaints Eyes: Eyes: Reports no additional eye complaints ENT: Reports system reviewed and no additional complaints, except as documented Cardiovascular: Cardiovascular: Reports no additional cardiovascular complaints Respiratory: Respiratory: Reports no additional respiratory complaints Gastrointestinal: Gastrointestinal: Reports no additional gastrointestinal complaints Genitourinary: Genitourinary: Reports no additional female genitourinary complaints Musculoskeletal: Musculoskeletal: Reports no additional musculoskeletal complaints Integumentary/Breasts: Skin/Breast: Reports system reviewed and no additional complaints, except as docu Neurologic: Reports system reviewed and no additional complaints, except as documented Psychiatric: Psychiatric: Reports no additional psychiatric complaints Endocrine: Endocrine: Reports no additional endocrine complaints [facility] Past Medical History Medical History Anemia no iron--had IV injection Asthma Hypercholesterolemia Hyperten
--- NOTE | 2021-09-27 12:32 | PM.DS ---
DS: Admitting Diagnosis Discharge Date 09/27/2021 Admitting Diagnosis exacerbation of asthma DS: Discharge Diagnosis Discharge Diagnosis (1) Asthma with status asthmaticus in adult: Qualifiers: Asthma severity: severe Code(s): J45.902 - Unspecified asthma with status asthmaticus Status: Acute Assessment and Plan: self extubated on 09/21 and she is currently on 2-3 L nasal cannula Will will taper her steroids currently taking methylprednisone 40 mg b.i.d., patient seen pulmonology and further recommendation to follow, stopped her antibiotics Patient received days of Rocephin Continue inhalers and bronchodilators. Continue oxygen. 09/25/2021 interval history: today patient remains on room air sitting in the chair and working with physical therapy is feeling much better denies any cough shortness of breath or wheeze, currently patient is being treated methylprednisone 40 mg b.i.d. and bronchodilator patient is seen by Dr. Bland school traffic supervisor and discussed concern for aspiration pneumonia to further evaluate modified swallow study is ordered will follow-up and further recommendation to follow. (2) Hypertension: Code(s): I10 - Essential (primary) hypertension Status: Acute Assessment and Plan: Continue home meds. Monitor blood pressure (3) Hypercholesterolemia: Code(s): E78.00 - Pure hypercholesterolemia, unspecified Status: Acute Assessment and Plan: Continue home meds (4) Hyperkalemia: Code(s): E87.5 - Hyperkalemia Status: Acute Assessment and Plan: Resolved DS: Summary Hospital Course Reason for hospitalization: Chief Complaint: 51-year-old female history of asthma presented to the emergency department for evaluation of worsening shortness of breath.? Patient states over the last few days she has had a persistent asthma exacerbation.? Patient was evaluated in the emergency department on Wednesday and states she did get a continuous neb and did feel improved at the time.? Patient states that Wednesday night she began worsening and felt poorly throughout the day on Wednesday.? Patient presented to the emerge department on Wednesday night with significant difficulty breathing.? Patient was tripoding and in mild distress. Patient states her last admission for asthma was approximately 3 years ago.? Patient has never been intubated.? Patient is unsure of any triggers that may have caused this asthma exacerbation.? Patient denies any changes to medications and denies any new pets or exposure to allergens. Hospital Course: self extubated on 09/21? and she is currently on 2-3 L nasal cannula Will? will taper her steroids currently taking methylprednisone 40 mg b.i.d., patient seen pulmonology and further recommendation to follow,? stopped her antibiotics Patient received days of Rocephin Continue inhalers and bronchodilators. today patient remains on room air sitting in the chair and working with physical therapy is feeling much better denies any cough shortness of breath or wheeze, currently patient is being treated methylprednisone 40 mg b.i.d. and bronchodilator patient is seen by Dr. Bland? school traffic supervisor and discussed concern for aspiration pneumonia to further evaluate patient had modified swallow study and it showed patient was to tolerate regular consistency oral feeding, pulomonologist suspect difficulty swallowing may be related to intubation, will monitor? and further recommendation to follow. today patient's clinically comfortable has no new complaint and school traffic supervisor is in agreement to discharge the patient follow-up as outpatient in their clinic in 2 weeks. Time Spent with Patient Time attestation: Total time spent providing and/or coordinating discharge services: Exam Narrative: morbidly obese Patient is comfortable, NAD HEENT: eyes are clear and none icteric LUNGS: normal respiratory effort ABD: distended Lower extremities: no andrea
--- NOTE | 2021-10-12 14:58 | PM.IMPN ---
Progress Note: A&P Assessment and Plan (1) Asthma with status asthmaticus in adult: Qualifiers: Asthma severity: severe Code(s): J45.902 - Unspecified asthma with status asthmaticus Status: Acute Assessment and Plan: self extubated on 09/21 and she is currently on 2-3 L nasal cannula Will will taper her steroids currently taking methylprednisone 40 mg b.i.d., patient seen pulmonology and further recommendation to follow, stopped her antibiotics Patient received days of Rocephin Continue inhalers and bronchodilators. Continue oxygen. 09/25/2021 interval history: today patient remains on room air sitting in the chair and working with physical therapy is feeling much better denies any cough shortness of breath or wheeze, currently patient is being treated methylprednisone 40 mg b.i.d. and bronchodilator patient is seen by Dr. Bland mental retardation aide and discussed concern for aspiration pneumonia to further evaluate modified swallow study is ordered will follow-up and further recommendation to follow. 09/26/2021 interval history: today patient remains on room air sitting in the chair and working with physical therapy is feeling much better denies any cough shortness of breath or wheeze, currently patient is being treated methylprednisone 40 mg b.i.d. and bronchodilator patient is seen by Dr. Bland mental retardation aide and discussed concern for aspiration pneumonia to further evaluate patient had modified swallow study and it showed patient was to tolerate regular consistency oral feeding, pulomonologist suspect difficulty swallowing may be related to intubation, will monitor and further recommendation to follow. (2) Hypertension: Code(s): I10 - Essential (primary) hypertension Status: Acute Assessment and Plan: Continue home meds. Monitor blood pressure (3) Hypercholesterolemia: Code(s): E78.00 - Pure hypercholesterolemia, unspecified Status: Acute Assessment and Plan: Continue home meds (4) Hyperkalemia: Code(s): E87.5 - Hyperkalemia Status: Acute Assessment and Plan: Resolved Subjective Date/time seen: 09/26/2021 09/26/2021 interval history: today patient remains on room air sitting in the chair and working with physical therapy is feeling much better denies any cough shortness of breath or wheeze, currently patient is being treated methylprednisone 40 mg b.i.d. and bronchodilator patient is seen by Dr. Bland mental retardation aide and discussed concern for aspiration pneumonia to further evaluate patient had modified swallow study and it showed patient was to tolerate regular consistency oral feeding, pulomonologist suspect difficulty swallowing may be related to intubation, will monitor and further recommendation to follow. Review of Systems Review of Systems: All systems reviewed & are unremarkable except as noted in HPI and below Exam Narrative: morbidly obese Patient is comfortable, NAD HEENT: eyes are clear and none icteric LUNGS: normal respiratory effort ABD: distended Lower extremities: no edema SKIN: nonjaundiced Neuro: grossly intact. Objective Data Meds/Results Radiology Results: ITS Impressions Abdomen X-Ray 09/17/21 07:48 IMPRESSION: 1. Endotracheal tube tip 8 cm above the pati. Consider advancement by 5 cm. 2. No acute cardiopulmonary disease. 3. Nasogastric tube in the stomach. Soft Tissue Neck CT 09/21/21 16:21 IMPRESSION: Motion limited examination. Within that constraint, no significant abnormality detected in the neck. High Resolution CT 09/21/21 16:24 IMPRESSION: Motion limited examination. Endotracheal and nasogastric tubes, in good position. Small focus of secretions in the right mainstem bronchus. I'll chest wall edema. Partially visualized air-filled, dilated loop of transverse colon. Chest X-Ray 09/22/21 08:14 IMPRESSION: Removal of ET and NG tubes; no active cardiopulmonary disease
[2021-10-14 09:02] LABS: Glucose Point of Care 194 mg/dl (65-105)
[2021-10-14 09:02] LABS: Glucose Point of Care 194 mg/dl (65-105)
[2021-10-14 09:02] LABS: Glucose Point of Care 230 mg/dl (65-105)
== END 2021-09-27 14:30 | disposition home health service (06) | DRG 141 ==
LOC: ANHED 03:11 → ANHICU 05:38 → ANH2MED 09-24 14:08 → ANHICU 09-29 10:20
PROVIDERS: Chiropractor; Internal Medicine; Internal Medicine Pulmonary Disease; Admitting Provider Internal Medicine; Emergency Provider Emergency Medicine; PCP Physician Assistant; Visit Provider Family Medicine
DX: J45.902 Unspecified asthma with status asthmaticus (principal); E78.00 Pure hypercholesterolemia, unspecified; I10 Essential (primary) hypertension; Z20.822 Contact with and (suspected) exposure to COVID-19; E66.9 Obesity, unspecified; Z68.41 Body mass index [BMI] 40.0-44.9, adult; J45.901 Unspecified asthma with (acute) exacerbation; Z82.49 Family history of ischemic heart disease and other diseases of the circulatory system; Z87.891 Personal history of nicotine dependence; Z79.899 Other long term (current) drug therapy; Z79.51 Long term (current) use of inhaled steroids; E87.5 Hyperkalemia
CPT/HCPCS: 31500; 36415; 36569; 36600; 70490; 71045; 71250; 80048; 80053; 80307; 81001; 82375; 82550; 82805; 82948; 83050; 83605; 83735; 84100; 85025; 85027; 87040; 87070; 87086; 87205; 87486; 87502; 87581; 87633; 92610; 92611; 93005; 94002; 94003; 94640; 96361; 96365; 96366; 96367; 96368; 96375; 97110; 97116; 97161; 97165; 97530; 97535; 99285; A9270; C1751; C9113; C9803; G0378; G0379; J0360; J0696; J1650; J1815; J1940; J2250; J2920; J2930; J3010; J3475; J7030; J7040; J7060; J7512; U0003; U0005

== ENCOUNTER 2021-09-30 11:26 | Outpatient (NON) | payer OTHER, SELFPAY ==
[2021-09-30 12:13] LABS: Basophils Percent Auto 0.2 % (0.2-1.2); Eosinophils Absolute Auto 0.1 K/mm3 (0-0.3); Eosinophils Percent Auto 0.7 % (0-4.4); Hematocrit 47.8 % (37.0-47.0); Hemoglobin 16.3 g/dL (12.0-15.0); Lymphocytes Absolute Auto 1.67 K/mm3 (0.9-3.2); Lymphocytes Percent Auto 8.7 % (18.3-44.2); Mean Corpuscular HGB Conc 34.1 g/dl (32-36); Mean Corpuscular Hemoglobin 29.9 pg (26-34); Mean Corpuscular Volume 87.5 fl (80-100); Mean Platelet Volume 10.1 fl (7.4-10.4); Neutrophils Absolute Auto 16.1 K/mm3 (1.3-6.7); Neutrophils Percent Auto 84.4 % (45.5-73.1); Platelet Count Result 272 k/mm3 (150-375); Red Blood Count 5.46 M/mm3 (4.2-5.4); White Blood Count 19.1 K/mm3 (4.5-10.0)
[2021-09-30 12:16] LABS: Anion Gap 6 mmol/L (8-16); Blood Urea Nitrogen 21 mg/dL (7-17); Calcium 8.7 mg/dL (8.4-10.2); Carbon Dioxide 25 mmol/L (22-30); Chloride 104 mmol/L (98-107); Cholesterol 206 mg/dL (0-200); Estimated Glomerular Filt Rate > 60; Glucose 129 mg/dL (65-110); HDL Direct 59 mg/dL; Potassium 4.5 mmol/L (3.4-5.0); Sodium 135 mmol/L (137-145); Triglycerides 358 mg/dL (<150)
[2021-09-30 12:27] LABS: LDL Cholesterol Direct 86 mg/dL
== END 2021-09-30 11:27 | disposition home or self-care (01) ==
PROVIDERS: PCP Physician Assistant; Visit Provider Physician Assistant
DX: J45.902 Unspecified asthma with status asthmaticus (principal); I10 Essential (primary) hypertension; E78.00 Pure hypercholesterolemia, unspecified; E66.9 Obesity, unspecified; Z68.41 Body mass index [BMI] 40.0-44.9, adult; Z90.5 Acquired absence of kidney; Z90.710 Acquired absence of both cervix and uterus; Z87.891 Personal history of nicotine dependence
CPT/HCPCS: 36415; 80048; 80061; 85025

== ENCOUNTER 2021-10-02 10:23 | Outpatient (NON) | payer OTHER, SELFPAY ==
[2021-10-03 14:38] LABS: Cholesterol 219 mg/dL (0-200); HDL Direct 53 mg/dL; Triglycerides 377 mg/dL (<150)
[2021-10-03 14:39] LABS: LDL Cholesterol Direct 94 mg/dL
== END 2021-10-02 10:24 | disposition home or self-care (01) ==
LOC: ANHLAB 10:24
PROVIDERS: PCP Physician Assistant; Visit Provider Physician Assistant
DX: I10 Essential (primary) hypertension (principal)
CPT/HCPCS: 36415; 80061

== ENCOUNTER 2021-11-11 08:06 | Outpatient (CLI) | payer OTHER, SELFPAY ==
--- NOTE | 2021-11-12 14:00 | WPDSIXMINUTE ---
Six Minute Walk Procedure Procedure Performed Pulmonary Stress Test (6 min walk) Six Minute Walk Six Minute Walk: This is a 6 minute walk test. The test was performed and interpreted in accordance with the 2014 ERS/ATS task force guidelines. Findings: The patient's resting room air oxygen saturation measured by pulse oximetry was 96% and heart rate was 65 bpm. Patient ambulated for 396 meters and oxygen saturation remained 95 to 97%. Heart rate at the end of the study was 89 bpm. The patient did not qualify for supplemental oxygen at rest or with ambulation. There are no prior studies for comparison.
--- NOTE | 2021-11-12 14:01 | WPDPFTINT ---
PFT Procedure Performed PFT Procedure Performed Spirometry with Pre/Post Bronchodilator Plethysmography (Lung Vol) Diffusing Cap (DLCO) Flow Vol Loop PFT Interpretation This is a pulmonary function test with pre and post-bronchodilator spirometry, plethysmography and diffusing capacity. The test was performed and results interpreted in accordance with the 2019 and 2005 ATS/ERS Task Force guidelines respectively using the Global Lung Function Initiative-2012 reference equations. Patient demonstrated good effort and cooperation. Reproducibility criteria were met. The quality of the pre bronchodilator spirometry maneuver was Grade A and post bronchodilator spirometry maneuver was Grade A. Findings: Spirometry: there is decreased maximal expiratory airflow at all lung volumes with concave expiratory flow tracing. The contour the inspiratory flow tracing is normal. The pre bronchodilator FVC is 2.52 L, 81% predicted. The pre bronchodilator FEV1 is 1.45 L, 58% predicted. The pre bronchodilator FEV1: FVC ratio is 58%. The post bronchodilator FVC is 3.10 L, representing a 23% increase. The post bronchodilator FEV1 is 1.93 L, representing a 33% increase. The post bronchodilator FEV1: FVC ratio 62%. Plethysmography: The total lung capacity is 6.34 L, 138% predicted. Functional residual capacity is 4.36 L, 171% predicted. The residual volume is 3.82 L, 233% predicted. Diffusion capacity: The diffusion capacity unadjusted for hemoglobin and carboxyhemoglobin is 18.9, 88% predicted. The diffusing capacity adjusted for alveolar volume is 4.63, 98% predicted. Impression: There is a moderately severe obstructive abnormality with significant improvement after inhaling a single dose of albuterol. The increase in residual volume is consistent with air trapping from an obstructive abnormality. Hyperinflation is present as demonstrated by the increase in functional residual capacity and total lung capacity and is consistent with an obstructive abnormality. The diffusing capacity is normal. There are no prior studies for comparison
== END 2021-11-11 08:07 | disposition home or self-care (01) ==
LOC: ANHPFT 08:09
PROVIDERS: PCP Physician Assistant; Visit Provider Internal Medicine Critical Care Medicine
DX: J45.909 Unspecified asthma, uncomplicated (principal); R94.2 Abnormal results of pulmonary function studies
CPT/HCPCS: 94060; 94618; 94726; 94729

== ENCOUNTER 2021-12-12 10:52 | Outpatient (CLI) | payer OTHER, SELFPAY ==
--- NOTE | ~2021-12-12 | MM_ITS ---
EXAMINATION: MM screening [facility] BI w shira HISTORY: Screening mammogram TECHNIQUE: Craniocaudal and mediolateral oblique 3-D tomosynthesis images were obtained and synthetic 2-D images were generated. CAD analysis was submitted and interpreted. COMPARISON: 09/25/2020, 04/19/2017, 04/06/2013 BREAST PARENCHYMAL COMPOSITION: There are scattered areas of fibroglandular density. FINDINGS: There is no suspicious mass, calcification, or architectural distortion to suggest malignan cy in either breast. There has been no suspicious interval change. IMPRESSION: 1. No mammographic evidence of malignancy. 2. Recommend routine screening mammography in one year. BI-RADS Category 1: Negative Reviewed, dictated and finalized at location A.
== END 2021-12-12 10:53 | disposition home or self-care (01) ==
LOC: ANHIMG 10:53
PROVIDERS: PCP Physician Assistant; Visit Provider Obstetrics & Gynecology
DX: Z12.31 Encounter for screening mammogram for malignant neoplasm of breast (principal)
CPT/HCPCS: 77063; 77067

== ENCOUNTER 2022-04-18 23:02 | Emergency (ER) | payer OTHER, SELFPAY ==
--- NOTE | ~2022-04-18 | XR_ITS ---
XR chest 2V 04/19/2022 01:17 Indication: Shortness of breath Procedure: 2 view chest Comparison: Comparison to multiple prior studies sequentially, with oldest reviewed study dated 04/2021. Findings: Heart size normal. Left basilar atelectasis. No focal pneumonia, edema, pleural effusion or pneumothorax. There are surgical changes in the left upper abdomen. No acute osseous abnormality. Impression: 1: Left basilar atelectasis. Reviewed, dictated and finalized at location A. EXTINGUISHER REPAIRER Impression: 1: Left basilar atelectasis.
[2022-04-18 23:07] VITALS: PULSE 81; RESP 14; O2SAT 100
[2022-04-18 23:08] VITALS: BP 137/85; PULSE 77; O2SAT 100
[2022-04-18 23:15] VITALS: PULSE 87; RESP 17; O2SAT 100
[2022-04-18 23:16] VITALS: RESP 18
--- NOTE | 2022-04-18 23:18 | ED.ASTHMA ---
HPI - Asthma General Chief Complaint: Asthma Stated Complaint: sob, asthma Time Seen by Provider: 04/18/22 23:13 Source: patient Mode of arrival: ambulatory Limitations: no limitations History of Present Illness HPI Narrative: This is a 52 year old female that presents to the ER for shortness of breath ongoing over the last couple of days. Associated with wheezing. Reports history of asthma. She has been taking her inhalers as prescribed and using her breathing treatments with little relief. Denies fever or cough. Related Data Home Medications Medication Instructions Recorded Confirmed atorvastatin 20 mg tablet 20 mg PO DAILY 03/09/19 01/26/22 metoprolol tartrate 50 mg tablet 50 mg PO DAILY 03/09/19 01/26/22 ipratropium 0.5 mg-albuterol 3 mg 3 ml inhalation Q4H PRN 10/20/21 01/26/22 (2.5 mg base)/3 mL nebulization soln Allergies Allergy/AdvReac Type Severity Reaction Status Date / Time dog dander Allergy Wheezing Verified 04/18/22 23:02 Review of Systems Review of Systems: CONSTITUTIONAL: Denies fever CARDIOVASCULAR: Denies chest pain, or edema. RESPIRATORY: Reports dyspnea. Denies cough All systems reviewed & are unremarkable except as noted in HPI and below PMFSH Past Medical History Medical History Anemia no iron--had IV injection Asthma Hypercholesterolemia Hypertension Screening mammogram, encounter for Surgical History Surgical History History of abdominal supracervical subtotal hysterectomy 08/26/17 Supracx abdominal hyst w/ovarian preservation--enlarged uterine fibroid History of 02/01/98 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 History of tubal ligation 02/01/98 Family History Family History Other Acute myocardial infarction maternal uncle Sibling Kidney disease brother--pt donated 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 Social History Social History Smoking packs per day: 0.5 Smoking cigarettes per day: 10.0 Years smoked: 27 Smoking pack-years: 13.50 Smoking status: Former smoker Tobacco type: cigarettes Smokeless tobacco user: other Second hand tobacco smoke exposure: Yes Smoking end date: 03/22/18 Alcohol intake: never Substance use: former Substance use type: marijuana Last use: Stopped marijuana use prior to hospitalization August 2021. Living arrangements: other Additional living arrangements comments: spouse Occupation/Education: other Additional occupation/education comments: housewife Gender identity (if verbalized by the patient): Female Sexual Orientation (if Verbalized by the Patient): Straight or Heterosexual Spiritual care concerns: No Exam Narrative: GENERAL: Well-appearing, well-nourished, and in no acute distress. HEAD: Normocephalic, atraumatic. EYES: EOMI. ENT: Nares clear, no rhinorrhea or epistaxis. Mucous membranes moist. Oropharynx without tonsillar hypertrophy exudate or other lesions. CHEST: No respiratory distress. Diffuse expiratory wheezing. No rales or rhonchi HEART: Regular rate and rhythm. No murmur heard. Normal peripheral pulses. EXTREMITIES: Normal range of motion. No edema. SKIN: Warm, dry, no rash. NEURO: No focal deficits. Alert and oriented x3. PSYCH: Normal mood and affect Course Course Emergency Course: Patient and family updated on work-up. Reports she feels much better and is ready for discharge home Vital Signs Vital signs: Vital Signs Pulse Rate 81 04/18/22 23:07 Respiratory Rate 14 04/18/22 23:07 Pulse Oximetry 100 04/18/22 23:07 Pulse Rate 77 04/18/22 23:35 Respiratory Rate 16 04/18/22 23:35 Blood Pressure 137/85 04/18/22 23:08 Pulse Oximetry 100 04/18/22 23:15 MDM - Asthma MDM Narrative Medical decision noah
[2022-04-18] MEDS: IPRATROPIUM BR 0.02% INH SOLN 0.5 MG/2.5 ML VIAL 1.5 MG INHALATION (23:33)
[2022-04-18] MEDS: ALBUTEROL SULFATE NEB 2.5 MG/3 ML INH 15 MG INHALATION (23:34)
[2022-04-18 23:35] VITALS: PULSE 77; RESP 16
[2022-04-18] MEDS: methylPREDNISolone SOD SUCC 125 MG VIAL IV PUSH (23:46)
[2022-04-18 23:54] LABS: Basophils Absolute Auto 0.1 K/mm3 (0.0-0.1); Basophils Percent Auto 0.6 % (0.2-1.2); Eosinophils Absolute Auto 0.6 K/mm3 (0-0.3); Eosinophils Percent Auto 5.8 % (0-4.4); Hematocrit 41.1 % (37.0-47.0); Hemoglobin 13.9 g/dL (12.0-15.0); Immature Granulocyte Absolute 0.02 K/mm3 (0.00-0.031); Immature Granulocyte Percent A 0.2 % (0-0.5); Lymphocytes Absolute Auto 3.55 K/mm3 (0.9-3.2); Lymphocytes Percent Auto 35.6 % (18.3-44.2); Mean Corpuscular HGB Conc 33.8 g/dl (32-36); Mean Corpuscular Volume 85.8 fl (80-100); Mean Platelet Volume 9.8 fl (7.4-10.4); Monocytes Absolute Auto 0.7 K/mm3 (0.1-0.6); Monocytes Percent Auto 7.1 % (2.6-8.5); Neutrophils Absolute Auto 5.1 K/mm3 (1.3-6.7); Neutrophils Percent Auto 50.7 % (45.5-73.1); Platelet Count Result 312 k/mm3 (150-375); Red Blood Count 4.79 M/mm3 (4.2-5.4); Red Cell Distribution Width 13.3 % (11.5-14.5)
[2022-04-19 00:20] LABS: Anion Gap 8 mmol/L (8-16); Blood Urea Nitrogen 20 mg/dL (7-17); Calcium 9.4 mg/dL (8.4-10.2); Carbon Dioxide 25 mmol/L (22-30); Chloride 104 mmol/L (98-107); Estimated Glomerular Filt Rate > 60; Glucose 99 mg/dL (65-110); Magnesium 1.7 mg/dL (1.6-2.3); Potassium 4.2 mmol/L (3.4-5.0); Sodium 137 mmol/L (137-145)
[2022-04-19 02:10] VITALS: PULSE 89; O2SAT 98
[2022-04-19 02:18] VITALS: TEMP 36.7
== END 2022-04-19 02:30 | disposition home or self-care (01) ==
PROVIDERS: Physician Assistant; Emergency Provider Emergency Medicine; PCP Physician Assistant
DX: J45.901 Unspecified asthma with (acute) exacerbation (principal); E78.00 Pure hypercholesterolemia, unspecified; I10 Essential (primary) hypertension; Z86.2 Personal history of diseases of the blood and blood-forming organs and certain disorders involving the immune mechanism; Z90.710 Acquired absence of both cervix and uterus; Z90.5 Acquired absence of kidney; Z87.891 Personal history of nicotine dependence
CPT/HCPCS: 36415; 71046; 80048; 83735; 85025; 94640; 96374; 99284; J2930

== ENCOUNTER 2023-03-13 09:31 | Outpatient (CLI) | payer OTHER, SELFPAY ==
--- NOTE | ~2023-03-13 | MM_ITS ---
EXAMINATION: MM screening aminah BI w shira HISTORY: Screening mammogram TECHNIQUE: Craniocaudal and mediolateral oblique 3-D tomosynthesis images were obtained and synthetic 2-D images were generated. CAD analysis was submitted and interpreted. COMPARISON: 12/12/2021, 09/25/2020 bilateral screening mammogram examinations BREAST PARENCHYMAL COMPOSITION: There are scattered areas of fibroglandular density. FINDINGS: There is no evidence of suspicious mass, calcification, or architectural distortion to sugg est malignancy in either breast. There has been no suspicious interval change. IMPRESSION: 1. No mammographic evidence of malignancy. 2. Recommend routine screening mammography in one year. BI-RADS Category 1: Negative Reviewed, dictated and finalized at location A.
== END 2023-03-13 09:32 | disposition home or self-care (01) ==
PROVIDERS: PCP Physician Assistant; Visit Provider Obstetrics & Gynecology
DX: Z12.31 Encounter for screening mammogram for malignant neoplasm of breast (principal)
CPT/HCPCS: 77063; 77067

== ENCOUNTER 2023-03-29 22:47 | Emergency (ER) | payer OTHER, SELFPAY ==
[2023-03-29] VITALS (8 sets, daily range): BP systolic 150–157; BP diastolic 86–94; PULSE 70–76; RESP 16–18; TEMP 36.2; O2SAT 98–100
--- NOTE | ~2023-03-29 | XR_ITS ---
Clinical Indication: Chest pain PA and lateral views of the chest: Comparison: 04/19/2022 Findings: The lungs are clear, without evidence of focal consolidation or pleural effusion. Cardiome diastinal silhouette is within normal limits. Bones and soft tissues are unremarkable. Impression: Normal chest. Reviewed, dictated and finalized at [facility]. T SUPPORT SPECIALIST Impression: Normal chest.
--- NOTE | 2023-03-29 22:55 | ECG_ITS ---
Measurements Intervals [place] Rate: 70 P: 37 UT: 223 QRS: 7 QRSD: 98 T: -10 QT: 398 QTc: 430 Interpretive Statements SINUS RHYTHM WITH FIRST DEGREE AV BLOCK BORDERLINE ST-T WAVE ABNORMALITY- ANT/INF LEADS BASELINE ARTIFACT- I, III, AVL, AVF, V1-V2 BORDERLINE ECG COMPARED TO ECG 09/17/2021 03:38:52 SINUS RHYTHM NOW PRESENT FIRST DEGREE AV BLOCK NOW PRESENT Electronically Signed On 03-30-2023 5:57:11 METAL BOX MAKER by Ilia Velazquez D.O.
[2023-03-29 23:31] LABS: Basophils Percent Auto 0.4 % (0.2-1.2); Eosinophils Absolute Auto 0.5 K/mm3 (0-0.3); Eosinophils Percent Auto 4.3 % (0-4.4); Hematocrit 39.9 % (37.0-47.0); Immature Granulocyte Absolute 0.03 K/mm3 (0.00-0.031); Immature Granulocyte Percent A 0.3 % (0-0.5); Lymphocytes Absolute Auto 3.14 K/mm3 (0.9-3.2); Lymphocytes Percent Auto 29.5 % (18.3-44.2); Mean Corpuscular HGB Conc 32.6 g/dl (32-36); Mean Corpuscular Hemoglobin 29.3 pg (26-34); Mean Corpuscular Volume 90.1 fl (80-100); Mean Platelet Volume 9.3 fl (7.4-10.4); Monocytes Absolute Auto 0.8 K/mm3 (0.1-0.6); Monocytes Percent Auto 7.3 % (2.6-8.5); Neutrophils Absolute Auto 6.2 K/mm3 (1.3-6.7); Neutrophils Percent Auto 58.2 % (45.5-73.1); Platelet Count Result 314 k/mm3 (150-375); Red Blood Count 4.43 M/mm3 (4.2-5.4); Red Cell Distribution Width 12.6 % (11.5-14.5); White Blood Count 10.6 K/mm3 (4.5-10.0)
[2023-03-29 23:42] LABS: Alanine Aminotransferase 22 U/L (6-35); Albumin Level 3.7 g/dL (3.5-5.1); Alkaline Phosphatase 107 U/L (38-126); Anion Gap 7 mmol/L (8-16); Aspartate Amino Transferase 21 U/L (14-36); Bilirubin,Total 0.3 mg/dL (0.2-1.3); Blood Urea Nitrogen 20 mg/dL (7-17); Calcium 8.7 mg/dL (8.4-10.2); Carbon Dioxide 24 mmol/L (22-30); Chloride 105 mmol/L (98-107); Estimated CRCL calculation 63 ml/min; Estimated Glomerular Filt Rate 58; Glucose 94 mg/dL (65-110); INR 0.9; Lipase 142 U/L (23-300); Potassium 4.4 mmol/L (3.4-5.0); Prothrombin Time 12.7 Seconds (11.1-14.7); Sodium 136 mmol/L (137-145)
[2023-03-29 23:43] LABS: Partial Thromboplastin Time 24.7 SECONDS (22.3-36.8)
[2023-03-29 23:53] LABS: Troponin I < 0.012 ng/mL (0.000-0.034)
[2023-03-30] VITALS (21 sets, daily range): BP systolic 117–130; BP diastolic 70–83; PULSE 68–78; RESP 14–20; O2SAT 96–100
[2023-03-30] MEDS: ASPIRIN 81 MG CHEWABLE TABLET 324 MG PO (01:19)
--- NOTE | 2023-03-30 02:00 | ED.GENADULT ---
HPI - General Adult General Chief complaint: Chest Pain Stated complaint: cp Time Seen by Provider: 03/29/23 23:27 History of Present Illness HPI narrative: patient is a 53-year-old female who presents emergency department chief complaint of left-sided chest pain. Patient reports over the last several days she has been having discomfort in the left side of her chest does report that improves with rest reports that it has been worse with exertion. The patient reports that she has no prior history of cardiac disease does have history of hypertension high cholesterol Related Data Home Medications Medication Instructions Recorded Confirmed atorvastatin 20 mg tablet 20 mg PO DAILY 03/09/19 10/26/22 metoprolol tartrate 50 mg tablet 50 mg PO DAILY 03/09/19 10/26/22 lisinopril 20 mg tablet 20 mg PO DAILY 05/06/22 10/26/22 ipratropium 0.5 mg-albuterol 3 mg 3 ml inhalation QID PRN 05/25/22 10/26/22 (2.5 mg base)/3 mL nebulization soln cholecalciferol (vitamin D3) 50 50 mcg PO DAILY 10/26/22 10/26/22 mcg (2,000 unit) capsule Allergies Allergy/AdvReac Type Severity Reaction Status Date / Time dog dander Allergy Wheezing Verified 10/26/22 13:59 Review of Systems Review of Systems: A 10 system review of systems was completed on the patient and is negative except for what is stated in the HPI. Nursing and ancillary documentation was reviewed. [facility] Past Medical History Medical History Anemia no iron--had IV injection Asthma Diabetes Hypercholesterolemia Hypertension Pre-diabetes Screening mammogram, encounter for Screening mammogram, encounter for Surgical History Surgical History History of abdominal supracervical subtotal hysterectomy 08/26/17 Supracx abdominal hyst w/ovarian preservation--enlarged uterine fibroid History of 02/01/98 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 History of tubal ligation 02/01/98 Family History Family History Other Acute myocardial infarction maternal uncle Sibling Kidney disease brother--pt donated 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 Social History Social History Smoking packs per day: 0.5 Smoking cigarettes per day: 10.0 Years smoked: 27 Smoking pack-years: 13.50 Smoking status: Former smoker Tobacco type: cigarettes Smokeless tobacco user: other Second hand tobacco smoke exposure: Yes Smoking end date: 03/22/18 Alcohol intake: never Substance use: former Substance use type: marijuana Last use: Stopped marijuana use prior to hospitalization August 2021. Living arrangements: other Additional living arrangements comments: spouse Occupation/Education: other Additional occupation/education comments: housewife Gender identity (if verbalized by the patient): Female Sexual Orientation (if Verbalized by the Patient): Straight or Heterosexual Spiritual care concerns: No Exam Narrative: GENERAL: Well-appearing, well-nourished, and in no acute distress. HEAD: Normocephalic, atraumatic. EYES: PERRLA and EOMI. ENT: Nares clear, no rhinorrhea or epistaxis. Mucous membranes moist. NECK: Supple. CHEST: Clear to auscultation. No respiratory distress. HEART: Regular rate and rhythm. No murmur heard. Normal peripheral pulses. ABDOMEN: Soft, nontender, nondistended, normal active bowel sounds. EXTREMITIES: Normal range of motion. No edema. SKIN: Warm, dry, no rash. NEURO: No focal deficits. Alert and oriented x3. PSYCH: Normal mood and affect. Course Vital Signs Vital signs: Vital Signs Temperature 36.2 C L 03/29/23 22:51 Pulse Rate 76 03/29/23 22:51 Respiratory Rate 16 03/29/23 22:51 Blood Pressure 150/94 H 03/29/23 22:51 Pulse Oximetry 100
[2023-03-30 02:37] LABS: Troponin I < 0.012 ng/mL (0.000-0.034)
== END 2023-03-30 03:18 | disposition home or self-care (01) ==
PROVIDERS: Emergency Provider Emergency Medicine; PCP Physician Assistant
DX: R07.9 Chest pain, unspecified (principal); I10 Essential (primary) hypertension; J45.909 Unspecified asthma, uncomplicated; E11.9 Type 2 diabetes mellitus without complications; E78.00 Pure hypercholesterolemia, unspecified; Z87.891 Personal history of nicotine dependence; Z90.5 Acquired absence of kidney; I44.0 Atrioventricular block, first degree; R94.31 Abnormal electrocardiogram [ECG] [EKG]
CPT/HCPCS: 36415; 71046; 80053; 83690; 84484; 85025; 85610; 85730; 93005; 99284; A9270

== ENCOUNTER 2024-05-20 19:34 | Emergency (ER) | payer OTHER, SELFPAY ==
[2024-05-20] VITALS (8 sets, daily range): BP systolic 124–159; BP diastolic 69–95; PULSE 77–97; RESP 18–24; TEMP 36.6–37.2; O2SAT 97–100
--- NOTE | 2024-05-20 20:50 | ED.ASTHMA ---
HPI - Asthma General Chief Complaint: Asthma Stated Complaint: asthma attack Time Seen by Provider: 05/20/24 20:40 Source: patient Mode of arrival: ambulatory Limitations: no limitations History of Present Illness HPI Narrative: This is a 54-year-old female that presents to the emergency department for asthma exacerbation. Reports this has been ongoing since last night. She has been having to use her albuterol more than usual. She also reports a mild cough. Denies fevers. Related Data Home Medications ?Medication ?Instructions ?Recorded ?Confirmed ?Last Taken ?Type atorvastatin 20 mg tablet 20 mg PO DAILY 03/09/19 05/12/23 09/16/21 History metoprolol tartrate 50 mg tablet 50 mg PO DAILY 03/09/19 05/12/23 09/17/21 History lisinopril 20 mg tablet 20 mg PO DAILY 05/06/22 05/12/23 Unknown History ipratropium 0.5 mg-albuterol 3 mg 3 ml inhalation QID PRN 05/25/22 05/12/23 Unknown History (2.5 mg base)/3 mL nebulization soln cholecalciferol (vitamin D3) 50 50 mcg PO DAILY 10/26/22 05/12/23 Unknown History mcg (2,000 unit) capsule Allergies Allergy/AdvReac Type Severity Reaction Status Date / Time dog dander Allergy Wheezing Verified 05/20/24 20:35 Review of Systems Review of Systems: CONSTITUTIONAL: Denies fever CARDIOVASCULAR: Denies chest pain RESPIRATORY: Reports cough and dyspnea. All systems reviewed & are unremarkable except as noted in HPI and below PMFSH Past Medical History Medical History Anemia no iron--had IV injection Asthma Diabetes Hypercholesterolemia Hypertension Pre-diabetes Screening mammogram, encounter for Screening mammogram, encounter for Surgical History Surgical History History of abdominal supracervical subtotal hysterectomy 08/26/17 Supracx abdominal hyst w/ovarian preservation--enlarged uterine fibroid History of 02/01/98 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 History of tubal ligation 02/01/98 Family History Family History Other Acute myocardial infarction maternal uncle Sibling Kidney disease brother--pt donated 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 Social History Social History (Updated 05/12/23 @ 08:07 by Nellie Montgomery [facility]) Smoking packs per day: 0.5 Smoking cigarettes per day: 10.0 Years smoked: 27 Smoking pack-years: 13.50 Smoking status: Former smoker Tobacco type: cigarettes Smokeless tobacco user: other Second hand tobacco smoke exposure: Yes Smoking end date: 03/22/18 Alcohol intake: never Substance use: former Substance use type: marijuana Last use: Stopped marijuana use prior to hospitalization August 2021. Do You Feel Safe in your Home?: Yes Lack of Transportation: No Lack of Food: Never True Current Housing: I Have Housing Concerned About Future Housing: No Difficulty Paying Gas/Electric Bills: No Difficulty Paying for Meds: No Currently Unemployed: No Education: High School Diploma/GED Difficulty w/ Childcare or Family Care: No Living arrangements: other Additional living arrangements comments: spouse Occupation/Education: other Additional occupation/education comments: housewife Gender identity (if verbalized by the patient): Female Sexual Orientation (if Verbalized by the Patient): Straight or Heterosexual Spiritual care concerns: No Exam Narrative: GENERAL: Well-appearing, well-nourished, and in no acute distress. HEAD: Normocephalic, atraumatic. EYES: EOMI. ENT: Nares clear, no rhinorrhea or epistaxis. Mucous membranes moist. Oropharynx without tonsillar hypertrophy exudate or other lesions. CHEST: No respiratory distress. Diffuse expiratory wheezing. No rales or rhonchi HEART: Regular rate and rhythm. No murmur heard. Normal peripheral pulses. EXTREMITIES: Normal range of motion. No edema. SKIN: Warm, dry, no rash. NEURO: No focal deficits. Alert and oriented x3. PSYCH: Normal mood and affect Course Course Emergency Course: Patient reports feeling better. She is ready for discharge. She does still have some wheezing, but her lungs are much more open Vital Signs Vital signs: Vital Signs Temperature 98.0 F 05/20/24 19:39 Pulse Rate 97 05/20/24 19:39 Respiratory Rate 22 H 05/20/24 19:39 Blood Pressure 137/84 05/20/24 19:39 Pulse Oximetry 97 05/20/24 19:39 Oxygen Delivery Room Air 05/20/24 19:39 Temperature 97.8 F 05/20/24 22:45 Pulse Rate 77 05/20/24 22:45 Respiratory Rate 18 05/20/24 22:45 Blood Pressure 124/69 05/20/24 22:45 Pulse Oximetry 100 05/20/24 23:15 Oxygen Delivery Room Air 05/20/24 23:15 MDM - Asthma MDM Narrative Medical decision making narrative: Patient presents to the emergency department for asthma exacerbation. Oxygen saturation has remained normal on room air. She was wheezing and diminished upon arrival. Cbc without leukocytosis. Metabolic panel without concerning findings. Influenza, RSV, COVID screens are negative. Chest x-ray without acute cardiopulmonary abnormality. Patient given nebulizer treatment, Solu-Medrol, magnesium. Patient reports feeling better. She is ready for discharge. She does still have some wheezing, but her lungs are much more open. Will be continued on oral steroid. She was given warnings to return to the ER Differential Diagnosis Differential diagnosis: Likely Acute exacerbation and Pneumonia Lab Data Attestation: I reviewed the patient's lab results. 05/20/24 21:16 05/20/24 21:16 Labs: Lab Results 05/20/24 Range/Units 21:16 WBC 7.1 (4.5-10.0) K/mm3 RBC 4.50 (4.2-5.4) M/mm3 Hgb 13.2 (12.0-15.0) g/dL Hct 38.8 (37.0-47.0) % MCV 86.2 (80-100) fl MCH 29.3 (26-34) pg MCHC 34.0 (32-36) g/dl RDW 12.9 (11.5-14.5) % Plt Count 277 (150-375) k/mm3 MPV 9.6 (7.4-10.4) fl Immature Gran % (Auto) 0.1 (0-0.5) % Neut % (Auto) 63.1 (45.5-73.1) % Lymph % (Auto) 17.9 L (18.3-44.2) % Trigg % (Auto) 9.0 H (2.6-8.5) % Eos % (Auto) 9.5 H (0-4.4) % Baso % (Auto) 0.4 (0.2-1.2) % Lymph # (Auto) 1.27 (0.9-3.2) K/mm3 Trigg # (Auto) 0.6 (0.1-0.6) K/mm3 Eos # (Auto) 0.7 H (0-0.3) K/mm3 Baso # (Auto) 0.0 (0.0-0.1) K/mm3 Abs Immat Gran (auto) 0.01 (0.00-0.031) K/mm3 Absolute Neuts (auto) 4.5 (1.3-6.7) K/mm3 Absolute Nucleated RBC 0.000 (0.0-0.012) K/mm3 Nucleated RBC % 0.0 (0.0-0.2) % Sodium 141 (137-145) mmol/L Potassium 3.7 (3.4-5.0) mmol/L Chloride 107 (98-107) mmol/L Carbon Dioxide 24 (22-30) mmol/L Anion Gap 10 (4-12) mmol/L BUN 7 D (7-17) mg/dL Creatinine 0.76 (0.7-1.0) mg/dL Estim Creat Clear Calc 78 ml/min Estimated GFR > 60 (59 - ) Glucose 84 (65-110) mg/dL Calcium 9.1 (8.4-10.2) mg/dL Total Bilirubin 0.5 (0.2-1.3) mg/dL AST 24 (14-36) U/L ALT 24 (6-35) U/L Alkaline Phosphatase 108 (38-126) U/L Total Protein 7.0 (6.3-8.2) g/dL Albumin 4.3 (3.5-5.1) g/dL Influenza A (RT-PCR) Negative (Negative) Influenza B (RT-PCR) Negative (Negative) RSV (RT-PCR) Negative (Negative) SARS-CoV-2 RNA (RT-PCR) Negative (Negative) Imaging Data Radiologist's impression: ITS Impressions Chest X-Ray 05/20/24 21:28 IMPRESSION: No acute pulmonary pathology. Critical Care Time Critical Care Time Critical Care Time: No Discharge Plan Discharge Clinical Impression: Asthma Qualifiers: Asthma severity: moderate Asthma persistence: persistent Asthma complication type: with acute exacerbation Qualified Code(s): J45.41 - Moderate persistent asthma with (acute) exacerbation Patient Disposition: Home, Self-Care Condition: Improved Instructions: Asthma (ED) Additional Instructions: Return to the emergency department if you experience fever, chest pain, shortness of breath, or any other symptoms that are concerning to you. Albuterol 2 puffs every 4-6 hours as needed for shortness of breath or wheezing. Continue oral steroid as prescribed Follow up with your primary care doctor Patient Language: Malay Prescriptions: New prednisone 20 mg tablet 40 mg PO DAILY 4 Days Qty: 8 0RF No Action atorvastatin 20 mg tablet 20 mg PO DAILY metoprolol tartrate 50 mg tablet 50 mg PO DAILY lisinopril 20 mg tablet 20 mg PO DAILY cholecalciferol (vitamin D3) 50 mcg (2,000 unit) capsule 50 mcg PO DAILY ipratropium-albuterol 0.5 mg-3 mg(2.5 mg base)/3 mL solution for nebulization 3 ml inhalation QID PRN budesonide-formoterol [Symbicort] 160-4.5 mcg/actuation HFA aerosol inhaler 2 puff inhalation Q12H 30 Days Qty: 10.2 11RF albuterol sulfate [Ventolin HFA] 90 mcg/actuation HFA aerosol inhaler 2 puff INHALATION Q4-6H PRN (Reason: shortness of breath or wheezing) Qty: 18 2RF Follow-up/Referrals: Benny,MYRA Neumann [Non-Staff] -
[2024-05-20] MEDS: methylPREDNISolone SOD SUCC 125 MG VIAL IV PUSH (21:12)
[2024-05-20] MEDS: MAGNESIUM SULF 2 GM/WATER 50ML 2 GM/50 ML BAG IVPB (21:13)
[2024-05-20 21:22] LABS: Basophils Percent Auto 0.4 % (0.2-1.2); Eosinophils Absolute Auto 0.7 K/mm3 (0-0.3); Eosinophils Percent Auto 9.5 % (0-4.4); Hematocrit 38.8 % (37.0-47.0); Hemoglobin 13.2 g/dL (12.0-15.0); Immature Granulocyte Absolute 0.01 K/mm3 (0.00-0.031); Immature Granulocyte Percent A 0.1 % (0-0.5); Lymphocytes Absolute Auto 1.27 K/mm3 (0.9-3.2); Lymphocytes Percent Auto 17.9 % (18.3-44.2); Mean Corpuscular Hemoglobin 29.3 pg (26-34); Mean Corpuscular Volume 86.2 fl (80-100); Mean Platelet Volume 9.6 fl (7.4-10.4); Monocytes Absolute Auto 0.6 K/mm3 (0.1-0.6); Neutrophils Absolute Auto 4.5 K/mm3 (1.3-6.7); Neutrophils Percent Auto 63.1 % (45.5-73.1); Platelet Count Result 277 k/mm3 (150-375); Red Cell Distribution Width 12.9 % (11.5-14.5); White Blood Count 7.1 K/mm3 (4.5-10.0)
[2024-05-20] MEDS: ALBUTEROL SULFATE NEB 2.5 MG/3 ML INH 15 MG INHALATION (21:23)
[2024-05-20] MEDS: IPRATROPIUM BR 0.02% INH SOLN 0.5 MG/2.5 ML VIAL 1.5 MG INHALATION (21:23)
[2024-05-20 21:32] LABS: Alanine Aminotransferase 24 U/L (6-35); Albumin Level 4.3 g/dL (3.5-5.1); Alkaline Phosphatase 108 U/L (38-126); Anion Gap 10 mmol/L (4-12); Aspartate Amino Transferase 24 U/L (14-36); Bilirubin,Total 0.5 mg/dL (0.2-1.3); Blood Urea Nitrogen 7 mg/dL (7-17); Calcium 9.1 mg/dL (8.4-10.2); Carbon Dioxide 24 mmol/L (22-30); Chloride 107 mmol/L (98-107); Estimated CRCL calculation 78 ml/min; Estimated Glomerular Filt Rate > 60; Glucose 84 mg/dL (65-110); Potassium 3.7 mmol/L (3.4-5.0); Sodium 141 mmol/L (137-145)
[2024-05-20 21:59] LABS: Influenza A QL RT-PCR Negative (Negative); Influenza B QL RT-PCR Negative (Negative); RSV RNA, RT-PCR Negative (Negative); SARS-CoV-2 RNA PCR Negative (Negative)
== END 2024-05-21 | disposition home or self-care (01) ==
PROVIDERS: Emergency Provider Physician Assistant; PCP Family Medicine
DX: J45.41 Moderate persistent asthma with (acute) exacerbation (principal); Z20.822 Contact with and (suspected) exposure to COVID-19; I10 Essential (primary) hypertension; E11.9 Type 2 diabetes mellitus without complications; E78.00 Pure hypercholesterolemia, unspecified; Z86.2 Personal history of diseases of the blood and blood-forming organs and certain disorders involving the immune mechanism; Z87.891 Personal history of nicotine dependence; Z79.899 Other long term (current) drug therapy
CPT/HCPCS: 36415; 71046; 80053; 85025; 87637; 94640; 96365; 96366; 96375; 99284; J2919; J3475

== ENCOUNTER 2024-12-24 14:03 | Emergency (ER) | payer OTHER, SELFPAY ==
[2024-12-24] VITALS (12 sets, daily range): BP systolic 135–163; BP diastolic 73–98; PULSE 92–114; RESP 15–24; TEMP 36.3; O2SAT 95–98
--- NOTE | ~2024-12-24 | XR_ITS ---
EXAMINATION: XR chest 1V portable COMPARISON: No comparisons available. HISTORY: dena, cough FINDINGS: The lungs are clear, no effusion. No pneumothorax. Heart is normal size. Mediastinal and hilar contours are within normal limits. Bony thorax no acute abnormality. Miscellaneous: None Impression: No acute cardiopulmonary abnormality. Reviewed, dictated and finalized at location P. Impression: No acute cardiopulmonary abnormality.
--- OUTSIDE RECORDS SUMMARY | 2024-12-24 14:05 | XMS_ITS | Encounter Summary ---
Author Organization [facility] Address [address] [place] [address] Care Team Providers Care Grant Officer Name Role Phone Elder Mancuso DO Primary Care Provider [phone] Kasi Zapata Primary Care Provider [phone] Salima Sanchez MD Primary Care Provider [phone] Kalin Jara MD Primary Care Provider [phone] Encounter Details Date Type Department Care Team (Latest Contact Info) Description 01/25/2018 Abstract [facility] , Guy Braun MD Social History Tobacco Use Types Packs/Day Years Used Date Smoking Tobacco: Never Assessed Comments Unknown Sex and Gender Information Value Date Recorded Sex Assigned at Not on file Legal Sex Female 9:00 PM CDT Gender Identity Not on file Sexual Orientation Not on file documented as of this encounter Plan of Treatment Not on file documented as of this encounter Visit Diagnoses Not on filedocumented in this encounter Care Teams Grant Officer Relationship Specialty Start Date End Date Elder Mancuso DO PCP - General 12/19/15 07/31/18 Kasi Zapata PA PCP - General PHYSICIAN ANESTHESIOLOGIST ASSISTANT 08/01/18 12/20/23 Salima Sanchez MD [address] [facility] [address] [place] [address] PCP - General FAMILY PRACTICE 12/21/23 01/20/24 Kalin Jara MD [address] [place], [place] [id number] PCP - General FAMILY PRACTICE 01/21/24 documented as of this encounter
--- OUTSIDE RECORDS SUMMARY | 2024-12-24 14:05 | XMS_ITS | Clinical Summary ---
Author Organization [facility] Address [address] [place] [id number] Care Team Providers Care Airport Operations Crew Member Name Role Phone Kalin Jara MD Primary Care Provider [phone] Allergies No known active allergies Medications albuterol 2.5 mg /3 mL (0.083 %) nebulizer solution albuterol sulfate 2.5 mg/3 mL (0.083 %) solution for nebulization Active albuterol HFA (PROVENTIL HFA,VENTOLIN HFA,PROAIR HFA) 90 mcg/actuation inhaler albuterol sulfate HFA 90 mcg/actuation aerosol inhaler 8 Active atorvastatin (LIPITOR) 20 mg tablet Take 1 tablet (20 mg total) by mouth daily 2 Active budesonide-form oteroL (SYMBICORT) 160-4.5 mcg/actuation inhaler Symbicort 160 mcg-4.5 mcg/actuation HFA aerosol inhaler Active cetirizine (ZyrTEC) 10 mg tablet Take 1 tablet (10 mg total) by mouth as needed 0 Active ergocalciferol (VITAMIN D) 50,000 unit capsule TAKE 1 CAPSULE EVERY WEEK BY ORAL ROUTE. 2 Active fluticasone furoate (ARNUITY) 100 mcg/actuation inhaler Arnuity Ellipta 100 mcg/actuation powder for inhalation Active hydrocortisone (ANUSOL-HC) 2.5 % rectal cream as needed 2 Active lisinopriL (PRINIVIL,ZESTR IL) 30 mg tablet Take 1 tablet (30 mg total) by mouth daily 2 Active metoprolol tartrate (LOPRESSOR) 50 mg immediate release tablet Take 1 tablet (50 mg total) by mouth daily 2 Active Dulera 100-5 mcg/actuation inhaler Inhale 2 puffs 2 (two) times a day 2 Active Social History Tobacco Use Types Packs/Day Years Used Date Smoking Tobacco: Former Cigarettes Smokeless Tobacco: Never Tobacco Cessation:Counseling Given: Not Answered Comments Unknown Sex and Gender Information Value Date Recorded Sex Assigned at Not on file Legal Sex Female 11:55 AM CDT Gender Identity Not on file Sexual Orientation Not on file Obstetrics History Last Filed Vital Signs Vital Sign Reading Time Taken Comments Blood Pressure 127/88 02/04/2022 7:50 AM AUXILIARY PLANT OPERATOR Pulse 61 02/04/2022 7:50 AM AUXILIARY PLANT OPERATOR Temperature 36.7 C (98 F) 02/04/2022 7:50 AM AUXILIARY PLANT OPERATOR Respiratory Rate - - Oxygen Saturation 97% 02/04/2022 7:50 AM AUXILIARY PLANT OPERATOR Inhaled Oxygen Concentration - - Weight 102.1 kg (225 lb) 02/04/2022 7:50 AM AUXILIARY PLANT OPERATOR Height 154.9 cm (5' 1) 02/04/2022 7:50 AM AUXILIARY PLANT OPERATOR Body Mass Index 42.51 02/04/2022 7:50 AM AUXILIARY PLANT OPERATOR Plan of Treatment Health Maintenance Due Date Last Done Comments Cervical Cancer Screening 1971 Colon Cancer Screening-Colonoscopy 1971 Depression Screening 1971 Hepatitis C Screening 1971 DTaP/Tdap/Td Vaccine (1 - Tdap) 1982 Hepatitis B Screening 1989 Regular Well Visit/Exam 18-64 1989 Pneumococcal vaccine <65 (1 of 2 - PCV) 1990 Zoster Vaccine (1 of 2) 2021 Influenza Vaccine (#1) 2024 02/28/2019 Breast Cancer Screening-Mammogram 03/20/2025 03/20/2024, 03/16/2024, 03/16/2024 Insurance [facility] [place] [address] Care Teams Airport Operations Crew Member Relationship Specialty Start Date End Date Kalin Jara MD [address] [place] [address] PCP - General Family Medicine 07/19/24
--- OUTSIDE RECORDS SUMMARY | 2024-12-24 14:05 | XMS_ITS | Clinical Summary ---
Author Organization [facility] Address [address] [place] [address] Care Team Providers Care Employment Clerk Name Role Phone Loli Walker MD Primary Care Provider [phone] Source Comments [facility] [employer],non-owned Affiliates and Associated Physician Practices is amultiple site organization consisting of ambulatory clinics and hospital sitesin [place], [place], [place] and [place]. This disclosure is being madepursuant to the Care Everywhere program and may not contain all information available regarding this patient. Last updated 17.[facility] [employer] Medications * Be aware that medications may not be up to date on this document. Alwaysverify current medications with the patient. cetirizine (ZYRTEC) 10 MG tablet Take 1 tablet by mouth once daily as needed for Allergies Active docusate sodium (COLACE) 100 MG capsule Take 1 capsule by mouth 2 times daily 8 Active ferrous sulfate EC (FERROUS SULFATE) 324 (65 FE) MG tablet Take 1 tablet by mouth 3 times daily 8 Active fluticasone propionate (FLONASE) 50 MCG/ACT nasal spray [place] 1 spray into each nostril once daily as needed 7 Active losartan (COZAAR) 25 MG tablet Take 1 tablet by mouth once daily Active beclomethasone dipropionate (QVAR) 80 MCG/ACT inhaler Inhale 2 puffs by mouth 2 times daily 8 Active albuterol HFA (VENTOLIN HFA) 108 (90 BASE) MCG/ACT inhaler Inhale 2 puffs by mouth every 4 hours as needed 8 Active Social History Tobacco Use Types Packs/Day Years Used Date Smoking Tobacco: Never Assessed Comments Unknown Sex and Gender Information Value Date Recorded Sex Assigned at Not on file Legal Sex Female 6:19 AM MEDICAL DETAILIST Gender Identity Not on file Sexual Orientation Not on file Last Filed Vital Signs Vital Sign Reading Time Taken Comments Blood Pressure 131/81 06/24/2017 11:06 AM CDT Pulse 79 06/24/2017 11:06 AM CDT Temperature 36.7 C (98 F) 06/24/2017 11:06 AM CDT Respiratory Rate 18 06/24/2017 11:06 AM CDT Oxygen Saturation 98% 06/24/2017 11:06 AM CDT Inhaled Oxygen Concentration - - Weight 91.9 kg (202 lb 9.6 oz) 05/14/2017 1:35 P M MEDICAL DETAILIST Height 154.9 cm (5' 1) 04/23/2017 12:03 PM MEDICAL DETAILIST Body Mass Index 38.28 04/23/2017 12:03 PM MEDICAL DETAILIST Plan of Treatment Health Maintenance Due Date Last Done Comments COLOGUARD (AGES 45-75) - COL ON CA SCREENING 1971 COLON MONITORING 1971 COLONOSCOPY - COLON CA SCREENING 1971 CT COLONOGRAPHY - COLON CA SCREENING 1971 Colorectal Cancer Screening 1971 FIT - COLON CA SCREENING 1971 FLEX SIG - COLON CA SCREENING 1971 LIPID TESTING 1971 MAMMOGRAM 1971 HIV SCREENING 1986 HEPATITIS C SCREENING 01/16/1989 DTAP/TDAP/TD VACCINES (1 - Tdap) 1990 HEPATITIS B VACCINE (1 of 3 - 19+ 3-dose series) 1990 PAP SMEAR 01/22/1992 SCREENING FOR DIABETES 05/14/2020 8, 04/23/2017 PNEUMOCOCCAL VACCINE 50+ (1 of 1 - PCV) 2021 ZOSTER VACCINE (1 of 2) 2021 DEPRESSION SCREENING 03/22/2024 COVID-19 VACCINE (1 - 2023-2 5 season) 2024 INFLUENZA VACCINE (#1) 2024 HIB VACCINE Aged Out No longer eligi ble based on patient's age to complete this topic HPV VACCINE Aged Out No longer eligi ble based on patient's age to complete this topic MENINGOCOCCAL (Group B) VACCINE SHARED DECISION-MAKING Aged Out No longer eligible based on patient's age to complete this topic MENINGOCOCCAL GROUPS A/C/Y/W VACCINE Aged Out No longer eligible b ased on patient's age to complete this topic Procedures Procedure Name Priority Date/Time Associated Diagnosis Comments COMPREHENSIVE METABOLIC PANEL STAT 05/14/2017 1:47 PM MEDICAL DETAILIST from Last 3 Months or Most Recently Relevant to Health Maintenance Results * (ABNORMAL) COMPREHENSIVE METABOLIC PANEL (05/14/2017 1:47 PM MEDICAL DETAILIST) BUN 8 7 - 26 mg/dL [facility] Creatinine 1.0 0.6 - 1.2 mg/dL [facility] Sodium 141 136 - 145 mmol/L [facility] Potassium 4.6(H) 3.5 - 4.5 mmol/L [facility] Chloride 107 98 - 107 mmol/L [facility] CO2 23 22 - 29 mmol/L [facility] Glucose 81 70 - 115 mg/dL [facility] Calcium 9.1 8.4 - 10.2 mg/dL [facility] Protein Total 6.9 6.0 - 8.3 g/dL [facility] Albumin 3.4 3.4 - 5.0 g/dL [facility] Bilirubin Total 0.2 0.2 - 1.2 mg/dL [facility] Alkaline Phosphatase 88 40 - 150 Units/L [facility] ALT 9 0 - 55 Units/L [facility] AST 11 5 - 34 Units/L [facility] Anion Gap 16 8 - 18 [facility] BUN/Creatinine Ratio 8 7 - 23 [facility] Osmolality Calculated 289 270 - 300 mOsm/kg [facility] Albumin/Globulin Ratio 1.0(L) 1.1 - 2.3 [facility] eGFR 60(L) >60 mL/min/1.7 3 m2 [facility] Blood specimen (specimen) BLOOD SPECIMEN / Unknown 05/14/2017 1:47 PM MEDICAL DETAILIST 05/14/2017 2:05 PM MEDICAL DETAILIST John Mariee MD LAB - CHEMISTRY ORDERABLES Fi nal Result [facility] [address] [place] [address], [facility] [phone] from Last 3 Months or Most Recently Relevant to Health Maintenance Insurance [facility] Care Teams Employment Clerk Relationship Specialty Start Date End Date Loli Walker MD [address] [id number] PCP - General Family Medicine 08/10/17
--- OUTSIDE RECORDS SUMMARY | 2024-12-24 14:05 | XMS_ITS | Clinical Summary ---
Author Organization [facility] Address [address] [address] [place] [address] Care Team Providers Care Insurance Processing Clerk Name Role Phone Kalin Jara MD Primary Care Provider [phone] Allergies Active Allergy Reactions Criticality Noted Date Comments Dog Epithelium (Canis Lupus Familiaris) Shortness of Breath High 05/24/2023 Medications albuterol sulfate HFA 108 (90 Base) MCG/ACT inhaler 2 PUFF INHALED EVERY 4 - 6 HOURS NEEDED FOR SHORTNESS OF BREATH OR WHEEZING Active atorvastatin (LIPITOR) 40 MG tablet TAKE 1 TABLET BY MOUTH EVERYDAY AT BEDTIMELAB DUE 05/03/19 24 Active VITAMIN D3 50 MCG (1999) Cap Take 1 capsule by mouth daily. 04/22/19 24 Active metFORMIN ER (GLUCOPHAGE-XR ) 500 MG 24 hr tablet Take 2 tablets (1,000 mg total) by mouth daily. 03/26/19 24 Active metoprolol tartrate (LOPRESSOR) 50 MG tablet Take 1 tablet (50 mg total) by mouth daily. Active SYMBICORT 160-4.5 MCG/ACT inhaler 2 PUFF INHALED EVERY 12 HOURS FOR 30 DAYS Active montelukast (SINGULAIR) 10 MG tablet Take 1 tablet (10 mg total) by mouth nightly at bedtime. Active cetirizine (ZYRTEC) 10 MG tablet Take 1 tablet (10 mg total) by mouth daily. Active aspirin EC (ECOTRIN) 81 MG tablet Take 1 tablet (81 mg total) by mouth daily. 05/31/19 24 Active nitroglycerin (NITROSTAT) 0.[address] 1 tablet (0.4 mg total) under the tongue every 5 (five) minutes as needed for Chest Pain. Maximum of 3 doses.then call 911. PATIENT TO CALL FOR AN APPOINTMENT 25 tablet 07/19/19 24 Active lisinopril (PRINIVIL) 40 MG tablet Take 1 tablet (40 mg total) by mouth daily. 08/04/19 24 Active clopidogrel (PLAVIX) 75 MG tablet Take 1 tablet (75 mg total) by mouth daily. Pt needs an appt 15 tablet 12/08/19 25 Active clopidogrel (PLAVIX) 75 MG tablet TAKE 1 TABLET BY MOUTH EVERY DAY 30 tablet 11/01/19 25 025 Discontinued Active Problems Problem Noted Date Diagnosed Date Angina pectoris 05/24/2023 Mixed hyperlipidemia 11/12/2021 Overview (05/19/2023): Last Assessment & Plan: Condition: stable / No recent lipid panel Discussed with Vandana behavior modifications to include choosing healthier options for foods and avoiding foods fast foods or foods that are fried, high in trans fats or preservatives. Vandana encouraged to maintain medication compliance and to increase their current level of exercise activity to 3- 4 times weekly. Vandana verbalized understanding and advised to keep all scheduled appointments. Follow up in: three months with PCP Asthma ([facility]) 07/24/2019 Overview (05/19/2023): Last Assessment & Plan: Condition: stable Reviewed trigger avoidance and reviewed proper use of inhalers and rescue medications. Reviewed concerning signs/symptoms and ER precautions. Follow up in: three months with PCP Essential hypertension 07/24/2019 Overview (05/19/2023): Last Assessment & Plan: Condition: stable Discussed target blood pressure. Continue medication as prescribed from PCP/specialist. Take medications at the same time every day. Lifestyle modification advised: DASH diet, reduce stress/anxiety, discussed health weight management, activity as tolerated or advised from PCP, try to avoid alcohol and nicotine. Follow up in: three months with PCP CAD (coronary artery disease) Dyslipidemia Prediabetes Family History Medical History Relation Comments Heart Attack Maternal Grandfather Stroke Maternal Grandfather Heart Attack Maternal Grandmother Open Heart Maternal Grandmother Relation Status Comments Brother Alive Father Alive Maternal Grandfather (Age 74) Maternal Grandmother (Age 54) Mother Alive Paternal Grandmother (Age 66) Social History Tobacco Use Types Packs/Day Years Used Date Smoking Tobacco: Former Cigarettes Q uit: 08/01/2017 Smokeless Tobacco: Never Tobacco Cessation:Counseling Given: Not Answered Alcohol Use Standard Drinks/Week Comments No 0 (1 standard drink = 0.6 oz pur e alcohol) AUDIT-C Answer Date Recorded Frequency of Alcohol Consumption Never 08/01/2018 Average Number of Drinks Not on file 019 Frequency of Binge Drinking Not on file 07/20 Comments Unknown Sex and Gender Information Value Date Recorded Sex Assigned at Not on file Legal Sex Female 9:00 PM CDT Gender Identity Not on file Sexual Orientation Not on file Last Filed Vital Signs Vital Sign Reading Time Taken Comments Blood Pressure 134/88 08/10/2023 8:53 AM CDT Pulse 62 08/10/2023 8:43 AM CDT Temperature 36.7 C (98.1 F) 08/01/2018 3:18 PM CDT Respiratory Rate 19 05/31/2023 6:45 PM CDT Oxygen Saturation 97% 08/10/2023 8:43 AM CDT Inhaled Oxygen Concentration - - Weight 98.4 kg (217 lb) 08/10/2023 8:43 AM CDT Height 152.4 cm (5') 08/10/2023 8:43 AM CDT Body Mass Index 42.38 08/10/2023 8:43 AM CDT Plan of Treatment Health Maintenance Due Date Last Done Comments ASCVD Statin 1971 Colorectal Cancer Screening Colonoscopy (10 Years) 1971 Annual Physical 1974 Hepatitis C 1989 DTaP, Tdap and Td Vaccines ( 1 - Tdap) 1990 Hepatitis B Vaccines (1 of 3 - 19+ 3-dose series) 1990 Pneumococcal Vaccine: 50+ Years (1 of 2 - PCV) 1990 Zoster Vaccines (1 of 2) 2021 ASCVD LDL 05/30/2024 05/31/2023, 01/29/2023, 11/07/2014 COVID-19 Vaccine (1 - 2023-2 5 season) 2024 Mammogram Screening 03/16/2026 03/16/2024 Meningococcal B Vaccine Aged Out No l onger eligible based on patient's age to complete this topic Meningococcal Vaccine Aged Out No daniel lita eligible based on patient's age to complete this topic RSV Immunizations Under 20 Months Aged Out No longer eligible b ased on patient's age to complete this topic Procedures Procedure Name Priority Date/Time Associated Diagnosis Comments MG SCREENING W DELIO SURI DIGI Routine 03/16/2024 9:04 AM HEAD TELLER Encounter for screening mammogram for malignant neoplasm of breast LIPID PANEL Routine 05/31/2023 10:53 AM CDT Angina pectoris from Last 3 Months or Most Recently Relevant to Health Maintenance Results * MG SCREENING W DELIO SURI DIGI (03/16/2024 9:04 AM HEAD TELLER) Anatomical Region Laterality Modality Breast Bilateral Mammography 03/20/2024 7:07 AM HEAD TELLER Impressions 03/20/2024 7:08 AM HEAD TELLER ===== IMPRESSION: ===== 1. Stable mammographic appearance with no new findings to suggest malignancy in either breast. Assessment: ACR BI-RADS 2 - BENIGN FINDING(S) Recommendation: 1:Routine Screening Bilateral Comments: Ordered By: NEYMAR CALDERÓN Interpreted By: Anurag Singh MD, 03/20/2024 7:07 AM Narrative 03/20/2024 7:08 AM HEAD TELLER [facility] [address] [place] [address] Examination: Digital bilateral screening mammogram with 3D Tomosynthesis Exam Date/Time: 03/16/2024 8:59 AM Reason For Exam: routine screening No prior breast procedures. No personal or family history of breast cancer. No current complaints. Comparison: Mammograms from 03/13/2023 12/12/2021 09/25/2020 Technique: Digital screening mammography of both breasts was performed in addition to 3-D Tomosynthesis technique. This study was read with the assistance of a computer-aided detection system. Tissue density: The breasts are heterogeneously dense, which may obscure small masses. Findings: Benign axillary lymph nodes. No suspicious interval change in parenchymal pattern from prior studies. There is no new focal asymmetry, dominant mass lesion, area of skin thickening, or cluster of suspicious appearing calcifications in either breast to suggest malignancy. us Neymar Calderón MD MAMMO Final Result * (ABNORMAL) LIPID PANEL (05/31/2023 10:53 AM CDT) CHOLESTEROL 138 <200 MG/DL 05/31/2023 11:36 AM CDT [facility] TRIGLYCERIDES 230(H) <150 MG/DL 05/31/2023 11:36 AM CDT [facility] HDL 56 >40.0 MG/DL 05/31/2023 11:36 AM T [facility] LDL (CALCULATED) 36 <100 MG/DL 05/31/2023 11:36 AM CDT [facility] NON HDL CHOLESTEROL 82 <130 MG/DL 05/31/2023 11:36 AM T [facility] CHOL/HDL RATIO 2.5 0.0 - 4.5 05/31/2023 11:36 AM T [facility] VLDL CALCULATION 46 5 - 55 MG/DL 05/31/2023 11:36 AM T [facility] LIPID INTERPRETATION 05/31/2023 11:36 AM T [facility] Comment: [facility] CONCENSUS REPORT RECOMMENDATIONS: ADULT CHILD LOW RISK: CHOLESTEROL <200 <170 TRIGLYCERIDE <150 --- HDL >=60 --- LDL <100 <110 BORDERLINE: CHOLESTEROL 200-239 170-199 TRIGLYCERIDE 150-199 --- HDL 40-59 --- LDL 100-159 110-129 HIGH RISK: CHOLESTEROL >=240 >=200 TRIGLYCERIDE >=200 --- HDL <40 --- LDL >=160 >=130 05/31/2023 10:5 3 AM CDT us Mookie Duff MD LABORATORY Final Result [facility] [address] [place] [address], [place] [phone] from Last 3 Months or Most Recently Relevant to Health Maintenance Insurance [facility] Care Teams Insurance Processing Clerk Relationship Specialty Start Date End Date Kalin Jara MD [address] [place] [id number] PCP - General FAMILY PRACTICE 01/21/24
--- OUTSIDE RECORDS SUMMARY | 2024-12-24 14:06 | XMS_ITS | Encounter Summary ---
Author Organization [facility] Address [facility] [place] [address] Care Team Providers Care Legal Manager Name Role Phone Kasi Zapata Primary Care Provider Salima Sanchez MD Primary Care Provider [phone] Kalin Jara MD Primary Care Provider [phone] Encounter Details Date Type Department Care Team (Late st Contact Info) Description 06/02/2023 Abstract [facility] [address] Aleisha Hernandes MA Social History Tobacco Use Types Packs/Day Years Used Date Smoking Tobacco: Former Cigarettes Q uit: 08/01/2017 Smokeless Tobacco: Never Alcohol Use Standard Drinks/Week Comments No 0 [...] on file documented as of this encounter Procedures Procedure Name Priority Date/Time Associated Diagnosis Comments HEMOGLOBIN, GLYCOSYLATED Routine 01/29/2023 COMPREHENSIVE METABOLIC PANEL Routine 01/29/2023 LIPID PANEL Routine 01/29/2023 CBC, MANUAL DIFF Routine 01/29/2023 VITAMIN D, 25 OH Routine 10/30/2022 documented in this encounter Results * COMPREHENSIVE METABOLIC PANEL (01/29/2023) SODIUM S/P/B 143 GLUCOSE 102 mg/dL BUN 12 CREATININE S/P/B 1.0 0.5 - 1.0 CALCIUM S/P/B 9.8 POTASSIUM S/P/B 4.6 CHLORIDE S/P/B 105 GFR ESTIMATE 68 us Default History Genericprovider LABORATORY Final Result * LIPID PANEL (01/29/2023) Pathologist [facility] CHOLESTEROL 178 TRIGLYCERIDES 289 HDL 51 LDL (CALCULATED) 114 us Default History Genericprovider LABORATORY Final Result * CBC, MANUAL DIFF (01/29/2023) Pathologist [facility] WBC 7.6 HGB 14.2 HCT 44.0 PLT 345 us Default History Genericprovider LABORATORY Final Result * HEMOGLOBIN, GLYCOSYLATED (01/29/2023) Pathologist [facility] HGB A1C 5.5 % us Default History Genericprovider LABORATORY Final Result * VITAMIN D, 25 OH (10/30/2022) VITAMIN D 25 HYDROXY S/P/B 36.3 10/30/2022 us Default History Genericprovider LABORATORY Final Result documented in this encounter Visit Diagnoses Not on filedocumented in this encounter Care Teams Legal Manager Relationship Specialty Start Date End Date Kasi Zapata PA PCP - General PHYSICIAN MIG WELDER 08/01/18 12/20/23 Salima Sanchez MD [address] [facility] [address] [place] [address] PCP - General FAMILY PRACTICE 12/21/23 01/20/24 Kalin Jara MD [address] [id number] PCP - General FAMILY PRACTICE 01/21/24 documented as of this encounter
--- OUTSIDE RECORDS SUMMARY | 2024-12-24 14:06 | XMS_ITS | Data Portability ---
Author Organization [facility] [place] Address [address] [place] [address] Care Team Providers Care Networking Specialist Name Role Phone DIANA SUJIT Primary Care Provider [phone] Assessment Encounter Date Assessment Date Assessment LastModified by Organization Details LastModified Time 06/28/2024 06/28/2024 Coronary artery disease , status post PTCA with stent placement in right coronary artery. Proximal sec marginal also has 90% stenosis. Which is managed medically. I will continue with aspirin along with Plavix and statin. I also recommended her to stop taking metoprolol tartrate once a day I will start her on metoprolol succinate at 25 mg p.o. daily. I will check a CBC as she is taking Plavix. Hyperlipidemia , continue with atorvastatin 40 mg daily I will check a lipid profile before follow-up Diabetes , check A1c. I also discussed and advised her to diet exercise and lose weight which will help to improve her diabetes control. Hypertension , continue with lisinopril 40 mg daily I will check a renal function and electrolytes. Blood pressure is in acceptable range. First-degree AV block, I would decrease metoprolol to 25 mg daily. Dyspnea on exertion , I will get an echocardiogram to evaluate left ventricular systolic function and valvular function. I will see her again in 4 weeks ramiro Not available 06/28/2024 14:30:12 08/01/2024 08/01/2024 Coronary artery disease , status post PTCA with stent placement in right coronary artery. Proximal sec marginal also has 90% stenosis. Which is managed medically. I will continue with aspirin along with Plavix and statin. I also recommended her to stop taking metoprolol tartrate once a day I will start her on metoprolol succinate at 25 mg p.o. daily. I will check a CBC as she is taking Plavix. Hyperlipidemia , continue with atorvastatin 40 mg daily I will check a lipid profile before follow-up Diabetes , check A1c. I also discussed and advised her to diet exercise and lose weight which will help to improve her diabetes control. Hypertension , continue with lisinopril 40 mg daily I will check a renal function and electrolytes. Blood pressure is in acceptable range. First-degree AV block, I would decrease metoprolol to 25 mg daily. Dyspnea on exertion , I will get an echocardiogram to evaluate left ventricular systolic function and valvular function. I will see her again in 4 weeks I informed importance of controlling blood pressure as blood pressure can increase risk of heart attack, stroke, congestive heart failure and kidney failure. Kidney failure may require dialysis. August 01, 2024: Coronary artery disease status post PTCA with stent placement in right coronary artery proximal marginal branches 90-95% stenosis she has no symptoms of angina I will continue with aspirin along with the Plavix and statin. Hyperlipidemia , LDL is above the goal of 55 I recommended her to increase atorvastatin to 80 mg p.o. daily. I also discussed and advised her to modify her diet. Triglycerides are also mildly elevated. I discussed and advised her to eat foods high in [place] 3 fatty acids which will help to improve her triglycerides. Diabetes, I will check A1c before follow-up. Hypertension, blood pressure is well-controlled. Continue with lisinopril. Wheezing , I recommended her to decrease metoprolol ER to 12.5 mg p.o. daily. I will see her again in 6 months check lipid profile, CMP and CBC before follow-up. ramiro Not available 08/01/2024 14:55:55 Plan of Treatment Reminders Order Date Submit Date Provider Last Modified By Organization Details Last Modified Time Details Appointments ANY 15 2024 01:45P Kristi pfeiffer MD Not available Not available Not available ANY 15 2025 07:30A Kristi Jara MD Not available Not available Not available Lab CBC 202420/ 025 ramiro [facility], [address] [facility], [address], [place], [address], 08/01/2024 14:48:02 HbA1c (hemog lobin A1c), blood 2024 025 [email or web address] [facility], [address], [address], [place], [address], 08/01/2024 14:48:02 lipid panel, serum 2024 025 [email or web address] [facility], [address], [address], [place], [address], 08/01/2024 14:48:02 CMP, serum or plasma 2024 025 [email or web address] [facility], [address], [address], [place], [address], 08/01/2024 14:48:02 CBC 2024 025 GEORGINA [facility], [address], [address], [place], [address], 07/04/2024 09:04:51 HbA1c (hemog lobin A1c), blood 2024 025 GEORGINA [facility], [address], [address], [place], [address], 07/04/2024 09:04:50 lipid panel, serum 2024 025 GEORGINA [facility], [address], [address], [place], [address], 07/04/2024 09:04:48 CMP, serum or plasma 2024 025 GEORGINA [facility], [address], [address], [place], [address], 07/04/2024 09:04:49 Referral gastro entero logist referr al 2024 025 NALDO Escalante Ahmed MD, [address] [place], [address], 12/19/2024 11:45:28 Procedures None record ed. Surgeries None record ed. Imaging MAMMO, screen ing, digita l, bilate ral 2024 025 [facility], [address], [place] [address], [place], [address], 12/18/2024 12:20:47 electr ocardi ogram 2024 025 [facility] In-Office Order, Internal Use Only DO Not Attach Compendium DO Not Attach Compendium, Do Not Delete/merge, [id number] 06/29/2024 09:14:58 US, echoca rdiogr am, transt horanil c, comple te, w/ color flow 2024 025 [facility] Centralized Scheduling, Centralized Scheduling, [address] [facility] , [place], [address], 07/27/2024 18:32:56 Medication Orders Lipito r 80 mg tablet [address] [id number], [address] [facility], [place], [place], [id number], 08/01/2024 14:48:12 Toprol XL 25 mg tablet ,exten ded releas e 2024 025 [email or web address], [address], [place], [place], [id number], 08/01/2024 14:48:18 albute rol sulfat e HFA 90 mcg/ac tuatio n aeroso l inhale r 2024 025 [email or web address] [facility] #25187, [address] [facility], [place], [place], [id number], 06/19/2024 10:55:55 atorva statin 40 mg tablet 2024 025 [facility] #26993, [address] [facility] [address], [place], [place], [id number], 08/01/2024 14:43:48 lisino pril 40 mg tablet [address] [facility] #44007, [address] [facility], [place], [place], [id number], 06/19/2024 10:55:55 nitrog lyceri n 0.4 mg sublin gual tablet 2024 025 [facility] #19092, [address] [facility], [place], [place], [id number], 06/19/2024 10:55:55 Augmen tin 875 mg-125 mg tablet 2023 024 [facility] #70330, [address] [facility], [place], [place], [id number], 01/07/2024 11:47:21 Patient TargetsNo targets recorded. 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 Referral for Screening for malignant neoplasm of colon Referring Physician: Sujit Jara, Family Medicine, Encounter Date: 12/18/2024 Results Created Date Observation Date Name Description Value Unit Range Abnormal Flag Note LastModifiedBy Organization Detail LastModifiedTime 07/04/1907/04/2024 LIPID PROFI LE cholesterol, total 169 mg/dL 100-19 9 Not Available [facility] ([facility]) [address], [place], [address], 07/04/2024 09:04:48 07/04/19 25 07/04/2024 LIPID PROFI LE triglyceride s 286 mg/dL 0-149 above high normal Not Available [facility] ([facility]) [address] [place], [address], 07/04/2024 09:04:48 07/04/19 25 07/04/2024 LIPID PROFI LE HDL cholesterol 52 mg/dL >39 Not Available [facility]) [address] [place], [address], 07/04/2024 09:04:48 07/04/19 25 07/04/2024 LIPID PROFI LE VLDL cholesterol evelyne 46 mg/dL 5-40 above high normal Not Available [facility] ([facility]) [address] [place], [address], 07/04/2024 09:04:48 07/04/1907/04/2024 LIPID PROFI LE LDL chol calc ([facility]) 71 mg/dL 0-99 Not Available [facility]) [address] [place], [address], 07/04/2024 09:04:48 07/04/19 25 07/04/2024 CMP14 +EGFR glucose 96 mg/dL 70-99 Not Available [facility] ([facility]) [address] [place], [address], 07/04/2024 09:04:49 07/04/1907/04/2024 CMP14 +EGFR BUN 13 mg/dL 6-24 Not Available [facility] ([facility]) [address] [place], [address], 07/04/2024 09:04:49 07/04/1907/04/2024 CMP14 +EGFR creatinine 0.78 mg/dL 0.57-1 .00 Not Available [facility] ([facility]) [address] [place], [address], 07/04/2024 09:04:49 07/04/19 25 07/04/2024 CMP14 +EGFR eGFR 91 mL/mi n/1.7 3 >59 Not Available [facility] ([facility]) [address] [facility] [address], [place], [address], 07/04/2024 09:04:49 07/04/19 25 07/04/2024 CMP14 +EGFR BUN/creatini ne ratio 17 9-23 Not Available [facility] ([facility]) [address] [place], [address], 07/04/2024 09:04:49 07/04/19 25 07/04/2024 CMP14 +EGFR sodium 144 mmol/ L 134-14 4 Not Available [facility] ([facility]) [address] [place], [address], 07/04/2024 09:04:49 07/04/19 25 07/04/2024 CMP14 +EGFR potassium 5.0 mmol/ L 3.5-5. 2 Not Available [facility] ([facility]) [address] [place], [address], 07/04/2024 09:04:49 07/04/19 25 07/04/2024 CMP14 +EGFR chloride 107 mmol/ L 96-106 above high normal Not Available [facility] ([facility]) [address] [place], [address], 07/04/2024 09:04:49 07/04/19 25 07/04/2024 CMP14 +EGFR carbon dioxide, total 23 mmol/ L 20-29 Not Available [facility] ([facility]) [address] [place], [address], 07/04/2024 09:04:49 07/04/19 25 07/04/2024 CMP14 +EGFR calcium 9.7 mg/dL 8.7-10 .2 Not Available [facility] ([facility]) [address] [place], [address], 07/04/2024 09:04:49 07/04/1907/04/2024 CMP14 +EGFR protein, total 6.7 g/dL 6.0-8. 5 Not Available [facility] ([facility]) [address], [place], [address], 07/04/2024 09:04:49 07/04/1907/04/2024 CMP14 +EGFR albumin 4.3 g/dL 3.8-4. 9 Not Available [facility] ([facility]) [address] [place], [address], 07/04/2024 09:04:49 07/04/1907/04/2024 CMP14 +EGFR globulin, total 2.4 g/dL 1.5-4. 5 Not Available [facility] ([facility]) [address] [place], [address], 07/04/2024 09:04:49 07/04/1907/04/2024 CMP14 +EGFR bilirubin, total 0.4 mg/dL 0.0-1. 2 Not Available [facility] ([facility]) [address], [place], [address], 07/04/2024 09:04:49 07/04/1907/04/2024 CMP14 +EGFR alkaline phosphatase 116 IU/L 44-121 Not Available [facility]) [address], [place], [address], 07/04/2024 09:04:49 07/04/1907/04/2024 CMP14 +EGFR AST (SGOT) 16 IU/L 0-40 Not Available [facility] ([facility]) [address] [place], [address], 07/04/2024 09:04:49 07/04/19 25 07/04/2024 CMP14 +EGFR ALT (SGPT) 19 IU/L 0-32 Not Available [facility] ([facility]) [address], [place], [address], 07/04/2024 09:04:49 07/04/19 25 07/04/2024 HEMOG LOBIN A1C hemoglobin A1C 6.1 % 4.8-5. 6 above high normal Predi abete s: 5.7 - 6.4 Diabe martin: >6.4 Glyce william contr ol for adult s with diabe martin: <7.0 Not Available [facility] ([facility]) [address], [place], [address], 07/04/2024 09:04:50 07/04/1907/04/2024 CBC, PLATE LET, NO DIFFE RENTI AL WBC 7.1 x10e3 /uL 3.4-10 .8 Not Available [facility] ([facility]) [address], [place], [address], 07/04/2024 09:04:51 07/04/19 25 07/04/2024 CBC, PLATE LET, NO DIFFE RENTI AL RBC 4.75 x10e6 /uL 3.77-5 .28 Not Available [facility] ([facility]) [address], [place], [address], 07/04/2024 09:04:51 07/04/1907/04/2024 CBC, PLATE LET, NO DIFFE RENTI AL hemoglobin 13.8 g/dL 11.1-1 5.9 Not Available [facility] ([facility]) [address] [place], [address], 07/04/2024 09:04:51 07/04/1907/04/2024 CBC, PLATE LET, NO DIFFE RENTI AL hematocrit 42.0 % 34.0-4 6.6 Not Available [facility] ([facility]) [address] [place], [address], 07/04/2024 09:04:51 07/04/19 25 07/04/2024 CBC, PLATE LET, NO DIFFE RENTI AL MCV 88 fL 79-97 Not Available [facility] ([facility]) [address], [place], [address], 07/04/2024 09:04:51 07/04/19 25 07/04/2024 CBC, PLATE LET, NO DIFFE RENTI AL MCH 29.1 pg 26.6-3 3.0 Not Available [facility] ([facility]) [address], [place], [address], 07/04/2024 09:04:51 07/04/1907/04/2024 CBC, PLATE LET, NO DIFFE RENTI AL MCHC 32.9 g/dL 31.5-3 5.7 Not Available [facility] ([facility]) [address], [place], [address], 07/04/2024 09:04:51 07/04/19 25 07/04/2024 CBC, PLATE LET, NO DIFFE RENTI AL RDW 13.6 % 11.7-1 5.4 Not Available [facility] ([facility]) [address], [place], [address], 07/04/2024 09:04:51 07/04/1907/04/2024 CBC, PLATE LET, NO DIFFE RENTI AL platelets 304 x10e3 /uL 150-45 0 Not Available [facility] ([facility]) [address], [place], [address], 07/04/2024 09:04:51 03/20/20 24 MAMMO , scree festus, tomos ynthe sis, bilat eral [facility] [address] [place] [address] This is a summar y report . The comple te report is availa ble in the patien t's medica l record . If you cannot access the medica l record , please contac t the sharon barton for a detail ed fax or copy. [facility] [address] [place] [address] 618- Examin ation: Digita l bilate ral screen ing mammog yolanda with 3D Tomosy nthesi s Access ion: [id number] Exam Date/T marjorie: 2023 8:59 AM Reason For Exam: routin e screen ing No prior breast proced ures. No person al or family histor y of breast cancer . No curren t compla ints. Compar amy: Mammog mack from 2022 022 09/26/19 21 Techni que: Digita l screen ing mammog adrianna of both breast s was perfor med in additi on to 3-D Tomosy nthesi s techni que. This study was read with the assist ance of a [employer] In er-aid ed detect ion system . Tissue densit y: The breast s are hetero geneou sly dense, which may obscur e small masses . Findin gs: Benign axilla ry lymph nodes. No suspic ious interv al change in parenc hymal patter n from prior studie s. There is no new focal asymme try, domina nt mass lesion , area of skin thicke festus, or cluste r of suspic ious appear ing calcif icatio ns in either breast to sugges t malign shola. ===== IMPRES JUANITO: ===== 1. Stable mammog raphic appear ance with no new findin gs to sugges t malign shola in either breast . Assess ment: ACR BI-RAD S 2 - BENIGN FINDIN G(S) Recomm endati on: 1:Rout ine Screen ing Bilate ral Commen ts: Ordere d By: MYLES Mota Electr onical ly Signed By: Trenton llanos MD on 2023 7:08 AM Interp reted By: Trenton llanos MD, 2023 7:07 AM [email or web address] [facility] [address], [place], [address], 03/20/2024 08:22:59 06/21/1905/31/2023 matthew rosales melvin ar stres s test (PROC ) No observ ation record ed. BARCODE Not Available 2024 18:03:46 06/21/19 25 05/31/2023 imagi ng/di agnos tic resul t No observ ation record ed. BARCODE Not Available 2024 18:03:46 06/29/19 25 06/28/2024 elect rocishaan diogr am No observ ation record ed. [place] In-Office Order Internal Use Only DO Not Attach Compendium DO Not Attach Compendium, Do Not Delete/merge, [id number] 06/28/2024 14:48:49 06/29/19 elect rocishaan diogr am No observ ation record ed. [email or web address] Not Available 06/28 14:48:49 07/28/1907/27/2024 US, echoc ardio gram, trans thora cic, compl ete, w/ color flow No observ ation record ed. [facility] [address] [place] [address] [place], [address], 07/28/2024 09:54:13 Result Notes Documentation Provider Name and Address Organization Details Recorded Time Mammo, Screening, Tomosynthesis, Bilateral : [facility] [place] [address] This is a summary report. The complete report is available in the patient's medical record. If you cannot access the medical record, please contact the sending organization for a detailed fax or copy. [facility] [address] [place] [address] Examination: Digital bilateral screening mammogram with 3D [...] calcifications in either breast to suggest malignancy. ===== IMPRESSION: ===== 1. Stable mammographic appearance with no new findings to suggest malignancy in either breast. Assessment: ACR BI-RADS 2 - BENIGN FINDING(S) Recommendation: 1:Routine Screening Bilateral Comments: Ordered By: MYLES HOLLAND Interpreted By: Anurag Singh MD, 03/20/2024 7:07 AM Sujit Jara MD Attn: Accounting,[address] [place], [address], [place] 03/20/2024 08:22:59 Problems Name Problem SNOMED Code Status Onset Date Resolution Date Notes Provider Name and Address Organization Details Recorded Time Asthma 346542044 Active 2017 Kasi Zapata PA-C Attn: Paddy antoine,[address] [facility], [place], [address], [place] [facility] 2 10:34:46 Essential hypertensio n 77629014 Active 2018 Kasi Zapata PA-C Attn: Paddy antoine,[address] [facility], [place], [address], [place] 2 10:34:43 Migraine 87026075 Active 2018 Kasi Zapata PA-C Attn: Paddy antoine,[address] [facility], [place], [address], [place] [facility] 2 14:07:21 Prediabetes 232560300 Active 2021 Kasi Zapata PA-C Attn: Accountdamián antoine,[address] [facility], [place], [address], [place] [facility] 2 11:54:45 Dyslipidemi a 780128925 Active 2022 Nellie Duncan RN null, [place] [facility] 3 10:56:30 Coronary arterioscle rosis 87792532 Active 2023 Kasi Zapata PA-C Attn: Accountdamián antoine,[address] [facility], [place], [address], [place] [facility] 4 16:36:19 Dog bite - wound 452931324 Active 2023 Sujit Jara MD Attn: Paddy antoine,[address] [place], [address], [place] [facility] 4 12:00:11 Morbid obesity 387968889 Active 2023 Sujit Jara MD Attn: Yennydamián antoine,[address] [place], [address], [place] [facility] 4 12:00:12 Seasonal allergic rhinitis 833772412 Active 2023 Sujit Jara MD Attn: Yennydamián antoine,[address] [place], [address], [place] [facility] 4 12:00:13 Hypertrigly ceridemia 261311749 Active 2023 Sujit Jara MD Attn: Paddy arash,[address] [place], [address], [place] [facility] 4 12:00:14 Hypercholes terolemia 40373756 Active 2023 Sujit Jara MD Attn: Paddy antoine,[address] [place], [address], [place] [facility] 4 12:00:15 Atheroscler osis of coronary artery without angina pectoris 5658864271235 03 Active 2024 Orlando Gallo [place] null, [place] [facility] 5 12:39:08 Dyspnea on exertion 70730732 Active 2024 Orlando Gallo [place], [place] [facility] 5 12:39:11 Hyperlipide agustin 01691005 Active 2024 Orlando Gallo [place] null, [place] [facility] 5 12:39:15 Notes:Some problems listed i n Documents: #[id number], #[id number], #[id number] could not be added to this patient's chart. Please review these documents and add these problems to the patient's chart manually as needed. Problem Notes None recorded. Procedures Surgical History Date Name Laterality Status Provider Name and Address Organization Details Recorded Time 03/28/19 20 Nebulizer tx completed JUAREZ Berkowitz Attn: Accounting,[address] [facility], [place], [address], [place] 03/28/2019 12:37:44 08/27/19 18 Total hysterectomy completed Salima Sanchez MD Attn: Accounting,[address] [facility], [place], [address], [place] [facility] 10/30/2022 13:55:13 03/22/19 08 excision of left kidney completed Alexus Lockhart LPN [place] 10/12/2019 12:26:34 section completed Day Zelaya [place] 12/20/2023 16:15:48 Imaging Results None recorded. Procedure Notes None recorded. Medical Equipment None Reported. Allergies Allergen ID Allergen Name Allergen Category Reaction Reaction Severity Criticality Documentation Date Start Date Code Code System Note Provider Name and Address Organization Details Recorded Time 933596 Canis lupus familiari s extract environme nt wheezing mild Not available 04/13/2017 42490 4 RxNorm Kasi Zapata PA-C Attn: Yennyin g,[address] [facility], [place], [address], [place] [facility] 8 11:09:12 No known drug allergies Medications Name Sig Start Date Stop Date Status Note LastModified by Organization Details LastModified Time amoxicilli n 500 mg capsule 09/18 completed Not Available Not Available Not Available atorvastat in 40 mg tablet TAKE 1 TABLET BY MOUTH EVERY DAY AT BEDTIME 08/01 completed Not Available Not Available Not Available Qvar 80 mcg/actuat ion Metered Aerosol oral inhaler Inhale 2 puffs twice a day by inhalati on route. 05/19 completed Not Available Not Available Not Available atorvastat in 80 mg tablet TAKE 1 TABLET BY MOUTH EVERY DAY active Not Available Not Available No t Available prednisone 10 mg tablet 09/29 completed Not Available Not Available Not Available atorvastat in 20 mg tablet TAKE 1 TABLET BY MOUTH EVERY DAY 02/01 completed Not Available Not Available Not Available ipratropiu m 0.5 mg-albuter ol 3 mg (2.5 mg base)/3 mL nebulizati on soln Inhale 3 mL 4 times a day by nebuliza tion route. 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 Not Available Not Available Not Available albuterol sulfate 2.5 mg/3 mL (0.083 %) solution for nebulizati on USE 3 ML VIA NEBULIZE R EVERY 4 HOURS NEEDED active Not Available Not Available No t Available cetirizine 10 mg tablet TAKE 1 TABLET BY MOUTH DAILY active Not Available Not Available No t Available ibuprofen 800 mg tablet 11/01 completed Not Available Not Available Not Available nystatin 100,000 unit/gram topical ointment APPLY TO AFFECTED AREA TWICE A DAY 04/15 completed Not Available Not Available Not Available fluconazol e 150 mg tablet TAKE 1 TABLET BY MOUTH EVERY DAY 04/15 completed Not Available Not Available Not Available benzonatat e 200 mg capsule 03/28 completed Not Available Not Available Not Available hydrocodon e 5 mg-acetami nophen 325 mg tablet 11/01 completed Not Available Not Available Not Available lisinopril 20 mg tablet TAKE 1 TABLET BY MOUTH EVERY DAY 09/18 completed Not Available Not Available Not Available prednisone 20 mg tablet TAKE 2 TABLETS BY MOUTH DAILY FOR 4 DAYS 06/19 completed Not Available Not Available Not Available isosorbide mononitrat e ER 30 mg tablet,ext ended release 24 hr TAKE 1 TABLET BY MOUTH EVERY DAY 06/19 completed Not Available Not Available Not Available sulindac 150 mg tablet Take 1 tablet twice a day by oral route as needed. 02/28 completed Not Available Not Available Not Available clopidogre l 75 mg tablet TAKE 1 TABLET BY MOUTH EVERY DAY active Not Available Not Available No t Available hydrocorti sone 2.5 % topical cream with perineal applicator APPLY SPARINGL Y TO AFFECTED AREA 2 TO 4 TIMES A DAY 04/15 completed Not Available Not Available Not Available lorazepam 0.5 mg tablet 02/28 completed Not Available Not Available Not Available meclizine 25 mg tablet Take 1 tablet twice a day by oral route as needed. 02/28 completed Not Available Not Available Not Available oseltamivi r 75 mg capsule 04/13 completed Not Available Not Available Not Available butalbital 50 mg-acetami nophen 325 mg-caffein e 40 mg-codeine 30 mg cap 02/28 completed Not Available Not Available Not Available prednisone 50 mg tablet TAKE 1 TABLET BY MOUTH EVERY DAY 09/29 completed Not Available Not Available Not Available losartan 25 mg tablet TAKE 1 TABLET BY MOUTH EVERY DAY 08/04 completed Not Available Not Available Not Available metoprolol tartrate 50 mg tablet TAKE 1 TABLET BY MOUTH EVERY DAY 06/28 completed Not Available Not Available Not Available nitroglyce rin 0.4 mg sublingual tablet ONE TABLET UNDER TONGUE NEEDED FOR CHEST PAIN active Not Available Not Available No t Available lisinopril 30 mg tablet TAKE 1 TABLET BY MOUTH DAILY active Not Available Not Available No t Available docusate sodium 100 mg capsule 09/14 completed Not Available Not Available Not Available budesonide 0.5 mg/2 mL suspension for nebulizati on INHALE CONTENT OF 1 VIAL VIA NEBULIZE R EVERY 12 HOURS 07/21 completed Not Available Not Available Not Available montelukas t 10 mg tablet TAKE 1 TABLET BY MOUTH EVERY DAY AT BEDTIME active Not Available Not Available No t Available metoprolol succinate ER 25 mg tablet,ext ended release 24 hr TAKE 1 TABLET BY MOUTH EVERY DAY active Not Available Not Available No t Available ergocalcif leobardo (vitamin D2) 1,250 mcg (50,000 unit) capsule TAKE 1 CAPSULE EVERY WEEK BY ORAL ROUTE. 04/16 completed Not Available Not Available Not Available albuterol sulfate HFA 90 mcg/actuat ion aerosol inhaler INHALE 2 PUFFS BY MOUTH EVERY 4 HOURS NEEDED active Not Available Not Available No t Available lisinopril 40 mg tablet TAKE 1 TABLET BY MOUTH EVERY DAY active Not Available Not Available No t Available fluticason e propionate 50 mcg/actuat ion nasal spray,susp ension SPRAY 1 SPRAY INTO EACH NOSTRIL EVERY DAY 04/24 completed Not Available Not Available Not Available metformin ER 500 mg tablet,ext ended release 24 hr TAKE 2 TABLETS BY MOUTH EVERY DAY active Not Available Not Available No t Available docusate sodium 100 mg tablet Take 1 tablet every day by oral route. 11/01 completed Not Available Not Available Not Available ipratropiu m bromide 0.02 % solution for inhalation 07/21 completed Not Available Not Available Not Available amoxicilli n 875 mg-potassi um clavulanat e 125 mg tablet TAKE 1 TABLET BY MOUTH EVERY 12 HOURS FOR 7 DAYS 01/06 completed Not Available Not Available Not Available minoxidil 2 % topical solution APPLY 1 MILLILIT ER BY TOPICAL ROUTE 2 TIMES PER DAY , EVERY DAY, DIRECTLY ONTO THE SCALP IN THE HAIR LOSS AREA 06/19 completed Not Available Not Available Not Available metoprolol tartrate 25 mg tablet Take 1 tablet twice a day by oral route. 06/28 completed Not Available Not Available Not Available Ferrocite 324 mg (106 mg iron) tablet 09/14 completed Not Available Not Available Not Available levalbuter ol concentrat e 1.25 mg/0.5 mL solution for nebulizati on INHALE CONTENT OF 1 VIAL VIA NEBULIZE R EVERY 4 HOURS 07/21 completed Not Available Not Available Not Available chlorhexid ine gluconate 0.12 % mouthwash SWISH AND SPIT 15 ML BY MOUTH NIGHTLY FOR 10 DAYS, DO NOT SWALLOW 07/21 completed Not Available Not Available Not Available cholecalci ferol (vitamin D3) 25 mcg (1,000 unit) tablet TAKE 1 TABLET BY MOUTH EVERY DAY 01/22 completed Not Available Not Available Not Available Symbicort 160 mcg-4.5 mcg/actuat ion HFA aerosol inhaler TAKE 2 PUFFS BY MOUTH TWICE A DAY 06/19 completed Not Available Not Available Not Available ferrous sulfate 324 mg (65 mg iron) tablet,del ayed release Take 1 tablet every day by oral route. 11/01 completed Not Available Not Available Not Available cholecalci ferol (vitamin D3) 50 mcg (2,000 unit) capsule Take 1 capsule every day by oral route for 90 days. 2023 active Not Available Not Available Not Avai lable cholecalci ferol (vitamin D3) 50 mcg (2,000 unit) tablet TAKE 1 TABLET BY MOUTH EVERY DAY FOR 90 DAYS 01/22 completed Not Available Not Available Not Available Dulera 100 mcg-5 mcg/actuat ion HFA aerosol inhaler TAKE 2 PUFFS BY MOUTH TWICE A DAY 07/21 completed Not Available Not Available Not Available Brilinta 90 mg tablet TAKE 1 TABLET BY MOUTH TWICE DAILY 06/19 completed Not Available Not Available Not Available Arnuity Ellipta 100 mcg/actuat ion powder for inhalation INHALE 1 PUFF ONCE DAILY 04/24 completed Not Available Not Available Not Available Qvar RediHaler 40 mcg/actuat ion HFA breath activated aerosol INHALE TWO PUFFS BY MOUTH TWICE A DAY 11/01 completed Not Available Not Available Not Available Wixela Inhub 250 mcg-50 mcg/dose powder for inhalation INHALE 1 PUFF TWICE A DAY BY INHALATI ON ROUTE. 07/21 completed Not Available Not Available Not Available aspirin 81 mg capsule Take 1 capsule every day by oral route. active Not Available Not Available No t Available Vitals Date Recorded Body height Respiratory rate Body mass index (BMI) Body weight Oxygen saturation Oxygen saturation in Arterial blood by Pulse oximetry Heart rate Systolic And Diastolic Provider Name and Address Organization Details Last Updated DateTime 5 154.94 cm 16 /min 40.6 kg/m2 42227.3 6 g 96 % 96 % 61 /min 124/80 mm[Hg] Coty Gonzales [place] - [facility] 5 10:11:42 Date Recorded Body height Body mass index (BMI) Body weight Heart rate Oxygen saturation Oxygen saturation in Arterial blood by Pulse oximetry Systolic And Diastolic Provider Name and Address Organization Details Last Updated DateTime 5 154.94 cm 39.8 kg/m2 55955.2 7 g 74 /min 96 % 96 % 114/70 mm[Hg] Orlando Gallo MA [facility] 5 13:59:40 Date Recorded Body height Body mass index (BMI) Body weight Heart rate Oxygen saturation Oxygen saturation in Arterial blood by Pulse oximetry Systolic And Diastolic Provider Name and Address Organization Details Last Updated DateTime 5 154.94 cm 39.6 kg/m2 32338.2 4 g 79 /min 97 % 97 % 108/64 mm[Hg] Orlando Gallo MA [facility] 5 14:15:11 Date Recorded Body height Oxygen saturation Oxygen saturation in Arterial blood by Pulse oximetry Heart rate Body mass index (BMI) Body weight Systolic And Diastolic Provider Name and Address Organization Details Last Updated DateTime 5 154.94 cm 95 % 95 % 70 /min 36.3 kg/m2 41375.7 4 g 118/74 mm[Hg] Pastora Phelps MA [facility] 5 09:25:28 Date Recorded Body height Body mass index (BMI) Body weight Oxygen saturation Oxygen saturation in Arterial blood by Pulse oximetry Heart rate Respiratory rate Systolic And Diastolic Provider Name and Address Organization Details Last Updated DateTime 4 154.94 cm 40.5 kg/m2 82833.2 2 g 98 % 98 % 67 /min 18 /min 130/86 mm[Hg] Day Zelaya MA [facility] 4 11:31:57 Social History Question Answer Notes LastModified by [employer] [facility] ([facility]) Details LastModified Time Tobacco Smoking Status Former Smoker Macie Palmer MA [facility], [facility] 10/31/2019 14:26:39 What Is Your Level Of Caffeine Consumption? None [email or web address] Information not available 06/19/2024 What Was The Date Of Your Most Recent Tobacco Screening? 12/18/2024 [email or web address] Information not available 12/18/2024 Has Tobacco Cessation Counseling Been Provided? No Information not available 06/17/2020 Sex: Female Functional Status Question Answer Note LastModified by [employer] [facility] ([facility]) Details LastModified Time Do you use any illicit or recreational drugs? No Information not available 06/17/2020 Do you or have you ever used any other forms of tobacco or nicotine? No [email or web address] Information not available 06/19/2024 What is your level of alcohol consumption? None [email or web address] Information not available 06/19/2024 Do you or have you ever used smokeless tobacco? Never used smokeless tobacco [email or web address] Information not available 03/28/2019 Do you or have you ever used e-cigarettes or vape? Never used electronic cigarettes [email or web address] Information not available 02/28/2019 Mental Status None recorded. Family History Relationship Description Onset Age of this Age Resolved Age Notes LastModified by Organization Details LastModified Time Maternal Grandmother Myocardial infarction [email or web address] Not available 04/13 11:14:07 Maternal Aunt Myocardial infarction [email or web address] Not available 04/13 11:14:07 Maternal Aunt Diabetes mellitus [email or web address] Not available 2017 11:14:28 Brother Kidney disease [email or web address] Not available 12/19 16:16:19 Medical History Condition Response High Blood Pressure Y Depression Y Asthma Y Gynecological HistoryNo gynecological history recorded. Obstetrics History GPAL:G 0 P 0 0 0 0 Immunizations Vaccine Type Date Status Note Provider Nam e and Address Organization Details Recorded Time Influenza, split virus, quadrivalent, preservative 9 completed Not Available [facility] 04/08/2019 02:39:21 Past Encounters Encounter ID Performer Location Encounter Start Date Encounter Closed Date Diagnosis/Indication Diagnosis SNOMED-CT Code Diagnosis ICD10 Code Diagnosis IMO Codes Diagnosis Note [id number] [facility] ([facility] [address]) [address] [place] [address] 04/13/2017 10:37:24 04/16/2017 11:17:54 Adult health examination 052096715 Z00.00 We will check some routine labs today. I encouraged pt to eat low-fat, low-salt diet and exercise most days of the week. Anemia 452037387 D64.9 Pt was treated for iron deficiency anemia while hospitaliz ed. No notes are available so we will check CBC and iron panel today. Screening mammography 24 443386 Z12.31 Essential hypertension 47093019 I10 Elevated BP today, but pt has not been on her medication . Will continue losartan today. Asthma 291240716 J45.90 9 Well controlled based on limited use of rescue inhaler. Will continue current regimen. [id number] MD [facility] ([facility] [address]) [address] [facility] [place] [address] 09/14/2017 11:30:12 09/20/2017 13:22:53 Anemia 455190567 D64.9 Hopefully Hgb has rebounded in light of vaginal bleeding resolution . If so, we can d/c iron supplement and repeat CBC in 1-2 months to monitor. [id number] MD Edison [facility] ([facility] [address]) [address] [facility] [place] [facility] [place] [address] 11/01/2017 09:29:47 11/05/2017 10:46:22 Anemia 452802315 D64.9 Suspect anemia to improve with cessation of abnormal bleeding following partial hysterecto my. Will check CBC and iron studies and contact pt when available. Insomnia 838877053 G47.0 0 Discussed good sleep hygeine practices and specifical ly recommende d limiting screen time before bed. I advised pt to limit caffeine in the evening and work on a regular exercise regimen. May also use OTC melatonin as sleep aid. RTC in 3-4 weeks if no improvemen t. [id number] MD Edison [facility] ([facility] [address]) [address] [facility] [place] [address] 07/18/2018 14:25:42 07/19/2018 08:36:46 Acute upper respiratory infection 82904879 J06.9 Negative strep test, likely viral URI. No indication for antibiotic s at this time. Rest and plenty of fluids. Discussed OTC cold medication s and answered all questions. RTC in 10 days if no improvemen t. Asthma 399384865 J45.90 9 Well controlled based on limited use of rescue inhaler. Will continue current regimen. Blood pres sure above reference range 37100138 R03.0 Pt not feeling well and will monitor at home, has been well controlled historical ly. [id number] MD Edison Varma e [facility] ([facility] [address]) [address] [facility] [place] [address] 08/01/2018 14:55:16 08/02/2018 08:19:17 Headache 19509912 R51 Pt's thundclap type headache has several red flags including hypertensi ve emergency, acute onset and waking her from sleep. I discussed her care with Dr. Walker and agree that she needs emergent imaging to assess for intracrani al bleeding. Pt will be transferre d to ER via EMS. [id number] MD [facility] ([facility] [address]) [address] [place] [address] 08/04/2018 12:15:24 08/19/2018 08:25:09 Migraine 58894608 G43.909 Pt's new onset of severe headaches warrant evaluation by neurology, so will place referral today. I advised pt to go to ER immediatel y if headaches worsen or any other neurologic deficits develop. Essential hypertension 97850790 I10 BP still elevated so will start Lisinopril 20mg daily and see pt in 2-3 weeks to monitor BP. -Discussed lifestyle modificati ons including 150 minutes moderate intensity exercise per week, restrictin g intake of fast/proce ssed foods, sweets, sugary beverages. [id number] Zakiya Maicel, CHAPARRO-C [facility] ([facility] [address]) [address] [place] [address] 08/09/2018 08:55:28 08/10/2018 08:36:05 Dizziness 807327219 R42 -restart flonase-ca n try meclizine as needed for dizziness- orthostati cs do show some variation when standing, should change positions slowly.-ke ep next apt with PCP [id number] MD Edison Wallace [facility] ([facility] [address]) [address] [place] [address] 09/07/2018 11:01:04 09/08/2018 08:24:50 Migraine 03123051 G43.909 Greatly improved on current regimen and has f/u with Dr. Mares next week to discuss MRI then transferri ng to [facility]. No changes to medication s made today. Pt can f/u with me in six months or sooner if needed. [id number] MD Edison [facility] ([facility] [address]) [address] [place] [address] 02/28/2019 16:15:47 03/16/2019 08:37:42 Asthma 238454531 J45.909 Well controlled based on limited use of rescue inhaler. Will continue current regimen. Essential hypertension 98477396 I10 At goal today with current medication s. Encouraged pt to maintain regular exercise and continue low salt, low fat diet. -Discussed lifestyle modificati ons including 150 minutes moderate intensity exercise per week, restrictin g intake of fast/proce ssed foods, sweets, sugary beverages. Active or passive immunization 849867205 Z23 [id number] Zakiya Maciel NP-Neftaly RUDOLPH ([address]) [address] [place] [address] 03/28/2019 10:58:58 03/29/2019 08:51:46 Acute exacerbation of asthma 804256939 J45.901 -burst with prednisone -start montelukas t for allergy/as thma coverage-w ill give nebulizer at home-on inh corticoste roid, needs pulm referral for worsening asthma-to ER for worsening shortness of breath. [id number] MD Deya Wallace ([address] [address]) [address] [place] [address] 04/19/2019 11:09:09 04/20/2019 11:57:32 Asthma 554350670 J45.909 Pt provided with contact informatio n to pulm at [facility]. Pt reports her asthma has not been well controlled for months as she was using her rescue inhaler 2-3 times a day with Arnuity Ellipta. I advised that she still make an appt with pulmonolog y for evaluation , but today will replace her arnuity Ellipta with Dulera. This should provide better control of her asthma. She should go to ER immediatel y if dyspnea worsens. Otherwise f/u with pulm as planned. She expressed understand ing and agreed to this treatment plan. [id number] Darinel Her MD [facility] [address] [place] [address] 04/24/2019 10:54:07 05/02/2019 13:24:09 Asthma 479886350 J45.909 Start symbicort, stop Arnuity I teaching/t echnique Prednisone - complete entire course Total Ige area 8 and IgE labs Peak flow meter given with teaching and education on use PFT's Essential hypertension 97620395 I10 Continue Medication s. Continue to monitor blood pressure. Encourage low salt diet and exercise. Pulmonary hypertension 97791004 I27.20 Echo Hemoptysis 25486011 R04. 2 Small amount of pink tinged sputum with cough, most likely from coughing/ irritation . 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 Allergy to cat dander 23 3033783 J30.81 IgE class specific: Class V- Very high allergy. To prevent further asthma exacerbati ons, best method is to remove triggers from home. Avoidance/ removal of cats Allergy to dog dander 41 0321803 J30.81 IgE class specific: Class IV- Very high allergy. To prevent further asthma exacerbati ons, best method is to remove triggers from home. Avoidance/ removal of dogs. Essential hypertension 48166270 I10 Continue Medication s. Continue to monitor blood pressure. Encourage low salt diet and exercise. Body mass index 30+ - obesity 379473687 Z68.33 Encouraged -Choosing low-fat, low-calori e foods -Eating smaller portions -Drinking water instead of sugary drinks -Being physically active [id number] Darinel Her MD [facility] [address] [place] [address] 08/07/2019 09:53:08 08/25/2019 14:05:06 Asthma 599798656 J45.909 Continue symbicort as prescribed , albuterol as needed and nebulaizer MDI teaching Awaiting PFT completion Essential hypertension 86906461 I10 Managed in primary care. Continue to monitor blood pressure. Encourage low salt diet and exercise. Pulmonary hypertension 97342018 I27.20 Echo, awaiting completion . testing date 08/09/19 Obstructiv e sleep apnea syndrome 75312911 G47.33 HSAT, awaiting completion [id number] Darinel Her MD [facility] [address] [place] [address] 10/12/2019 12:13:24 10/17/2019 14:08:30 Essential hypertension 48420176 I10 Managed in primary care. Continue to monitor blood pressure. Encourage low salt diet and exercise. Pulmonary hypertension 59985045 I27.20 Echo completed, will obtain results from Aaron Obstructiv e sleep apnea syndrome 41607176 G47.33 HSAT ordered previously , [facility] is not conducting HSAT at this time. Will reorder for TRH Dyspnea 134755726 R06.00 CXR Moderate p ersistent asthma 706060588 J45.40 Continue budesonide -formotero l HFA 160/4.5 as prescribed , albuterol as needed and nebulizer Continue Montelukas t daily Prednisone MDI teaching PFT completed, will obtain results from Aaron [id number] Salima Sanchez MD [facility] ([facility] [address]) [address] [place] [address] 10/31/2019 14:14:41 11/01/2019 08:12:12 Essential hypertension 61688217 I10 At goal today with current medication s. Encouraged pt to maintain regular exercise and continue low salt, low fat diet. -Discussed lifestyle modificati ons including 150 minutes moderate intensity exercise per week, restrictin g intake of fast/proce ssed foods, sweets, sugary beverages. Dyslipidemia 391029235 E 78.5 Continue Statin. [id number] Darinel Her MD [facility] [address] [place] [address] 12/13/2019 14:03:45 12/15/2019 14:54:44 Essential hypertension 19651567 I10 Managed in primary care. Continue to monitor blood pressure. Encourage low salt diet and exercise. Asthma 976451316 J45.90 9 Controlled Continue Symbicort as prescribed . MDI as needed. Encouraged use of albuterol 10-15 min prior to strenuous activity/e xercise, possible EIB. No refills needed at this time. [id number] Darinel Her MD [facility] [address] [place] [address] 03/13/2020 14:06:09 03/13/2020 16:50:59 Asthma 784050951 J45.909 Continue Symbicort as prescribed . MDI as needed/neb s. Asthma most likely triggered by her 3 cats. Essential hypertension 47288295 I10 Managed in primary care. Continue to monitor blood pressure. Encourage low salt diet and exercise. Allergy to cat dander 23 6890920 J30.81 IgE class specific: Class V- Very high allergy. She has 3 cats. Encouraged consistant use of montelukas t/OTC allergen tablet. 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 Body mass index 30+ - obesity 302959492 Z68.33 Encouraged -Choosing low-fat, low-calori e foods -Eating smaller portions -Drinking water instead of sugary drinks -Being physically active [id number] Salima Sanchez MD [facility] ([facility] [address]) [address] [place] [address] 06/17/2020 09:28:29 06/18/2020 12:52:50 Asthma 553338121 J45.909 Managed by jarrett at [facility]. Instructed pt if albuterol usage increases beyond 2-3 times per week for 2 weeks, it may been a sign of worsening control. Call office or go to ER for worsening cough, wheeze or work of breathing. Follow up in office in 6 months - pt verbalized understand ing. Essential hypertension 17720851 I10 Elevated today so will increase Lisinopril to 30mg. Check BP at home and call clinic if above 140/90 so we can adjust BP medication . Explained to pt proper BP monitoring technique and they expressed understand ing. -Discussed lifestyle modificati ons including 150 minutes moderate intensity exercise per week, restrictin g intake of fast/proce ssed foods, sweets, sugary beverages. Dyslipidemia 637360245 E 78.5 Continue Statin, will check lipids again at next visit. Numbness of toe 15748192 8 R20.0 Symptoms are not overly concerning and do not bother Ms. Ojeda very much. She is most concerned about DM, so will check A1C and other labs today. We can consider a podiatry referral if all labs are normal and this problem becomes more bothersome . [id number] Salima Sanchez MD [facility] ([address] [address]) [address] [place] [address] 09/18/2020 13:52:02 09/18/2020 14:19:32 Essential hypertension 08710093 I10 At goal today with current medication s. Encouraged pt to maintain regular exercise and continue low salt, low fat diet. Screening mammography 24 957947 Z12.31 Dyslipidemia 343994682 E 78.5 Continue Statin, will check lipids again today. [id number] Darinel Her MD [facility] [address] [place] [address] 09/18/2020 15:47:12 09/20/2020 07:20:40 Asthma 761486858 J45.909 Not well controlled , using albuterol 2-3x daily. Continue Symbicort as prescribed . MDI as needed/neb s. Asthma likely triggered by class V allergy to cats, she has three. Refill Referral to [employer] Psychologist would be beneficial Essential hypertension 35947224 I10 Managed in primary care. Continue to monitor blood pressure. Encourage low salt diet and exercise. Allergy to cat dander 23 7166791 J30.81 IgE class specific: Class V- Very high allergy. She has 3 cats. Encouraged consistant use of montelukas t/OTC allergen tablet. Will refer again to thermoforming machine operator Allergy to dog dander 41 5927223 J30.81 IgE class specific: Class IV- Very high allergy. Body mass index 30+ - obesity 107345741 Z68.33 Encouraged -Choosing low-fat, low-calori e foods -Eating smaller portions -Drinking water instead of sugary drinks -Being physically active [id number] Darinel Her MD [facility] [address] [place] [address] 03/20/2021 14:09:38 03/20/2021 15:33:54 Asthma 801724789 J45.909 Using albuterol dailyStop Symbicort, start wixela 250Asthma likely triggered by class V allergy to cats, she has three. Will resend referral to [employer] Psychologist would be beneficial Essential hypertension 54247303 I10 Managed in primary care. Continue to monitor blood pressure. Encourage low salt diet and exercise. Allergy to cat dander 23 9705341 J30.81 IgE class specific: Class V- Very high allergy. She has 3 cats. Encouraged consistant use of montelukas t/OTC allergen tablet. Will refer again to thermoforming machine operator Allergy to dog dander 41 5874811 J30.81 IgE class specific: Class IV- Very high allergy. Body mass index 40+ - severely obese 310490670 Z68.41 [id number] MD Edison Wallace e [facility] ([address]) [address] [place] [address] 03/20/2021 09:03:51 03/23/2021 23:16:32 Essential hypertension 99836167 I10 At goal today with current medication s. Encouraged pt to maintain regular exercise and continue low salt, low fat diet. Morbid obesity 573339054 E66.01 SARS-CoV-2 mRNA vaccine declined 7495385853 Z28.21 Discussed safety and efficacy of Covid vaccine with pt and encouraged them to reconsider . Advised pt that the vaccine is one of the best defenses against Covid available and can be administer ed today. Answered all pt questions but they still refused the vaccine. [id number] MD Edison Wallace e FP (MICHAEL 104) [address] [facility] [place] [address] 09/29/2021 13:59:16 10/01/2021 10:59:34 Essential hypertension 66356673 I10 At goal today with current medication s. Encouraged pt to maintain regular exercise and continue low salt, low fat diet. Asthma 777831473 J45.90 9 [facility] [place] in October. Will need replacemen t for Wixela today as it is no longer covered by her insurance so will start Dulera. Pt advised to call if using rescue inhaler more than four times per week to increase Dulera dose. Also instructed to only use MIGUEL as needed. She expressed understand ing and agreed to this treatment plan. Tachycardia 5551703 R00. 0 Likely related to excessive MIGUEL use. Pt counseled on appropriat e MIGUEL use and will continue to monitor HR at home. Overweight 114618827 E66 .3 [id number] MD Deya Wallace (MICHAEL 104) [address] [place] [address] 01/08/2022 13:39:18 01/20/2022 09:41:14 Hematochezia 931572178 K92.1 Single occurrence of scant bright red blood on toilet paper with mild irritation in the anal area. Unremarkab le exam today; likely from small fissure or hemorrhoid that has since healed. Advised pt to use anusol x 1 week and return to check for fecal occult blood. Can consider GI Referral when this result is available. She expressed understand ing and agreed to this treatment plan. Loss of hair 481204174 L 65.9 Unclear etiology, will check labs listed below and consider minoxidil vs derm referral when results are available. Discussed possible causes of hair loss and answered all pt questions. She is agreeable to this plan. Obesity 155538228 E66.9 [id number] MD Edison Wallace FP (MICHAEL 104) [address] [place] [address] 04/15/2022 14:42:59 04/20/2022 11:07:53 Prediabetes 306112550 R73.03 A1c increased to 5.9, will start low dose metformin today and have pt return in three months for next a1c. She expressed understand ing and agreed to this treatment plan. Essential hypertension 94286908 I10 At goal today with current medication s. Encouraged pt to maintain regular exercise and continue low salt, low fat diet. Vitamin D deficiency 347 08838 E55.9 Currently taking 50,000 unit weekly supplement . Will check Vit D and likely decrease to lower daily dose. Morbid obesity 587975063 E66.01 [id number] MD Deya Wallace (MICHAEL 104) [address] [place] [address] 07/21/2022 08:51:47 07/27/2022 11:21:20 Prediabetes 513678113 R73.03 A1c shows great pre-DM control. No medication changes at this time. Continue to work on low carb diet and increasing activity. See me in six months for next A1c or sooner if needed. Answered all pt questions and they expressed understand ing. Essential hypertension 59219631 I10 At goal today with current medication s. Encouraged pt to maintain regular exercise and continue low salt, low fat diet. Vitamin D deficiency 347 32132 E55.9 Morbid obesity 091597108 E66.01 Asthma 775546667 J45.90 9 Following with [facility]. Screening for malignant neoplasm of cervix 061695620 Z12.4 Scheduled for next week. [id number] MD Edison Wallace FP (MICHAEL 104) [address] [place] [address] 01/22/2023 10:47:37 02/15/2023 13:39:58 Essential hypertension 56467913 I10 At goal today with current medication s. Encouraged pt to maintain regular exercise and continue low salt, low fat diet. Prediabetes 793078004 R7 3.03 A1c shows great pre-DM control. No medication changes at this time. Continue to work on low carb diet and increasing activity. See me in six months for next A1c or sooner if needed. Answered all pt questions and they expressed understand ing. Dyslipidemia 585529140 E 78.5 Continue Statin, will check lipids again today. Vitamin D deficiency 347 84179 E55.9 Morbid obesity 365612256 E66.01 [id number] MD Edison Wallace FP (MICHAEL 104) [address] [place] [address] 04/02/2023 14:20:14 04/08/2023 09:06:43 Chest pain 23187861 R07.9 EKG showing junctional rhythm in pt with CP on exertion. Per pt, negative cardiac work up at ED but there are no records available for review. I have requested those records today. I am placing a referral to cardiology today for further evaluation . Pt was advised to go to ER immediatel y if CP becomes more persistent or they develop SOB or any other worrisome conditions . Answered all questions and pt expressed understand ing. Morbid obesity 806540916 E66.01 [id number] MD Edison Wallace e FP (MICHAEL 104) [address] [place] [address] 08/04/2023 15:45:18 08/19/2023 09:33:12 Essential hypertension 95972404 I10 At goal today with current medication s. Encouraged pt to maintain regular exercise and continue low salt, low fat diet. Morbid obesity 616281873 E66.01 [id number] Sujit Jara MD [facility] [place] [address] [address] 12/20/2023 11:24:21 12/21/2023 10:04:13 Asthma 569601498 J45.909 conditon chronic and at goal refill the albuterol with 5 refills. continue the nebs prn Coronary arteriosclerosis 02687031 I25.10 condition chroinc and at goal with stent placement follow with dr benavides Essential hypertension 89200638 I10 condition chronic and at goal continue the lisinopril and metoprolol Migraine 20453973 G43.90 9 conditon chronic and at goal continue the excedrin migraine Prediabetes 114193568 R7 3.03 condition chroin cand at goal contineut he metformin Hypercholesterolemia 136 18651 E78.00 condition chroinc nad at goal continue the atorvastat in Hypertriglyceridemia 302 628047 E78.1 conditon chronic and at goal continue the low fat diet. Seasonal a llergic rhinitis 990820349 J30.2 conditon chronic and at goal continue the singular Morbid obesity 309747972 E66.01 conditon chronic and not at goal continue low fat diet. Dog bite - wound 5048595 05 T14.8XXA condition acute start augmentin for 7 days. [id number] Sujit Jara MD [facility] [place] [address] [address] 06/19/2024 09:50:14 06/20/2024 12:31:03 Coronary arteriosclerosis 85543387 I25.10 condition chroinc and at goal with stent placement refer to dr chen Essential hypertension 43074561 I10 condition chronic and at goal continue the lisinopril and metoprolol Morbid obesity 089164659 E66.01 conditon chronic and not at goal continue low fat diet. Asthma 251407401 J45.90 9 conditon chronic and at goal refill the albuterol with 5 refills. continue the nebs prn Prediabetes 434541359 R7 3.03 condition chroin cand at goal continue the metformin Dyslipidemia 381325292 E 78.5 [id number] Sebastien Taylor MD [facility] [place] [facility] [address] [place] [address] 06/28/2024 13:46:07 06/29/2024 09:14:58 Atherosclerosis of coronary artery without angina pectoris 2913925617 17162 I25.10 First-degr ee Morbid obesity 704812258 E66.01 Essential hypertension 89047564 I10 Type 2 juan betes mellitus without complication 245281661 E11.9 Hyperlipidemia 35655368 E78.5 Dyspnea on exertion 6084 5006 R06.09 First degr ee atrioventricular block 233464429 I44.0 [id number] Sebastien Taylor MD [facility] [place] [facility] [address] [place] [address] 08/01/2024 14:08:08 08/02/2024 16:06:38 Atherosclerosis of coronary artery without angina pectoris 2369924572 41267 I25.10 First-degr ee Dyspnea on exertion 6084 5006 R06.09 Type 2 juan betes mellitus without complication 956245555 E11.9 Essential hypertension 30591577 I10 Hyperlipidemia 51902810 E78.5 First degr ee atrioventricular block 952965408 I44.0 Obese class II 658078527 1 53507 E66.812 9577032123 History of asthma 424385 007 Z87.09 390073 [id number] Sujit Jara MD [facility] [place] [address] [place] [address] 12/18/2024 09:01:50 12/18/2024 10:07:20 Essential hypertension 77551846 I10 condition chronic and at goal continue the lisinopril and metoprolol Coronary arteriosclerosis 68463439 I25.10 condition chroinc and at goal with stent placement refer to dr chen Hypercholesterolemia 136 02342 E78.00 condition chroinc nad at goal continue the atorvastat in Hypertriglyceridemia 302 684347 E78.1 conditon chronic and at goal continue the low fat diet. Migraine 83631758 G43.90 9 conditon chronic and at goal continue the excedrin migraine Screening mammography 24 409196 Z12.31 [id number] order mammo Screening for malignant neoplasm of colon 200491589 Z12.[id number] her Health Concerns Section Related Observation LastModified by Organization Detai ls LastModified Time None Recorded Concern Status LastModified by Organization Details LastModified Time None Recorded Advance Directives Directive None Recorded Payers Insurance Date Sequence Insurance Name Policy Number Policy Collazo Covered Member ID Collazo Member ID Guarantor Name 12/15/2024 1 [facility] Vandana Svetlana Birdnow [id number] Vandana Svetlana Birdnow 12/20/2023 1 [facility] (MEDICAID HMO) [id number] Vandana Birdnow [id number] Vandana Mota Birdnow Notes Date Note Type Note Provider Name and Address Organization Details Recorded Time 4 text/htm l presents to the office for initial evaluation states that she was bitten by a dog yesterday she has been watching his diet. has a h/o asthma she had a stent placed. sees dr benavides at [facility]. the htn is under control and the migraines are under control has a h/o prediabetes. has h/o elevated chol mammo is scheduled. colo is utd. Sujit Jara MD Attn: [facility],[address] [place], [address], [facility] 12/20/2023 13:35:07 5 text/htm l states that she is doing good the cad is under control and the asthma is under contrl has been watching her diet. has the pre diabetes colo is utd dr her mammo is utd. Sujit Jara MD Attn: [facility],[address] [facility], [place], [address], [facility] 06/19/2024 11:49:14 5 text/htm l 54-year-old female who has a history of coronary artery disease status post PTCA with stent placement in proximal right coronary artery. She also has a 95% stenosis in sec marginal branch which was treated medically. She has a history of hypertension, hyperlipidemia and diabetes.She denies complaints of chest pain tightness and pressure. She admits for dyspnea on exertion. She has no no orthopnea, paroxysmal nocturnal dyspnea edema of lower extremities she denies dizziness lightheadedness and syncope. Since she has started a new job she has lost EKG:June 28, 2024:Sinus Rhythm -First degree A-V block,Old inferior myocardial infarction LABS:05/31/23:cholesterol 138, triglycerides 230, HDL 56, LDL 36 CARDIAC TESTING:CARDIAC CATH 05/31/23:Left ventricle: The cavity size is normal. Systolic function is by quantitative ventriculography. The estimated ejection fraction is 55-60%. Wall motion is normal there are no regional wall motion abnormalities. 2nd obtuse marginal: Ostial lesion: There is a 95% stenosis. Right coronary: Proximal vessel lesion: The diagnostic study demonstrated a 15 mm (L), 95%de pamela stenosis. Drug-eluting stent placement was performed over a wire passed through the rampart vessel, resulting in an excellent angiographic appearance (see 1st lesion). Following intervention, there is a residual 0% stenosis with EITAN grade 3 flow (brisk flow). MYOVIEW STRESS 05/31/23:Clinically positive for chest pain. Electrocardiographically positive treadmill test for ischemia. Adequate exercise capacity. Lopez Treadmill Score is -4, which indicates moderate risk. Blood pressure response was normal. Scintigraphic images to follow.Good study quality. No motion correction was applied to images. No attenuation is noted. Prone imaging was performed. Mildly abnormal myocardial perfusion SPECT imaging. Images show asmall area of irreversibility present in the inferior wall(s). Normal wall motion with an ejection fraction of 84%. Stress test with myocardial perfusion imaging shows overall low risk for a cardiac event. Sebastien Taylor MD Attn: [employer],[address] [place], [address], [place] [facility] 06/28/2024 14:30:32 5 text/htm l 54-year-old female who has a history of coronary artery disease status post PTCA with stent placement in proximal right coronary artery. She also has a 95% stenosis in sec marginal branch which was treated medically. She has a history of hypertension, hyperlipidemia and diabetes.She denies complaints of chest pain tightness and pressure. She admits for dyspnea on exertion. She has no no orthopnea, paroxysmal nocturnal dyspnea edema of lower extremities she denies dizziness lightheadedness and syncope. August 01, 2024: 54-year-old lady who has coronary artery disease status post PTCA with stent placement in right coronary artery she also has 95% stenosis in OM which is treated medically. She has hypertension, hyperlipidemia and diabetes. She had an echocardiogram on July 27 which shows normal left ventricular systolic function ejection fraction of 66%.Today she denies complaints of chest pain, shortness of breath, orthopnea, paroxysmal nocturnal dyspnea or edema of lower extremities. EKG:June 28, 2024:Sinus Rhythm -First degree A-V block,Old inferior myocardial infarction LABS:07/03/24:wbc 7.1, hgb 13.8, hct 42, plt 304, A1C 6.1. glucose 96, BUN 13, creatinine 0.78, eGFR 91, sodium 144, K+ 5, calcium 9.7, AST 16, ALT 19, cholesterol 169, triglycerides 286, HDL 52, LDL 7105/31/23:cholesterol 138, triglycerides 230, HDL 56, LDL 36 CARDIAC TESTING:ECHO 07/27/24:Normal left ventricular cavity size. Normal Left ventricular wall thickness. Normal left ventricular systolic function. The Ejection Fraction (Montgomery's) is measured at 66 %. Diastolic Function Normal Left ventricular diastolic function. Normal right ventricular size. Normal right ventricular systolic function. IVC is normal in size. The estimated RA pressure is 3 mmHg. CARDIAC CATH 05/31/23:Left ventricle: The cavity size is normal. Systolic function is by quantitative ventriculography. The estimated ejection fraction is 55-60%. Wall motion is normal there are no regional wall motion abnormalities. 2nd obtuse marginal: Ostial lesion: There is a 95% stenosis. Right coronary: Proximal vessel lesion: The diagnostic study demonstrated a 15 mm (L), 95%de pamela stenosis. Drug-eluting stent placement was performed over a wire passed through the rampart vessel, resulting in an excellent angiographic appearance (see 1st lesion). Following intervention, there is a residual 0% stenosis with EITAN grade 3 flow (brisk flow). MYOVIEW STRESS 05/31/23:Clinically positive for chest pain. Electrocardiographically positive treadmill test for ischemia. Adequate exercise capacity. Lopez Treadmill Score is -4, which indicates moderate risk. Blood pressure response was normal. Scintigraphic images to follow.Good study quality. No motion correction was applied to images. No attenuation is noted. Prone imaging was performed. Mildly abnormal myocardial perfusion SPECT imaging. Images show asmall area of irreversibility present in the inferior wall(s). Normal wall motion with an ejection fraction of 84%. Stress test with myocardial perfusion imaging shows overall low risk for a cardiac event. Sebastien Taylor MD Attn: [facility],[address] [place] [address], [phone], [facility] 08/01/2024 14:56:24 5 text/htm l states that she is doing good the htn and the cad is under control hte chol is treated. arcelia migraines are under control Sujit Jara MD Attn: [facility],[address] [place] [address], [phone], [facility] 12/18/2024 13:20:33 OBGyn Episode No OBEpisode recorded.
--- OUTSIDE RECORDS SUMMARY | 2024-12-24 14:06 | XMS_ITS | Continuity of Care Document ---
Author Name Selma Arredondo Address [address] [facility] [address] [place] [address] Organization Unknown Address [address] [place] [address] Medications No known medications Problems No known problems
--- OUTSIDE RECORDS SUMMARY | 2024-12-24 14:06 | XMS_ITS | Encounter Summary ---
Author Organization [facility] Address [facility] [place] [address] Care Team Providers Care Laborer [employer] Name Role Phone Kasi Zapata Primary Care Provider [phone] Salima Sanchez MD Primary Care Provider [phone] Kalin Jara MD Primary Care Provider [phone] Encounter Details Date Type Department Care Team (Late st Contact Info) Description 05/31/2023 Hospital Orders Only [facility] [place], [place] [id number] Mookie Duff MD Three [facility]. [facility] [address] [place] [address] Social History Tobacco Use Types Packs/Day Years [...] on file documented as of this encounter Functional Status * Calculated C-SSRS Risk Score (Lifetime/Recent) Answer Date of Assessment Author Status No Risk Indicated 05/31/2023 11:02 AM CDT Digna Melton RN Active * [place] Suicide Severity Rating Scale (Screener/Recent Self-Report) Question Answer Date of Assessment Author Status 1. Wish to be (Past 1 Month) No 05/31/2023 11:02 AM CDT Digna Melton RN Active 2. Non-Specific Active Suicidal Thoughts (Past 1 Month) No 05/31/2023 11:02 AM CDDigna Garrison RN Active 6. Suicidal Behavior (Lifetime) No 05/31/2023 11:02 AM CDT Digna Melton RN Active documented as of this encounter Plan of Treatment Not on file documented as of this encounter Visit Diagnoses Not on filedocumented in this encounter Care Teams Laborer [employer] Relationship Specialty Start Date End Date Kasi Zapata PA PCP - General PHYSICIAN GRAPE PRUNER 08/01/18 12/20/23 Salima Sanchez MD [address] [facility] [address] [place] [address] PCP - General FAMILY PRACTICE 12/21/23 01/20/24 Kalin Jara MD [address] [place] [address] [address] [place] [address] PCP - General FAMILY PRACTICE 01/21/24 documented as of this encounter
--- NOTE | 2024-12-24 14:19 | ED.SOB ---
HPI - SOB/Dyspnea General Chief Complaint: Shortness of Breath/Dyspnea Stated Complaint: dyspnea Time Seen by Provider: 12/24/24 14:11 History of Present Illness HPI Narrative: Patient presenting here with shortness of breath and cough, she thinks it may have been from the recent high pollen count but she has been trying to self medicate with her own nebulizer and inhalers over last few days, and symptoms have been persistent so she is here today. History of asthma, no chest pain Related Data Home Medications ?Medication ?Instructions ?Recorded ?Confirmed ?Last Taken ?Type atorvastatin 20 mg tablet 20 mg PO DAILY 03/09/19 05/12/23 09/16/21 History metoprolol tartrate 50 mg tablet 50 mg PO DAILY 03/09/19 05/12/23 09/17/21 History lisinopril 20 mg tablet 20 mg PO DAILY 05/06/22 05/12/23 Unknown History ipratropium 0.5 mg-albuterol 3 mg 3 ml inhalation QID PRN 05/25/22 05/12/23 Unknown History (2.5 mg base)/3 mL nebulization soln cholecalciferol (vitamin D3) 50 50 mcg PO DAILY 10/26/22 05/12/23 Unknown History mcg (2,000 unit) capsule Allergies Allergy/AdvReac Type Severity Reaction Status Date / Time dog dander Allergy Wheezing Verified 05/20/24 20:35 Review of Systems Review of Systems: All systems reviewed & are unremarkable except as noted in HPI and below PMFSH Past Medical History Medical History Anemia no iron--had IV injection Asthma Diabetes Hypercholesterolemia Hypertension Pre-diabetes Screening mammogram, encounter for Screening mammogram, encounter for Surgical History Surgical History History of abdominal supracervical subtotal hysterectomy 08/26/17 Supracx abdominal hyst w/ovarian preservation--enlarged uterine fibroid History of 02/01/98 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 History of tubal ligation 02/01/98 Family History Family History Other Acute myocardial infarction maternal uncle Sibling Kidney disease brother--pt donated 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 Social History Social History (Updated 05/12/23 @ 08:07 by Nellie Montgomery, [facility]) Smoking packs per day: 0.5 Smoking cigarettes per day: 10.0 Years smoked: 27 Smoking pack-years: 13.50 Smoking status: Former smoker Tobacco type: cigarettes Smokeless tobacco user: other Second hand tobacco smoke exposure: Yes Smoking end date: 03/22/18 Alcohol intake: never Substance use: former Substance use type: marijuana Last use: Stopped marijuana use prior to hospitalization August 2021. Do You Feel Safe in your Home?: Yes Lack of Transportation: No Lack of Food: Never True Current Housing: I Have Housing Concerned About Future Housing: No Difficulty Paying Gas/Electric Bills: No Difficulty Paying for Meds: No Currently Unemployed: No Education: High School Diploma/GED Difficulty w/ Childcare or Family Care: No Living arrangements: other Additional living arrangements comments: spouse Occupation/Education: other Additional occupation/education comments: housewife Gender identity (if verbalized by the patient): Female Sexual Orientation (if Verbalized by the Patient): Straight or Heterosexual Spiritual care concerns: No Exam Narrative: EXAMINATION OF ORGAN SYSTEMS/BODY AREAS: Constitutional: Vital signs per nursing GENERAL:[No acute distress, non-toxic appearing.] HEAD: Normal with no signs of head trauma. EYES: EOMI, conjunctiva normal ENT: Hearing grossly intact LUNGS: Tachypneic, extensive wheezing all lung [place] HEART: Slightly tachycardic ABD: [Soft], [nontender to palpation] EXT: Normal range of motion SKIN: [No rashes or lesions.] NEURO: [Alert and oriented x 3. No gross focal sensory or strength deficits.] PSYCH: Normal affect Course Vital Signs Vital signs: Vital Signs Pulse Rate 105 H 12/24/24 14:09 Respiratory Rate 22 H 12/24/24 14:09 Pulse Oximetry 96 12/24/24 14:09 Temperature 97.3 F L 12/24/24 14:10 Pulse Rate 110 H 12/24/24 15:01 Respiratory Rate 23 H 12/24/24 15:01 Blood Pressure 140/91 H 12/24/24 15:01 Pulse Oximetry 97 12/24/24 15:01 Oxygen Delivery Room Air 12/24/24 14:10 MDM - SOB/Dyspnea MDM Narrative Medical decision making narrative: ED COURSE AND MEDICAL DECISION MAKIN-year-old female with acute dyspnea and wheezing likely due to acute asthma exacerbation based on history and exam. Patient is hemodynamically stable. Nebulizer treatments are started and steroids given orally. Patient monitored in the ED for a couple of hours and on reevaluation is feeling significantly better. No respiratory distress or accessory muscle use. Good air movement bilateral lungs. Still has some slight wheezing, I did offer additional breathing treatments here but she is feeling much better 1 prefer to go home. Prescriptions for [albuterol and steroid course] provided. She is given strict return precautions and patient is discharged in stable/improved condition. Lab Data 12/24/24 14:27 12/24/24 14:27 Labs: Lab Results 12/24/24 Range/Units 14:27 WBC 10.4 H (4.5-10.0) K/mm3 RBC 4.85 (4.2-5.4) M/mm3 Hgb 14.3 (12.0-15.0) g/dL Hct 42.3 (37.0-47.0) % MCV 87.2 (80-100) fl MCH 29.5 (26-34) pg MCHC 33.8 (32-36) g/dl RDW 13.2 (11.5-14.5) % Plt Count 355 (150-375) k/mm3 MPV 9.3 (7.4-10.4) fl Immature Gran % (Auto) 0.3 (0-0.5) % Neut % (Auto) 65.9 (45.5-73.1) % Lymph % (Auto) 23.3 (18.3-44.2) % [place] % (Auto) 5.5 (2.6-8.5) % Eos % (Auto) 4.5 H (0-4.4) % Baso % (Auto) 0.5 (0.2-1.2) % Lymph # (Auto) 2.42 (0.9-3.2) K/mm3 [place] # (Auto) 0.6 (0.1-0.6) K/mm3 Eos # (Auto) 0.5 H (0-0.3) K/mm3 Baso # (Auto) 0.1 (0.0-0.1) K/mm3 Abs Immat Gran (auto) 0.03 (0.00-0.031) K/mm3 Absolute Neuts (auto) 6.9 H (1.3-6.7) K/mm3 Absolute Nucleated RBC 0.000 (0.0-0.012) K/mm3 Nucleated RBC % 0.0 (0.0-0.2) % Sodium 139 (137-145) mmol/L Potassium 4.3 (3.4-5.0) mmol/L Chloride 107 (98-107) mmol/L Carbon Dioxide 20 L (22-30) mmol/L Anion Gap 12 (4-12) mmol/L BUN 9 (7-17) mg/dL Creatinine 0.78 (0.7-1.0) mg/dL Estim Creat Clear Calc 74 ml/min Estimated GFR > 60 (59 - ) Glucose 107 (65-110) mg/dL Calcium 9.7 (8.4-10.2) mg/dL Magnesium 1.6 (1.6-2.3) mg/dL Total Bilirubin 0.8 (0.2-1.3) mg/dL AST 33 (14-36) U/L ALT 28 (6-35) U/L Alkaline Phosphatase 107 (38-126) U/L Total Protein 7.9 (6.3-8.2) g/dL Albumin 4.5 (3.5-5.1) g/dL Discharge Plan Discharge Clinical Impression: Asthma exacerbation Patient Disposition: Home Condition: Stable Instructions: Asthma (ED) Additional Instructions: Please follow up with your doctor; take medications as prescribed. Please come back to the hospital if your symptoms return or worsen. Patient Language: Polish Prescriptions: New albuterol sulfate 90 mcg/actuation HFA aerosol inhaler 2 puff inhalation QID PRN (Reason: shortness of breath or wheezing) Qty: 8.5 0RF ipratropium-albuterol 0.5 mg-3 mg(2.5 mg base)/3 mL solution for nebulization 3 ml inhalation Q6H PRN (Reason: shortness of breath or wheezing) Qty: 180 0RF prednisone 20 mg tablet 40 mg PO DAILY 4 Days Qty: 8 0RF No Action atorvastatin 20 mg tablet 20 mg PO DAILY metoprolol tartrate 50 mg tablet 50 mg PO DAILY lisinopril 20 mg tablet 20 mg PO DAILY cholecalciferol (vitamin D3) 50 mcg (2,000 unit) capsule 50 mcg PO DAILY ipratropium-albuterol 0.5 mg-3 mg(2.5 mg base)/3 mL solution for nebulization 3 ml inhalation QID PRN prednisone 20 mg tablet 40 mg PO DAILY 4 Days Qty: 8 0RF budesonide-formoterol [Symbicort] 160-4.5 mcg/actuation HFA aerosol inhaler 2 puff inhalation Q12H 30 Days Qty: 10.2 11RF albuterol sulfate [Ventolin HFA] 90 mcg/actuation HFA aerosol inhaler 2 puff INHALATION Q4-6H PRN (Reason: shortness of breath or wheezing) Qty: 18 2RF Follow-up/Referrals: Marek,Kalin Espinoza MD [Primary Care Provider] - 3 Days
[2024-12-24] MEDS: MAGNESIUM SULF 2 GM/WATER 50ML 2 GM/50 ML BAG IVPB (14:24)
[2024-12-24 14:32] LABS: Hematocrit 42.3 % (37.0-47.0); Hemoglobin 14.3 g/dL (12.0-15.0); Immature Granulocyte Percent A 0.3 % (0-0.5); Lymphocytes Absolute Auto 2.42 K/mm3 (0.9-3.2); Mean Corpuscular HGB Conc 33.8 g/dl (32-36); Mean Corpuscular Hemoglobin 29.5 pg (26-34); Mean Corpuscular Volume 87.2 fl (80-100); Nucleated Red Blood Cells Absolute Auto 0.000 K/mm3 (0.0-0.012); Nucleated Red Blood Cells Perc 0.0 % (0.0-0.2); Platelet Count Result 355 k/mm3 (150-375); Red Blood Count 4.85 M/mm3 (4.2-5.4); White Blood Count 10.4 K/mm3 (4.5-10.0)
[2024-12-24] MEDS: ALBUTEROL SULFATE NEB 2.5 MG/3 ML INH 15 MG INHALATION (14:37)
[2024-12-24] MEDS: IPRATROPIUM BR 0.02% INH SOLN 0.5 MG/2.5 ML VIAL 1 MG INHALATION (14:38)
[2024-12-24 14:44] LABS: Alanine Aminotransferase 28 U/L (6-35); Albumin Level 4.5 g/dL (3.5-5.1); Alkaline Phosphatase 107 U/L (38-126); Anion Gap 12 mmol/L (4-12); Aspartate Amino Transferase 33 U/L (14-36); Bilirubin,Total 0.8 mg/dL (0.2-1.3); Blood Urea Nitrogen 9 mg/dL (7-17); Calcium 9.7 mg/dL (8.4-10.2); Carbon Dioxide 20 mmol/L (22-30); Chloride 107 mmol/L (98-107); Estimated CRCL calculation 74 ml/min; Estimated Glomerular Filt Rate > 60; Glucose 107 mg/dL (65-110); Magnesium 1.6 mg/dL (1.6-2.3); Potassium 4.3 mmol/L (3.4-5.0); Sodium 139 mmol/L (137-145); Total Protein 7.9 g/dL (6.3-8.2)
== END 2024-12-24 16:25 | disposition home or self-care (01) ==
PROVIDERS: Emergency Provider Emergency Medicine; PCP Family Medicine
DX: J45.901 Unspecified asthma with (acute) exacerbation (principal); I10 Essential (primary) hypertension; E11.9 Type 2 diabetes mellitus without complications; E78.00 Pure hypercholesterolemia, unspecified; Z86.2 Personal history of diseases of the blood and blood-forming organs and certain disorders involving the immune mechanism; Z87.891 Personal history of nicotine dependence; Z90.710 Acquired absence of both cervix and uterus; Z90.5 Acquired absence of kidney; Z79.899 Other long term (current) drug therapy
CPT/HCPCS: 36415; 71045; 80053; 83735; 85025; 94640; 96365; 96375; 99284; J2919; J3475

== ENCOUNTER 2024-12-25 19:06 | Inpatient (IN) | payer OTHER, SELFPAY ==
[2024-12-25] VITALS (17 sets, daily range): BP systolic 134–168; BP diastolic 90–107; PULSE 93–115; RESP 15–26; TEMP 36.9; O2SAT 91–100
--- NOTE | ~2024-12-25 | XR_ITS ---
Examination: XR chest 2V Clinical History: sob Comparison: 1 day prior Technique: PA and Lateral Findings: Cardiomediastinal silhouette normal size and configuration. Lungs clear. No acute bony abnormality. IMPRESSION: 1. No acute cardiopulmonary findings. Reviewed, dictated and finalized at location R.
--- NOTE | ~2024-12-25 | CT_ITS ---
EXAMINATION: CTA chest PE protocol DATE: 12/26/2024 01:16 INDICATION: Dyspnea. TECHNIQUE: Computed tomography angiography (CTA) of the chest was performed with 100 mL Omnipaque-350 intravenous contrast timed to evaluate the pulmonary arteries. Coronal maximum intensity projection 3D-reconstructions were created by the technologist. Automated exposure control and iterative reconstruction technique were employed. The dose-length product was 614.48 mGy-cm. COMPARISON: Chest CT 09/21/2021 FINDINGS: There is minimal atelectasis in right lung upper lobe. There are a few nodules in right lung lower lobe measuring up to 4 mm, likely benign. No pleural effusion. The heart size is normal. There is a trace pericardial effusion. There is no pulmonary embolus. There are changes of left nephrectomy. There is a 2.1 cm mass in right adrenal gland without change, likely an adenoma. There is mild thoracic spondylosis. IMPRESSION: 1. No pulmonary embolus. Reviewed, dictated and finalized at location E. IMPRESSION: 1. No pulmonary embolus.
--- OUTSIDE RECORDS SUMMARY | 2024-12-25 19:08 | XMS_ITS | Clinical Summary ---
Author Organization [facility] Address [facility] [place] [address] Care Team Providers Care Hood Fitter Name Role Phone Kalin Jara MD Primary Care Provider [phone] Allergies Active Allergy Reactions Criticality Noted Date [...] 24 Active clopidogrel (PLAVIX) 75 MG tablet TAKE 1 TABLET(75 MG) BY MOUTH DAILY 30 tablet 12/26/19 25 Active clopidogrel (PLAVIX) 75 MG tablet TAKE 1 TABLET BY MOUTH EVERY DAY 30 tablet 11/01/19 25 025 Discontinued clopidogrel (PLAVIX) 75 MG tablet Take 1 tablet (75 mg total) by mouth daily. Pt needs an appt 15 tablet 12/08/19 25 025 Discontinued Active Problems Problem Noted [...] up in: three months with PCP Asthma ([facility]) 07/24/2019 Overview (05/19/2023): Last Assessment & Plan: [...] LDL 05/30/2024 05/31/2023, 01/29/2023, 11/07/2014 COVID-19 Vaccine (2023-2 5 season) 2024 Influenza Adult (#1) 2024 02/28/2019 Mammogram Screening 03/16/2026 03/16/2024 Meningococcal B Vaccine [...] DELIO SURI DIGI Routine 03/16/2024 9:04 AM [employer]IST Encounter for screening mammogram for malignant neoplasm of breast LIPID PANEL Routine 05/31/2023 10:53 AM CDT Angina pectoris from Last 3 Months or Most Recently Relevant to Health Maintenance Results * MG SCREENING W EDLIO SURI DIGI (03/16/2024 9:04 AM [employer] MEDIA SPECIALIST) Anatomical Region Laterality Modality Breast Bilateral Mammography 03/20/2024 7:07 AM [employer] MEDIA SPECIALIST Impressions 03/20/2024 7:08 AM [employer] MEDIA SPECIALIST ===== IMPRESSION: ===== 1. Stable mammographic appearance with no new findings to suggest malignancy in either breast. Assessment: ACR BI-RADS 2 - BENIGN FINDING(S) Recommendation: 1:Routine Screening Bilateral Comments: Ordered By: NEYMAR CALDERÓN Interpreted By: Anurag Singh MD, 03/20/2024 7:07 AM Narrative 03/20/2024 7:08 AM [employer] MEDIA SPECIALIST [facility] [address] [place] [address] Examination: Digital bilateral screening mammogram with 3D [...] 138 <200 MG/DL 05/31/2023 11:36 AM CDT [facility] TRIGLYCERIDES 230(H) <150 MG/DL 05/31/2023 11:36 AM CDT [facility] HDL 56 >40.0 MG/DL 05/31/2023 11:36 AM CDT [facility] LDL (CALCULATED) 36 <100 MG/DL 05/31/2023 11:36 AM CDT [facility] NON HDL CHOLESTEROL 82 <130 MG/DL 05/31/2023 11:36 AM CDT [facility] CHOL/HDL RATIO 2.5 0.0 - 4.5 05/31/2023 11:36 AM T [facility] VLDL CALCULATION 46 5 - 55 MG/DL 05/31/2023 11:36 AM T [facility] LIPID INTERPRETATION 05/31/2023 11:36 AM T [facility] Comment: NIH CONCENSUS REPORT RECOMMENDATIONS: ADULT CHILD LOW RISK: CHOLESTEROL <200 <170 TRIGLYCERIDE <150 --- HDL >=60 --- LDL <100 <110 BORDERLINE: CHOLESTEROL 200-239 170-199 TRIGLYCERIDE 150-199 --- HDL 40-59 --- LDL 100-159 110-129 HIGH RISK: CHOLESTEROL >=240 >=200 TRIGLYCERIDE >=200 --- HDL <40 --- LDL >=160 >=130 05/31/2023 10:5 3 AM CDT us Mookie Duff MD LABORATORY Final Result [facility] [address] [place] [address], [place] [phone] from Last 3 Months or Most Recently Relevant to Health Maintenance Insurance [facility] Care Teams Hood Fitter Relationship Specialty Start Date End Date Kalin Jara MD [address] [place] [address] PCP - General FAMILY PRACTICE 01/21/24
--- OUTSIDE RECORDS SUMMARY | 2024-12-25 19:08 | XMS_ITS | Encounter Summary ---
Author Organization [facility] Address [facility] [place] [address] Care Team Providers Care Sustainability Officer Name Role Phone Kasi Zapata Primary Care Provider [phone] Salima Sanchez MD Primary Care Provider [phone] Kalin Jara MD Primary Care Provider [phone] Encounter Details Date Type Department Care Team (Late st Contact Info) Description 05/31/2023 Hospital Orders Only [facility] [address] [place], [place] [id number] Mookie Duff MD [address] [facility]. [facility] [address] [place] [address] Social History Tobacco Use Types [...] AM CDT Digna Melton RN Active * [place] Suicide Severity Rating Scale (Screener/Recent Self-Report) Question [...] on filedocumented in this encounter Care Teams Sustainability Officer Relationship Specialty Start Date End Date Kasi Zapata PA PCP - General PHYSICIAN EXTENSION FORESTER 08/01/18 12/20/23 Salima Sanchez MD [address] [facility] [address] [place] [address] PCP - General FAMILY PRACTICE 12/21/23 01/20/24 Kalin Jara MD [address] [place] [address] [address] [place] [address] PCP - General FAMILY PRACTICE 01/21/24 documented as of this encounter
--- OUTSIDE RECORDS SUMMARY | 2024-12-25 19:08 | XMS_ITS | Encounter Summary ---
Author Organization [facility] Address [facility] [place] [address] Care Team Providers Care Animal Nurse Name Role Phone Kasi Zapata Primary Care Provider [phone] Salima Sanchez MD Primary Care Provider [phone] Kalin Jara MD Primary Care Provider [phone] Encounter Details Date Type Department Care Team (Late st Contact Info) Description 06/02/[address] [facility] [address] Aleisha Hernandes MA Social History Tobacco Use [...] Final Result * LIPID PANEL (01/29/2023) Pathologist [facility] [place] CHOLESTEROL 178 TRIGLYCERIDES 289 HDL 51 LDL (CALCULATED) 114 us Default History Genericprovider LABORATORY Final Result * CBC, MANUAL DIFF (01/29/2023) Pathologist [facility] WBC 7.6 HGB 14.2 HCT 44.0 PLT 345 us Default History Genericprovider LABORATORY Final Result * HEMOGLOBIN, GLYCOSYLATED (01/29/2023) Pathologist [facility] [place] HGB A1C 5.5 % us Default History Genericprovider LABORATORY Final Result * VITAMIN D, 25 OH (10/30/2022) VITAMIN D 25 HYDROXY S/P/B 36.3 10/30/2022 us Default History Genericprovider LABORATORY Final Result documented in this encounter Visit Diagnoses Not on filedocumented in this encounter Care Teams Animal Nurse Relationship Specialty Start Date End Date Kasi Zapata PA PCP - General PHYSICIAN BONDERIZER OPERATOR 08/01/18 12/20/23 Salima Sanchez MD [address] [facility] [address] [place] [address] PCP - General FAMILY PRACTICE 12/21/23 01/20/24 Kalin Jara MD [address] [place] [id number] PCP - General FAMILY PRACTICE 01/21/24 documented as of this encounter
--- OUTSIDE RECORDS SUMMARY | 2024-12-25 19:08 | XMS_ITS | Clinical Summary ---
Author Organization [facility] Address [address] [place] [address] Care Team Providers Care Dry Chain Worker Name Role Phone Loli Walker MD Primary Care Provider [phone] Source Comments [facility] Mechanology,non-owned Affiliates and Associated Physician Practices is amultiple site organization consisting of ambulatory clinics and hospital sitesin [place], [place], [place] and [place]. This disclosure is being madepursuant to the Care Everywhere program and may not contain all information available regarding this patient. Last updated 17.[facility] Medications * Be aware that medications may [...] fluticasone propionate (FLONASE) 50 MCG/ACT nasal spray [place] 1 spray into each nostril once daily [...] on file Legal Sex Female 6:19 AM SPOT CLEANER Gender Identity Not on file Sexual Orientation [...] lb 9.6 oz) 05/14/2017 1:35 P M SPOT CLEANER Height 154.9 cm (5' 1) 04/23/2017 12:03 PM SPOT CLEANER Body Mass Index 38.28 04/23/2017 12:03 PM SPOT CLEANER Plan of Treatment Health Maintenance Due Date [...] COMPREHENSIVE METABOLIC PANEL STAT 05/14/2017 1:47 PM SPOT CLEANER from Last 3 Months or Most Recently Relevant to Health Maintenance Results * (ABNORMAL) COMPREHENSIVE METABOLIC PANEL (05/14/2017 1:47 PM SPOT CLEANER) BUN 8 7 - 26 mg/dL [facility] Creatinine 1.0 0.6 - 1.2 mg/dL [facility] Sodium 141 136 - 145 mmol/L [facility] Potassium 4.6(H) 3.5 - 4.5 mmol/L [facility] Chloride 107 98 - 107 mmol/L [facility] CO2 23 22 - 29 mmol/L [facility] Glucose 81 70 - 115 mg/dL [facility] Calcium 9.1 8.4 - 10.2 mg/dL [facility] Protein Total 6.9 6.0 - 8.3 g/dL [facility] Albumin 3.4 3.4 - 5.0 g/dL [facility] Bilirubin Total 0.2 0.2 - 1.2 mg/dL [facility] Alkaline Phosphatase 88 40 - 150 Units/L [facility] ALT 9 0 - 55 Units/L [facility] AST 11 5 - 34 Units/L [facility] Anion Gap 16 8 - 18 [facility] BUN/Creatinine Ratio 8 7 - 23 [facility] Osmolality Calculated 289 270 - 300 mOsm/kg [facility] Albumin/Globulin Ratio 1.0(L) 1.1 - 2.3 [facility] eGFR 60(L) >60 mL/min/1.7 3 m2 [facility] Blood specimen (specimen) BLOOD SPECIMEN / Unknown 05/14/2017 1:47 PM SPOT CLEANER 05/14/2017 2:05 PM SPOT CLEANER John Mariee MD LAB - CHEMISTRY ORDERABLES Fi nal Result [facility] [address] [place] [address], [facility] [phone] from Last 3 Months or Most Recently Relevant to Health Maintenance Insurance [facility] Care Teams Dry Chain Worker Relationship Specialty Start Date End Date Loli Walker MD [address] [address] PCP - General Family Medicine 08/10/17
--- OUTSIDE RECORDS SUMMARY | 2024-12-25 19:08 | XMS_ITS | Encounter Summary ---
Author Organization [facility] Address [address] [place] [address] Care Team Providers Care Hand Spring Repairer Helper Name Role Phone Elder Mancuso DO Primary Care Provider [phone] Kasi Zapata Primary Care Provider [phone] Salima Sanchez MD Primary Care Provider [phone] Kalin Jara MD Primary Care Provider [phone] Encounter Details Date Type Department Care Team (Latest Contact Info) Description 01/25/2018 Abstract [facility] , Guy Braun MD Social [...] on filedocumented in this encounter Care Teams Hand Spring Repairer Helper Relationship Specialty Start Date End Date Elder Mancuso DO PCP - General 12/19/15 07/31/18 Kasi Zapata PA PCP - General PHYSICIAN SUPERVISOR BLASTING 08/01/18 12/20/23 Salima Sanchez MD [address] [facility] [address] [place] [address] PCP - General FAMILY PRACTICE 12/21/23 01/20/24 Kalin Jara MD [address] [place], [place] [id number] PCP - General FAMILY PRACTICE 01/21/24 documented as of this encounter
--- NOTE | 2024-12-25 19:56 | ECG_ITS ---
Test Date: 2024-12-25 21:30:10 Measurements Intervals [place] Rate: 104 P: 0 MT: 0 QRS: 15 QRSD: 95 T: 54 QT: 329 QTc: 434 Interpretive Statements SINUS TACHYCARDIA MINIMAL Q WAVES- INFERIOR LEADS BASELINE WANDER- I, II, III, AVR, AVF, V1-V3 BORDERLINE ECG No previous ECG available for comparison Electronically Signed On 12-26-2024 06:11:36 CDT by Ilia Velazquez D.O.
[2024-12-25 21:42] LABS: Hematocrit 47.5 % (37.0-47.0); Hemoglobin 15.5 g/dL (12.0-15.0); Immature Granulocyte Percent A 0.5 % (0-0.5); Lymphocytes Absolute Auto 2.18 K/mm3 (0.9-3.2); Mean Corpuscular HGB Conc 32.6 g/dl (32-36); Mean Corpuscular Hemoglobin 29.3 pg (26-34); Mean Corpuscular Volume 89.8 fl (80-100); Nucleated Red Blood Cells Absolute Auto 0.000 K/mm3 (0.0-0.012); Nucleated Red Blood Cells Perc 0.0 % (0.0-0.2); Platelet Count Result 459 k/mm3 (150-375); Red Blood Count 5.29 M/mm3 (4.2-5.4); White Blood Count 14.8 K/mm3 (4.5-10.0)
[2024-12-25] MEDS: IPRATROPIUM 0.5 MG/ALBUTEROL SULFATE 2.5 MG (BASE) AMPUL.NEB 3 ML INHALATION (21:43)
[2024-12-25 21:48] LABS: Alveolar/Arterial O2 Gradient 38.2 mmHg; Fractional Inspired Oxygen 21 %; HCO3 ABG 24.1 mEq/l (22.0-26.0); Oxygen Content ABG 21.0 %vol (16.0-22.0); Oxygen Saturation ABG 95.9 % (95.0-100.0); PCO2 ABG 32.1 mmHg (35.0-45.0); PO2 ABG 73.1 mmHg (80.0-100.0); PO2 FiO2 Ratio Arterial Blood 3.48 %
[2024-12-25 21:50] LABS: Modified Allen's Test Pass; Site Drawn RIGHT RADIAL
[2024-12-25 21:55] LABS: Alanine Aminotransferase 31 U/L (6-35); Albumin Level 4.8 g/dL (3.5-5.1); Alkaline Phosphatase 108 U/L (38-126); Anion Gap 13 mmol/L (4-12); Aspartate Amino Transferase 34 U/L (14-36); Bilirubin,Total 0.6 mg/dL (0.2-1.3); Blood Urea Nitrogen 15 mg/dL (7-17); Calcium 10.2 mg/dL (8.4-10.2); Carbon Dioxide 20 mmol/L (22-30); Chloride 107 mmol/L (98-107); Estimated CRCL calculation 64 ml/min; Estimated Glomerular Filt Rate > 60; Glucose 117 mg/dL (65-110); Potassium 4.3 mmol/L (3.4-5.0); Sodium 140 mmol/L (137-145); Total Protein 8.4 g/dL (6.3-8.2)
[2024-12-25 22:06] LABS: NT Pro B Type Natriuretic Pept 225 pg/mL (19.9-100); Troponin I < 0.012 ng/mL (0.000-0.034)
[2024-12-25 22:21] LABS: Influenza A QL RT-PCR Negative (Negative); Influenza B QL RT-PCR Negative (Negative); RSV RNA, RT-PCR Negative (Negative); SARS-CoV-2 RNA PCR Negative (Negative)
--- NOTE | 2024-12-25 23:48 | PC.NURSE ---
This RN ambulated with pt monitoring O2. Pt stayed at 93% O2 on RA and was visibly pursed lip breathing, SOB. EDP notified.
--- NOTE | 2024-12-25 23:48 | ED.GENADULT ---
HPI - General Adult General Chief complaint: Shortness of Breath/Dyspnea Stated complaint: shortness of breath here yest same thing Time Seen by Provider: 12/25/24 21:23 History of Present Illness HPI narrative: Patient is a 54-year-old female who presents emergency department chief complaint of shortness of breath patient has history of asthma reports he was seen in the emergency department yesterday started on a steroid pulse reports that she has had progressive shortness of breath and reports he has been having to use her inhaler and nebulizer significantly at home the patient reports she has dyspnea with exertion reports that she has had a cough is productive of clear sputum patient denies fever Related Data Home Medications ?Medication ?Instructions ?Recorded ?Confirmed ?Last Taken ?Type atorvastatin 20 mg tablet 20 mg PO DAILY 03/09/19 05/12/23 09/16/21 History metoprolol tartrate 50 mg tablet 50 mg PO DAILY 03/09/19 05/12/23 09/17/21 History lisinopril 20 mg tablet 20 mg PO DAILY 05/06/22 05/12/23 Unknown History ipratropium 0.5 mg-albuterol 3 mg 3 ml inhalation QID PRN 05/25/22 05/12/23 Unknown History (2.5 mg base)/3 mL nebulization soln cholecalciferol (vitamin D3) 50 50 mcg PO DAILY 10/26/22 05/12/23 Unknown History mcg (2,000 unit) capsule Allergies Allergy/AdvReac Type Severity Reaction Status Date / Time dog dander Allergy Wheezing Verified 12/25/24 21:28 Review of Systems Review of Systems: A 10 system review of systems was completed on the patient and is negative except for what is stated in the HPI. Nursing and ancillary documentation was reviewed. 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 Do You Feel Safe in your Home?: Yes Lack of Transportation: No Lack of Food: Never True Current Housing: I Have Housing Concerned About Future Housing: No Difficulty Paying Gas/Electric Bills: No Difficulty Paying for Meds: No Currently Unemployed: No Education: High School Diploma/GED Difficulty w/ Childcare or Family Care: No Living arrangements: other Additional living arrangements comments: spouse Occupation/Education: other Additional occupation/education comments: housewife Gender identity (if verbalized by the patient): Female Sexual Orientation (if Verbalized by the Patient): Straight or Heterosexual Spiritual care concerns: No Exam Narrative: GENERAL: Well-appearing, well-nourished, and in no acute distress. HEAD: Normocephalic, atraumatic. EYES: PERRLA and EOMI. ENT: Nares clear, no rhinorrhea or epistaxis. Mucous membranes moist. NECK: Supple. CHEST: Scattered wheezes to auscultation. No respiratory distress. HEART: Regular rate and rhythm. No murmur heard. Normal peripheral pulses. ABDOMEN: Soft, nontender, nondistended, normal active bowel sounds. EXTREMITIES: Normal range of motion. No edema. SKIN: Warm, dry, no rash. NEURO: No focal deficits. Alert and oriented x3. PSYCH: Normal mood and affect. Course Vital Signs Vital signs: Vital Signs Temperature 36.9 C 12/25/24 19:53 Pulse Rate 107 H 12/25/24 19:53 Respiratory Rate 26 H 12/25/24 19:53 Blood Pressure 168/99 H 12/25/24 19:53 Pulse Oximetry 96 12/25/24 19:53 Oxygen Delivery Room Air 12/25/24 19:53 Temperature 36.9 C 12/25/24 19:53 Pulse Rate 93 12/26/24 00:01 Respiratory Rate 28 H 12/26/24 00:01 Blood Pressure 142/88 H 12/26/24 00:01 Pulse Oximetry 93 12/26/24 00:01 Oxygen Delivery Room Air 12/25/24 21:16 Medical Decision Making [facility] Narrative Medical decision making narrative: Differential diagnosis includes asthma exacerbation, pneumonia, pneumothorax Laboratory studies were obtained on the patient showed a CBC with white count 14.8 ABG showed a pH 7.494 electrolytes showed a normal renal function troponin was negative BNP was 2 2 5 COVID flu RSV were negative Chest x-ray showed no focal infiltrate The patient received IV steroids in the emergency department and breathing treatments. The patient reports he still having symptoms but a little bit better with ambulation the patient did not desaturate but became significantly tachypneic with ambulation Given the patient has been on oral steroids and was seen yesterday the case will be discussed with the hospitalist for admission for acute asthma exacerbation In discussion with the hospitalist they would prefer a PE study be performed on the patient this showed no evidence of PE did show evidence of a possible consolidation concerning for a right lower lobe infiltrate due to this the patient was started on antibiotics for community-acquired MO Vital Signs Vital Signs: Vital Signs Temperature 36.9 C 12/25/24 19:53 Pulse Rate 107 H 12/25/24 19:53 Respiratory Rate 26 H 12/25/24 19:53 Blood Pressure 168/99 H 12/25/24 19:53 Pulse Oximetry 96 12/25/24 19:53 Oxygen Delivery Room Air 12/25/24 19:53 Temperature 36.9 C 12/25/24 19:53 Pulse Rate 93 12/26/24 00:01 Respiratory Rate 28 H 12/26/24 00:01 Blood Pressure 142/88 H 12/26/24 00:01 Pulse Oximetry 93 12/26/24 00:01 Oxygen Delivery Room Air 12/25/24 21:16 Lab Data 12/25/24 21:25 12/25/24 21:25 Labs: Lab Results 12/25/24 12/25/24 Range/Units 21:25 21:35 WBC 14.8 H (4.5-10.0) K/mm3 RBC 5.29 (4.2-5.4) M/mm3 Hgb 15.5 H (12.0-15.0) g/dL Hct 47.5 H (37.0-47.0) % MCV 89.8 (80-100) fl MCH 29.3 (26-34) pg MCHC 32.6 (32-36) g/dl RDW 13.6 (11.5-14.5) % Plt Count 459 H (150-375) k/mm3 MPV 9.5 (7.4-10.4) fl Immature Gran % (Auto) 0.5 (0-0.5) % Neut % (Auto) 78.2 H (45.5-73.1) % Lymph % (Auto) 14.7 L (18.3-44.2) % Mineral % (Auto) 6.5 (2.6-8.5) % Eos % (Auto) 0.0 (0-4.4) % Baso % (Auto) 0.1 L (0.2-1.2) % Lymph # (Auto) 2.18 (0.9-3.2) K/mm3 Mineral # (Auto) 1.0 H (0.1-0.6) K/mm3 Eos # (Auto) 0.0 (0-0.3) K/mm3 Baso # (Auto) 0.0 (0.0-0.1) K/mm3 Abs Immat Gran (auto) 0.08 H (0.00-0.031) K/mm3 Absolute Neuts (auto) 11.6 H (1.3-6.7) K/mm3 Absolute Nucleated RBC 0.000 (0.0-0.012) K/mm3 Nucleated RBC % 0.0 (0.0-0.2) % Sodium 140 (137-145) mmol/L Potassium 4.3 (3.4-5.0) mmol/L Chloride 107 (98-107) mmol/L Carbon Dioxide 20 L (22-30) mmol/L Anion Gap 13 H (4-12) mmol/L BUN 15 D (7-17) mg/dL Creatinine 0.87 (0.7-1.0) mg/dL Estim Creat Clear Calc 64 ml/min Estimated GFR > 60 (59 - ) Glucose 117 H (65-110) mg/dL Calcium 10.2 (8.4-10.2) mg/dL Total Bilirubin 0.6 (0.2-1.3) mg/dL AST 34 (14-36) U/L ALT 31 (6-35) U/L Alkaline Phosphatase 108 (38-126) U/L Troponin I < 0.012 (0.000-0.034) ng/mL NT-Pro-B Natriuret Pep 225 H (19.9-100) pg/mL Total Protein 8.4 H (6.3-8.2) g/dL Albumin 4.8 (3.5-5.1) g/dL Influenza A (RT-PCR) Negative (Negative) Influenza B (RT-PCR) Negative (Negative) RSV (RT-PCR) Negative (Negative) SARS-CoV-2 RNA (RT-PCR) Negative (Negative) ABG Data ABG results: 12/25/24 21:37 Puncture Site Right radial ABG pH 7.494 H ABG pCO2 32.1 L ABG pO2 73.1 L ABG PO2/FiO2 Ratio 3.48 ABG HCO3 24.1 ABG O2 Saturation 95.9 ABG O2 Content 21.0 ABG Base Excess 1.7 A-a Gradient 38.2 Oxyhemoglobin 94.5 Total Hemoglobin 15.8 O2 Delivery Device Room air O2 Liters/Min Not Reportable FiO2 21 Discharge Plan Discharge Clinical Impression: Pneumonia Asthma Qualifiers: Asthma severity: moderate Asthma persistence: persistent Asthma complication type: with acute exacerbation Qualified Code(s): J45.41 - Moderate persistent asthma with (acute) exacerbation Patient Disposition: Still a Patient Condition: Stable Patient Language: Mozambican Prescriptions: No Action atorvastatin 20 mg tablet 20 mg PO DAILY metoprolol tartrate 50 mg tablet 50 mg PO DAILY lisinopril 20 mg tablet 20 mg PO DAILY cholecalciferol (vitamin D3) 50 mcg (2,000 unit) capsule 50 mcg PO DAILY ipratropium-albuterol 0.5 mg-3 mg(2.5 mg base)/3 mL solution for nebulization 3 ml inhalation QID PRN prednisone 20 mg tablet 40 mg PO DAILY 4 Days Qty: 8 0RF albuterol sulfate 90 mcg/actuation HFA aerosol inhaler 2 puff inhalation QID PRN (Reason: shortness of breath or wheezing) Qty: 8.5 0RF ipratropium-albuterol 0.5 mg-3 mg(2.5 mg base)/3 mL solution for nebulization 3 ml inhalation Q6H PRN (Reason: shortness of breath or wheezing) Qty: 180 0RF prednisone 20 mg tablet 40 mg PO DAILY 4 Days Qty: 8 0RF budesonide-formoterol [Symbicort] 160-4.5 mcg/actuation HFA aerosol inhaler 2 puff inhalation Q12H 30 Days Qty: 10.2 11RF albuterol sulfate [Ventolin HFA] 90 mcg/actuation HFA aerosol inhaler 2 puff INHALATION Q4-6H PRN (Reason: shortness of breath or wheezing) Qty: 18 2RF Follow-up/Referrals: Marek,Kalin Espinoza MD [Primary Care Provider]
[2024-12-26] VITALS (21 sets, daily range): BP systolic 138–150; BP diastolic 88–102; PULSE 84–111; RESP 20–28; TEMP 36.1–36.4; O2SAT 93–98; BMI 36.3
[2024-12-26] MEDS: IPRATROPIUM 0.5 MG/ALBUTEROL SULFATE 2.5 MG (BASE) AMPUL.NEB 3 ML INHALATION ×6 (01:53→20:13)
[2024-12-26] MEDS: cefTRIAXone 1 GM in SODIUM CHLORIDE 0.9% IV 50 ML 100 ML IVPB (02:32)
[2024-12-26] MEDS: AZITHROMYCIN IV 500 MG in SODIUM CHLORIDE 0.9% IV 250 ML IVPB (03:07)
--- NOTE | 2024-12-26 03:16 | ADMGEN ---
This patient, Vandana Ojeda, was admitted to [facility] Room [facility]-02. Patient/family oriented to hospital policies and general routines including ID bracelet, bed and alarms, visiting hours, pain management, procedures, bathroom and other care routines, personal items, smoking policy, room service/diet, and visiting hours. Information on how to activate the Rapid Response Team has been discussed. Patient/Family are encouraged to report perceived risks to care and to ask questions if they do not understand what they are told or what they should do.
[2024-12-26] MEDS: IPRATROPIUM 0.5 MG/ALBUTEROL SULFATE 2.5 MG (BASE) AMPUL.NEB 3 ML 10 ML INHALATION (04:08)
--- NOTE | 2024-12-26 06:15 | PM.IMHP ---
H&P: HPI History of Present Illness Date/Time: 12/26/24 06:15 Chief Complaint: Shortness of breath Narrative: 54-year-old female with history of asthma, hypertension, hypercholesterolemia, diabetes, CAD status post stents presented to [facility] ER on 12/25/2024 complaining of shortness of breath. She was seen in the ER just a day prior received a steroid pulse dose, she was discharged. Her shortness of breath has been getting progressively worse. She only has a rescue inhaler and rescue nebulizers at home which she has been using multiple times without much relief. She has a cough productive of clear sputum, reports she always has a cough with asthma attack. However, she reports her last attack was in 2021, she was intubated. Since then she has not been following up with pulmonology due to insurance switching over and being relatively controlled. She was seeing Hector Zhang, nurse practitioner and Dr. Bland. Remote history of smoking, no construction or dust exposure. She has had a cat at home for a very long time. Patient had allergies in the past few weeks with stuffy nose and sneezing, those have resolved. Quad viral screen negative on admission. ProBNP 225, ABG demonstrating pH 7.49, pCO2 32, PO2 73, bicarb 24.1. WBC 14.8. Chest x-ray without acute findings. CTA chest does not reveal PE, reported right lower lobe peripheral nodular infiltrate, official radiology interpretation pending. She was given Solu-Medrol 125 mg IV x1, multiple DuoNeb, azithromycin and ceftriaxone. Status post these treatments she remained tachypneic and short of breath on exertion. Lung exam reveals coarse breath sounds and expiratory wheeze. She otherwise has no complaints. Review of Systems Review of Systems: All systems reviewed & are unremarkable except as noted in HPI and below (Subjective) [facility] Past Medical History Medical History Diabetes Screening mammogram, encounter for Pre-diabetes Screening mammogram, encounter for Anemia no iron--had IV injection Hypertension Hypercholesterolemia Asthma Surgical History Surgical History History of tubal ligation 02/01/98 History of 02/01/98 History of abdominal supracervical subtotal hysterectomy 08/26/17 Supracx abdominal hyst w/ovarian preservation--enlarged uterine fibroid 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 Do You Feel Safe in your Home?: Yes Lack of Transportation: No Lack of Food: Never True Current Housing: I Have Housing Concerned About Future Housing: No Difficulty Paying Gas/Electric Bills: No Difficulty Paying for Meds: No Currently Unemployed: No Education: High School Diploma/GED Difficulty w/ Childcare or Family Care: No Living arrangements: other Additional living arrangements comments: spouse Occupation/Education: other Additional occupation/education comments: housewife Gender identity (if verbalized by the patient): Female Sexual Orientation (if Verbalized by the Patient): Straight or Heterosexual Spiritual care concerns: No Meds Home Medications and Allergies Home Medications ?Medication ?Instructions ?Recorded ?Confirmed ?Type ipratropium 0.5 mg-albuterol 3 mg 3 ml inhalation QID PRN shortness 05/25/22 12/26/24 History (2.5 mg base)/3 mL nebulization of breath soln albuterol sulfate 90 mcg/actuation 2 puff inhalation Q4-6H PRN 08/24/23 12/26/24 Rx aerosol inhaler (Ventolin HFA) shortness of breath or wheezing #18 grams atorvastatin 40 mg tablet 80 mg PO DAILY 12/26/24 12/26/24 History cetirizine 10 mg tablet 10 mg PO DAILY 12/26/24 12/26/24 History clopidogrel 75 mg tablet 75 mg PO DAILY 12/26/24 12/26/24 History lisinopril 40 mg tablet 40 mg PO DAILY 12/26/24 12/26/24 History metformin 500 mg tablet,extended 1,000 mg PO QPM 12/26/24 12/26/24 History release 24 hr metoprolol succinate 25 mg 25 mg PO DAILY 12/26/24 12/26/24 History tablet,extended release 24 hr montelukast 10 mg tablet 10 mg PO QPM 12/26/24 12/26/24 History Allergies Allergy/AdvReac Type Severity Reaction Status Date / Time dog dander Allergy Wheezing Verified 12/25/24 21:28 Vital Signs Vital Signs - 24 hr 12/25/24 19:53 12/25/24 21:16 12/25/24 21:16 Temperature 98.4 F Pulse Rate 107 H 112 H Respiratory Rate 26 H Blood Pressure 168/99 H Pulse Oximetry 96 94 Oxygen Delivery Room Air Room Air Fraction of Inspired Oxygen 12/25/24 21:16 12/25/24 21:30 12/25/24 21:43 Temperature Pulse Rate 105 H 103 H Respiratory Rate 20 18 20 Blood Pressure Pulse Oximetry 94 93 Oxygen Delivery Fraction of Inspired Oxygen 12/25/24 21:45 12/25/24 21:53 12/25/24 22:00 Temperature Pulse Rate 103 H 115 H 96 Respiratory Rate 16 20 15 Blood Pressure Pulse Oximetry 96 94 Oxygen Delivery Fraction of Inspired Oxygen 12/25/24 22:15 12/25/24 22:30 12/25/24 23:00 Temperature Pulse Rate 103 H 102 H 96 Respiratory Rate 25 H 21 H 24 H Blood Pressure 134/96 H Pulse Oximetry 94 94 100 Oxygen Delivery Fraction of Inspired Oxygen 12/25/24 23:02 12/25/24 23:15 12/25/24 23:17 Temperature Pulse Rate 93 98 97 Respiratory Rate 24 H 23 H 20 Blood Pressure 157/97 H 138/107 H Pulse Oximetry 94 91 92 Oxygen Delivery Fraction of Inspired Oxygen 12/25/24 23:30 12/25/24 23:31 12/25/24 23:45 Temperature Pulse Rate 98 96 100 Respiratory Rate 26 H Blood Pressure 147/90 H Pulse Oximetry 94 93 94 Oxygen Delivery Fraction of Inspired Oxygen 12/25/24 23:47 12/26/24 00:00 12/26/24 00:01 Temperature Pulse Rate 94 92 93 Respiratory Rate 28 H Blood Pressure 140/92 H 142/88 H Pulse Oximetry 94 94 93 Oxygen Delivery Fraction of Inspired Oxygen 12/26/24 01:55 12/26/24 01:55 12/26/24 02:07 Temperature Pulse Rate 105 H 106 H Respiratory Rate 20 20 Blood Pressure Pulse Oximetry 98 Oxygen Delivery Room Air Fraction of Inspired Oxygen 21 12/26/24 03:10 12/26/24 03:23 12/26/24 04:14 Temperature 97.6 F Pulse Rate 94 103 H 87 Respiratory Rate 24 H 22 H 20 Blood Pressure 138/90 150/97 H Pulse Oximetry 94 97 Oxygen Delivery Fraction of Inspired Oxygen 12/26/24 05:14 Temperature Pulse Rate 103 H Respiratory Rate 20 Blood Pressure Pulse Oximetry Oxygen Delivery Fraction of Inspired Oxygen Exam Const: General: comfortable and no acute distress Other: A&O x3 HENMT: Mouth: Yes moist mucous membranes Eyes: Pupils: Equal, round and reactive pupils present Neck: Neck: supple Resp: Other: Tachypnea, respiratory wheeze, decreased air intake and coarse breath sounds Cardio: Rate: regular rate Rhythm: regular rhythm Heart sounds: no murmurs GI: Inspection: non-distended GI Palp: Yes Soft to palpation Neuro: Motor exam (neuro): 5/5 motor strength present throughout Extrem: General: no edema H&P: Results Labs Labs: Short CBC 12/25/24 Range/Units 21:25 WBC 14.8 H (4.5-10.0) K/mm3 Hgb 15.5 H (12.0-15.0) g/dL Hct 47.5 H (37.0-47.0) % Plt Count 459 H (150-375) k/mm3 BMP 12/25/24 21:25 Sodium 140 Potassium 4.3 Chloride 107 Carbon Dioxide 20 L BUN 15 D Creatinine 0.87 Glucose 117 H Calcium 10.2 Cardiac Enzymes 12/25/24 Range/Units 21:35 Troponin I < 0.012 (0.000-0.034) ng/mL Liver Function 12/25/24 Range/Units 21:25 Total Bilirubin 0.6 (0.2-1.3) mg/dL AST 34 (14-36) U/L ALT 31 (6-35) U/L Alkaline Phosphatase 108 (38-126) U/L Albumin 4.8 (3.5-5.1) g/dL Assessment and Plan Assessment and plan (1) Leukocytosis: Code(s): D72.829 - Elevated white blood cell count, unspecified Status: Acute (2) Pneumonia: Code(s): J18.9 - Pneumonia, unspecified organism Status: Acute (3) Acute asthma exacerbation: Code(s): J45.901 - Unspecified asthma with (acute) exacerbation Status: Acute Plan 54-year-old female with history of asthma, hypertension, hypercholesterolemia, diabetes, CAD status post stents presented to [facility] ER on 12/25/2024 complaining of shortness of breath. She was seen in the ER just a day prior received a steroid pulse dose, she was discharged. Her shortness of breath has been getting progressively worse. She only has a rescue inhaler and rescue nebulizers at home which she has been using multiple times without much relief. She has a cough productive of clear sputum, reports she always has a cough with asthma attack. However, she reports her last attack was in 2021, she was intubated. Since then she has not been following up with pulmonology due to insurance switching over and being relatively controlled. She was seeing Hector Zhang, nurse practitioner and Dr. Bland. Remote history of smoking, no construction or dust exposure. She has had a cat at home for a very long time. Patient had allergies in the past few weeks with stuffy nose and sneezing, those have resolved. Quad viral screen negative on admission. ProBNP 225, ABG demonstrating pH 7.49, pCO2 32, PO2 73, bicarb 24.1. WBC 14.8. Chest x-ray without acute findings. CTA chest does not reveal PE, reported right lower lobe peripheral nodular infiltrate, official radiology interpretation pending. She was given Solu-Medrol 125 mg IV x1, multiple DuoNeb, azithromycin and ceftriaxone. Status post these treatments she remained tachypneic and short of breath on exertion. Lung exam reveals coarse breath sounds and expiratory wheeze. She otherwise has no complaints. ----- Patient remains tachypneic and short of breath on exertion, however she speaks with haste and is able to get full sentences out. Mild distress due to the tachypnea. Administer hour long DuoNeb x1 now. We will administer magnesium 2 g rider, continue azithromycin and ceftriaxone for suspected pneumonia. Leukocytosis likely due to steroid administration. Continue Solu-Medrol 60 mg IV q.8 hours, montelukast and Claritin. Patient tells me her peak flow is typically 300. Continue DuoNebs q.4 hours with peak flow before and after. Continue [employer] Plavix, lisinopril, atorvastatin, hold metoprolol in case it is contributing to bronchospasm, restart as appropriate. ----- Diabetic diet. Accu-Cheks a.c. HS with low-dose insulin sliding scale and hypoglycemia protocol. SCDs. Patient would like to be full code. Ambulate with assistance. Hospitalist [facility] Advance Care Plan I have confirmed that the patient's Advanced Care Plan is present, code status is documented, or surrogate decision maker is listed in patient medical record.: Yes Medication Reconciliation I have utilized all available resources to obtain, update and review the patients current medications (includes all prescriptions, OTC, herbals, cannabis, and nutritional supplements).: Yes
[2024-12-26] MEDS: MAGNESIUM SULF 2 GM/WATER 50ML 2 GM/50 ML BAG IVPB (06:42)
[2024-12-26 06:55] LABS: Hematocrit 41.8 % (37.0-47.0); Hemoglobin 13.8 g/dL (12.0-15.0); Immature Granulocyte Percent A 0.7 % (0-0.5); Lymphocytes Absolute Auto 1.05 K/mm3 (0.9-3.2); Mean Corpuscular HGB Conc 33.0 g/dl (32-36); Mean Corpuscular Hemoglobin 29.2 pg (26-34); Mean Corpuscular Volume 88.4 fl (80-100); Nucleated Red Blood Cells Absolute Auto 0.000 K/mm3 (0.0-0.012); Nucleated Red Blood Cells Perc 0.0 % (0.0-0.2); Platelet Count Result 390 k/mm3 (150-375); Red Blood Count 4.73 M/mm3 (4.2-5.4); White Blood Count 11.4 K/mm3 (4.5-10.0)
[2024-12-26 07:06] LABS: INR 0.9; Prothrombin Time 12.6 Seconds (11.1-14.7)
[2024-12-26 07:09] LABS: Anion Gap 9 mmol/L (4-12); Blood Urea Nitrogen 18 mg/dL (7-17); Calcium 9.5 mg/dL (8.4-10.2); Carbon Dioxide 21 mmol/L (22-30); Chloride 108 mmol/L (98-107); Estimated CRCL calculation 65 ml/min; Estimated Glomerular Filt Rate > 60; Glucose 167 mg/dL (65-110); Magnesium 2.1 mg/dL (1.6-2.3); Potassium 4.5 mmol/L (3.4-5.0); Sodium 138 mmol/L (137-145)
[2024-12-26] MEDS: ATORVASTATIN 40 MG TABLET 80 MG PO (08:35)
[2024-12-26] MEDS: CLOPIDOGREL BISULFATE 75 MG TABLET PO (08:36)
[2024-12-26] MEDS: LORATADINE 10 MG TABLET PO (08:36)
--- NOTE | 2024-12-26 08:53 | P.PNIM_ITS ---
Progress Note: A&P Assessment and Plan (1) Acute asthma exacerbation: Code(s): J45.901 - Unspecified asthma with (acute) exacerbation Status: Acute Assessment and Plan: -Quad viral screen negative on admission. ProBNP 225, ABG demonstrating pH 7.49, pCO2 32, PO2 73, bicarb 24.1. WBC 14.8. - Chest x-ray without acute findings. - CTA chest does not reveal PE, preliminary read reported right lower lobe per ipheral nodular infiltrate, official radiology interpretation and my personal review with no infiltrates. Procal 0 and afebrile. Leukocytosis likely secondary to steroids. Monitor off antibiotics for now. - patient reported her baseline peak flow is around 300. Peak flow is improving. Continue to monitor peak flow before and after nebs. - continue scheduled Duonebs, IV steroids. Started Symbicort. - patient previously followed with Dr. Bland, but lost insurance coverage. Pulm consulted, appreciate recs (2) Leukocytosis: Code(s): D72.829 - Elevated white blood cell count, unspecified Status: Acute Assessment and Plan: - WBC 11.4, likely due to steroids - blood cultures pending (3) Hypertension: Code(s): I10 - Essential (primary) hypertension Status: Acute Assessment and Plan: - BP 144/88 -continue home lisinopril. Metoprolol held on admission due to concerns for bronchospasm. (4) Hypercholesterolemia: Code(s): E78.00 - Pure hypercholesterolemia, unspecified Status: Acute Assessment and Plan: - continue statin (5) Diabetes: Code(s): E11.9 - Type 2 diabetes mellitus without complications Status: Acute Assessment and Plan: - hold metformin - continue low dose SSI - monitor glucose ACHS - hypoglycemia protocol (6) Coronary artery disease: Code(s): I25.10 - Atherosclerotic heart disease of [place] coronary artery without angina pectoris Status: Acute Assessment and Plan: - history of stent - continue Plavix, statin Plan Code status: full code DVT prophylaxis: Lovenox Dispo: home in 1-2 days pending improvement Subjective Date/time seen: 12/26/24 08:53 Interval history: 54-year-old female with history of asthma, hypertension, hypercholesterolemia, diabetes, CAD status post stents presented to [facility] ER on 12/25/2024 complaining of shortness of breath. She was seen in the ER just a day prior received a steroid pulse dose, she was discharged. Patient seen and examined at bedside. Still having dyspnea especially with ambulation. Has a dry cough. Denied fevers, congestion, sore throat. Review of Systems Review of Systems: All systems reviewed & are unremarkable except as noted in HPI and below (Subjective) Exam Narrative: General: NAD Eyes: EOMI ENT: neck supple Cardiovascular: Regular rate and rhythm Respiratory: Diffuse expiratory wheeze. Respirations even and unlabored on RA. Gastrointestinal: Soft, non tender Genitourinary: no suprapubic tenderness Musculoskeletal: No edema Skin: warm, dry Neuro: Alert. Psych: Mood appropriate Objective Data Vital Signs Vital Signs: Vital Signs - 24 hr 12/25/24 19:53 12/25/24 21:16 12/25/24 21:16 Temperature 98.4 F Pulse Rate 107 H 112 H Respiratory Rate 26 H Blood Pressure 168/99 H Pulse Oximetry 96 94 Oxygen Delivery Room Air Room Air Fraction of Inspired Oxygen 12/25/24 21:16 12/25/24 21:30 12/25/24 21:43 Temperature Pulse Rate 105 H 103 H Respiratory Rate 20 18 20 Blood Pressure Pulse Oximetry 94 93 Oxygen Delivery Fraction of Inspired Oxygen 12/25/24 21:45 12/25/24 21:53 12/25/24 22:00 Temperature Pulse Rate 103 H 115 H 96 Respiratory Rate 16 20 15 Blood Pressure Pulse Oximetry 96 94 Oxygen Delivery Fraction of Inspired Oxygen 12/25/24 22:15 12/25/24 22:30 12/25/24 23:00 Temperature Pulse Rate 103 H 102 H 96 Respiratory Rate 25 H 21 H 24 H Blood Pressure 134/96 H Pulse Oximetry 94 94 100 Oxygen Delivery Fraction of Inspired Oxygen 12/25/24 23:02 12/25/24 23:15 12/25/24 23:17 Temperature Pulse Rate 93 98 97 Respiratory Rate 24 H 23 H 20 Blood Pressure 157/97 H 138/107 H Pulse Oximetry 94 91 92 Oxygen Delivery Fraction of Inspired Oxygen 12/25/24 23:30 12/25/24 23:31 12/25/24 23:45 Temperature Pulse Rate 98 96 100 Respiratory Rate 26 H Blood Pressure 147/90 H Pulse Oximetry 94 93 94 Oxygen Delivery Fraction of Inspired Oxygen 12/25/24 23:47 12/26/24 00:00 12/26/24 00:01 Temperature Pulse Rate 94 92 93 Respiratory Rate 28 H Blood Pressure 140/92 H 142/88 H Pulse Oximetry 94 94 93 Oxygen Delivery Fraction of Inspired Oxygen 12/26/24 01:55 12/26/24 01:55 12/26/24 02:07 Temperature Pulse Rate 105 H 106 H Respiratory Rate 20 20 Blood Pressure Pulse Oximetry 98 Oxygen Delivery Room Air Fraction of Inspired Oxygen 21 12/26/24 03:10 12/26/24 03:23 12/26/24 04:14 Temperature 97.6 F Pulse Rate 94 103 H 87 Respiratory Rate 24 H 22 H 20 Blood Pressure 138/90 150/97 H Pulse Oximetry 94 97 Oxygen Delivery Fraction of Inspired Oxygen 12/26/24 05:14 Temperature Pulse Rate 103 H Respiratory Rate 20 Blood Pressure Pulse Oximetry Oxygen Delivery Fraction of Inspired Oxygen Intake/Output Intake/Output: Intake & Output 12/23/24 12/24/24 12/25/24 12/26/24 23:59 23:59 23:59 23:59 Intake Total 50 Balance 50 Meds/Results Medications: Active Medications Generic Name Dose Route Start Last Admin Trade Name Freq PRN Reason Stop Dose Admin Albuterol/Ipratropium 3 ml 12/26/24 08:00 Ipratropium 0.5 Mg/Albuterol Sulfate 2.5 Mg (Base) Ampul.Neb 3 Ml INHALATION Q4HRT JULIANA Atorvastatin Calcium 80 mg 12/26/24 09:00 12/26/24 08:35 Atorvastatin 40 Mg Tablet PO 80 mg DAILY JULIANA Administration Clopidogrel Bisulfate 75 mg 12/26/24 09:00 12/26/24 08:36 Clopidogrel Bisulfate 75 Mg Tablet PO 75 mg DAILY JULIANA Administration Dextrose 12.5 gm 12/26/24 06:11 Dextrose 50% 25 Gm/50 Ml Syringe IV PUSH PRN PRN Hypoglycemia Protocol Glucose 15 gm 12/26/24 06:11 Glucose Oral Gel 15 Gm Of Glucse In 37.5 Gm Tube PO PRN PRN Hypoglycemia Protocol Ceftriaxone Sodium 1 gm/ 50 mls @ 100 mls/hr 12/26/24 22:00 Sodium Chloride IVPB Q24H JULIANA Azithromycin 500 mg/ Sodium 250 mls @ 250 mls/hr 12/26/24 23:00 Chloride IVPB 12/29/24 23:59 Q24H JULIANA Dextrose 1,000 mls @ 100 mls/hr 12/26/24 06:11 Dextrose 5% 1,000 Ml IVPB PRN PRN Hypoglycemia Protocol Insulin Aspart 2 - 5 units 12/26/24 08:00 12/26/24 07:28 Insulin Aspart (*Bkc) 100 Units/Ml SUB-Q Not Given TIDWM [facility] Protocol Insulin Aspart 1 - 2 units 12/26/24 21:00 Insulin Aspart (*Bkc) 100 Units/Ml SUB-Q HS [facility] Protocol Lisinopril 40 mg 12/26/24 09:00 12/26/24 08:36 Lisinopril 20 Mg Tablet PO 40 mg DAILY JULIANA Administration Loratadine 10 mg 12/26/24 09:00 12/26/24 08:36 Loratadine 10 Mg Tablet PO 10 mg QAM JULIANA Administration Methylprednisolone Sodium Succinate 60 mg 12/26/24 06:00 12/26/24 06:42 Methylprednisolone Sod Succ 125 Mg Vial IV PUSH 60 mg Q8HR JULIANA Administration Montelukast Sodium 10 mg 12/26/24 21:00 Montelukast Sodium 10 Mg Tablet PO QHS [facility] Radiology Results: ITS Impressions Chest X-Ray 12/25/24 20:14 IMPRESSION: 1. No acute cardiopulmonary findings. Chest CTA 12/26/24 07:35 IMPRESSION: 1. No pulmonary embolus. Labs Labs: Laboratory Results - last 24 hr 12/25/24 12/25/24 12/25/24 21:25 21:35 21:37 WBC 14.8 H RBC 5.29 Hgb 15.5 H Hct 47.5 H MCV 89.8 MCH 29.3 MCHC 32.6 RDW 13.6 Plt Count 459 H MPV 9.5 Immature Gran % (Auto) 0.5 Neut % (Auto) 78.2 H Lymph % (Auto) 14.7 L [place] % (Auto) 6.5 Eos % (Auto) 0.0 Baso % (Auto) 0.1 L Lymph # (Auto) 2.18 [place] # (Auto) 1.0 H Eos # (Auto) 0.0 Baso # (Auto) 0.0 Abs Immat Gran (auto) 0.08 H Absolute Neuts (auto) 11.6 H Absolute Nucleated RBC 0.000 Nucleated RBC % 0.0 PT INR Puncture Site Right radial ABG pH 7.494 H ABG pCO2 32.1 L ABG pO2 73.1 L ABG PO2/FiO2 Ratio 3.48 ABG HCO3 24.1 ABG O2 Saturation 95.9 ABG O2 Content 21.0 ABG Base Excess 1.7 A-a Gradient 38.2 Oxyhemoglobin 94.5 Total Hemoglobin 15.8 O2 Delivery Device Room air O2 Liters/Min Not Reportable FiO2 21 Sodium 140 Potassium 4.3 Chloride 107 Carbon Dioxide 20 L Anion Gap 13 H BUN 15 D Creatinine 0.87 Estim Creat Clear Calc 64 Estimated GFR > 60 Glucose 117 H POC Capillary Glucose Calcium 10.2 Magnesium Total Bilirubin 0.6 AST 34 ALT 31 Alkaline Phosphatase 108 Troponin I < 0.012 NT-Pro-B Natriuret Pep 225 H Total Protein 8.4 H Albumin 4.8 Influenza A (RT-PCR) Negative Influenza B (RT-PCR) Negative RSV (RT-PCR) Negative SARS-CoV-2 RNA (RT-PCR) Negative 12/26/24 12/26/24 06:45 07:23 WBC 11.4 H RBC 4.73 Hgb 13.8 Hct 41.8 MCV 88.4 MCH 29.2 MCHC 33.0 RDW 13.4 Plt Count 390 H MPV 9.3 Immature Gran % (Auto) 0.7 H Neut % (Auto) 88.1 H Lymph % (Auto) 9.2 L [place] % (Auto) 1.9 L Eos % (Auto) 0.0 Baso % (Auto) 0.1 L Lymph # (Auto) 1.05 [place] # (Auto) 0.2 Eos # (Auto) 0.0 Baso # (Auto) 0.0 Abs Immat Gran (auto) 0.08 H Absolute Neuts (auto) 10.0 H Absolute Nucleated RBC 0.000 Nucleated RBC % 0.0 PT 12.6 INR 0.9 Puncture Site ABG pH ABG pCO2 ABG pO2 ABG PO2/FiO2 Ratio ABG HCO3 ABG O2 Saturation ABG O2 Content ABG Base Excess A-a Gradient Oxyhemoglobin Total Hemoglobin O2 Delivery Device O2 Liters/Min FiO2 Sodium 138 Potassium 4.5 Chloride 108 H Carbon Dioxide 21 L Anion Gap 9 BUN 18 H Creatinine 0.84 Estim Creat Clear Calc 65 Estimated GFR > 60 Glucose 167 H POC Capillary Glucose 168 H Calcium 9.5 Magnesium 2.1 Total Bilirubin AST ALT Alkaline Phosphatase Troponin I NT-Pro-B Natriuret Pep Total Protein Albumin Influenza A (RT-PCR) Influenza B (RT-PCR) RSV (RT-PCR) SARS-CoV-2 RNA (RT-PCR) Quality VTE Prophylaxis VTE prophylaxis: pharmacologic ordered
[2024-12-26 10:22] LABS: Procalcitonin 0.0 ng/mL
[2024-12-26] MEDS: INSULIN ASPART (*BKC) 100 UNITS/ML SUB-Q (11:24)
[2024-12-26] MEDS: ACETAMINOPHEN 325 MG TABLET 650 MG PO ×2 (14:25→19:55)
--- NOTE | 2024-12-26 15:38 | PM.CNPUL ---
Assessment and Plan Assessment and plan (1) Acute asthma exacerbation: Code(s): J45.901 - Unspecified asthma with (acute) exacerbation Status: Acute Assessment and Plan: Patient tells me she had asthma from age 7 and remembers being in an oxygen tent as a child. She has been on medicines all her life. Patient was on Symbicort until she lost her insurance in 2022 and since then she has been maintained on montelukast 10 q.day Which she has been on for about 3 years., cetirizine 10 q.day Which she has been on for many yearsand albuterol p.r.n. which she takes about 2 puffs a day. She has an albuterol nebulizer and usually she goes for months without this. At baseline the patient has no respiratory limitations in her activities of daily living. she takes 1 puff rescue albuterol before she walks 2 miles over an hour. This is improved over the last year because she has tried to exercise more. 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 Her baseline peak flows are 300 mL. She can walk 2 miles over 1 hour. Patient presents now with 6 day history of worsening shortness of breath, cough, wheezing, dyspnea on exertion after leaving her windows open and being exposed to high levels of mold. On 12/25/2023 she had 468 eosinophils per micro L. She denies fever, chills, rigors. Her CT scan of the chest shows no PE and no focal infiltrates. Her procalcitonin is 0.0. ABG on room air 7.49/32/73, there is no evidence of hypercarbic respiratory failure. 12/26/24: Plan: Agree with asthma exacerbation. currently the patient is on Solu-Medrol 60 mg IV q.8 hours. I will change to 40 mg IV q.6 hours. Continue DuoNebs q.4 hours. Patient is on maximal beta agonist and muscarinic antagonists and will discontinue Advair. Continue continue montelukast 10 mg P q.day and loratadine 10 mg q.day. patient has no focal infiltrates on her CT scan so agree with discontinuation of ceftriaxone. I will continue azithromycin for tracheobronchitis. I will send a respiratory pathogen panel looking for other etiologies that could be triggering her asthma. Goal saturation 90-94%, currently she is on room air. Will follow with you. History of Present Illness History of Present Illness Consult date: 12/26/24 Chief complaint: Asthma exacerbation, pneumonia Narrative: 12/26/2024: This is a new pulmonary consult for asthma exacerbation. 54-year-old female with history of asthma, hypertension, hypercholesterolemia, diabetes, CAD status post stents Previously followed [facility] in last seen on 10/26/2022. This is a copy of the note Asthma Details: 5 month follow-up regarding asthma. Hx status asthmaticus September 2021 with acute respiratory failure, intubated, paralyzed; she was extremely sick. Patient reports her asthma has been stable. No ER visits. She is maintained on Symbicort 160, Duonebs. Feels Symbicort helps. Rescue use is 2-3x/week. Hasn't needed to use nebulizer. OWUSU mild but stable. Denies cough, wheezing, chest pains/tightness, or nighttime asthma symptoms. Peak flows: 370-550s, avg 450. This is better than last visit. Triggers: hot air, dogs, sometimes fragrances such as candles. ACT score 21/25. She is planning to vacation in a couple week to [facility]. NIOX: was 25 parts per billion. Same as last visit. Plan: Continue Symbicort 162 inhalations b.i.d., and DuoNebs p.r.n. and albuterol p.r.n.. Avoid triggers follow-up 6-12 months. Obesity, weight 223 lb weight loss was recommended. 05/20/2024: ED visit for asthma attack. One day shortness of breath, using albuterol more than usual, diffuse wheezing. Room air saturations 97%. Chest x-ray without acute abnormality. Given nebulizer, Solu-Medrol, magnesium and discharged home with prednisone burst of 40 mg x 4 days. patient tells me she had asthma from age 7 and remembers being in an oxygen tent as a child. She has been on medicines all her life. Patient was on Symbicort until she lost her insurance in 2022 and since then she has been maintained on montelukast 10 q.day Which she has been on for about 3 years., cetirizine 10 q.day Which she has been on for many yearsand albuterol p.r.n. which she takes about 2 puffs a day. She has an albuterol nebulizer and usually she goes for months without this. At baseline the patient has no respiratory limitations in her activities of daily living. she takes 1 puff rescue albuterol before she walks 2 miles over an hour. This is improved over the last year because she has tried to exercise more. 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 Her baseline peak flows are 300 mL. She can walk 2 miles over 1 hour. triggers include dust, upper respiratory infections, pollen, mold, sinusitis. She had a previous RAST blood test that was positive for dust mites, cat, dog, cockroach. She does have 2 cats and has had cats all her life. Patient was intubated in 2021. She had no exacerbations between 2021 and May of 2024. Her current illness started on 12/20/2024. She had the windows open and there was a high mold count. She started sneezing and took extra Zyrtec for 48 hours with no help, extra Mucinex for 48 hours which did not help. She had no fever or hemoptysis but phlegm production, worsening shortness of breath such that she could only walk across the room and wheezing. Symptoms progressed and on 12/24/2024: ED visit for shortness of breath and cough precipitated by high-power all in counts. Treated with nebulizer but symptoms persisted and presented to ED. Extensive wheezing all lung carrillo. Saturations 97 on room air. White blood cell count 10.4, eosinophils 4.5%=468/uL. Patient treated with steroids, bronchodilators and discharged on prednisone 40 mg p.o. x4 days. 12/25/2024: Patient presented with shortness of breath. No improvement with. They Jose is from the day prior. Cough is productive of clear sputum blood pressure 168/99, heart rate 107, respirations 26, saturations 96% on room air. Scattered wheezes. White blood cell count 14.8, eosinophils 0%, creatinine 0.87, BNP 225, troponin negative, influenza COVID and RSV RT PCR negative. ABG on room air 7.49/32/73. treated for asthma exacerbation with Solu-Medrol, ceftriaxone and azithromycin, bronchodilators. 12/26/2024: patient had a CT angiogram of the chest was negative for pulmonary embolism, minimal atelectasis right upper lobe. No pleural effusions, no focal consolidations. Currently the patient tells me she is a little bit better, maybe 10% back to her baseline. she says that the cough is the same. She has inspiratory and expiratory wheezes, she is afebrile. she is on room air with saturations 94%. White White blood cell count 11.4, eosinophils 0%, creatinine 0.84, procalcitonin 0.0. Peak flow today is 220. She has inspiratory and expiratory wheezes. DATA: Alpha 1 PIMM PFT 11/11/21 - There is a moderately severe obstructive abnormality with significant improvement after inhaling a single dose of albuterol. The increase in residual volume is consistent with air trapping from an obstructive abnormality.? Hyperinflation is present as demonstrated by the increase in functional residual capacity and total lung capacity and is consistent with an obstructive abnormality. The diffusing capacity is normal. 6mw no O2 needed 09/22/2021 - CXR:?ET and NG tubes have been removed since 09/22/2019. Right upper?extremity PIC catheter tip overlies superior vena cava. No pulmonary infiltrate or consolidation, pleural effusion or pulmonary vascular congestion or pneumothorax. Normal heart size.?IMPRESSION: Removal of ET and NG tubes; no active cardiopulmonary disease? 09/26/2021 - Mod barium swallow -??Patient tolerated regular consistency oral feedings in the upright position.? Please correlate with speech pathologist findings and specific feeding recommendations.? Subtle increased soft tissue density project over the region of the piriform sinuses which based on prior CT appears to result from relatively symmetric swelling along the aryepiglottic folds but with normal-appearing epiglottis. There is may reflect response to recent intubation. Echo 08/09/19 - EF 65-70%, grade I diastolic dysfunction, no pulmHTN. RAST panel 04/24/2019 showing + to dust mites (high), cat (very high), dog (very high), cockroach (low), mouse (low); IgE 87 normal. Review of Systems Constitutional: Constitutional: Reports no additional constitutional complaints Eyes: Eyes: Reports no additional eye complaints ENT: Reports system reviewed and no additional complaints, except as documented Cardiovascular: Cardiovascular: Reports no additional cardiovascular complaints Respiratory: Respiratory: Reports no additional respiratory complaints Gastrointestinal: Gastrointestinal: Reports no additional gastrointestinal complaints Musculoskeletal: Musculoskeletal: Reports no additional musculoskeletal complaints Neurologic: Reports system reviewed and no additional complaints, except as documented Psychiatric: Psychiatric: Reports no additional psychiatric complaints Endocrine: Endocrine: Reports no additional endocrine complaints Hematologic/Lymphatic: Hematologic/Lymphatic: Reports no additional hematologic/lymphatic complaints Allergic/Immunologic: Allergic/Immunologic: Reports no additional allergic/immunologic complaints [facility] Past Medical History Medical History (Updated 12/26/24 @ 14:46 by MYRA Granger) Diabetes Screening mammogram, encounter for Pre-diabetes Screening mammogram, encounter for Anemia no iron--had IV injection Hypertension Hypercholesterolemia Asthma Surgical History Surgical History History of tubal ligation 02/01/98 History of 02/01/98 History of abdominal supracervical subtotal hysterectomy 08/26/17 Supracx abdominal hyst w/ovarian preservation--enlarged uterine fibroid 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 Do You Feel Safe in your Home?: Yes Lack of Transportation: No Lack of Food: Never True Current Housing: I Have Housing Concerned About Future Housing: No Difficulty Paying Gas/Electric Bills: No Difficulty Paying for Meds: No Currently Unemployed: No Education: High School Diploma/GED Difficulty w/ Childcare or Family Care: No Living arrangements: other Additional living arrangements comments: spouse Occupation/Education: other Additional occupation/education comments: housewife Gender identity (if verbalized by the patient): Female Sexual Orientation (if Verbalized by the Patient): Straight or Heterosexual Spiritual care concerns: No Meds Home Medications and Allergies Home Medications ?Medication ?Instructions ?Recorded ?Confirmed ?Type ipratropium 0.5 mg-albuterol 3 mg 3 ml inhalation QID PRN shortness 05/25/22 12/26/24 History (2.5 mg base)/3 mL nebulization of breath soln albuterol sulfate 90 mcg/actuation 2 puff inhalation Q4-6H PRN 08/24/23 12/26/24 Rx aerosol inhaler (Ventolin HFA) shortness of breath or wheezing #18 grams atorvastatin 40 mg tablet 80 mg PO DAILY 12/26/24 12/26/24 History cetirizine 10 mg tablet 10 mg PO DAILY 12/26/24 12/26/24 History clopidogrel 75 mg tablet 75 mg PO DAILY 12/26/24 12/26/24 History lisinopril 40 mg tablet 40 mg PO DAILY 12/26/24 12/26/24 History metformin 500 mg tablet,extended 1,000 mg PO QPM 12/26/24 12/26/24 History release 24 hr metoprolol succinate 25 mg 25 mg PO DAILY 12/26/24 12/26/24 History tablet,extended release 24 hr montelukast 10 mg tablet 10 mg PO QPM 12/26/24 12/26/24 History Allergies Allergy/AdvReac Type Severity Reaction Status Date / Time dog dander Allergy Wheezing Verified 12/25/24 21:28 Vital Signs Vital Signs - 24 hr 12/25/24 19:53 12/25/24 21:16 12/25/24 21:16 Temperature 36.9 C Pulse Rate 107 H 112 H Respiratory Rate 26 H Blood Pressure 168/99 H Pulse Oximetry 96 94 Oxygen Delivery Room Air Room Air Fraction of Inspired Oxygen 12/25/24 21:16 12/25/24 21:30 12/25/24 21:43 Temperature Pulse Rate 105 H 103 H Respiratory Rate 20 18 20 Blood Pressure Pulse Oximetry 94 93 Oxygen Delivery Fraction of Inspired Oxygen 12/25/24 21:45 12/25/24 21:53 12/25/24 22:00 Temperature Pulse Rate 103 H 115 H 96 Respiratory Rate 16 20 15 Blood Pressure Pulse Oximetry 96 94 Oxygen Delivery Fraction of Inspired Oxygen 12/25/24 22:15 12/25/24 22:30 12/25/24 23:00 Temperature Pulse Rate 103 H 102 H 96 Respiratory Rate 25 H 21 H 24 H Blood Pressure 134/96 H Pulse Oximetry 94 94 100 Oxygen Delivery Fraction of Inspired Oxygen 12/25/24 23:02 12/25/24 23:15 12/25/24 23:17 Temperature Pulse Rate 93 98 97 Respiratory Rate 24 H 23 H 20 Blood Pressure 157/97 H 138/107 H Pulse Oximetry 94 91 92 Oxygen Delivery Fraction of Inspired Oxygen 12/25/24 23:30 12/25/24 23:31 12/25/24 23:45 Temperature Pulse Rate 98 96 100 Respiratory Rate 26 H Blood Pressure 147/90 H Pulse Oximetry 94 93 94 Oxygen Delivery Fraction of Inspired Oxygen 12/25/24 23:47 12/26/24 00:00 12/26/24 00:01 Temperature Pulse Rate 94 92 93 Respiratory Rate 28 H Blood Pressure 140/92 H 142/88 H Pulse Oximetry 94 94 93 Oxygen Delivery Fraction of Inspired Oxygen 12/26/24 01:55 12/26/24 01:55 12/26/24 02:07 Temperature Pulse Rate 105 H 106 H Respiratory Rate 20 20 Blood Pressure Pulse Oximetry 98 Oxygen Delivery Room Air Fraction of Inspired Oxygen 21 12/26/24 03:10 12/26/24 03:23 12/26/24 04:14 Temperature 36.4 C Pulse Rate 94 103 H 87 Respiratory Rate 24 H 22 H 20 Blood Pressure 138/90 150/97 H Pulse Oximetry 94 97 Oxygen Delivery Fraction of Inspired Oxygen 12/26/24 05:14 12/26/24 09:26 12/26/24 09:26 Temperature Pulse Rate 103 H 100 Respiratory Rate 20 20 Blood Pressure Pulse Oximetry 93 Oxygen Delivery Room Air Fraction of Inspired Oxygen 12/26/24 09:37 12/26/24 12:34 12/26/24 12:42 Temperature Pulse Rate 101 H 96 96 Respiratory Rate 20 20 20 Blood Pressure Pulse Oximetry Oxygen Delivery Fraction of Inspired Oxygen 12/26/24 13:53 Temperature 36.1 C L Pulse Rate 111 H Respiratory Rate 24 H Blood Pressure 144/88 H Pulse Oximetry 94 Oxygen Delivery Fraction of Inspired Oxygen Exam Const: General: cooperative, healthy appearing, comfortable and no acute distress Orientation/consciousness: oriented to person, oriented to place and oriented to time Other: obese HENMT: Head: normal to inspection Ears: hearing grossly normal bilaterally Eyes: General: appearance normal, both eyes and all related structures Neck: Neck: normal visual inspection Chest: Chest palpation & inspection: normal inspection of the chest Resp: Effort & Inspection: normal respiratory effort and able to speak in complete sentences Auscultation: no crackles, no rales, no rhonchi, wheezes and lung sounds not diminished Other: Inspiratory and expiratory wheezes bilaterally Cardio: Jugular venous distension: no JVD GI: Inspection: normal to inspection GI Palp: No abdominal tenderness Skin: General skin exam: normal color Neuro: General: oriented to person, oriented to place and oriented to time Extrem: General: normal to inspection and no edema Psych: Appearance: grossly normal Results Laboratory Findings 12/26/24 06:45 12/26/24 06:45 ABG, PT/INR, D-dimer: ABG ABG pH 7.494 (7.350-7.450) H 12/25/24 21:37 ABG pCO2 32.1 mmHg (35.0-45.0) L 12/25/24 21:37 ABG pO2 73.1 mmHg (80.0-100.0) L 12/25/24 21:37 ABG O2 Saturation 95.9 % (95.0-100.0) 12/25/24 21:37 PT/INR, D-dimer PT 12.6 Seconds (11.1-14.7) 12/26/24 06:45 INR 0.9 12/26/24 06:45 Abnormal lab findings: Abnormal Labs 12/25/24 12/25/24 12/25/24 21:25 21:35 21:37 WBC 14.8 H Hgb 15.5 H Hct 47.5 H Plt Count 459 H Immature Gran % (Auto) Neut % (Auto) 78.2 H Lymph % (Auto) 14.7 L Chaves % (Auto) Baso % (Auto) 0.1 L Chaves # (Auto) 1.0 H Abs Immat Gran (auto) 0.08 H Absolute Neuts (auto) 11.6 H ABG pH 7.494 H ABG pCO2 32.1 L ABG pO2 73.1 L Chloride Carbon Dioxide 20 L Anion Gap 13 H BUN Glucose 117 H POC Capillary Glucose NT-Pro-B Natriuret Pep 225 H Total Protein 8.4 H 12/26/24 12/26/2425 06:45 07:23 11:07 WBC 11.4 H Hgb Hct Plt Count 390 H Immature Gran % (Auto) 0.7 H Neut % (Auto) 88.1 H Lymph % (Auto) 9.2 L Chaves % (Auto) 1.9 L Baso % (Auto) 0.1 L Chaves # (Auto) Abs Immat Gran (auto) 0.08 H Absolute Neuts (auto) 10.0 H ABG pH ABG pCO2 ABG pO2 Chloride 108 H Carbon Dioxide 21 L Anion Gap BUN 18 H Glucose 167 H POC Capillary Glucose 168 H 223 H NT-Pro-B Natriuret Pep Total Protein Diagnostic Findings Additional studies: ITS Impressions Chest X-Ray 12/25/24 20:14 IMPRESSION: 1. No acute cardiopulmonary findings. Chest CTA 12/26/24 07:35 IMPRESSION: 1. No pulmonary embolus.
[2024-12-26] MEDS: MONTELUKAST SODIUM 10 MG TABLET PO (19:56)
[2024-12-27] VITALS (15 sets, daily range): BP systolic 125–160; BP diastolic 78–95; PULSE 72–117; RESP 14–30; TEMP 36.6–36.7; O2SAT 92–99
[2024-12-27] MEDS: IPRATROPIUM 0.5 MG/ALBUTEROL SULFATE 2.5 MG (BASE) AMPUL.NEB 3 ML INHALATION ×6 (00:10→20:05)
[2024-12-27] MEDS: ACETAMINOPHEN 325 MG TABLET 650 MG PO ×5 (05:28→23:07)
[2024-12-27 07:04] LABS: Hematocrit 44.0 % (37.0-47.0); Hemoglobin 14.1 g/dL (12.0-15.0); Immature Granulocyte Percent A 0.9 % (0-0.5); Lymphocytes Absolute Auto 1.34 K/mm3 (0.9-3.2); Mean Corpuscular HGB Conc 32.0 g/dl (32-36); Mean Corpuscular Hemoglobin 29.1 pg (26-34); Mean Corpuscular Volume 90.9 fl (80-100); Nucleated Red Blood Cells Absolute Auto 0.000 K/mm3 (0.0-0.012); Nucleated Red Blood Cells Perc 0.0 % (0.0-0.2); Platelet Count Result 397 k/mm3 (150-375); Red Blood Count 4.84 M/mm3 (4.2-5.4); White Blood Count 16.4 K/mm3 (4.5-10.0)
[2024-12-27 07:14] LABS: Anion Gap 12 mmol/L (4-12); Blood Urea Nitrogen 20 mg/dL (7-17); Calcium 9.5 mg/dL (8.4-10.2); Carbon Dioxide 20 mmol/L (22-30); Chloride 106 mmol/L (98-107); Estimated CRCL calculation 62 ml/min; Estimated Glomerular Filt Rate > 60; Glucose 141 mg/dL (65-110); Potassium 4.4 mmol/L (3.4-5.0); Sodium 138 mmol/L (137-145)
--- NOTE | 2024-12-27 08:27 | P.PNIM_ITS ---
Progress Note: A&P Assessment and Plan (1) Acute asthma exacerbation: Code(s): J45.901 - Unspecified asthma with (acute) exacerbation Status: Acute Assessment and Plan: * Quad viral screen negative on admission. ProBNP 225, ABG demonstrating pH 7.49, pCO2 32, PO2 73, bicarb 24.1. WBC 14.8. * Chest x-ray without acute findings. * CTA chest does not reveal PE, preliminary read reported right lower lobe perip heral nodular infiltrate, official radiology interpretation and my personal review with no infiltrates. Procal 0 and afebrile. Leukocytosis likely secondary to steroids. Monitor off antibiotics for now. * patient reported her baseline peak flow is around 300. Peak flow is improving. Continue to monitor peak flow before and after nebs. * continue scheduled Duonebs, IV steroids. Started Symbicort. * patient previously followed with Dr. Bland, but lost insurance coverage. * Pulm consulted * decrease her Solu-Medrol from 40 q.6 hours to 20 q.6 * Continue DuoNebs q.4 hours, montelukast 10, Claritin 10 * Continue/encourage ambulation around department (2) Leukocytosis: Code(s): D72.829 - Elevated white blood cell count, unspecified Status: Acute Assessment and Plan: * WBC 11.4 -> 16.4, likely due to steroids * blood cultures pending (3) Hypertension: Code(s): I10 - Essential (primary) hypertension Status: Acute Assessment and Plan: * BP 144/88 * continue home lisinopril. Metoprolol held on admission due to concerns for bronchospasm. (4) Hypercholesterolemia: Code(s): E78.00 - Pure hypercholesterolemia, unspecified Status: Acute Assessment and Plan: * continue statin (5) Diabetes: Code(s): E11.9 - Type 2 diabetes mellitus without complications Status: Acute Assessment and Plan: * hold metformin * continue low dose SSI * monitor glucose ACHS * hypoglycemia protocol (6) Coronary artery disease: Code(s): I25.10 - Atherosclerotic heart disease of viejas coronary artery without angina pectoris Status: Acute Assessment and Plan: - history of stent - continue Plavix, statin Plan Code status: full code DVT prophylaxis: Lovenox Dispo: home in 1-2 days pending improvement Subjective Date/time seen: 12/27/24 08:27 Interval history: 54-year-old female with history of asthma, hypertension, hypercholesterolemia, diabetes, CAD status post stents presented to [facility] ER on 12/25/2024 complaining of shortness of breath. She was seen in the ER just a day prior received a steroid pulse dose, she was discharged. 12/27/2024 Patient sitting in bed time of examination. Denies any shortness of breath, chest pain or abdominal pain at this time. Worked with PT/OT this morning, states that she felt very out of breath during the session and appeared anxious during examination. Pulm continues to follow -decreasing Solu-Medrol from 40 q.6 hours to 20 q.6 hours, continue DuoNebs, montelukast , and claritin. Review of Systems Review of Systems: All systems reviewed & are unremarkable except as noted in HPI and below (Subjective) Exam Narrative: General: NAD Eyes: EOMI ENT: neck supple Cardiovascular: Regular rate and rhythm Respiratory: Diffuse expiratory wheeze. Respirations even and unlabored on RA. Speaking in full sentences Gastrointestinal: Soft, non tender Genitourinary: no suprapubic tenderness Musculoskeletal: No edema Skin: warm, dry Neuro: Alert. Psych: Mood appropriate Const: General: comfortable and no acute distress Other: A&O x3 HENMT: Mouth: Yes moist mucous membranes Eyes: Pupils: Equal, round and reactive pupils present Neck: Neck: supple Resp: Other: Tachypnea, respiratory wheeze, decreased air intake and coarse breath sounds Cardio: Rate: regular rate Rhythm: regular rhythm Heart sounds: no murmurs GI: Inspection: non-distended Neuro: Cranial nerves: Yes Equal, round and reactive pupils present Motor exam (neuro): 5/5 motor strength present throughout Extrem: General: no edema Objective Data Vital Signs Vital Signs: Vital Signs - 24 hr 12/26/24 09:26 12/26/24 09:26 12/26/24 09:37 Temperature Pulse Rate 100 101 H Respiratory Rate 20 20 Blood Pressure Pulse Oximetry 93 Oxygen Delivery Room Air Fraction of Inspired Oxygen 12/26/24 12:34 12/26/24 12:42 12/26/24 13:53 Temperature 97.0 F L Pulse Rate 96 96 111 H Respiratory Rate 20 20 24 H Blood Pressure 144/88 H Pulse Oximetry 94 Oxygen Delivery Fraction of Inspired Oxygen 12/26/24 16:04 12/26/24 16:15 12/26/24 17:30 Temperature Pulse Rate 96 100 84 Respiratory Rate 20 20 20 Blood Pressure Pulse Oximetry Oxygen Delivery Fraction of Inspired Oxygen 12/26/24 17:38 12/26/24 20:00 12/26/24 20:13 Temperature Pulse Rate 94 87 93 Respiratory Rate 20 20 22 H Blood Pressure Pulse Oximetry 95 Oxygen Delivery Room Air Fraction of Inspired Oxygen 21 12/26/24 20:15 12/26/24 21:06 12/27/24 00:11 Temperature 97.6 F Pulse Rate 93 87 84 Respiratory Rate 22 H 20 14 Blood Pressure 142/102 H Pulse Oximetry 93 95 Oxygen Delivery Room Air Fraction of Inspired Oxygen 21 12/27/24 00:19 12/27/24 04:22 12/27/24 04:36 Temperature 97.9 F Pulse Rate 86 72 75 Respiratory Rate 16 16 20 Blood Pressure 125/78 Pulse Oximetry 99 Oxygen Delivery Fraction of Inspired Oxygen 12/27/24 07:13 12/27/24 07:13 12/27/24 07:21 Temperature Pulse Rate 92 91 Respiratory Rate 20 20 Blood Pressure Pulse Oximetry 92 Oxygen Delivery Room Air Fraction of Inspired Oxygen Intake/Output Intake/Output: Intake & Output 12/24/24 12/25/24 12/26/24 12/27/24 23:59 23:59 23:59 23:59 Intake Total 770 300 Balance 770 300 Meds/Results Medications: Active Medications Generic Name Dose Route Start Last Admin Trade Name Freq PRN Reason Stop Dose Admin Acetaminophen 650 mg 12/26/24 14:20 12/27/24 05:28 Acetaminophen 325 Mg Tablet PO 650 mg Q6H PRN Administration Mild Pain (1-3) or Fever Albuterol/Ipratropium 3 ml 12/26/24 08:00 12/27/24 07:11 Ipratropium 0.5 Mg/Albuterol Sulfate 2.5 Mg (Base) Ampul.Neb 3 Ml INHALATION 3 ml Q4HRT JULIANA Administration Albuterol/Ipratropium 3 ml 12/26/24 16:33 12/26/24 17:30 Ipratropium 0.5 Mg/Albuterol Sulfate 2.5 Mg (Base) Ampul.Neb 3 Ml INHALATION 3 ml Q4HRT PRN Administration Wheezing Atorvastatin Calcium 80 mg 12/26/24 09:00 12/26/24 08:35 Atorvastatin 40 Mg Tablet PO 80 mg DAILY JULIANA Administration Azithromycin 250 mg 12/27/24 09:00 Azithromycin 250 Mg Tablet PO 12/30/24 09:01 DAILY JULIANA Clopidogrel Bisulfate 75 mg 12/26/24 09:00 12/26/24 08:36 Clopidogrel Bisulfate 75 Mg Tablet PO 75 mg DAILY JULIANA Administration Dextrose 12.5 gm 12/26/24 06:11 Dextrose 50% 25 Gm/50 Ml Syringe IV PUSH PRN PRN Hypoglycemia Protocol Enoxaparin Sodium 40 mg 12/27/24 09:00 Enoxaparin 40 Mg/0.4 Ml Syringe SUB-Q DAILY [facility] Glucose 15 gm 12/26/24 06:11 Glucose Oral Gel 15 Gm Of Glucse In 37.5 Gm Tube PO PRN PRN Hypoglycemia Protocol Dextrose 1,000 mls @ 100 mls/hr 12/26/24 06:11 Dextrose 5% 1,000 Ml IVPB PRN PRN Hypoglycemia Protocol Insulin Aspart 2 - 5 units 12/26/24 08:00 12/26/24 16:10 Insulin Aspart (*Bkc) 100 Units/Ml SUB-Q Not Given TIDWM [facility] Protocol Insulin Aspart 1 - 2 units 12/26/24 21:00 12/26/24 20:00 Insulin Aspart (*Bkc) 100 Units/Ml SUB-Q Not Given HS [facility] Protocol Lisinopril 40 mg 12/26/24 09:00 12/26/24 08:36 Lisinopril 20 Mg Tablet PO 40 mg DAILY JULIANA Administration Loratadine 10 mg 12/26/24 09:00 12/26/24 08:36 Loratadine 10 Mg Tablet PO 10 mg QAM JULIANA Administration Methylprednisolone Sodium Succinate 40 mg 12/26/24 18:00 12/27/24 05:28 Methylprednisolone Sod Succ 40 Mg Vial IV PUSH 40 mg Q6HR JULIANA Administration Montelukast Sodium 10 mg 12/26/24 21:00 12/26/24 19:56 Montelukast Sodium 10 Mg Tablet PO 10 mg QHS JULIANA Administration Radiology Results: ITS Impressions Chest X-Ray 12/25/24 20:14 IMPRESSION: 1. No acute cardiopulmonary findings. Chest CTA 12/26/24 07:35 IMPRESSION: 1. No pulmonary embolus. Labs Labs: Laboratory Results - last 24 hr 12/26/24 12/26/24 12/26/24 06:45 11:07 16:05 WBC RBC Hgb Hct MCV MCH MCHC RDW Plt Count MPV Immature Gran % (Auto) Neut % (Auto) Lymph % (Auto) Pope % (Auto) Eos % (Auto) Baso % (Auto) Lymph # (Auto) Pope # (Auto) Eos # (Auto) Baso # (Auto) Abs Immat Gran (auto) Absolute Neuts (auto) Absolute Nucleated RBC Nucleated RBC % Sodium Potassium Chloride Carbon Dioxide Anion Gap BUN Creatinine Estim Creat Clear Calc Estimated GFR Glucose POC Capillary Glucose 223 H 147 H Calcium Procalcitonin 0.0 12/26/24 12/27/24 12/27/24 19:59 05:16 07:33 WBC 16.4 H RBC 4.84 Hgb 14.1 Hct 44.0 MCV 90.9 MCH 29.1 MCHC 32.0 RDW 13.3 Plt Count 397 H MPV 9.8 Immature Gran % (Auto) 0.9 H Neut % (Auto) 88.4 H Lymph % (Auto) 8.2 L Pope % (Auto) 2.4 L Eos % (Auto) 0.0 Baso % (Auto) 0.1 L Lymph # (Auto) 1.34 Pope # (Auto) 0.4 Eos # (Auto) 0.0 Baso # (Auto) 0.0 Abs Immat Gran (auto) 0.15 H Absolute Neuts (auto) 14.5 H Absolute Nucleated RBC 0.000 Nucleated RBC % 0.0 Sodium 138 Potassium 4.4 Chloride 106 Carbon Dioxide 20 L Anion Gap 12 BUN 20 H Creatinine 0.89 Estim Creat Clear Calc 62 Estimated GFR > 60 Glucose 141 H POC Capillary Glucose 170 H 153 H Calcium 9.5 Procalcitonin Quality VTE Prophylaxis VTE prophylaxis: pharmacologic ordered
--- NOTE | 2024-12-27 09:00 | PM.PNPUL ---
Progress Note: A&P Assessment and Plan (1) Acute asthma exacerbation: Code(s): J45.901 - Unspecified asthma with (acute) exacerbation Status: Acute Assessment and Plan: Patient tells me she had asthma from age 7 and remembers being in an oxygen tent as a child. She has been on medicines all her life. Patient was on Symbicort until she lost her insurance in 2022 and since then she has been maintained on montelukast 10 q.day Which she has been on for about 3 years., cetirizine 10 q.day Which she has been on for many yearsand albuterol p.r.n. which she takes about 2 puffs a day. She has an albuterol nebulizer and usually she goes for months without this. At baseline the patient has no respiratory limitations in her activities of daily living. she takes 1 puff rescue albuterol before she walks 2 miles over an hour. This is improved over the last year because she has tried to exercise more. 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 Her baseline peak flows are 300 mL. She can walk 2 miles over 1 hour. Patient presents now with 6 day history of worsening shortness of breath, cough, wheezing, dyspnea on exertion after leaving her windows open and being exposed to high levels of mold. On 12/25/2023 she had 468 eosinophils per micro L. She denies fever, chills, rigors. Her CT scan of the chest shows no PE and no focal infiltrates. Her procalcitonin is 0.0. ABG on room air 7.49/32/73, there is no evidence of hypercarbic respiratory failure. 12/26/24: Plan: Agree with asthma exacerbation. currently the patient is on Solu-Medrol 60 mg IV q.8 hours. I will change to 40 mg IV q.6 hours. Continue DuoNebs q.4 hours. Patient is on maximal beta agonist and muscarinic antagonists and will discontinue Advair. Continue continue montelukast 10 mg P q.day and loratadine 10 mg q.day. patient has no focal infiltrates on her CT scan so agree with discontinuation of ceftriaxone. I will continue azithromycin for tracheobronchitis. I will send a respiratory pathogen panel looking for other etiologies that could be triggering her asthma. Goal saturation 90-94%, currently she is on room air. 12/27/2024: Patient tells me she has improved. States she is breathing 40% back to her normal. Her cough is better and her phlegm production is about the same. Her dyspnea on exertion when she walks to the bathroom is better. Room air saturations 96%. She is afebrile. Her peak flow is 235. White blood cell count 16.4, creatinine 0.89. She has expiratory wheezes that are diminished in intensity. Plan: Patient is improved and I will decrease her Solu-Medrol from 40 q.6 hours to 20 q.6. Continue DuoNebs q.4 hours, montelukast 10, Claritin 10. I have encouraged her to get out of bed to a chair and to ambulate in the hallways. Continue azithromycin, day 2. Discussed with Dr. Garcia, Will follow with you. Subjective Date/time seen: 12/27/24 09:00 Interval history: 12/26/2024: This is a new pulmonary consult for asthma exacerbation. 54-year-old female with history of asthma, hypertension, hypercholesterolemia, diabetes, CAD status post stents [facility] in last seen on 10/26/2022. This is a copy of the note Asthma Details: 5 month follow-up regarding asthma. Hx status asthmaticus September 2021 with acute respiratory failure, intubated, paralyzed; she was extremely sick. Patient reports her asthma has been stable. No ER visits. She is maintained on Symbicort 160, Duonebs. Feels Symbicort helps. Rescue use is 2-3x/week. Hasn't needed to use nebulizer. OWUSU mild but stable. Denies cough, wheezing, chest pains/tightness, or nighttime asthma symptoms. Peak flows: 370-550s, avg 450. This is better than last visit. Triggers: hot air, dogs, sometimes fragrances such as candles. ACT score 21/25. She is planning to vacation in a couple week to [facility]. NIOX: was 25 parts per billion. Same as last visit. Plan: Continue Symbicort 162 inhalations b.i.d., and DuoNebs p.r.n. and albuterol p.r.n.. Avoid triggers follow-up 6-12 months. Obesity, weight 223 lb weight loss was recommended. 05/20/2024: ED visit for asthma attack. One day shortness of breath, using albuterol more than usual, diffuse wheezing. Room air saturations 97%. Chest x-ray without acute abnormality. Given nebulizer, Solu-Medrol, magnesium and discharged home with prednisone burst of 40 mg x 4 days. patient tells me she had asthma from age 7 and remembers being in an oxygen tent as a child. She has been on medicines all her life. Patient was on Symbicort until she lost her insurance in 2022 and since then she has been maintained on montelukast 10 q.day Which she has been on for about 3 years., cetirizine 10 q.day Which she has been on for many yearsand albuterol p.r.n. which she takes about 2 puffs a day. She has an albuterol nebulizer and usually she goes for months without this. At baseline the patient has no respiratory limitations in her activities of daily living. she takes 1 puff rescue albuterol before she walks 2 miles over an hour. This is improved over the last year because she has tried to exercise more. 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 Her baseline peak flows are 300 mL. She can walk 2 miles over 1 hour. triggers include dust, upper respiratory infections, pollen, mold, sinusitis. She had a previous RAST blood test that was positive for dust mites, cat, dog, cockroach. She does have 2 cats and has had cats all her life. Patient was intubated in 2021. She had no exacerbations between 2021 and May of 2024. Her current illness started on 12/20/2024. She had the windows open and there was a high mold count. She started sneezing and took extra Zyrtec for 48 hours with no help, extra Mucinex for 48 hours which did not help. She had no fever or hemoptysis but phlegm production, worsening shortness of breath such that she could only walk across the room and wheezing. Symptoms progressed and on 12/24/2024: ED visit for shortness of breath and cough precipitated by high-power all in counts. Treated with nebulizer but symptoms persisted and presented to ED. Extensive wheezing all lung carrillo. Saturations 97 on room air. White blood cell count 10.4, eosinophils 4.5%=468/uL. Patient treated with steroids, bronchodilators and discharged on prednisone 40 mg p.o. x4 days. 12/25/2024: Patient presented with shortness of breath. No improvement with. They Jose is from the day prior. Cough is productive of clear sputum blood pressure 168/99, heart rate 107, respirations 26, saturations 96% on room air. Scattered wheezes. White blood cell count 14.8, eosinophils 0%, creatinine 0.87, BNP 225, troponin negative, influenza COVID and RSV RT PCR negative. ABG on room air 7.49/32/73. treated for asthma exacerbation with Solu-Medrol, ceftriaxone and azithromycin, bronchodilators. 12/26/2024: patient had a CT angiogram of the chest was negative for pulmonary embolism, minimal atelectasis right upper lobe. No pleural effusions, no focal consolidations. Currently the patient tells me she is a little bit better, maybe 10% back to her baseline. she says that the cough is the same. She has inspiratory and expiratory wheezes, she is afebrile. she is on room air with saturations 94%. White White blood cell count 11.4, eosinophils 0%, creatinine 0.84, procalcitonin 0.0. Peak flow today is 220. She has inspiratory and expiratory wheezes. 12/27/2024: Patient tells me she has improved. States she is breathing 40% back to her normal. Her cough is better and her phlegm production is about the same. Her dyspnea on exertion when she walks to the bathroom is better. Room air saturations 96%. She is afebrile. Her peak flow is 235. White blood cell count 16.4, creatinine 0.89. She has expiratory wheezes that are diminished in intensity. DATA: Alpha 1 PIMM PFT 11/11/21 - There is a moderately severe obstructive abnormality with significant improvement after inhaling a single dose of albuterol. The increase in residual volume is consistent with air trapping from an obstructive abnormality.? Hyperinflation is present as demonstrated by the increase in functional residual capacity and total lung capacity and is consistent with an obstructive abnormality. The diffusing capacity is normal. 6mw no O2 needed 09/22/2021 - CXR:?ET and NG tubes have been removed since 09/22/2019. Right upper?extremity PIC catheter tip overlies superior vena cava. No pulmonary infiltrate or consolidation, pleural effusion or pulmonary vascular congestion or pneumothorax. Normal heart size.?IMPRESSION: Removal of ET and NG tubes; no active cardiopulmonary disease? 09/26/2021 - Mod barium swallow -??Patient tolerated regular consistency oral feedings in the upright position.? Please correlate with speech pathologist findings and specific feeding recommendations.? Subtle increased soft tissue density project over the region of the piriform sinuses which based on prior CT appears to result from relatively symmetric swelling along the aryepiglottic folds but with normal-appearing epiglottis. There is may reflect response to recent intubation. Echo 08/09/19 - EF 65-70%, grade I diastolic dysfunction, no pulmHTN. RAST panel 04/24/2019 showing + to dust mites (high), cat (very high), dog (very high), cockroach (low), mouse (low); IgE 87 normal. Review of Systems Constitutional: Constitutional: Reports no additional constitutional complaints Eyes: Eyes: Reports no additional eye complaints ENT: Reports system reviewed and no additional complaints, except as documented Cardiovascular: Cardiovascular: Reports no additional cardiovascular complaints Respiratory: Respiratory: Reports no additional respiratory complaints Gastrointestinal: Gastrointestinal: Reports no additional gastrointestinal complaints Musculoskeletal: Musculoskeletal: Reports no additional musculoskeletal complaints Neurologic: Reports system reviewed and no additional complaints, except as documented Psychiatric: Psychiatric: Reports no additional psychiatric complaints Endocrine: Endocrine: Reports no additional endocrine complaints Hematologic/Lymphatic: Hematologic/Lymphatic: Reports no additional hematologic/lymphatic complaints Allergic/Immunologic: Allergic/Immunologic: Reports no additional allergic/immunologic complaints Exam Const: General: cooperative, healthy appearing, comfortable and no acute distress Orientation/consciousness: oriented to person, oriented to place and oriented to time Other: obese HENMT: Head: normal to inspection Ears: hearing grossly normal bilaterally Eyes: General: appearance normal, both eyes and all related structures Neck: Neck: normal visual inspection Chest: Chest palpation & inspection: normal inspection of the chest Resp: Effort & Inspection: normal respiratory effort and able to speak in complete sentences Auscultation: no crackles, no rales, no rhonchi, wheezes and lung sounds not diminished Other: expiratory wheezes bilaterally Cardio: Jugular venous distension: no JVD GI: Inspection: normal to inspection Skin: General skin exam: normal color Neuro: General: oriented to person, oriented to place and oriented to time Extrem: General: normal to inspection and no edema Psych: Appearance: grossly normal Objective Data Vital Signs Vital Signs: Vital Signs - 24 hr 12/26/24 09:26 12/26/24 09:26 12/26/24 09:37 Temperature Pulse Rate 100 101 H Respiratory Rate 20 20 Blood Pressure Pulse Oximetry 93 Oxygen Delivery Room Air Fraction of Inspired Oxygen 12/26/24 12:34 12/26/24 12:42 12/26/24 13:53 Temperature 36.1 C L Pulse Rate 96 96 111 H Respiratory Rate 20 20 24 H Blood Pressure 144/88 H Pulse Oximetry 94 Oxygen Delivery Fraction of Inspired Oxygen 12/26/24 16:04 12/26/24 16:15 12/26/24 17:30 Temperature Pulse Rate 96 100 84 Respiratory Rate 20 20 20 Blood Pressure Pulse Oximetry Oxygen Delivery Fraction of Inspired Oxygen 12/26/24 17:38 12/26/24 20:00 12/26/24 20:13 Temperature Pulse Rate 94 87 93 Respiratory Rate 20 20 22 H Blood Pressure Pulse Oximetry 95 Oxygen Delivery Room Air Fraction of Inspired Oxygen 21 12/26/24 20:15 12/26/24 21:06 12/27/24 00:11 Temperature 36.4 C Pulse Rate 93 87 84 Respiratory Rate 22 H 20 14 Blood Pressure 142/102 H Pulse Oximetry 93 95 Oxygen Delivery Room Air Fraction of Inspired Oxygen 21 12/27/24 00:19 12/27/24 04:22 12/27/24 04:36 Temperature 36.6 C Pulse Rate 86 72 75 Respiratory Rate 16 16 20 Blood Pressure 125/78 Pulse Oximetry 99 Oxygen Delivery Fraction of Inspired Oxygen 12/27/24 07:13 12/27/24 07:13 12/27/24 07:21 Temperature Pulse Rate 92 91 Respiratory Rate 20 20 Blood Pressure Pulse Oximetry 92 Oxygen Delivery Room Air Fraction of Inspired Oxygen Intake/Output Intake/Output: Intake & Output 12/24/24 12/25/24 12/26/24 12/27/24 23:59 23:59 23:59 23:59 Intake Total 770 418 Balance 770 418 Meds/Results Medications: Active Medications Generic Name Dose Route Start Last Admin Trade Name Freq PRN Reason Stop Dose Admin Acetaminophen 650 mg 12/26/24 14:20 10/08/25 05:28 Acetaminophen 325 Mg Tablet PO 650 mg Q6H PRN Administration Mild Pain (1-3) or Fever Albuterol/Ipratropium 3 ml 12/26/24 08:00 12/27/24 07:11 Ipratropium 0.5 Mg/Albuterol Sulfate 2.5 Mg (Base) Ampul.Neb 3 Ml INHALATION 3 ml Q4HRT JULIANA Administration Albuterol/Ipratropium 3 ml 12/26/24 16:33 12/26/24 17:30 Ipratropium 0.5 Mg/Albuterol Sulfate 2.5 Mg (Base) Ampul.Neb 3 Ml INHALATION 3 ml Q4HRT PRN Administration Wheezing Atorvastatin Calcium 80 mg 12/26/24 09:00 12/26/24 08:35 Atorvastatin 40 Mg Tablet PO 80 mg DAILY JULIANA Administration Azithromycin 250 mg 12/27/24 09:00 Azithromycin 250 Mg Tablet PO 12/30/24 09:01 DAILY JULIANA Clopidogrel Bisulfate 75 mg 12/26/24 09:00 12/26/24 08:36 Clopidogrel Bisulfate 75 Mg Tablet PO 75 mg DAILY JULIANA Administration Dextrose 12.5 gm 12/26/24 06:11 Dextrose 50% 25 Gm/50 Ml Syringe IV PUSH PRN PRN Hypoglycemia Protocol Enoxaparin Sodium 40 mg 12/27/24 09:00 Enoxaparin 40 Mg/0.4 Ml Syringe SUB-Q DAILY [facility] Glucose 15 gm 12/26/24 06:11 Glucose Oral Gel 15 Gm Of Glucse In 37.5 Gm Tube PO PRN PRN Hypoglycemia Protocol Dextrose 1,000 mls @ 100 mls/hr 12/26/24 06:11 Dextrose 5% 1,000 Ml IVPB PRN PRN Hypoglycemia Protocol Insulin Aspart 2 - 5 units 12/26/24 08:00 12/26/24 16:10 Insulin Aspart (*Bkc) 100 Units/Ml SUB-Q Not Given TIDWM [facility] Protocol Insulin Aspart 1 - 2 units 12/26/24 21:00 12/26/24 20:00 Insulin Aspart (*Bkc) 100 Units/Ml SUB-Q Not Given HS [facility] Protocol Lisinopril 40 mg 12/26/24 09:00 12/26/24 08:36 Lisinopril 20 Mg Tablet PO 40 mg DAILY JULIANA Administration Loratadine 10 mg 12/26/24 09:00 12/26/24 08:36 Loratadine 10 Mg Tablet PO 10 mg QAM JULIANA Administration Methylprednisolone Sodium Succinate 20 mg 12/27/24 12:00 Methylprednisolone Sod Succ 40 Mg Vial IV PUSH Q6HR JULIANA Montelukast Sodium 10 mg 12/26/24 21:00 12/26/24 19:56 Montelukast Sodium 10 Mg Tablet PO 10 mg QHS JULIANA Administration Radiology Results: ITS Impressions Chest X-Ray 12/25/24 20:14 IMPRESSION: 1. No acute cardiopulmonary findings. Chest CTA 12/26/24 07:35 IMPRESSION: 1. No pulmonary embolus. Labs Labs: Laboratory Results - last 24 hr 12/26/24 12/26/24 12/26/24 06:45 11:07 16:05 WBC RBC Hgb Hct MCV MCH MCHC RDW Plt Count MPV Immature Gran % (Auto) Neut % (Auto) Lymph % (Auto) [place] % (Auto) Eos % (Auto) Baso % (Auto) Lymph # (Auto) [place] # (Auto) Eos # (Auto) Baso # (Auto) Abs Immat Gran (auto) Absolute Neuts (auto) Absolute Nucleated RBC Nucleated RBC % Sodium Potassium Chloride Carbon Dioxide Anion Gap BUN Creatinine Estim Creat Clear Calc Estimated GFR Glucose POC Capillary Glucose 223 H 147 H Calcium Procalcitonin 0.0 12/26/24 12/27/24 12/27/24 19:59 05:16 07:33 WBC 16.4 H RBC 4.84 Hgb 14.1 Hct 44.0 MCV 90.9 MCH 29.1 MCHC 32.0 RDW 13.3 Plt Count 397 H MPV 9.8 Immature Gran % (Auto) 0.9 H Neut % (Auto) 88.4 H Lymph % (Auto) 8.2 L [place] % (Auto) 2.4 L Eos % (Auto) 0.0 Baso % (Auto) 0.1 L Lymph # (Auto) 1.34 [place] # (Auto) 0.4 Eos # (Auto) 0.0 Baso # (Auto) 0.0 Abs Immat Gran (auto) 0.15 H Absolute Neuts (auto) 14.5 H Absolute Nucleated RBC 0.000 Nucleated RBC % 0.0 Sodium 138 Potassium 4.4 Chloride 106 Carbon Dioxide 20 L Anion Gap 12 BUN 20 H Creatinine 0.89 Estim Creat Clear Calc 62 Estimated GFR > 60 Glucose 141 H POC Capillary Glucose 170 H 153 H Calcium 9.5 Procalcitonin
[2024-12-27] MEDS: AZITHROMYCIN 250 MG TABLET PO (09:10)
[2024-12-27] MEDS: ATORVASTATIN 40 MG TABLET 80 MG PO (09:10)
[2024-12-27] MEDS: CLOPIDOGREL BISULFATE 75 MG TABLET PO (09:10)
[2024-12-27] MEDS: ENOXAPARIN 40 MG/0.4 ML SYRINGE SUB-Q (09:11)
[2024-12-27] MEDS: LORATADINE 10 MG TABLET PO (09:11)
[2024-12-27] MEDS: INSULIN ASPART (*BKC) 100 UNITS/ML SUB-Q (11:17)
[2024-12-27] MEDS: MONTELUKAST SODIUM 10 MG TABLET PO (20:26)
[2024-12-28] VITALS (16 sets, daily range): BP systolic 145–158; BP diastolic 91–99; PULSE 71–92; RESP 14–20; TEMP 35.9–36.5; O2SAT 91–95
[2024-12-28] MEDS: IPRATROPIUM 0.5 MG/ALBUTEROL SULFATE 2.5 MG (BASE) AMPUL.NEB 3 ML INHALATION ×6 (00:46→20:55)
--- NOTE | 2024-12-28 08:12 | P.PNIM_ITS ---
Progress Note: A&P Assessment and Plan (1) Acute asthma exacerbation: Code(s): J45.901 - Unspecified asthma with (acute) exacerbation Status: Acute Assessment and Plan: * Quad viral screen negative on admission. ProBNP 225, ABG demonstrating pH 7.49, pCO2 32, PO2 73, bicarb 24.1. WBC 14.8. * Chest x-ray without acute findings. * CTA chest does not reveal PE, preliminary read reported right lower lobe perip heral nodular infiltrate, official radiology interpretation and my personal review with no infiltrates. Procal 0 and afebrile. Leukocytosis likely secondary to steroids. Monitor off antibiotics for now. * patient reported her baseline peak flow is around 300. Peak flow is improving. Continue to monitor peak flow before and after nebs. * continue scheduled Duonebs, IV steroids. Started Symbicort. * patient previously followed with Dr. Bland, but lost insurance coverage. * Pulm consulted * Continue DuoNebs q.4 hours, montelukast 10, Claritin 10 * Continue/encourage ambulation around department * Discontinue Solu-Medrol 40 mg IV (2) Leukocytosis: Code(s): D72.829 - Elevated white blood cell count, unspecified Status: Acute Assessment and Plan: * WBC 11.4 -> 17.9, likely due to steroids * blood cultures pending (3) Hypertension: Code(s): I10 - Essential (primary) hypertension Status: Acute Assessment and Plan: * BP 144/88 * continue home lisinopril. Metoprolol held on admission due to concerns for bronchospasm. (4) Hypercholesterolemia: Code(s): E78.00 - Pure hypercholesterolemia, unspecified Status: Acute Assessment and Plan: * continue statin (5) Diabetes: Code(s): E11.9 - Type 2 diabetes mellitus without complications Status: Acute Assessment and Plan: * hold metformin * continue low dose SSI * monitor glucose ACHS * hypoglycemia protocol (6) Coronary artery disease: Code(s): I25.10 - Atherosclerotic heart disease of [place] coronary artery without angina pectoris Status: Acute Assessment and Plan: - history of stent - continue Plavix, statin Plan Code status: full code DVT prophylaxis: Lovenox Dispo: home in 1-2 days pending improvement Subjective Date/time seen: 12/28/24 08:12 Interval history: 54-year-old female with history of asthma, hypertension, hypercholesterolemia, diabetes, CAD status post stents presented to [facility] ER on 12/25/2024 complaining of shortness of breath. She was seen in the ER just a day prior received a steroid pulse dose, she was discharged. 12/28/2024 Patient sitting in bed time of examination. Denies any shortness of breath, chest pain or abdominal pain at this time, however states that she still feels short of breath when walking around the hallways. Entero/rhinovirus detected on PCR. Remains afebrile, O2 saturation 95%. Will discontinue Solu-Medrol 40 mg. Review of Systems Review of Systems: All systems reviewed & are unremarkable except as noted in HPI and below (Subjective) Exam Narrative: General: NAD Eyes: EOMI ENT: neck supple Cardiovascular: Regular rate and rhythm Respiratory: Diffuse expiratory wheeze. Respirations even and unlabored on RA. Speaking in full sentences Gastrointestinal: Soft, non tender Genitourinary: no suprapubic tenderness Musculoskeletal: No edema Skin: warm, dry Neuro: Alert. Psych: Mood appropriate Const: General: comfortable and no acute distress Other: A&O x3 HENMT: Mouth: Yes moist mucous membranes Eyes: Pupils: Equal, round and reactive pupils present Neck: Neck: supple Resp: Other: Tachypnea, respiratory wheeze, decreased air intake and coarse breath sounds Cardio: Rate: regular rate Rhythm: regular rhythm Heart sounds: no murmurs GI: Inspection: non-distended Neuro: Cranial nerves: Yes Equal, round and reactive pupils present Motor exam (neuro): 5/5 motor strength present throughout Extrem: General: no edema Objective Data Vital Signs Vital Signs: Vital Signs - 24 hr 12/27/24 11:08 12/27/24 11:17 12/27/24 14:00 Temperature 98.0 F Pulse Rate 117 H 107 H 106 H Respiratory Rate 30 H 24 H 22 H Blood Pressure 159/95 H Pulse Oximetry 92 Oxygen Delivery Fraction of Inspired Oxygen 12/27/24 15:28 12/27/24 15:47 12/27/24 20:00 Temperature Pulse Rate 103 H 88 Respiratory Rate 18 20 Blood Pressure 160/90 H Pulse Oximetry 94 Oxygen Delivery Room Air Fraction of Inspired Oxygen 21 12/27/24 20:05 12/27/24 20:05 12/27/24 20:20 Temperature Pulse Rate 84 84 98 Respiratory Rate 20 20 20 Blood Pressure Pulse Oximetry 94 Oxygen Delivery Room Air Fraction of Inspired Oxygen 21 12/27/24 21:37 12/28/24 00:46 12/28/24 00:46 Temperature 98.0 F Pulse Rate 92 86 86 Respiratory Rate 16 20 20 Blood Pressure 146/90 H Pulse Oximetry 96 94 Oxygen Delivery Room Air Fraction of Inspired Oxygen 21 12/28/24 01:00 12/28/24 04:12 12/28/24 04:12 Temperature Pulse Rate 88 82 82 Respiratory Rate 20 18 18 Blood Pressure Pulse Oximetry 95 Oxygen Delivery Room Air Fraction of Inspired Oxygen 21 12/28/24 04:34 12/28/24 06:00 Temperature 97.7 F Pulse Rate 88 81 Respiratory Rate 18 14 Blood Pressure 145/92 H Pulse Oximetry 95 Oxygen Delivery Fraction of Inspired Oxygen Intake/Output Intake/Output: Intake & Output 12/25/24 12/26/24 12/27/24 12/28/24 23:59 23:59 23:59 23:59 Intake Total 770 898 400 Balance 770 898 400 Meds/Results Medications: Active Medications Generic Name Dose Route Start Last Admin Trade Name Freq PRN Reason Stop Dose Admin Acetaminophen 650 mg 12/27/24 14:58 12/27/24 23:07 Acetaminophen 325 Mg Tablet PO 650 mg Q4H PRN Administration Mild Pain (1-3) or Fever Albuterol/Ipratropium 3 ml 12/26/24 08:00 12/28/24 04:12 Ipratropium 0.5 Mg/Albuterol Sulfate 2.5 Mg (Base) Ampul.Neb 3 Ml INHALATION 3 ml Q4HRT JULIANA Administration Albuterol/Ipratropium 3 ml 12/26/24 16:33 12/26/24 17:30 Ipratropium 0.5 Mg/Albuterol Sulfate 2.5 Mg (Base) Ampul.Neb 3 Ml INHALATION 3 ml Q4HRT PRN Administration Wheezing Atorvastatin Calcium 80 mg 12/26/24 09:00 12/27/24 09:10 Atorvastatin 40 Mg Tablet PO 80 mg DAILY JULIANA Administration Azithromycin 250 mg 12/27/24 09:00 12/27/24 09:10 Azithromycin 250 Mg Tablet PO 12/30/24 09:01 250 mg DAILY JULIANA Administration Clopidogrel Bisulfate 75 mg 12/26/24 09:00 12/27/24 09:10 Clopidogrel Bisulfate 75 Mg Tablet PO 75 mg DAILY JULIANA Administration Dextrose 12.5 gm 12/26/24 06:11 Dextrose 50% 25 Gm/50 Ml Syringe IV PUSH PRN PRN Hypoglycemia Protocol Enoxaparin Sodium 40 mg 12/27/24 09:00 12/27/24 09:11 Enoxaparin 40 Mg/0.4 Ml Syringe SUB-Q 40 mg DAILY JULIANA Administration Glucose 15 gm 12/26/24 06:11 Glucose Oral Gel 15 Gm Of Glucse In 37.5 Gm Tube PO PRN PRN Hypoglycemia Protocol Dextrose 1,000 mls @ 100 mls/hr 12/26/24 06:11 Dextrose 5% 1,000 Ml IVPB PRN PRN Hypoglycemia Protocol Insulin Aspart 2 - 5 units 12/26/24 08:00 12/27/24 16:30 Insulin Aspart (*Bkc) 100 Units/Ml SUB-Q Not Given TIDWM JULIANA Protocol Insulin Aspart 1 - 2 units 12/26/24 21:00 12/27/24 20:26 Insulin Aspart (*Bkc) 100 Units/Ml SUB-Q Not Given HS JULIANA Protocol Lisinopril 40 mg 12/26/24 09:00 12/27/24 09:10 Lisinopril 20 Mg Tablet PO 40 mg DAILY JULIANA Administration Loratadine 10 mg 12/26/24 09:00 12/27/24 09:11 Loratadine 10 Mg Tablet PO 10 mg QAM JULIANA Administration Methylprednisolone Sodium Succinate 20 mg 12/27/24 12:00 12/28/24 05:27 Methylprednisolone Sod Succ 40 Mg Vial IV PUSH 20 mg Q6HR JULIANA Administration Montelukast Sodium 10 mg 12/26/24 21:00 12/27/24 20:26 Montelukast Sodium 10 Mg Tablet PO 10 mg QHS JULIANA Administration Radiology Results: ITS Impressions Chest X-Ray 12/25/24 20:14 IMPRESSION: 1. No acute cardiopulmonary findings. Chest CTA 12/26/24 07:35 IMPRESSION: 1. No pulmonary embolus. Labs Labs: Laboratory Results - last 24 hr 12/26/24 12/27/24 12/27/24 16:30 11:02 16:07 POC Capillary Glucose 210 H 117 H Chlamy pneumoniae PCR Not detected Adenovirus (PCR) Not detected B. pertussis DNA (PCR) Not detected B.parapertussis DNA PCR Not detected Coronavirus OC43 (PCR) Not detected Coronavirus HKU1 (PCR) Not detected Coronavirus 229E (PCR) Not detected Coronavirus NL63 (PCR) Not detected Human Metapneumovir PCR Not detected Influenza A (H1) PCR Not detected Influ A () PCR Not detected Influenza A (H3) PCR Not detected Influenza Type A (PCR) Not detected Influenza Type B (PCR) Not detected M. pneumoniae (PCR) Not detected Parainfluenza 1 (PCR) Not detected Parainfluenza 2 (PCR) Not detected Parainfluenza 3 (PCR) Not detected Parainfluenza 4 (PCR) Not detected RSV (PCR) Not detected Entero/Rhino (PCR) Detected A SARS-CoV-2 (PCR) Not detected 12/27/24 12/28/24 20:25 07:23 POC Capillary Glucose 140 H 122 H Chlamy pneumoniae PCR Adenovirus (PCR) B. pertussis DNA (PCR) B.parapertussis DNA PCR Coronavirus OC43 (PCR) Coronavirus HKU1 (PCR) Coronavirus 229E (PCR) Coronavirus NL63 (PCR) Human Metapneumovir PCR Influenza A (H1) PCR Influ A () PCR Influenza A (H3) PCR Influenza Type A (PCR) Influenza Type B (PCR) M. pneumoniae (PCR) Parainfluenza 1 (PCR) Parainfluenza 2 (PCR) Parainfluenza 3 (PCR) Parainfluenza 4 (PCR) RSV (PCR) Entero/Rhino (PCR) SARS-CoV-2 (PCR) Quality VTE Prophylaxis VTE prophylaxis: pharmacologic ordered
[2024-12-28 08:37] LABS: Hematocrit 45.5 % (37.0-47.0); Hemoglobin 15.0 g/dL (12.0-15.0); Immature Granulocyte Percent A 1.9 % (0-0.5); Lymphocytes Absolute Auto 1.37 K/mm3 (0.9-3.2); Mean Corpuscular HGB Conc 33.0 g/dl (32-36); Mean Corpuscular Hemoglobin 29.1 pg (26-34); Mean Corpuscular Volume 88.3 fl (80-100); Nucleated Red Blood Cells Absolute Auto 0.000 K/mm3 (0.0-0.012); Nucleated Red Blood Cells Perc 0.0 % (0.0-0.2); Platelet Count Result 448 k/mm3 (150-375); Red Blood Count 5.15 M/mm3 (4.2-5.4); White Blood Count 17.9 K/mm3 (4.5-10.0)
[2024-12-28] MEDS: ACETAMINOPHEN 325 MG TABLET 650 MG PO ×2 (09:04→12:03)
[2024-12-28] MEDS: CLOPIDOGREL BISULFATE 75 MG TABLET PO (09:04)
[2024-12-28] MEDS: ATORVASTATIN 40 MG TABLET 80 MG PO (09:04)
[2024-12-28] MEDS: LORATADINE 10 MG TABLET PO (09:04)
[2024-12-28] MEDS: AZITHROMYCIN 250 MG TABLET PO (09:04)
[2024-12-28] MEDS: ENOXAPARIN 40 MG/0.4 ML SYRINGE SUB-Q (09:05)
--- NOTE | 2024-12-28 09:05 | P.PNPL_ITS ---
Progress Note: A&P Assessment and Plan (1) Acute asthma exacerbation: Code(s): J45.901 - Unspecified asthma with (acute) exacerbation Status: Acute Assessment and Plan: Patient tells me she had asthma from age 7 and remembers being in an oxygen tent as a child. She has been on medicines all her life. Patient was on Symbicort until she lost her insurance in 2022 and since then she has been maintained on montelukast 10 q.day Which she has been on for about 3 years., cetirizine 10 q.day Which she has been on for many yearsand albuterol p.r.n. which she takes about 2 puffs a day. She has an albuterol nebulizer and usually she goes for months without this. At baseline the patient has no respiratory limitations in her activities of daily living. she takes 1 puff rescue albuterol before she walks 2 miles over an hour. This is improved over the last year because she has tried to exercise more. 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 Her baseline peak flows are 300 mL. She can walk 2 miles over 1 hour. Patient presents now with 6 day history of worsening shortness of breath, cough, wheezing, dyspnea on exertion after leaving her windows open and being exposed to high levels of mold. On 12/25/2023 she had 468 eosinophils per micro L. She denies fever, chills, rigors. Her CT scan of the chest shows no PE and no focal infiltrates. Her procalcitonin is 0.0. ABG on room air 7.49/32/73, there is no evidence of hypercarbic respiratory failure. 12/26/24: Plan: Agree with asthma exacerbation. currently the patient is on Solu-Medrol 60 mg IV q.8 hours. I will change to 40 mg IV q.6 hours. Continue DuoNebs q.4 hours. Patient is on maximal beta agonist and muscarinic antagonists and will discontinue Advair. Continue continue montelukast 10 mg P q.day and loratadine 10 mg q.day. patient has no focal infiltrates on her CT scan so agree with discontinuation of ceftriaxone. I will continue azithromycin for tracheobronchitis. I will send a respiratory pathogen panel looking for other etiologies that could be triggering her asthma. Goal saturation 90-94%, currently she is on room air. 12/27/2024: Patient tells me she has improved. States she is breathing 40% back to her normal. Her cough is better and her phlegm production is about the same. Her dyspnea on exertion when she walks to the bathroom is better. Room air saturations 96%. She is afebrile. Her peak flow is 235. White blood cell count 16.4, creatinine 0.89. She has expiratory wheezes that are diminished in intensity. Plan: Patient is improved and I will decrease her Solu-Medrol from 40 q.6 hours to 20 q.6. Continue DuoNebs q.4 hours, montelukast 10, Claritin 10. I have encouraged her to get out of bed to a chair and to ambulate in the hallways. Continue azithromycin, day 2. 12/28/2024: Patient tells me she is the same as yesterday. She has 40% back to her normal. She still has dyspnea on exertion when walking in the hallway but no rest shortness of breath. Her cough and phlegm production are the same. She still notices wheezing. Room air saturations are 95%. She is afebrile. Respiratory pathogen panel returned positive for rhino virus Plan: patient has an asthma exacerbation precipitated by rhinovirus infection. She has received Solu-Medrol 40 mg IV today (day 4 steroids) and I will discontinue Solu-Medrol now and reassess the patient on 12/29. Continue DuoNebs q.4 hours, montelukast 10 q.day, Claritin 10 q.day. patient is on azithromycin day 3 of [address] Garcia, Will follow with you. Subjective Date/time seen: 12/28/24 09:05 Interval history: 12/26/2024: This is a new pulmonary consult for asthma exacerbation. 54-year-old female with history of asthma, hypertension, hypercholesterolemia, diabetes, CAD status post stents [facility] followed [facility] in last seen on 10/26/2022. This is a copy of the note Asthma Details: 5 month follow-up regarding asthma. Hx status asthmaticus September 2021 with acute respiratory failure, intubated, paralyzed; she was extremely sick. Patient reports her asthma has been stable. No ER visits. She is maintained on Symbicort 160, Duonebs. Feels Symbicort helps. Rescue use is 2-3x/week. Hasn't needed to use nebulizer. OWUSU mild but stable. Denies cough, wheezing, chest pains/tightness, or nighttime asthma symptoms. Peak flows: 370-550s, avg 450. This is better than last visit. Triggers: hot air, dogs, sometimes fragrances such as candles. ACT score 21/25. She is planning to vacation in a couple week to [facility]. NIOX: was 25 parts per billion. Same as last visit. Plan: Continue Symbicort 162 inhalations b.i.d., and DuoNebs p.r.n. and albuterol p.r.n.. Avoid triggers follow-up 6-12 months. Obesity, weight 223 lb weight loss was recommended. 05/20/2024: ED visit for asthma attack. One day shortness of breath, using albuterol more than usual, diffuse wheezing. Room air saturations 97%. Chest x-ray without acute abnormality. Given nebulizer, Solu-Medrol, magnesium and discharged home with prednisone burst of 40 mg x 4 days. patient tells me she had asthma from age 7 and remembers being in an oxygen tent as a child. She has been on medicines all her life. Patient was on Symbicort until she lost her insurance in 2022 and since then she has been maintained on montelukast 10 q.day Which she has been on for about 3 years., cetirizine 10 q.day Which she has been on for many yearsand albuterol p.r.n. which she takes about 2 puffs a day. She has an albuterol nebulizer and usually she goes for months without this. At baseline the patient has no respiratory limitations in her activities of daily living. she takes 1 puff rescue albuterol before she walks 2 miles over an hour. This is improved over the last year because she has tried to exercise more. 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 Her baseline peak flows are 300 mL. She can walk 2 miles over 1 hour. triggers include dust, upper respiratory infections, pollen, mold, sinusitis. She had a previous RAST blood test that was positive for dust mites, cat, dog, cockroach. She does have 2 cats and has had cats all her life. Patient was intubated in 2021. She had no exacerbations between 2021 and May of 2024. Her current illness started on 12/20/2024. She had the windows open and there was a high mold count. She started sneezing and took extra Zyrtec for 48 hours with no help, extra Mucinex for 48 hours which did not help. She had no fever or hemoptysis but phlegm production, worsening shortness of breath such that she could only walk across the room and wheezing. Symptoms progressed and on 12/24/2024: ED visit for shortness of breath and cough precipitated by high- power all in counts. Treated with nebulizer but symptoms persisted and presented to ED. Extensive wheezing all lung carrillo. Saturations 97 on room air. White blood cell count 10.4, eosinophils 4.5%=468/uL. Patient treated with steroids, bronchodilators and discharged on prednisone 40 mg p.o. x4 days. 12/25/2024: Patient presented with shortness of breath. No improvement with. They Jose is from the day prior. Cough is productive of clear sputum blood pressure 168/99, heart rate 107, respirations 26, saturations 96% on room air. Scattered wheezes. White blood cell count 14.8, eosinophils 0%, creatinine 0.87, BNP 225, troponin negative, influenza COVID and RSV RT PCR negative. ABG on room air 7.49/. treated for asthma exacerbation with Solu-Medrol, ceftriaxone and azithromycin, bronchodilators. 12/26/2024: patient had a CT angiogram of the chest was negative for pulmonary embolism, minimal atelectasis right upper lobe. No pleural effusions, no focal consolidations. Currently the patient tells me she is a little bit better, maybe 10% back to her baseline. she says that the cough is the same. She has inspiratory and expiratory wheezes, she is afebrile. she is on room air with saturations 94%. White White blood cell count 11.4, eosinophils 0%, creatinine 0.84, procalcitonin 0.0. Peak flow today is 220. She has inspiratory and expiratory wheezes. 12/27/2024: Patient tells me she has improved. States she is breathing 40% back to her normal. Her cough is better and her phlegm production is about the same. Her dyspnea on exertion when she walks to the bathroom is better. Room air saturations 96%. She is afebrile. Her peak flow is 235. White blood cell count 16.4, creatinine 0.89. She has expiratory wheezes that are diminished in intensity. 12/28/2024: Patient tells me she is the same as yesterday. She has 40% back to her normal. She still has dyspnea on exertion when walking in the hallway but no rest shortness of breath. Her cough and phlegm production are the same. She still notices wheezing. Room air saturations are 95%. She is afebrile. Respiratory pathogen panel returned positive for rhino virus DATA: Alpha 1 PIMM PFT 11/11/21 - There is a moderately severe obstructive abnormality with significant improvement after inhaling a single dose of albuterol. The increase in residual volume is consistent with air trapping from an obstructive abnormality.? Hyperinflation is present as demonstrated by the increase in functional residual capacity and total lung capacity and is consistent with an obstructive abnormality. The diffusing capacity is normal. 6mw no O2 needed 09/22/2021 - CXR:?ET and NG tubes have been removed since 09/22/2019. Right upper?extremity PIC catheter tip overlies superior vena cava. No pulmonary infiltrate or consolidation, pleural effusion or pulmonary vascular congestion or pneumothorax. Normal heart size.?IMPRESSION: Removal of ET and NG tubes; no active cardiopulmonary disease? 09/26/2021 - Mod barium swallow -??Patient tolerated regular consistency oral feedings in the upright position.? Please correlate with speech pathologist findings and specific feeding recommendations.? Subtle increased soft tissue density project over the region of the piriform sinuses which based on prior CT appears to result from relatively symmetric swelling along the aryepiglottic folds but with normal-appearing epiglottis. There is may reflect response to recent intubation. Echo 08/09/19 - EF 65-70%, grade I diastolic dysfunction, no pulmHTN. RAST panel 04/24/2019 showing + to dust mites (high), cat (very high), dog (very high), cockroach (low), mouse (low); IgE 87 normal. Review of Systems Constitutional: Constitutional: Reports no additional constitutional complaints Eyes: Eyes: Reports no additional eye complaints ENT: Reports system reviewed and no additional complaints, except as documented Cardiovascular: Cardiovascular: Reports no additional cardiovascular complaints Respiratory: Respiratory: Reports no additional respiratory complaints Gastrointestinal: Gastrointestinal: Reports no additional gastrointestinal complaints Musculoskeletal: Musculoskeletal: Reports no additional musculoskeletal complaints Neurologic: Reports system reviewed and no additional complaints, except as documented Psychiatric: Psychiatric: Reports no additional psychiatric complaints Endocrine: Endocrine: Reports no additional endocrine complaints Hematologic/Lymphatic: Hematologic/Lymphatic: Reports no additional hematologic/lymphatic complaints Allergic/Immunologic: Allergic/Immunologic: Reports no additional allergic/immunologic complaints Exam Const: General: cooperative, healthy appearing, comfortable and no acute distress Orientation/consciousness: oriented to person, oriented to place and oriented to time Other: obese HENMT: Head: normal to inspection Ears: hearing grossly normal bilaterally Eyes: General: appearance normal, both eyes and all related structures Neck: Neck: normal visual inspection Chest: Chest palpation & inspection: normal inspection of the chest Resp: Effort & Inspection: normal respiratory effort and able to speak in complete sentences Auscultation: no crackles, no rales, no rhonchi, wheezes and lung sounds not diminished Other: expiratory wheezes bilaterally Cardio: Jugular venous distension: no JVD GI: Inspection: normal to inspection Skin: General skin exam: normal color Neuro: General: oriented to person, oriented to place and oriented to time Extrem: General: normal to inspection and no edema Psych: Appearance: grossly normal Objective Data Vital Signs Vital Signs: Vital Signs - 24 hr 12/27/24 11:08 12/27/24 11:17 12/27/24 14:00 Temperature 36.7 C Pulse Rate 117 H 107 H 106 H Respiratory Rate 30 H 24 H 22 H Blood Pressure 159/95 H Pulse Oximetry 92 Oxygen Delivery Fraction of Inspired Oxygen 12/27/24 15:28 12/27/24 15:47 12/27/24 20:00 Temperature Pulse Rate 103 H 88 Respiratory Rate 18 20 Blood Pressure 160/90 H Pulse Oximetry 94 Oxygen Delivery Room Air Fraction of Inspired Oxygen 21 12/27/24 20:05 12/27/24 20:05 12/27/24 20:20 Temperature Pulse Rate 84 84 98 Respiratory Rate 20 20 20 Blood Pressure Pulse Oximetry 94 Oxygen Delivery Room Air Fraction of Inspired Oxygen 21 12/27/24 21:37 12/28/24 00:46 12/28/24 00:46 Temperature 36.7 C Pulse Rate 92 86 86 Respiratory Rate 16 20 20 Blood Pressure 146/90 H Pulse Oximetry 96 94 Oxygen Delivery Room Air Fraction of Inspired Oxygen 21 12/28/24 01:00 12/28/24 04:12 12/28/24 04:12 Temperature Pulse Rate 88 82 82 Respiratory Rate 20 18 18 Blood Pressure Pulse Oximetry 95 Oxygen Delivery Room Air Fraction of Inspired Oxygen 21 12/28/24 04:34 12/28/24 06:00 12/28/24 09:01 Temperature 36.5 C Pulse Rate 88 81 92 Respiratory Rate 18 14 19 Blood Pressure 145/92 H Pulse Oximetry 95 Oxygen Delivery Fraction of Inspired Oxygen Intake/Output Intake/Output: Intake & Output 12/25/24 12/26/24 12/27/24 12/28/24 23:59 23:59 23:59 23:59 Intake Total 770 898 518 Balance 770 898 518 Meds/Results Medications: Active Medications Generic Name Dose Route Start Last Admin Trade Name Freq PRN Reason Stop Dose Admin Acetaminophen 650 mg 12/27/24 14:58 12/27/24 23:07 Acetaminophen 325 Mg Tablet PO 650 mg Q4H PRN Administration Mild Pain (1-3) or Fever Albuterol/Ipratropium 3 ml 12/26/24 08:00 12/28/24 08:58 Ipratropium 0.5 Mg/Albuterol Sulfate 2.5 Mg (Base) Ampul.Neb 3 Ml INHALATION 3 ml Q4HRT JULIANA Administration Albuterol/Ipratropium 3 ml 12/26/24 16:33 12/26/24 17:30 Ipratropium 0.5 Mg/Albuterol Sulfate 2.5 Mg (Base) Ampul.Neb 3 Ml INHALATION 3 ml Q4HRT PRN Administration Wheezing Atorvastatin Calcium 80 mg 12/26/24 09:00 12/27/24 09:10 Atorvastatin 40 Mg Tablet PO 80 mg DAILY JULIANA Administration Azithromycin 250 mg 12/27/24 09:00 12/27/24 09:10 Azithromycin 250 Mg Tablet PO 12/30/24 09:01 250 mg DAILY JULIANA Administration Clopidogrel Bisulfate 75 mg 12/26/24 09:00 12/27/24 09:10 Clopidogrel Bisulfate 75 Mg Tablet PO 75 mg DAILY JULIANA Administration Dextrose 12.5 gm 12/26/24 06:11 Dextrose 50% 25 Gm/50 Ml Syringe IV PUSH PRN PRN Hypoglycemia Protocol Enoxaparin Sodium 40 mg 12/27/24 09:00 12/27/24 09:11 Enoxaparin 40 Mg/0.4 Ml Syringe SUB-Q 40 mg DAILY JULIANA Administration Glucose 15 gm 12/26/24 06:11 Glucose Oral Gel 15 Gm Of Glucse In 37.5 Gm Tube PO PRN PRN Hypoglycemia Protocol Dextrose 1,000 mls @ 100 mls/hr 12/26/24 06:11 Dextrose 5% 1,000 Ml IVPB PRN PRN Hypoglycemia Protocol Insulin Aspart 2 - 5 units 12/26/24 08:00 12/28/24 08:00 Insulin Aspart (*Bkc) 100 Units/Ml SUB-Q Not Given TIDWM JULIANA Protocol Insulin Aspart 1 - 2 units 12/26/24 21:00 12/27/24 20:26 Insulin Aspart (*Bkc) 100 Units/Ml SUB-Q Not Given HS JULIANA Protocol Lisinopril 40 mg 12/26/24 09:00 12/27/24 09:10 Lisinopril 20 Mg Tablet PO 40 mg DAILY JULIANA Administration Loratadine 10 mg 12/26/24 09:00 12/27/24 09:11 Loratadine 10 Mg Tablet PO 10 mg QAM JULIANA Administration Montelukast Sodium 10 mg 12/26/24 21:00 12/27/24 20:26 Montelukast Sodium 10 Mg Tablet PO 10 mg QHS JULIANA Administration Radiology Results: ITS Impressions Chest X-Ray 12/25/24 20:14 IMPRESSION: 1. No acute cardiopulmonary findings. Chest CTA 12/26/24 07:35 IMPRESSION: 1. No pulmonary embolus. Labs Labs: Laboratory Results - last 24 hr 12/26/24 12/27/24 12/27/24 16:30 11:02 16:07 WBC RBC Hgb Hct MCV MCH MCHC RDW Plt Count MPV Immature Gran % (Auto) Neut % (Auto) Lymph % (Auto) [place] % (Auto) Eos % (Auto) Baso % (Auto) Lymph # (Auto) [place] # (Auto) Eos # (Auto) Baso # (Auto) Abs Immat Gran (auto) Absolute Neuts (auto) Absolute Nucleated RBC Nucleated RBC % POC Capillary Glucose 210 H 117 H Chlamy pneumoniae PCR Not detected Adenovirus (PCR) Not detected B. pertussis DNA (PCR) Not detected B.parapertussis DNA PCR Not detected Coronavirus OC43 (PCR) Not detected Coronavirus HKU1 (PCR) Not detected Coronavirus 229E (PCR) Not detected Coronavirus NL63 (PCR) Not detected Human Metapneumovir PCR Not detected Influenza A (H1) PCR Not detected Influ A (H1) PCR Not detected Influenza A (H3) PCR Not detected Influenza Type A (PCR) Not detected Influenza Type B (PCR) Not detected M. pneumoniae (PCR) Not detected Parainfluenza 1 (PCR) Not detected Parainfluenza 2 (PCR) Not detected Parainfluenza 3 (PCR) Not detected Parainfluenza 4 (PCR) Not detected RSV (PCR) Not detected Entero/Rhino (PCR) Detected A SARS-CoV-2 (PCR) Not detected 12/27/24 12/28/24 12/28/24 20:25 07:23 08:22 WBC 17.9 H RBC 5.15 Hgb 15.0 Hct 45.5 MCV 88.3 MCH 29.1 MCHC 33.0 RDW 13.1 Plt Count 448 H MPV 9.3 Immature Gran % (Auto) 1.9 H Neut % (Auto) 87.3 H Lymph % (Auto) 7.6 L [place] % (Auto) 3.0 Eos % (Auto) 0.0 Baso % (Auto) 0.2 Lymph # (Auto) 1.37 [place] # (Auto) 0.5 Eos # (Auto) 0.0 Baso # (Auto) 0.0 Abs Immat Gran (auto) 0.34 H Absolute Neuts (auto) 15.6 H Absolute Nucleated RBC 0.000 Nucleated RBC % 0.0 POC Capillary Glucose 140 H 122 H Chlamy pneumoniae PCR Adenovirus (PCR) B. pertussis DNA (PCR) B.parapertussis DNA PCR Coronavirus OC43 (PCR) Coronavirus HKU1 (PCR) Coronavirus 229E (PCR) Coronavirus NL63 (PCR) Human Metapneumovir PCR Influenza A (H1) PCR Influ A () PCR Influenza A (H3) PCR Influenza Type A (PCR) Influenza Type B (PCR) M. pneumoniae (PCR) Parainfluenza 1 (PCR) Parainfluenza 2 (PCR) Parainfluenza 3 (PCR) Parainfluenza 4 (PCR) RSV (PCR) Entero/Rhino (PCR) SARS-CoV-2 (PCR)
[2024-12-28 09:06] LABS: Alanine Aminotransferase 43 U/L (6-35); Albumin Level 4.4 g/dL (3.5-5.1); Alkaline Phosphatase 96 U/L (38-126); Anion Gap 11 mmol/L (4-12); Aspartate Amino Transferase 33 U/L (14-36); Bilirubin,Total 0.5 mg/dL (0.2-1.3); Blood Urea Nitrogen 22 mg/dL (7-17); Calcium 9.4 mg/dL (8.4-10.2); Carbon Dioxide 24 mmol/L (22-30); Chloride 102 mmol/L (98-107); Estimated CRCL calculation 59 ml/min; Estimated Glomerular Filt Rate > 60; Glucose 200 mg/dL (65-110); Potassium 4.1 mmol/L (3.4-5.0); Sodium 137 mmol/L (137-145); Total Protein 7.6 g/dL (6.3-8.2)
--- NOTE | 2024-12-28 09:32 | WPDCDIQUERY2 ---
CDI Query Clarification Request Pulmonology: Patient presents now with 6 day history of worsening shortness of breath, cough, wheezing, dyspnea on exertion after leaving her windows open and being exposed to high levels of mold. On 12/25/2023 she had 468 eosinophils per micro L. She denies fever, chills, rigors. Her CT scan of the chest shows no PE and no focal infiltrates. Her procalcitonin is 0.0. ABG on room air 7.49/32/73, there is no evidence of hypercarbic respiratory failure. 12/26/24: Plan: Agree with asthma exacerbation. currently the patient is on Solu-Medrol 60 mg IV q.8 hours. I will change to 40 mg IV q.6 hours. Continue DuoNebs q.4 hours. Patient is on maximal beta agonist and muscarinic antagonists and will discontinue Advair. Continue continue montelukast 10 mg P q.day and loratadine 10 mg q.day. patient has no focal infiltrates on her CT scan so agree with discontinuation of ceftriaxone. I will continue azithromycin for tracheobronchitis. I will send a respiratory pathogen panel looking for other etiologies that could be triggering her asthma. Goal saturation 90-94%, currently she is on room air. 12/27/2024: Patient tells me she has improved. States she is breathing 40% back to her normal. Her cough is better and her phlegm production is about the same. Her dyspnea on exertion when she walks to the bathroom is better. Room air saturations 96%. She is afebrile. Her peak flow is 235. White blood cell count 16.4, creatinine 0.89. She has expiratory wheezes that are diminished in intensity. Plan: Patient is improved and I will decrease her Solu-Medrol from 40 q.6 hours to 20 q.6. Continue DuoNebs q.4 hours, montelukast 10, Claritin 10. I have encouraged her to get out of bed to a chair and to ambulate in the hallways. Continue azithromycin, day 2. 12/28/2024: Patient tells me she is the same as yesterday. She has 40% back to her normal. She still has dyspnea on exertion when walking in the hallway but no rest shortness of breath. Her cough and phlegm production are the same. She still notices wheezing. Room air saturations are 95%. She is afebrile. Respiratory pathogen panel returned positive for rhino virus Plan: patient has an asthma exacerbation precipitated by rhinovirus infection. She has received Solu-Medrol 40 mg IV today (day 4 steroids) and I will discontinue Solu-Medrol now and reassess the patient on 12/29. Continue DuoNebs q.4 hours, montelukast 10 q.day, Claritin 10 q.day. patient is on azithromycin day 3 of 5. Hospitalist:
[2024-12-28] MEDS: MONTELUKAST SODIUM 10 MG TABLET PO (21:10)
[2024-12-29] VITALS (8 sets, daily range): BP systolic 145; BP diastolic 96; PULSE 71–95; RESP 18–20; TEMP 36.6; O2SAT 93–96
[2024-12-29] MEDS: IPRATROPIUM 0.5 MG/ALBUTEROL SULFATE 2.5 MG (BASE) AMPUL.NEB 3 ML INHALATION ×3 (00:28→11:07)
[2024-12-29 08:05] LABS: Hematocrit 44.3 % (37.0-47.0); Hemoglobin 14.3 g/dL (12.0-15.0); Immature Granulocyte Percent A 1.5 % (0-0.5); Lymphocytes Absolute Auto 2.58 K/mm3 (0.9-3.2); Mean Corpuscular HGB Conc 32.3 g/dl (32-36); Mean Corpuscular Hemoglobin 29.2 pg (26-34); Mean Corpuscular Volume 90.4 fl (80-100); Nucleated Red Blood Cells Absolute Auto 0.020 K/mm3 (0.0-0.012); Nucleated Red Blood Cells Perc 0.2 % (0.0-0.2); Platelet Count Result 362 k/mm3 (150-375); Red Blood Count 4.90 M/mm3 (4.2-5.4); White Blood Count 10.8 K/mm3 (4.5-10.0)
--- NOTE | 2024-12-29 08:12 | P.PNPL_ITS ---
Progress Note: A&P Assessment and Plan (1) Acute asthma exacerbation: Code(s): J45.901 - Unspecified asthma with (acute) exacerbation Status: Acute Assessment and Plan: Patient tells me she had asthma from age 7 and remembers being in an oxygen tent as a child. She has been on medicines all her life. Patient was on Symbicort until she lost her insurance in 2022 and since then she has been maintained on montelukast 10 q.day Which she has been on for about 3 years., cetirizine 10 q.day Which she has been on for many yearsand albuterol p.r.n. which she takes about 2 puffs a day. She has an albuterol nebulizer and usually she goes for months without this. At baseline the patient has no respiratory limitations in her activities of daily living. she takes 1 puff rescue albuterol before she walks 2 miles over an hour. This is improved over the last year because she has tried to exercise more. 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 Her baseline peak flows are 300 mL. She can walk 2 miles over 1 hour. Patient presents now with 6 day history of worsening shortness of breath, cough, wheezing, dyspnea on exertion after leaving her windows open and being exposed to high levels of mold. On 12/25/2023 she had 468 eosinophils per micro L. She denies fever, chills, rigors. Her CT scan of the chest shows no PE and no focal infiltrates. Her procalcitonin is 0.0. ABG on room air 7.49/32/73, there is no evidence of hypercarbic respiratory failure. 12/26/24: Plan: Agree with asthma exacerbation. currently the patient is on Solu-Medrol 60 mg IV q.8 hours. I will change to 40 mg IV q.6 hours. Continue DuoNebs q.4 hours. Patient is on maximal beta agonist and muscarinic antagonists and will discontinue Advair. Continue continue montelukast 10 mg P q.day and loratadine 10 mg q.day. patient has no focal infiltrates on her CT scan so agree with discontinuation of ceftriaxone. I will continue azithromycin for tracheobronchitis. I will send a respiratory pathogen panel looking for other etiologies that could be triggering her asthma. Goal saturation 90-94%, currently she is on room air. 12/27/2024: Patient tells me she has improved. States she is breathing 40% back to her normal. Her cough is better and her phlegm production is about the same. Her dyspnea on exertion when she walks to the bathroom is better. Room air saturations 96%. She is afebrile. Her peak flow is 235. White blood cell count 16.4, creatinine 0.89. She has expiratory wheezes that are diminished in intensity. Plan: Patient is improved and I will decrease her Solu-Medrol from 40 q.6 hours to 20 q.6. Continue DuoNebs q.4 hours, montelukast 10, Claritin 10. I have encouraged her to get out of bed to a chair and to ambulate in the hallways. Continue azithromycin, day 2. 12/28/2024: Patient tells me she is the same as yesterday. She has 40% back to her normal. She still has dyspnea on exertion when walking in the hallway but no rest shortness of breath. Her cough and phlegm production are the same. She still notices wheezing. Room air saturations are 95%. She is afebrile. Respiratory pathogen panel returned positive for rhino virus Plan: patient has an asthma exacerbation precipitated by rhinovirus infection. She has received Solu-Medrol 40 mg IV today (day 4 steroids) and I will discontinue Solu-Medrol now and reassess the patient on 12/29. Continue DuoNebs q.4 hours, montelukast 10 q.day, Claritin 10 q.day. patient is on azithromycin day 3 of 5. 12/29/24: Patient feels better today. She tells me that she is 60 70% back to her normal. She has no rest shortness of breath. She walked around the nurse's station twice yesterday and her dyspnea on exertion is improved. She has phlegm that is sometimes is difficult to expectorate. She has no hemoptysis. Room air saturation 96%. she is afebrile. White blood cell count 10.8. She has no wheezing on exam. She tells me she feels that she is ready for discharge today. for her asthma I would discharge her on Corrina steps 1-2 with as needed low-dose ICS-formoterol From a pulmonary perspective patient is ready to be discharged on these pulmonary medicines. Azithromycin 250 mg p.o. q.day x1 day Prednisone 40 mg p.o. q.day x5 days. I have told the patient if she continues to improve not to take this prednisone burst but that if she develops worsening symptoms she should initiate the prednisone. Symbicort 160-4.5 at 1 puff q.4 hours p.r.n. shortness of breath or wheezing Guaifenesin 1200 mg p.o. b.i.d. p.r.n. congestion Montelukast 10 mg p.o. q.day Claritin 10 mg p.o. q.day patient tells me she cannot be seen in our clinic because of her insurance and she will follow-up with her PCP. Discussed with Dr. Ha, Will sign off, call with questions. Subjective Date/time seen: 12/29/24 08:12 Interval history: 12/26/2024: This is a new pulmonary consult for asthma exacerbation. 54-year-old female with history of asthma, hypertension, hypercholesterolemia, diabetes, CAD status post stents Previously followed in the [facility] in last seen on 10/26/2022. This is a copy of the note Asthma Details: 5 month follow-up regarding asthma. Hx status asthmaticus September 2021 with acute respiratory failure, intubated, paralyzed; she was extremely sick. Patient reports her asthma has been stable. No ER visits. She is maintained on Symbicort 160, Duonebs. Feels Symbicort helps. Rescue use is 2-3x/week. Hasn't needed to use nebulizer. OWUSU mild but stable. Denies cough, wheezing, chest pains/tightness, or nighttime asthma symptoms. Peak flows: 370-550s, avg 450. This is better than last visit. Triggers: hot air, dogs, sometimes fragrances such as candles. ACT score 21/25. She is planning to vacation in a couple week to [facility]. NIOX: was 25 parts per billion. Same as last visit. Plan: Continue Symbicort 162 inhalations b.i.d., and DuoNebs p.r.n. and albuterol p.r.n.. Avoid triggers follow-up 6-12 months. Obesity, weight 223 lb weight loss was recommended. 05/20/2024: ED visit for asthma attack. One day shortness of breath, using albuterol more than usual, diffuse wheezing. Room air saturations 97%. Chest x-ray without acute abnormality. Given nebulizer, Solu-Medrol, magnesium and discharged home with prednisone burst of 40 mg x 4 days. patient tells me she had asthma from age 7 and remembers being in an oxygen tent as a child. She has been on medicines all her life. Patient was on Symbicort until she lost her insurance in 2022 and since then she has been maintained on montelukast 10 q.day Which she has been on for about 3 years., cetirizine 10 q.day Which she has been on for many yearsand albuterol p.r.n. which she takes about 2 puffs a day. She has an albuterol nebulizer and usually she goes for months without this. At baseline the patient has no respiratory limitations in her activities of daily living. she takes 1 puff rescue albuterol before she walks 2 miles over an hour. This is improved over the last year because she has tried to exercise more. 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 Her baseline peak flows are 300 mL. She can walk 2 miles over 1 hour. triggers include dust, upper respiratory infections, pollen, mold, sinusitis. She had a previous RAST blood test that was positive for dust mites, cat, dog, cockroach. She does have 2 cats and has had cats all her life. Patient was intubated in 2021. She had no exacerbations between 2021 and May of 2024. Her current illness started on 12/20/2024. She had the windows open and t here was a high mold count. She started sneezing and took extra Zyrtec for 48 hours with no help, extra Mucinex for 48 hours which did not help. She had no fever or hemoptysis but phlegm production, worsening shortness of breath such that she could only walk across the room and wheezing. Symptoms progressed and on 12/24/2024: ED visit for shortness of breath and cough precipitated by high-power all in counts. Treated with nebulizer but symptoms persisted and presented to ED. Extensive wheezing all lung carrillo. Saturations 97 on room air. White blood cell count 10.4, eosinophils 4.5%=468/uL. Patient treated with steroids, bronchodilators and discharged on prednisone 40 mg p.o. x4 days. 12/25/2024: Patient presented with shortness of breath. No improvement with. They Jose is from the day prior. Cough is productive of clear sputum blood pressure 168/99, heart rate 107, respirations 26, saturations 96% on room air. Scattered wheezes. White blood cell count 14.8, eosinophils 0%, creatinine 0.87, BNP 225, troponin negative, influenza COVID and RSV RT PCR negative. ABG on room air 7.49/32/73. treated for asthma exacerbation with Solu-Medrol, ceftriaxone and azithromycin, bronchodilators. 12/26/2024: patient had a CT angiogram of the chest was negative for pulmonary embolism, minimal atelectasis right upper lobe. No pleural effusions, no focal consolidations. Currently the patient tells me she is a little bit better, maybe 10% back to her baseline. she says that the cough is the same. She has inspiratory and expiratory wheezes, she is afebrile. she is on room air with saturations 94%. White White blood cell count 11.4, eosinophils 0%, creatinine 0.84, procalcitonin 0.0. Peak flow today is 220. She has inspiratory and expiratory wheezes. 12/27/2024: Patient tells me she has improved. States she is breathing 40% back to her normal. Her cough is better and her phlegm production is about the same. Her dyspnea on exertion when she walks to the bathroom is better. Room air saturations 96%. She is afebrile. Her peak flow is 235. White blood cell count 16.4, creatinine 0.89. She has expiratory wheezes that are diminished in intensity. 12/28/2024: Patient tells me she is the same as yesterday. She has 40% back to her normal. She still has dyspnea on exertion when walking in the hallway but no rest shortness of breath. Her cough and phlegm production are the same. She still notices wheezing. Room air saturations are 95%. She is afebrile. Respiratory pathogen panel returned positive for rhino virus. 12/29/24: Patient feels better today. She tells me that she is 60 70% back to her normal. She has no rest shortness of breath. She walked around the nurse's station twice yesterday and her dyspnea on exertion is improved. She has phlegm that is sometimes is difficult to expectorate. She has no hemoptysis. Room air saturation 96%. she is afebrile. White blood cell count 10.8. She has no wheezing on exam. She tells me she feels that she is ready for discharge today. DATA: Alpha 1 PIMM PFT 11/11/21 - There is a moderately severe obstructive abnormality with significant improvement after inhaling a single dose of albuterol. The increase in residual volume is consistent with air trapping from an obstructive abnormality.? Hyperinflation is present as demonstrated by the increase in functional residual capacity and total lung capacity and is consistent with an obstructive abnormality. The diffusing capacity is normal. 6mw no O2 needed 09/22/2021 - CXR:?ET and NG tubes have been removed since 09/22/2019. Right upper?extremity PIC catheter tip overlies superior vena cava. No pulmonary infiltrate or consolidation, pleural effusion or pulmonary vascular congestion or pneumothorax. Normal heart size.?IMPRESSION: Removal of ET and NG tubes; no active cardiopulmonary disease? 09/26/2021 - Mod barium swallow -??Patient tolerated regular consistency oral feedings in the upright position.? Please correlate with speech pathologist findings and specific feeding recommendations.? Subtle increased soft tissue density project over the region of the piriform sinuses which based on prior CT appears to result from relatively symmetric swelling along the aryepiglottic folds but with normal-appearing epiglottis. There is may reflect response to recent intubation. Echo 08/09/19 - EF 65-70%, grade I diastolic dysfunction, no pulmHTN. RAST panel 04/24/2019 showing + to dust mites (high), cat (very high), dog (very high), cockroach (low), mouse (low); IgE 87 normal. Review of Systems Constitutional: Constitutional: Reports no additional constitutional complaints Eyes: Eyes: Reports no additional eye complaints ENT: Reports system reviewed and no additional complaints, except as documented Cardiovascular: Cardiovascular: Reports no additional cardiovascular complaints Respiratory: Respiratory: Reports no additional respiratory complaints Gastrointestinal: Gastrointestinal: Reports no additional gastrointestinal complaints Musculoskeletal: Musculoskeletal: Reports no additional musculoskeletal complaints Neurologic: Reports system reviewed and no additional complaints, except as documented Psychiatric: Psychiatric: Reports no additional psychiatric complaints Endocrine: Endocrine: Reports no additional endocrine complaints Hematologic/Lymphatic: Hematologic/Lymphatic: Reports no additional hematologic/lymphatic complaints Allergic/Immunologic: Allergic/Immunologic: Reports no additional allergic/immunologic complaints Exam Const: General: cooperative, healthy appearing, comfortable and no acute distress Orientation/consciousness: oriented to person, oriented to place and oriented to time Other: obese HENMT: Head: normal to inspection Ears: hearing grossly normal bilaterally Eyes: General: appearance normal, both eyes and all related structures Neck: Neck: normal visual inspection Chest: Chest palpation & inspection: normal inspection of the chest Resp: Effort & Inspection: normal respiratory effort and able to speak in complete sentences Auscultation: no crackles, no rales, no rhonchi, no wheezes and lung sounds not diminished Cardio: Jugular venous distension: no JVD GI: Inspection: normal to inspection Skin: General skin exam: normal color Neuro: General: oriented to person, oriented to place and oriented to time Extrem: General: normal to inspection and no edema Psych: Appearance: grossly normal Objective Data Vital Signs Vital Signs: Vital Signs - 24 hr 12/28/24 09:01 12/28/24 09:08 12/28/24 09:09 Temperature Pulse Rate 92 81 92 Respiratory Rate 19 19 19 Blood Pressure Pulse Oximetry 91 Oxygen Delivery Room Air 12/28/24 12:09 12/28/24 12:14 12/28/24 14:00 Temperature 35.9 C L Pulse Rate 87 76 92 Respiratory Rate 20 20 20 Blood Pressure 158/91 H Pulse Oximetry 95 Oxygen Delivery 12/28/24 16:34 12/28/24 16:44 12/28/24 20:00 Temperature Pulse Rate 77 71 Respiratory Rate 20 20 Blood Pressure Pulse Oximetry Oxygen Delivery Room Air 12/28/24 20:55 12/28/24 21:03 12/28/24 21:54 Temperature 36.4 C L Pulse Rate 76 72 84 Respiratory Rate 20 20 20 Blood Pressure 149/99 H Pulse Oximetry 94 Oxygen Delivery 12/29/24 00:28 12/29/24 00:39 12/29/24 06:00 Temperature 36.6 C Pulse Rate 71 75 73 Respiratory Rate 20 20 18 Blood Pressure 145/96 H Pulse Oximetry 96 Oxygen Delivery 12/29/24 08:06 12/29/24 08:07 Temperature Pulse Rate 95 Respiratory Rate 20 Blood Pressure Pulse Oximetry 93 Oxygen Delivery Room Air Intake/Output Intake/Output: Intake & Output 12/26/24 12/27/24 12/28/24 12/29/24 23:59 23:59 23:59 23:59 Intake Total 371 555 0993 500 Balance 152 611 6854 500 Meds/Results Medications: Active Medications Generic Name Dose Route Start Last Admin Trade Name Freq PRN Reason Stop Dose Admin Acetaminophen 650 mg 12/27/24 14:58 12/28/24 12:03 Acetaminophen 325 Mg Tablet PO 650 mg Q4H PRN Administration Mild Pain (1-3) or Fever Albuterol/Ipratropium 3 ml 12/26/24 08:00 12/29/24 08:07 Ipratropium 0.5 Mg/Albuterol Sulfate 2.5 Mg (Base) Ampul.Neb 3 Ml INHALATION 3 ml Q4HRT JULIANA Administration Albuterol/Ipratropium 3 ml 12/26/24 16:33 12/26/24 17:30 Ipratropium 0.5 Mg/Albuterol Sulfate 2.5 Mg (Base) Ampul.Neb 3 Ml INHALATION 3 ml Q4HRT PRN Administration Wheezing Atorvastatin Calcium 80 mg 12/26/24 09:00 12/28/24 09:04 Atorvastatin 40 Mg Tablet PO 80 mg DAILY JULIANA Administration Azithromycin 250 mg 12/27/24 09:00 12/28/24 09:04 Azithromycin 250 Mg Tablet PO 12/30/24 09:01 250 mg DAILY JULIANA Administration Clopidogrel Bisulfate 75 mg 12/26/24 09:00 12/28/24 09:04 Clopidogrel Bisulfate 75 Mg Tablet PO 75 mg DAILY JULIANA Administration Dextrose 12.5 gm 12/26/24 06:11 Dextrose 50% 25 Gm/50 Ml Syringe IV PUSH PRN PRN Hypoglycemia Protocol Enoxaparin Sodium 40 mg 12/27/24 09:00 12/28/24 09:05 Enoxaparin 40 Mg/0.4 Ml Syringe SUB-Q 40 mg DAILY JULIANA Administration Glucose 15 gm 12/26/24 06:11 Glucose Oral Gel 15 Gm Of Glucse In 37.5 Gm Tube PO PRN PRN Hypoglycemia Protocol Dextrose 1,000 mls @ 100 mls/hr 12/26/24 06:11 Dextrose 5% 1,000 Ml IVPB PRN PRN Hypoglycemia Protocol Insulin Aspart 2 - 5 units 12/26/24 08:00 12/28/24 17:00 Insulin Aspart (*Bkc) 100 Units/Ml SUB-Q Not Given TIDWM JULIANA Protocol Insulin Aspart 1 - 2 units 12/26/24 21:00 12/28/24 21:14 Insulin Aspart (*Bkc) 100 Units/Ml SUB-Q Not Given HS JULIANA Protocol Lisinopril 40 mg 12/26/24 09:00 12/28/24 09:04 Lisinopril 20 Mg Tablet PO 40 mg DAILY JULIANA Administration Loratadine 10 mg 12/26/24 09:00 12/28/24 09:04 Loratadine 10 Mg Tablet PO 10 mg QAM JULIANA Administration Montelukast Sodium 10 mg 12/26/24 21:00 12/28/24 21:10 Montelukast Sodium 10 Mg Tablet PO 10 mg QHS JULIANA Administration Radiology Results: ITS Impressions Chest X-Ray 12/25/24 20:14 IMPRESSION: 1. No acute cardiopulmonary findings. Chest CTA 12/26/24 07:35 IMPRESSION: 1. No pulmonary embolus. Labs Labs: Laboratory Results - last 24 hr 12/28/24 12/28/24 12/28/24 08:22 11:48 16:50 WBC 17.9 H RBC 5.15 Hgb 15.0 Hct 45.5 MCV 88.3 MCH 29.1 MCHC 33.0 RDW 13.1 Plt Count 448 H MPV 9.3 Immature Gran % (Auto) 1.9 H Neut % (Auto) 87.3 H Lymph % (Auto) 7.6 L [place] % (Auto) 3.0 Eos % (Auto) 0.0 Baso % (Auto) 0.2 Lymph # (Auto) 1.37 [place] # (Auto) 0.5 Eos # (Auto) 0.0 Baso # (Auto) 0.0 Abs Immat Gran (auto) 0.34 H Absolute Neuts (auto) 15.6 H Absolute Nucleated RBC 0.000 Nucleated RBC % 0.0 Sodium 137 Potassium 4.1 Chloride 102 Carbon Dioxide 24 Anion Gap 11 BUN 22 H Creatinine 0.95 Estim Creat Clear Calc 59 Estimated GFR > 60 Glucose 200 H POC Capillary Glucose 110 H 87 Calcium 9.4 Total Bilirubin 0.5 AST 33 ALT 43 H Alkaline Phosphatase 96 Total Protein 7.6 Albumin 4.4 12/28/24 12/29/24 12/29/24 21:13 07:26 07:56 WBC 10.8 H RBC 4.90 Hgb 14.3 Hct 44.3 MCV 90.4 MCH 29.2 MCHC 32.3 RDW 13.2 Plt Count 362 MPV 9.1 Immature Gran % (Auto) 1.5 H Neut % (Auto) 64.8 Lymph % (Auto) 24.0 [place] % (Auto) 7.9 Eos % (Auto) 1.5 Baso % (Auto) 0.3 Lymph # (Auto) 2.58 [place] # (Auto) 0.9 H Eos # (Auto) 0.2 Baso # (Auto) 0.0 Abs Immat Gran (auto) 0.16 H Absolute Neuts (auto) 7.0 H Absolute Nucleated RBC 0.020 H Nucleated RBC % 0.2 Sodium Potassium Chloride Carbon Dioxide Anion Gap BUN Creatinine Estim Creat Clear Calc Estimated GFR Glucose POC Capillary Glucose 100 89 Calcium Total Bilirubin AST ALT Alkaline Phosphatase Total Protein Albumin
[2024-12-29 08:25] LABS: Alanine Aminotransferase 37 U/L (6-35); Albumin Level 3.8 g/dL (3.5-5.1); Alkaline Phosphatase 82 U/L (38-126); Anion Gap 6 mmol/L (4-12); Aspartate Amino Transferase 30 U/L (14-36); Bilirubin,Total 0.4 mg/dL (0.2-1.3); Blood Urea Nitrogen 27 mg/dL (7-17); Calcium 8.7 mg/dL (8.4-10.2); Carbon Dioxide 26 mmol/L (22-30); Chloride 106 mmol/L (98-107); Estimated CRCL calculation 58 ml/min; Estimated Glomerular Filt Rate 60; Glucose 88 mg/dL (65-110); Potassium 4.1 mmol/L (3.4-5.0); Sodium 138 mmol/L (137-145); Total Protein 6.6 g/dL (6.3-8.2)
[2024-12-29] MEDS: AZITHROMYCIN 250 MG TABLET PO (10:03)
[2024-12-29] MEDS: CLOPIDOGREL BISULFATE 75 MG TABLET PO (10:04)
[2024-12-29] MEDS: ATORVASTATIN 40 MG TABLET 80 MG PO (10:04)
[2024-12-29] MEDS: LORATADINE 10 MG TABLET PO (10:04)
[2024-12-29] MEDS: ENOXAPARIN 40 MG/0.4 ML SYRINGE SUB-Q (10:05)
--- NOTE | 2024-12-29 11:43 | P.DS_ITS ---
DS: Admitting Diagnosis Discharge Date 12/29/2024 Admitting Diagnosis asthma exacerbation, shortness of breath DS: Discharge Diagnosis Discharge Diagnosis (1) Acute asthma exacerbation: Code(s): J45.901 - Unspecified asthma with (acute) exacerbation Status: Acute Assessment and Plan: * Quad viral screen negative on admission. ProBNP 225, ABG demonstrating pH 7.49, pCO2 32, PO2 73, bicarb 24.1. WBC 14.8. * Chest x-ray without acute findings. * CTA chest does not reveal PE, preliminary read reported right lower lobe peripheral nodular infiltrate, official radiology interpretation and my personal review with no infiltrates. Procal 0 and afebrile. Leukocytosis likely secondary to steroids. Monitor off antibiotics for now. * patient reported her baseline peak flow is around 300. Peak flow is improving. Continue to monitor peak flow before and after nebs. * continue scheduled Duonebs, IV steroids. Started Symbicort. * patient previously followed with Dr. Bland, but lost insurance coverage. * Pulm consulted * Continue DuoNebs q.4 hours, montelukast 10, Claritin 10 * Continue/encourage ambulation around department * Discontinue Solu-Medrol 40 mg IV (2) Leukocytosis: Code(s): D72.829 - Elevated white blood cell count, unspecified Status: Acute Assessment and Plan: * WBC 11.4 -> 17.9, likely due to steroids * blood cultures pending (3) Hypertension: Code(s): I10 - Essential (primary) hypertension Status: Acute Assessment and Plan: * BP 144/88 * continue home lisinopril. Metoprolol held on admission due to concerns for bronchospasm. (4) Hypercholesterolemia: Code(s): E78.00 - Pure hypercholesterolemia, unspecified Status: Acute Assessment and Plan: * continue statin (5) Diabetes: Code(s): E11.9 - Type 2 diabetes mellitus without complications Status: Acute Assessment and Plan: * hold metformin * continue low dose SSI * monitor glucose ACHS * hypoglycemia protocol (6) Coronary artery disease: Code(s): I25.10 - Atherosclerotic heart disease of [place] coronary artery without angina pectoris Status: Acute Assessment and Plan: - history of stent - continue Plavix, statin Plan Code status: full code DVT prophylaxis: Lovenox Dispo: home in 1-2 days pending improvement DS: Summary Hospital Course Reason for hospitalization: shortness of breath Hospital Course: Per HPI: 54-year-old female with history of asthma, hypertension, hypercholesterolemia, diabetes, CAD status post stents presented to [facility] ER on 12/25/2024 complaining of shortness of breath. She was seen in the ER just a day prior received a steroid pulse dose, she was discharged. Her shortness of breath has been getting progressively worse. She only has a rescue inhaler and rescue nebulizers at home which she has been using multiple times without much relief. She has a cough productive of clear sputum, reports she always has a cough with asthma attack. However, she reports her last attack was in 2021, she was intubated. Since then she has not been following up with pulmonology due to insurance switching over and being relatively controlled. She was seeing Hector Zhang, nurse practitioner and Dr. Bland. Remote history of smoking, no construction or dust exposure. She has had a cat at home for a very long time. Patient had allergies in the past few weeks with stuffy nose and sneezing, those have resolved. Quad viral screen negative on admission. ProBNP 225, ABG demonstrating pH 7.49, pCO2 32, PO2 73, bicarb 24.1. WBC 14.8. Chest x-ray without acute findings. CTA chest does not reveal PE, reported right lower lobe peripheral nodular infiltrate, official radiology interpretation pending. She was given Solu- Medrol 125 mg IV x1, multiple DuoNeb, azithromycin and ceftriaxone. Status post these treatments she remained tachypneic and short of breath on exertion. Lung exam reveals coarse breath sounds and expiratory wheeze. She otherwise has no complaints. Pulmonology consulted on 12/26 regarding acute asthma exacerbation. Patient was started on Solu-Medrol 60 mg IV q.8 hours, this was changed to 40 mg IV q.6 hours. Recommended continuing DuoNebs q.4 hours, montelukast 10 mg p.o. daily and loratadine 10 mg daily. No focal infiltrates seen on CT scan so will discontinue ceftriaxone but will continue azithromycin for tracheobronchitis. Respiratory pathogen panel was obtained and showed growth of rhino virus. This could be explanation for cause of acute asthma exacerbation. Patient's symptoms continued to improve throughout hospitalization and patient continued to am bulate throughout the department with steady improvement. She remained off O2 supplementation throughout hospitalization and remained afebrile without leukocytosis. Blood work has remained stable as well and on 12/29 her lung carrillo sounded clear to auscultation. She states that she feels 60-70% back to normal, continues to have no shortness of breath at rest, has no hemoptysis and has an O2 O2 saturation 96%. On 12/29 she feels that she is ready for discharge and pulmonology agrees for discharge from pulmonology standpoint at this point. They recommend the following discharge instructions: Azithromycin 250 mg p.o. q.day x1 day Prednisone 40 mg p.o. q.day x5 days. I have told the patient if she continues to improve not to take this prednisone burst but that if she develops worsening symptoms she should initiate the prednisone. Symbicort 160-4.5 at 1 puff q.4 hours p.r.n. shortness of breath or wheezing Guaifenesin 1200 mg p.o. b.i.d. p.r.n. congestion Montelukast 10 mg p.o. q.day Claritin 10 mg p.o. q.day Plan for discharge home at this time. Status at Discharge Functional status at discharge: independent ambulation Overall status at discharge: patient is back to baseline Time Spent with Patient Time attestation: Total time spent providing and/or coordinating discharge services: 34 Exam Narrative: General: NAD Eyes: EOMI ENT: neck supple Cardiovascular: Regular rate and rhythm Respiratory: No rales, crackles, wheezing or rhonchi on exam. Lung carrillo are not diminished. Respirations even and unlabored on RA. Speaking in full sentences Gastrointestinal: Soft, non tender Genitourinary: no suprapubic tenderness Musculoskeletal: No edema Skin: warm, dry Neuro: Alert. Psych: Mood appropriate Const: General: comfortable and no acute distress Other: A&O x3 HENMT: Mouth: Yes moist mucous membranes Eyes: Pupils: Equal, round and reactive pupils present Neck: Neck: supple Resp: Effort & Inspection: normal respiratory effort Auscultation: clear to auscultation bilaterally Cardio: Rate: regular rate Rhythm: regular rhythm Heart sounds: no murmurs GI: Inspection: non-distended Neuro: Cranial nerves: Yes Equal, round and reactive pupils present Motor exam (neuro): 5/5 motor strength present throughout Extrem: General: no edema DS: Data Data Completed and Pending Labs on day of discharge: Labs from last 24 hours 12/29/24 12/29/24 12/28/24 07:56 07:26 21:13 WBC 10.8 H RBC 4.90 Hgb 14.3 Hct 44.3 MCV 90.4 MCH 29.2 MCHC 32.3 RDW 13.2 Plt Count 362 MPV 9.1 Immature Gran % (Auto) 1.5 H Neut % (Auto) 64.8 Lymph % (Auto) 24.0 Cavalier % (Auto) 7.9 Eos % (Auto) 1.5 Baso % (Auto) 0.3 Lymph # (Auto) 2.58 Cavalier # (Auto) 0.9 H Eos # (Auto) 0.2 Baso # (Auto) 0.0 Abs Immat Gran (auto) 0.16 H Absolute Neuts (auto) 7.0 H Absolute Nucleated RBC 0.020 H Nucleated RBC % 0.2 Sodium 138 Potassium 4.1 Chloride 106 Carbon Dioxide 26 Anion Gap 6 BUN 27 H Creatinine 0.97 Estim Creat Clear Calc 58 Estimated GFR 60 Glucose 88 POC Capillary Glucose 89 100 Calcium 8.7 Total Bilirubin 0.4 AST 30 ALT 37 H Alkaline Phosphatase 82 Total Protein 6.6 Albumin 3.8 12/28/24 12/28/24 16:50 11:48 WBC RBC Hgb Hct MCV MCH MCHC RDW Plt Count MPV Immature Gran % (Auto) Neut % (Auto) Lymph % (Auto) Cavalier % (Auto) Eos % (Auto) Baso % (Auto) Lymph # (Auto) Cavalier # (Auto) Eos # (Auto) Baso # (Auto) Abs Immat Gran (auto) Absolute Neuts (auto) Absolute Nucleated RBC Nucleated RBC % Sodium Potassium Chloride Carbon Dioxide Anion Gap BUN Creatinine Estim Creat Clear Calc Estimated GFR Glucose POC Capillary Glucose 87 110 H Calcium Total Bilirubin AST ALT Alkaline Phosphatase Total Protein Albumin Preliminary micro results at discharge 12/26/24 02:22 Blood Culture - Preliminary Blood 12/26/24 02:22 Blood Culture - Preliminary Blood Discharge Plan Discharge Attending physician on discharge: Zaid Javier Consulting providers: Riri Betancourt; Manuelito Motley; Viet Ha Discharging Clinician: Viet Ha Anticipated Discharge Date/Time: 12/29/24 11:36 Patient Disposition: Home Activity: no straining Diet: regular Discharge Instructions: Discharge disposition: Home Take medications as prescribed. You will be prescribed azithromycin 250 mg to be taken for 1 day, 40 mg prednisone the to be taken once daily (patient has been instructed to not take if she continues to improve), Symbicort for shortness of breath as needed, Guaifenesin 1200mg twice daily for congestion. Continue Montelukast 10mg daily and Claritin 10mg daily. Monitor blood pressures Take caution while standing, rising, or moving Change positions slowly taking a break between each position change If you standing feel dizzy sit back down and take a break Encouraged to continue with yearly vaccinations Return to the emergency department if you develop sudden shortness of breath, chest pain, nausea, vomiting, upset stomach or intractable diarrhea Return to the emergency department if you develop fever greater than 101.5 Follow-up with the primary care physician within 1-2 weeks Thank you for [facility] for your healthcare needs Patient Instructions: Antibiotic Form Patient Language: Samoan Stand Alone Forms: General Discharge Information Follow-up/Referrals: Stephane,Kalin Espinoza MD [Primary Care Provider] Discharge Medications: New azithromycin [Zithromax] 250 mg Tablet 250 mg PO DAILY Qty: 2 0RF budesonide-formoterol [Symbicort] 160-4.5 mcg/actuation HFA aerosol inhaler 1 puff inhalation Q4-5H Qty: 10.2 0RF prednisone 20 mg tablet 40 mg PO DAILY 5 Days Qty: 10 0RF Continued ipratropium-albuterol 0.5 mg-3 mg(2.5 mg base)/3 mL solution for nebulization 3 ml inhalation QID PRN (Reason: shortness of breath) clopidogrel 75 mg tablet 75 mg PO DAILY metformin 500 mg tablet extended release 24 hr 1,000 mg PO QPM montelukast 10 mg tablet 10 mg PO QPM lisinopril 40 mg tablet 40 mg PO DAILY cetirizine 10 mg tablet 10 mg PO DAILY atorvastatin 40 mg tablet 80 mg PO DAILY metoprolol succinate 25 mg tablet extended release 24 hr 25 mg PO DAILY albuterol sulfate [Ventolin HFA] 90 mcg/actuation HFA aerosol inhaler 2 puff INHALATION Q4-6H PRN (Reason: shortness of breath or wheezing) Qty: 18 2RF Date of admission: 12/27/24 08:48 Primary Care Provider: MarekKalin Admitting Provider: Kendra Stallings Attending physician on admission: Kendra Stallings Condition: Stable Quality VTE Prophylaxis VTE prophylaxis: pharmacologic ordered
== END 2024-12-29 15:44 | disposition home or self-care (01) | DRG 203 ==
LOC: ANHED 23:50 → ANH3MEDSUR 12-26 02:27
PROVIDERS: Internal Medicine Pulmonary Disease; Physician Assistant; Admitting Provider General Practice; Emergency Provider Emergency Medicine; PCP Family Medicine; Visit Provider Physician Assistant
DX: J45.41 Moderate persistent asthma with (acute) exacerbation (principal); B97.89 Other viral agents as the cause of diseases classified elsewhere; D64.9 Anemia, unspecified; E11.9 Type 2 diabetes mellitus without complications; I25.10 Atherosclerotic heart disease of native coronary artery without angina pectoris; I10 Essential (primary) hypertension; D72.829 Elevated white blood cell count, unspecified; D72.828 Other elevated white blood cell count; T38.0X5A Adverse effect of glucocorticoids and synthetic analogues, initial encounter; E78.00 Pure hypercholesterolemia, unspecified; Z87.891 Personal history of nicotine dependence; Z95.5 Presence of coronary angioplasty implant and graft
CPT/HCPCS: 36415; 36600; 71046; 71275; 80048; 80053; 82805; 82948; 83735; 83880; 84145; 84484; 85018; 85025; 85610; 87040; 87637; 93005; 94640; 96365; 96374; 96375; 96376; 99285; A9270; G0378; J0456; J0696; J1650; J1815; J2919; J3475; J7050; Q9967

== ENCOUNTER 2025-02-25 15:33 | Inpatient (IN) | payer OTHER, SELFPAY ==
[2025-02-25] VITALS (30 sets, daily range): BP systolic 114–167; BP diastolic 67–102; PULSE 74–111; RESP 17–39; TEMP 36.8; O2SAT 94–100
--- NOTE | ~2025-02-25 | XR_ITS ---
EXAMINATION: XR chest 1V portable COMPARISON: No comparisons available. HISTORY: SUSIE, h/o asthma FINDINGS: The lungs are clear, no effusion. No pneumothorax. Heart is normal size. Mediastinal and hilar contours are within normal limits. Bony thorax no acute abnormality. Miscellaneous: None Impression: No acute cardiopulmonary abnormality. Reviewed, dictated and finalized at location P. [facility] SPECIALIST Impression: No acute cardiopulmonary abnormality.
--- NOTE | ~2025-02-25 | CT_ITS ---
EXAMINATION: CTA chest PE protocol DATE: 02/28/2025 12:03 INDICATION: Rule out PE TECHNIQUE: Computed tomography angiography (CTA) of the chest was performed with 100 mL Omnipaque-350 intravenous contrast timed to evaluate the pulmonary arteries. Coronal maximum intensity projection 3D-reconstructions were created by the technologist. The dose-length product was 553.40 mGy-cm. COMPARISON: December 26, 2024 FINDINGS: No PE or thoracic aortic aneurysm/dissection. Heart size normal with no significant pericardial effusion. Coronary artery calcifications noted. No bulky lymphadenopathy. The lungs are clear. The bones intact. No acute process seen in the visualized upper abdomen or extrathoracic soft tissues. IMPRESSION: 1. No pulmonary emboli. Stable exam compared to December 26. Reviewed, dictated and finalized at location [facility]
[2025-02-25] MEDS: IPRATROPIUM BR 0.02% INH SOLN 0.5 MG/2.5 ML VIAL 1 MG INHALATION (15:56)
[2025-02-25] MEDS: ALBUTEROL SULFATE NEB 2.5 MG/3 ML INH 10 MG INHALATION (15:56)
[2025-02-25] MEDS: LACTATED RINGERS 1,000 ML 999 ML IV CONT (16:02)
[2025-02-25] MEDS: MAGNESIUM SULF 2 GM/WATER 50ML 2 GM/50 ML BAG IVPB (16:04)
[2025-02-25 16:08] LABS: Hematocrit 43.0 % (37.0-47.0); Hemoglobin 14.2 g/dL (12.0-15.0); Immature Granulocyte Percent A 0.6 % (0-0.5); Lymphocytes Absolute Auto 1.01 K/mm3 (0.9-3.2); Mean Corpuscular HGB Conc 33.0 g/dl (32-36); Mean Corpuscular Hemoglobin 29.2 pg (26-34); Mean Corpuscular Volume 88.3 fl (80-100); Nucleated Red Blood Cells Absolute Auto 0.000 K/mm3 (0.0-0.012); Nucleated Red Blood Cells Perc 0.0 % (0.0-0.2); Platelet Count Result 389 k/mm3 (150-375); Red Blood Count 4.87 M/mm3 (4.2-5.4); White Blood Count 12.4 K/mm3 (4.5-10.0)
[2025-02-25 16:24] LABS: Anion Gap 9 mmol/L (4-12); Blood Urea Nitrogen 10 mg/dL (7-17); Calcium 9.9 mg/dL (8.4-10.2); Carbon Dioxide 21 mmol/L (22-30); Chloride 108 mmol/L (98-107); Estimated CRCL calculation 62 ml/min; Estimated Glomerular Filt Rate > 60; Glucose 188 mg/dL (65-110); Potassium 4.0 mmol/L (3.4-5.0); Sodium 138 mmol/L (137-145)
--- OUTSIDE RECORDS SUMMARY | 2025-02-25 16:56 | XMS_ITS | Encounter Summary ---
Author Organization [facility] Address [facility] [place] [address] Care Team Providers Care Ornamental Metal Worker Name Role Phone Kasi Zapata Primary Care Provider Salima Sanchez MD Primary Care Provider [phone] Kalin Jara MD Primary Care Provider [phone] Encounter Details Date Type Department Care Team (Late st Contact Info) Description 06/02/2023 Abstract [facility] [address] Aleisha Hernandes MA Social History Tobacco Use [...] Final Result * LIPID PANEL (01/29/2023) Pathologist [facility] CHOLESTEROL 178 TRIGLYCERIDES 289 HDL 51 LDL (CALCULATED) 114 us Default History Genericprovider LABORATORY Final Result * CBC, MANUAL DIFF (01/29/2023) Pathologist [facility] WBC 7.6 HGB 14.2 HCT 44.0 PLT 345 us Default History Genericprovider LABORATORY Final Result * HEMOGLOBIN, GLYCOSYLATED (01/29/2023) Pathologist [facility] HGB A1C 5.5 % us Default History Genericprovider LABORATORY Final Result * VITAMIN D, 25 OH (10/30/2022) VITAMIN D 25 HYDROXY S/P/B 36.3 10/30/2022 us Default History Genericprovider LABORATORY Final Result documented in this encounter Visit Diagnoses Not on filedocumented in this encounter Care Teams Ornamental Metal Worker Relationship Specialty Start Date End Date Kasi Zapata PA PCP - General PHYSICIAN DEVELOPING MACHINE OPERATOR 08/01/18 12/20/23 Sailma Sanchez MD [address] [facility] [address] [place] [address] PCP - General FAMILY PRACTICE 12/21/23 01/20/24 Kalin Jara MD [address] [phone] PCP - General FAMILY PRACTICE 01/21/24 documented as of this encounter
--- OUTSIDE RECORDS SUMMARY | 2025-02-25 16:56 | XMS_ITS | Continuity of Care Document ---
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 Diabetes, I will check A1c before follow-up. Hypertension, blood pressure is well-controlled. Continue with lisinopril. Wheezing , I recommended her to decrease metoprolol ER to 12.5 mg p.o. daily. I will see her again in 6 months check lipid profile, CMP and CBC before follow-up. February 01, 2025: Coronary artery disease , stable no symptoms of angina. She exercise without any symptoms continue with the Plavix along with statin. Hyperlipidemia , LDL is at goal continue with atorvastatin 80 mg daily I will check a lipid profile and CMP before follow-up Hypertension, blood pressure is in acceptable range I will continue with lisinopril 40 mg daily. I asked her to decrease metoprolol ER to 12.5 mg a day. Diabetes, A1c is 5.7 continue with metformin. I will see her again in 6 months. ramiro Not available 02/01/2025 15:57:56 Plan of Treatment Reminders Order Date Submit Date Provider Last Modified By Organization Details Last Modified Time Details Appointments ANY 15 2025 07:30A M Sujit Jara MD Not available Not available Not available ANY 15 2025 08:00A Kristi pfeiffer MD Not available Not available Not available Lab HbA1c (hemogl obin A1c), blood 2024 026 ramiro [facility], [address] [place], [place] [address] [address], [address], [place], [address], 02/01/2025 15:41:20 lipid panel, serum 2024 026 ramiro [facility], [address] [place], [place] [address], [address], [place], [address], 02/01/2025 15:41:20 CMP, serum or plasma 2024 026 ramiro [facility], [address] [place], [place] [address] [address], [address], [place], [address], 02/01/2025 15:41:20 Referral None recorde d. Procedures None recorde d. Surgeries None recorde d. Imaging None recorde d. Medication Orders None recorde d. Patient TargetsNo targets recorded. Patient InstructionsNo instructions recorded. Reason for Referral None Reported. Results Created Date Observation Date Name Description Value Unit Range Abnormal Flag Note LastModifiedBy Organization Detail LastModifiedTime 01/19/2001/19/2025 LIPID PROFI LE cholesterol, total 166 mg/dL 100-19 9 Not Available [facility] ([facility]) [address] [place], [address], 01/19/2025 08:33:52 01/19/2001/19/2025 LIPID PROFI LE triglyceride s 263 mg/dL 0-149 above high normal Not Available [facility] ([facility]) [address] [place], [address], 01/19/2025 08:33:52 01/19/2001/19/2025 LIPID PROFI LE HDL cholesterol 54 mg/dL >39 Not Available [facility] ([facility]) [address] [place], [address], 01/19/2025 08:33:52 01/19/20 25 01/19/2025 LIPID PROFI LE VLDL cholesterol evelyne 42 mg/dL 5-40 above high normal Not Available [facility] ([facility]) [address] [place], [address], 01/19/2025 08:33:52 01/19/2001/19/2025 LIPID PROFI LE LDL chol calc ([facility]) 70 mg/dL 0-99 Not Available [facility] ([facility]) [address] [place], [address], 01/19/2025 08:33:52 01/19/2001/19/2025 CMP14 +EGFR glucose 102 mg/dL 70-99 above high normal Not Available [facility] ([facility]) [address] [facility], [place], [address], 01/19/2025 08:33:53 01/19/2001/19/2025 CMP14 +EGFR BUN 13 mg/dL 6-24 Not Available [facility] ([facility]) [address] [facility], [place], [address], 01/19/2025 08:33:53 01/19/2001/19/2025 CMP14 +EGFR creatinine 0.87 mg/dL 0.57-1 .00 Not Available [facility] ([facility]) [address] [facility], [place], [address], 01/19/2025 08:33:53 01/19/2001/19/2025 CMP14 +EGFR eGFR 80 mL/mi n/1.7 3 >59 Not Available [facility] ([facility]) [address] [facility], [place], [address], 01/19/2025 08:33:53 01/19/2001/19/2025 CMP14 +EGFR BUN/creatini ne ratio 15 9-23 Not Available [facility] ([facility]) [address] [facility], [place], [address], 01/19/2025 08:33:53 01/19/2001/19/2025 CMP14 +EGFR sodium 142 mmol/ L 134-14 4 Not Available [facility] ([facility]) [address] [facility], [place], [address], 01/19/2025 08:33:53 01/19/2001/19/2025 CMP14 +EGFR potassium 4.9 mmol/ L 3.5-5. 2 Not Available [facility] ([facility]) [address] [facility], [place], [address], 01/19/2025 08:33:53 01/19/2001/19/2025 CMP14 +EGFR chloride 106 mmol/ L 96-106 Not Available [facility] ([facility]) [address] [facility] [place], [address], 01/19/2025 08:33:53 01/19/2001/19/2025 CMP14 +EGFR carbon dioxide, total 24 mmol/ L 20-29 Not Available [facility] ([facility]) [address] [facility] [place], [address], 01/19/2025 08:33:53 01/19/2001/19/2025 CMP14 +EGFR calcium 9.4 mg/dL 8.7-10 .2 Not Available [facility] ([facility]) [address] [facility] [place], [address], 01/19/2025 08:33:53 01/19/2001/19/2025 CMP14 +EGFR protein, total 5.9 g/dL 6.0-8. 5 below low normal Not Available [facility] ([facility]) [address] [facility], [place], [address], 01/19/2025 08:33:53 01/19/2001/19/2025 CMP14 +EGFR albumin 4.0 g/dL 3.8-4. 9 Not Available [facility] ([facility]) [address] [facility] [place], [address], 01/19/2025 08:33:53 01/19/2001/19/2025 CMP14 +EGFR globulin, total 1.9 g/dL 1.5-4. 5 Not Available [facility] ([facility]) [address] [facility] [place], [address], 01/19/2025 08:33:53 01/19/2001/19/2025 CMP14 +EGFR bilirubin, total 0.2 mg/dL 0.0-1. 2 Not Available [facility] ([facility]) [address] [facility] [place], [address], 01/19/2025 08:33:53 01/19/2001/19/2025 CMP14 +EGFR alkaline phosphatase 92 IU/L 49-135 Not Available [facility] ([facility]) [address] [facility], [place], [address], 01/19/2025 08:33:53 01/19/2001/19/2025 CMP14 +EGFR AST (SGOT) 15 IU/L 0-40 Not Available [facility] ([facility]) [address] [facility], [place], [address], 01/19/2025 08:33:53 01/19/2001/19/2025 CMP14 +EGFR ALT (SGPT) 18 IU/L 0-32 Not Available [facility] ([facility]) [address] [place], [address], 01/19/2025 08:33:53 01/19/2001/19/2025 HEMOG LOBIN A1C hemoglobin A1C 5.7 % 4.8-5. 6 above high normal Predi abete s: 5.7 - 6.4 Diabe martin: >6.4 Glyce william contr ol for adult s with diabe martin: <7.0 Not Available [facility] ([facility]) [address] [place], [address], 01/19/2025 08:33:54 01/19/2001/19/2025 CBC, PLATE LET, NO DIFFE RENTI AL WBC 7.1 x10e3 /uL 3.4-10 .8 Not Available [facility] ([facility]) [address] [place], [address], 01/19/2025 08:33:55 01/19/2001/19/2025 CBC, PLATE LET, NO DIFFE RENTI AL RBC 4.26 x10e6 /uL 3.77-5 .28 Not Available [facility] ([facility]) [address] [place], [address], 01/19/2025 08:33:55 01/19/2001/19/2025 CBC, PLATE LET, NO DIFFE RENTI AL hemoglobin 12.8 g/dL 11.1-1 5.9 Not Available [facility] ([facility]) [address] [facility], [place], [address], 01/19/2025 08:33:55 01/19/2001/19/2025 CBC, PLATE LET, NO DIFFE RENTI AL hematocrit 39.8 % 34.0-4 6.6 Not Available [facility] ([facility]) [address] [facility], [place], [address], 01/19/2025 08:33:55 01/19/2001/19/2025 CBC, PLATE LET, NO DIFFE RENTI AL MCV 93 fL 79-97 Not Available [facility] ([facility]) [address] [facility], [place], [address], 01/19/2025 08:33:55 01/19/2001/19/2025 CBC, PLATE LET, NO DIFFE RENTI AL MCH 30.0 pg 26.6-3 3.0 Not Available [facility] ([facility]) [address] [facility], [place], [address], 01/19/2025 08:33:55 01/19/2001/19/2025 CBC, PLATE LET, NO DIFFE RENTI AL MCHC 32.2 g/dL 31.5-3 5.7 Not Available [facility] ([facility]) [address] [facility], [place], [address], 01/19/2025 08:33:55 01/19/2001/19/2025 CBC, PLATE LET, NO DIFFE RENTI AL RDW 13.6 % 11.7-1 5.4 Not Available [facility] ([facility]) [address] [facility], [place], [address], 01/19/2025 08:33:55 01/19/2001/19/2025 CBC, PLATE LET, NO DIFFE RENTI AL platelets 310 x10e3 /uL 150-45 0 Not Available [facility] ([facility]) [address], [place], [address], 01/19/2025 08:33:55 Result Notes None recorded. Problems Name Problem SNOMED Code Status Onset Date Resolution Date Notes Provider Name and Address Organization Details Recorded Time Asthma 023344543 Active 2017 Kasi Zapata PA-C Attn: Accountin g,[address] [facility], [place], [address], [place] [facility] 2 10:34:46 Essential hypertensio n 25151498 Active 2018 Kasi Zapata PA-C Attn: Accountin g,[address] [facility], [place], [address], [place] [facility] 2 10:34:43 Migraine 32321422 Active 2018 Kasi Zapata PA-C Attn: Accountin g,[address] [facility], [place], [address], [place] [facility] 2 14:07:21 Prediabetes 865744494 Active 2021 Kasi Zapata PA-C Attn: Accountin g,[address] [facility], [place], [address], [place] [facility] 2 11:54:45 Dyslipidemi a 983196024 Active 2022 Nellie Duncan RN null, [place] [facility] 3 10:56:30 Coronary arterioscle rosis 58064666 Active 2023 Kasi Zapata PA-C Attn: Accountin g,[address] [facility], [place], [address], [place] [facility] 4 16:36:19 Dog bite - wound 133236484 Active 2023 Sujit Jara MD Attn: Paddy antoine,[address] [facility], [place], [address], [place] [facility] 4 12:00:11 Morbid obesity 139202456 Active 2023 Sujit Jara MD Attn: Paddy antoine,[address] [facility], [place], [address], [place] [facility] 4 12:00:12 Seasonal allergic rhinitis 443154723 Active 2023 Sujit Jara MD Attn: Paddy antoine,[address] [facility], [place], [address], [place] [facility] 4 12:00:13 Hypertrigly ceridemia 619947198 Active 2023 Sujit Jara MD Attn: Paddy antoine,[address] [facility], [place], [address], [place] [facility] 4 12:00:14 Hypercholes terolemia 86645026 Active 2023 Sujit Jara MD Attn: Paddy antoine,[address] [facility], [place], [address], [place] [facility] 4 12:00:15 Atheroscler osis of coronary artery without angina pectoris 3373358029873 03 Active 2024 Orlando Gallo [place] null, [place] [facility] 5 12:39:08 Dyspnea on exertion 04278898 Active 2024 Orlando Gallo [place], [place] [facility] 5 12:39:11 Hyperlipide agustin 40346707 Active 2024 Orlando Gallo MA null, [place] [facility] 5 12:39:15 Notes:Some problems listed i n Documents: #[id number], #[id number], #[id number] could not be added to this patient's chart. Please review these documents and add these problems to the patient's chart manually as needed. Problem Notes None recorded. Procedures Surgical History Date Name Laterality Status Provider Name and Address Organization Details Recorded Time 03/28/19 20 Nebulizer tx completed JUAREZ Berkowitz Attn: Accounting,[address] [facility], [place], [address], [place] [facility] 03/28/2019 12:37:44 08/27/19 18 Total hysterectomy completed Salima Sanchez MD Attn: Accounting,[address] [facility], [place], [address], [place] [facility] 10/30/2022 13:55:13 03/22/19 08 excision of left [...] Name and Address Organization Details Recorded Time 255500 Canis lupus familiari s extract environme nt wheezing mild Not available 04/13/2017 00730 4 RxNorm Kasi Zapata PA-C Attn: Accountin g,[address] [facility], [place], [address], [place] [facility] 8 11:09:12 No known drug allergies Medications Name Sig Start Date Stop Date Status Note LastModified by Organization Details LastModified Time amoxicillin 500 mg capsule 09/18 completed Not Available Not Available Not Available atorvastati n 40 mg tablet TAKE 1 TABLET BY MOUTH EVERY DAY AT BEDTIME 08/01 completed Not Available Not Available Not Available Qvar 80 mcg/actuati on Metered Aerosol oral inhaler Inhale 2 puffs twice a day by inhalatio n route. 05/19 completed Not Available Not Available Not Available atorvastati n 80 mg tablet TAKE 1/2 TABLET BY MOUTH EVERY DAY 2024 active Not Available Not Available Not Avai lable prednisone 10 mg tablet 09/29 completed Not Available Not Available Not Available atorvastati n 20 mg tablet TAKE 1 TABLET BY MOUTH EVERY DAY 02/01 completed Not Available Not Available Not Available ipratropium 0.5 mg-albutero l 3 mg (2.5 mg base)/3 mL nebulizatio n soln USE 3 ML VIA NEBULIZER EVERY 6 HOURS NEEDED FOR SHORTNESS OF BREATH OR WHEEZING active Not Available Not Available No t Available albuterol sulfate 2.5 mg/3 mL (0.083 %) solution for nebulizatio n USE 3 ML VIA NEBULIZER EVERY 4 HOURS NEEDED active Not Available Not Available No t Available cetirizine 10 mg tablet TAKE 1 TABLET BY MOUTH DAILY active Not Available Not Available No t Available azithromyci n 250 mg tablet TAKE 1 TABLET BY MOUTH DAILY 01/29 completed Not Available Not Available Not Available ibuprofen 800 mg tablet 11/01 completed Not Available Not Available Not Available nystatin 100,000 unit/gram topical ointment APPLY TO AFFECTED AREA TWICE A DAY 04/15 completed Not Available Not Available Not Available fluconazole 150 mg tablet TAKE 1 TABLET BY MOUTH EVERY DAY 04/15 completed Not Available Not Available Not Available benzonatate 200 mg capsule 03/28 completed Not Available Not Available Not Available hydrocodone 5 mg-acetamin ophen 325 mg tablet 11/01 completed Not Available Not Available Not Available lisinopril 20 mg tablet TAKE 1 TABLET BY MOUTH EVERY DAY 09/18 completed Not Available Not Available Not Available prednisone 20 mg tablet TAKE 2 TABLETS BY MOUTH DAILY FOR 5 DAYS 02/01 completed Not Available Not Available Not Available isosorbide mononitrate ER 30 mg tablet,exte nded release 24 hr TAKE 1 TABLET BY MOUTH EVERY DAY 06/19 completed Not Available Not Available Not Available sulindac 150 mg tablet Take 1 tablet twice a day by oral route as needed. 02/28 completed Not Available Not Available Not Available clopidogrel 75 mg tablet TAKE 1 TABLET BY MOUTH EVERY DAY active Not Available Not Available No t Available hydrocortis one 2.5 % topical cream with perineal applicator APPLY SPARINGLY TO AFFECTED AREA 2 TO 4 TIMES A DAY 04/15 completed Not Available Not Available Not Available lorazepam 0.5 mg tablet 02/28 completed Not Available Not Available Not Available meclizine 25 mg tablet Take 1 tablet twice a day by oral route as needed. 02/28 completed Not Available Not Available Not Available oseltamivir 75 mg capsule 04/13 completed Not Available Not Available Not Available butalbital 50 mg-acetamin ophen 325 mg-caffeine 40 mg-codeine 30 mg cap 02/28 completed [...] completed Not Available Not Available Not Available nitroglycer in 0.4 mg sublingual tablet ONE TABLET UNDER TONGUE NEEDED FOR CHEST PAIN active Not Available Not Available No t Available lisinopril 30 mg tablet TAKE 1 TABLET BY MOUTH DAILY active Not Available Not Available No t Available docusate sodium 100 mg capsule 09/14 completed Not Available Not Available Not Available budesonide 0.5 mg/2 mL suspension for nebulizatio n INHALE CONTENT OF 1 VIAL VIA NEBULIZER EVERY 12 HOURS 07/21 completed Not Available Not Available Not Available montelukast 10 mg tablet TAKE 1 TABLET BY MOUTH EVERY DAY AT BEDTIME active Not Available Not Available No t Available metoprolol succinate ER 25 mg tablet,exte nded release 24 hr TAKE 0.5 TABLET BY MOUTH EVERY DAY active Not Available Not Available No t Available ergocalcife rol (vitamin D2) 1,250 mcg (50,000 unit) capsule TAKE 1 CAPSULE EVERY WEEK BY ORAL ROUTE. 04/16 completed Not Available Not Available Not Available albuterol sulfate HFA 90 mcg/actuati on aerosol inhaler INHALE 2 PUFFS BY MOUTH EVERY 4 HOURS NEEDED 2024 active Not Available Not Available Not Avai lable lisinopril 40 mg tablet TAKE 1 TABLET BY MOUTH EVERY DAY active Not Available Not Available No t Available fluticasone propionate 50 mcg/actuati on nasal spray,suspe nsion SPRAY 1 SPRAY INTO EACH NOSTRIL EVERY DAY 04/24 completed Not Available Not Available Not Available metformin ER 500 mg tablet,exte nded release 24 hr TAKE 2 TABLETS BY MOUTH EVERY DAY active Not Available Not Available No t Available docusate sodium 100 mg tablet Take 1 tablet every day by oral route. 11/01 completed Not Available Not Available Not Available ipratropium bromide 0.02 % solution for inhalation 07/21 completed Not Available Not Available Not Available amoxicillin 875 mg-kalebu m clavulanate 125 mg tablet TAKE 1 TABLET BY MOUTH EVERY 12 HOURS FOR 7 DAYS 01/06 completed Not Available Not Available Not Available minoxidil 2 % topical solution APPLY 1 MILLILITE R BY TOPICAL ROUTE 2 TIMES PER DAY [...] completed Not Available Not Available Not Available levalbutero l concentrate 1.25 mg/0.5 mL solution for nebulizatio n INHALE CONTENT OF 1 VIAL VIA NEBULIZER EVERY 4 HOURS 07/21 completed Not Available Not Available Not Available chlorhexidi ne gluconate 0.12 % mouthwash SWISH AND SPIT 15 ML BY MOUTH NIGHTLY FOR 10 DAYS, DO NOT SWALLOW 07/21 completed Not Available Not Available Not Available cholecalcif leobardo (vitamin D3) 25 mcg (1,000 unit) tablet TAKE 1 TABLET BY MOUTH EVERY DAY 01/22 completed Not Available Not Available Not Available budesonide- formoterol HFA 160 mcg-4.5 mcg/actuati on aerosol inhaler INHALE 1 PUFF BY MOUTH EVERY 4 TO 5 HOURS active Not Available Not Available No t Available ferrous sulfate 324 mg (65 mg iron) tablet,wallace yed release Take 1 tablet every day by oral route. 11/01 completed Not Available Not Available Not Available cholecalcif leobardo (vitamin D3) 50 mcg (2,000 unit) capsule Take 1 capsule every day by oral route for 90 days. 2023 active Not Available Not Available Not Avai lable cholecalcif leobardo (vitamin D3) 50 mcg (2,000 unit) tablet TAKE 1 TABLET BY MOUTH EVERY DAY FOR 90 DAYS 01/22 completed Not Available Not Available Not Available Dulera 100 mcg-5 mcg/actuati on HFA aerosol inhaler TAKE 2 PUFFS BY MOUTH TWICE A DAY 07/21 completed Not Available Not Available Not Available Brilinta 90 mg tablet TAKE 1 TABLET BY MOUTH TWICE DAILY 06/19 completed Not Available Not Available Not Available Arnuity Ellipta 100 mcg/actuati on powder for inhalation INHALE 1 PUFF ONCE DAILY 04/24 completed Not Available Not Available Not Available Qvar RediHaler 40 mcg/actuati on HFA breath activated aerosol INHALE TWO PUFFS BY MOUTH TWICE A DAY 11/01 completed Not Available Not Available Not Available Wixela Inhub 250 mcg-50 mcg/dose powder for inhalation INHALE 1 PUFF TWICE A DAY BY INHALATIO N ROUTE. 07/21 completed Not Available Not Available Not Available aspirin 81 mg capsule Take 1 capsule every day by oral route. active Not Available Not Available No t Available Vitals Date Recorded Body mass index (BMI) Body weight Oxygen saturation Heart rate Systolic And Diastolic Provider Name and Address Organization Details Last Updated DateTime 02/01/2025 37.5 kg/m2 46747.73 g 97 % 71 /min 110/60 mm[Hg] Sri Gillette MA [facility] 15:05:44 Date Recorded Body height Provider Name an d Address Organization Details Last Updated DateTime 02/01/2025 154.94 cm Orlando Gallo MA [facility] 02/01 14:49:43 Social History Question Answer Notes LastModified by [email or web address] Details LastModified Time Tobacco Smoking Status Former Smoker Macie Palmer MA [facility], [facility] 10/31/2019 14:26:39 What Is Your Level Of Caffeine Consumption? None [email or web address] Information not available 06/19/2024 What Was The Date Of Your Most Recent Tobacco Screening? 12/18/2024 [email or web address] Information not available 12/18/2024 Has Tobacco Cessation Counseling Been Provided? No Information not available 06/17/2020 Sex: Female Functional Status Question Answer Note LastModified by [email or web address] Details LastModified Time Do you use any illicit or recreational drugs? No Information not available 06/17/2020 Do you or have you ever used any other forms of tobacco or nicotine? No [email or web address] Information not available 06/19/2024 What is your level of alcohol consumption? None [email or web address] Information not available 06/19/2024 Do you or have you ever used smokeless tobacco? Never used smokeless tobacco [email or web address] Information not available 03/28/2019 Do you or have you ever used e-cigarettes or vape? Never used electronic cigarettes [email or web address] Information not available 02/28/2019 Mental Status None recorded. Family History Relationship Description Onset Age of this Age Resolved Age Notes LastModified by Organization Details LastModified Time Maternal Grandmother Myocardial infarction [email or web address] Not available 04/13 11:14:07 Maternal Aunt Myocardial infarction [email or web address] Not available 04/13 11:14:07 Maternal Aunt Diabetes mellitus [email or web address] Not available 2017 11:14:28 Brother Kidney disease [email or web address] Not available 12/19 16:16:19 Medical History Condition Response High Blood Pressure Y Depression Y Asthma Y Gynecological HistoryNo gynecological history recorded. Obstetrics History GPAL:G 0 P 0 0 0 0 Immunizations Vaccine Type Date Status Note Provider Nam e and Address Organization Details Recorded Time Influenza, split virus, quadrivalent, preservative 9 completed Not Available [facility] 04[facility]08[facility] 02:39:21 Past Encounters Encounter ID Performer Location Encounter Start Date Encounter Closed Date Diagnosis/Indication Diagnosis SNOMED-CT Code Diagnosis ICD10 Code Diagnosis IMO Codes Diagnosis Note [id number] Sebastien Taylor MD [facility] [place] [facility] [address] [place] [address] 02/01/2025 14:47:38 02/02/2025 08:07:09 Atherosclerosis of coronary artery without angina pectoris 1346972755 99303 I25.10 First-degr ee Dyspnea on exertion 6084 5006 R06.09 Type 2 juan betes mellitus without complication 626634367 E11.9 Essential hypertension 41543900 I10 Hyperlipidemia 60346850 E78.5 First degr ee atrioventricular block 549950119 I44.0 History of asthma 606988 007 Z87.09 857160 Health Concerns Section Related Observation LastModified by Organization Detai ls LastModified Time None Recorded Concern Status LastModified by Organization Details LastModified Time None Recorded Payers Encounter Date Sequence Insurance Name Policy Number Policy Collazo Covered Member ID Collazo Member ID Guarantor Name 02/01/2025 1 [facility] Jianshu Vandana Ojeda [id number] Vandana Ojeda Notes Date Note Type Note Provider Name and Address Organization Details Recorded Time 5 text/htm l 54-year-old female who has [...] denies dizziness lightheadedness and syncope. August 01, 2024:54-year-old lady who has coronary artery disease status [...] nocturnal dyspnea or edema of lower extremities. February 01, 2025: Fifty 5 years old female who has coronary artery disease status post PTCA with stent placement in right coronary artery and OM 1, hypertension and hyperlipidemia.She denies complaints of chest pain, shortness of breath, orthopnea and paroxysmal nocturnal dyspnea. She has no palpitation, dizziness lightheadedness or syncope. 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 EKG:June 28, 2024:Sinus Rhythm -First degree A-V block,Old inferior myocardial infarction LABS:01/18/25:cholesterol 166, triglycerides 263, HDL 54, LDL 70, A1C 5.7, wbc 7.1, hgb 12,8, hct 39.8,plt 310, glucose 102, BUN 13, creatinine 0.87, eGFR 80, sodium 142, K+ 4.9, calcium 9.4 AST 15, ALT 184/:wbc 7.1, hgb 13.8, hct 42, plt 304, A1C 6.1. glucose 96, BUN 13, creatinine 0.78, eGFR 91, sodium 144, K+ 5, calcium 9.7, AST 16, ALT 19, cholesterol 169, triglycerides 286, HDL 52, LDL 713/11/24:cholesterol 138, triglycerides 230, HDL 56, LDL 36 [...] performed over a wire passed through the tangirnaq vessel, resulting in an excellent angiographic appearance (see 1st lesion). Following intervention, there is a residual 0% stenosis with EITAN grade 3 flow (brisk flow). TREADMILL STRESS 05/31/23:Clinically positive for chest pain. Electrocardiographically [...] event. Sebastien Taylor MD Attn: Accounting,[address] [place], [address], [facility] - [facility] 02/01/2025 15:58:13 OBGyn Episode No OBEpisode recorded.
--- OUTSIDE RECORDS SUMMARY | 2025-02-25 16:56 | XMS_ITS | Continuity of Care Document ---
Author Organization [facility], [facility] Address [address] [place] [address] Care Team Providers Care Circulation Worker Name Role Phone SUJIT JARA Primary Care Provider Assessment No assessment recorded. Plan of Treatment Reminders Order Date Submit Date Provider Last Modified By Organization Details Last Modified Time Details Appointments ANY 15 2025 07:30A M Sujit Jara MD Not available Not available Not available ANY 15 2025 08:00A Kristi pfeiffer MD Not available Not available Not available Lab None recorded. Referral gastroent erologist referral 2024 025 [facility] Boris Her MD, [address] [place], [address], 12/19/2024 11:45:28 Procedures None recorded. Surgeries None recorded. Imaging MAMMO, screening , digital, bilateral 2024 025 [facility], [address], [facility] [address], [place], [address], 12/18/2024 12:20:47 Medication Orders None recorded. Patient TargetsNo targets recorded. Patient InstructionsNo instructions recorded. Reason for Referral Health Communications Specialist Referral for Screening for malignant neoplasm of colon Referring Physician: Sujit Jara, Family Medicine, Encounter Date: 12/18/2024 Problems Name Problem SNOMED Code Status Onset Date Resolution Date Notes Provider Name and Address Organization Details Recorded Time Asthma 911696438 Active 2017 Kasi Zapata PA-C Attn: Paddy antoine,[address], [place], [address], [place] - [facility] 2 10:34:46 Essential hypertensio n 91501962 Active 2018 Kasi Zapata PA-C Attn: Paddy antoine,[address] [facility], [place], [address], [place] [facility] 2 10:34:43 Migraine 92719589 Active 2018 Kasi Zapata PA-C Attn: Paddy antoine,[address] [facility], [place], [address], [place] [facility] 2 14:07:21 Prediabetes 274639602 Active 2021 Kasi Zapata PA-C Attn: Paddy antoine,[address] [facility], [place], [address], [place] [facility] 2 11:54:45 Dyslipidemi a 720580037 Active 2022 Nellie Duncan RN null, [place] - [facility] 3 10:56:30 Coronary arterioscle rosis 25703375 Active 2023 Kasi Zapata PA-C Attn: Paddy antoine,[address] [facility], [place], [address], [place] [facility] 4 16:36:19 Dog bite - wound 022438442 Active 2023 Sujit Jara MD Attn: Paddy antoine,[address] [facility], [place], [address], [place] [facility] 4 12:00:11 Morbid obesity 098416233 Active 2023 Sujit Jara MD Attn: Paddy antoine,[address] [facility], [place], [address], [place] [facility] 4 12:00:12 Seasonal allergic rhinitis 465555471 Active 2023 Sujit Jara MD Attn: Paddy antoine,[address] [facility], [place], [address], [place] [facility] 4 12:00:13 Hypertrigly ceridemia 660702928 Active 2023 Sujit Jara MD Attn: Paddy antoine,[address] [facility], [place], [address], [place] - [facility] 4 12:00:14 Hypercholes terolemia 97366888 Active 2023 Sujit Jara MD Attn: Paddy antoine,[address] [facility], [place], [address], [place] - [facility] 4 12:00:15 Atheroscler osis of coronary artery without angina pectoris 1871247923790 03 Active 2024 Orlando Gallo [place] null, [place] [facility] 5 12:39:08 Dyspnea on exertion 25502287 Active 2024 Orlando Gallo [place] null, [place] [facility] 5 12:39:11 Hyperlipide agustin 00511028 Active 2024 Orlando Gallo [place] null, [place] [facility] 5 12:39:15 Notes:Some problems listed i n Documents: #[id number], #[id number], #[id number] could not be added to this patient's chart. Please review these documents and add these problems to the patient's chart manually as needed. Problem Notes None recorded. Procedures Surgical History Date Name Laterality Status Provider Name and Address Organization Details Recorded Time 03/28/19 20 Nebulizer tx completed JUAREZ Berkowitz Attn: Accounting,[address] [facility], [place], [address], [place] [facility] 03/28/2019 12:37:44 08/27/19 18 Total hysterectomy completed Salima Sanchez MD Attn: Accounting,[address] [facility], [place], [address], [place] [facility] 10/30/2022 13:55:13 03/22/19 08 excision of left kidney completed Alexus Lockhart LPN [place] [facility] 10/12/2019 12:26:34 section completed Day Zelaya MA [place] - [place] 12/20/2023 16:15:48 Imaging Results None recorded. Procedure Notes None recorded. Medical Equipment None Reported. Allergies Allergen ID Allergen Name Allergen Category Reaction Reaction Severity Criticality Documentation Date Start Date Code Code System Note Provider Name and Address Organization Details Recorded Time 409978 Canis lupus familiari s extract environme nt wheezing mild Not available 04/13/2017 35595 4 RxNorm Kasi Zapata PA-C Attn: Yennydamián antoine,[address] [facility], [place], [address], [facility] - [facility] 8 11:09:12 No known drug allergies Medications [...] Available Not Available Not Available amoxicillin 875 mg-potassiu m clavulanate 125 mg tablet TAKE 1 [...] t Available Vitals Date Recorded Body height Oxygen saturation Heart rate Body mass index (BMI) Body weight Systolic And Diastolic Provider Name and Address Organization Details Last Updated DateTime 5 154.94 cm 95 % 70 /min 36.3 kg/m2 82769.7 4 g 118/74 mm[Hg] Pastora Phelps MA [place] - [facility] 5 09:25:28 Social History Question Answer Notes LastModified by dVisit Details LastModified Time Tobacco Smoking Status Former Smoker Macie Palmer MA null, [place] - [place] 10/31/2019 14:26:39 What Is Your Level Of Caffeine Consumption? None [email or web address] Information not available 06/19/2024 What Was The Date Of Your Most Recent Tobacco Screening? 12/18/2024 [email or web address] Information not available 12/18/2024 Has Tobacco Cessation Counseling Been Provided? No Information not available 06/17/2020 Sex: Female Functional Status Question Answer Note LastModified by dVisit Details LastModified Time Do you use any illicit or recreational drugs? No Information not available 06/17/2020 Do you or have you ever used any other forms of tobacco or nicotine? No [email or web address] Information not available 06/19/2024 What is your level of alcohol consumption? None Information not available 06/19/2024 Do you or have you ever used smokeless tobacco? Never used smokeless tobacco [email or web address] Information not available 03/28/2019 Do you or have you ever used e-cigarettes or vape? Never used electronic cigarettes [email or web address] Information not available 02/28/2019 Mental Status None recorded. Family History Relationship Description Onset Age of this Age Resolved Age Notes LastModified by Organization Details LastModified Time Maternal Grandmother Myocardial infarction [email or web address] Not available 04/13 11:14:07 Maternal Aunt Myocardial infarction [email or web address] Not available 04/13 11:14:07 Maternal Aunt Diabetes mellitus [email or web address] Not available 2017 11:14:28 Brother Kidney disease [email or web address] Not available 12/19 16:16:19 Medical History Condition Response High Blood Pressure Y Depression Y Asthma Y Gynecological HistoryNo gynecological history recorded. Obstetrics History GPAL:G 0 P 0 0 0 0 Immunizations Vaccine Type Date Status Note Provider Nam e and Address Organization Details Recorded Time Influenza, split virus, quadrivalent, preservative 9 completed Not Available [facility] 04/08/2019 02:39:21 Past Encounters Encounter ID Performer Location Encounter Start Date Encounter Closed Date Diagnosis/Indication Diagnosis SNOMED-CT Code Diagnosis ICD10 Code Diagnosis IMO Codes Diagnosis Note [id number] Sujit Jara MD [facility] [place] [facility] [place] [address] [place] [address] 12/18/2024 09:01:50 12/18/2024 10:07:20 Essential hypertension 83582946 I10 condition chronic and at goal continue the lisinopril and metoprolol Coronary arteriosclerosis 37168172 I25.10 condition chroinc and at goal with stent placement refer to dr chen Hypercholesterolemia 136 65439 E78.00 [address] at goal continue the atorvastat in Hypertriglyceridemia 302 007142 E78.1 conditon chronic and at goal continue the low fat diet. Migraine 08933341 G43.90 9 conditon chronic and at goal continue the excedrin migraine Screening mammography 24 407915 Z12.31 24800863 order mammo Screening for malignant neoplasm of colon 995374295 Z12.[address] her Health Concerns Section Related Observation LastModified by Organization Detai ls LastModified Time None Recorded Concern Status LastModified by Organization Details LastModified Time None Recorded Payers Encounter Date Sequence Insurance Name Policy Number Policy Collazo Covered Member ID Collazo Member ID Guarantor Name 12/18/2024 1 [facility] [employer] Vandana Ojeda [id number] Vandana Ojeda Notes Date Note Type Note Provider Name and Address Organization Details Recorded Time 12/18/2024 text/html states that she is doing good the htn and the cad is under control hte chol is treated. arcelia migraines are under control Sujit Jara MD Attn: Accounting[address] [place], [address], [facility] 12/18/2024 13:20:33 OBGyn Episode No OBEpisode recorded.
--- OUTSIDE RECORDS SUMMARY | 2025-02-25 16:56 | XMS_ITS | Encounter Summary ---
Author Organization [facility] Address [address] [place] [address] Care Team Providers Care Toilet And Laundry Soap Supervisor Name Role Phone Elder Mancuso DO Primary Care Provider [phone] Kasi Zapata Primary Care Provider [phone] Salima Sanchez MD Primary Care Provider [phone] Kalin Jara MD Primary Care Provider [phone] Encounter Details Date Type Department Care Team (Latest Contact Info) Description 01/25/2018 Abstract [facility] , Guy Braun MD Social [...] on filedocumented in this encounter Care Teams Toilet And Laundry Soap Supervisor Relationship Specialty Start Date End Date Elder Mancuso DO PCP - General 12/19/15 07/31/18 Kasi Zapata PA PCP - General PHYSICIAN AIRBRUSH PAINTER 08/01/18 12/20/23 Salima Sanchez MD [address] [facility] [address] [place] [address] PCP - General FAMILY PRACTICE 12/21/23 01/20/24 Kalin Jara MD [address] [place], [place] [address] PCP - General FAMILY PRACTICE 01/21/24 documented as of this encounter
--- OUTSIDE RECORDS SUMMARY | 2025-02-25 16:56 | XMS_ITS | Data Portability ---
Author Organization [facility] [place] Address [address] [place] [address] Care Team Providers Care Legend Maker Name Role Phone DIANA SUJIT Primary Care Provider Assessment Encounter Date Assessment [...] advised her to eat foods high in [place] 3 fatty acids which will help to improve her triglycerides. Diabetes, I will check A1c before follow-up. Hypertension, blood pressure is well-controlled. Continue with lisinopril. Wheezing , I recommended her to decrease metoprolol ER to 12.5 mg p.o. daily. I will see her again in 6 months check lipid profile, CMP and CBC before follow-up. ramiro Not available 08/01/2024 14:55:55 02/01/2025 02/01/2025 Coronary artery disease , status [...] advised her to eat foods high in [place] 3 fatty acids which will help to [...] Details Last Modified Time Details Appointments ANY 2025 07:30A M Sujit Jara MD Not available Not available Not available ANY 2025 08:00A Kristi pfeiffer MD Not available Not available Not available Lab HbA1c (hemog lobin A1c), blood 11/2024 026 sabdulaziz [facility], [address], [address], [place], [address], 02/01/2025 15:41:20 lipid panel, serum 2024 026 sabdulaziz [facility], [address], [address], [place], [address], 02/01/2025 15:41:20 CMP, serum or plasma 2024 026 sabdulaziz [facility], [address], [address], [place], [address], 02/01/2025 15:41:20 CBC 2024 025 GEORGINA [facility], [address], [address], [place], [address], 01/19/2025 08:33:55 HbA1c (hemog lobin A1c), blood 2024 025 GEORGINA [facility], [address], [address], [place], [address], 01/19/2025 08:33:54 lipid panel, serum 2024 025 GEORGINA [facility], [address], [address], [place], [address], 01/19/2025 08:33:52 CMP, serum or plasma 2024 025 GEORGINA [facility], [address], [address], [place], [address], 01/19/2025 08:33:53 CBC 2024 025 GEORGINA [facility], [address], [address], [place], [address], 07/04/2024 09:04:51 HbA1c (hemog lobin A1c), blood 2024 025 [facility], [address], [address], [place], [address], 07/04/2024 09:04:50 lipid panel, serum 2024 025 [facility], [address] [place] [address], [address], [place], [address], 07/04/2024 09:04:48 CMP, serum or plasma 2024 025 [facility], [address], [address], [place], [address], 07/04/2024 09:04:49 Referral gastro entero logist referr al 2024 025 [facility] Boris Her MD, [address] [place], [address], 12/19/2024 11:45:28 Procedures None record ed. Surgeries None record ed. Imaging MAMMO, screen ing, digita l, bilate ral 2024 025 [facility], [address], [address], [place], [address], 12/18/2024 12:20:47 electr ocardi ogram 2024 025 interscher In-Office Order, Internal Use Only DO Not Attach Compendium DO Not Attach Compendium, Do Not Delete/merge, [id number] 06/29/2024 09:14:58 US, echoca rdiogr am, transt horaci c, comple te, w/ color flow 2024 025 [facility] Centralized Scheduling, Centralized Scheduling, [address] [facility] , [place], [address], 07/27/2024 18:32:56 Medication Orders Lipito r 80 mg tablet [address] [facility] #[id number], [address] , [place], [place], [phone], 08/01/2024 14:48:12 Toprol XL 25 mg tablet ,exten ded releas e 2024 025 ramiro [facility] #87447, [address] , [place], [place], [id number], 02/01/2025 15:40:44 albute rol sulfat e HFA 90 mcg/ac tuatio n aeroso l inhale r [address] [facility]34236, [address] [facility], [place], [place], [id number], 06/19/2024 10:55:55 atorva statin 40 mg tablet [address] [facility] #80189, [address] [facility], [place], [place], [id number], 08/01/2024 14:43:48 lisino pril 40 mg tablet [address] [facility] #37548, [address] [facility], [place], [place], [id number], 06/19/2024 10:55:55 nitrog lyceri n 0.4 mg sublin gual tablet [address] [facility], [address] [facility], [place], [place], [phone], 06/19/2024 10:55:55 Patient TargetsNo targets recorded. Patient Instructions Encounter Date Encounter Id Patient Instructions Last Modified By Organization Details Last Modified Time 06/28/2024 [id number] A healthy lifestyle: care instructions [email or web address] Not available 06/28/2024 14:29:50 08/01/2024 [id number] A healthy lifestyle: care instructions [email or web address] Not available 08/01/2024 14:48:02 Reason for Referral Loss Prevention Specialist Referral for Screening for malignant neoplasm of colon Referring Physician: Sujit Jara, Family Medicine, Encounter Date: 12/18/2024 Results Created Date Observation Date Name Description Value Unit Range Abnormal Flag Note LastModifiedBy Organization Detail LastModifiedTime 07/04/1907/04/2024 LIPID PROFI LE cholesterol, total 169 mg/dL 100-19 9 Not Available [facility] ([facility]) [address] [place], [address], 07/04/2024 09:04:48 07/04/1907/04/2024 LIPID PROFI LE triglyceride s 286 mg/dL 0-149 above high normal Not Available [facility] ([facility]) [address] [place], [address], 07/04/2024 09:04:48 07/04/1907/04/2024 LIPID PROFI LE HDL cholesterol 52 mg/dL >39 Not Available [facility] ([facility]) [address] [place], [address], 07/04/2024 09:04:48 07/04/19 25 07/04/2024 LIPID PROFI LE VLDL cholesterol evelyne 46 mg/dL 5-40 above high normal Not Available [facility] ([facility]) [address] [place], [address], 07/04/2024 09:04:48 07/04/1907/04/2024 LIPID PROFI LE LDL chol calc ([facility]) 71 mg/dL 0-99 Not Available [facility]) [address] [place], [address], 07/04/2024 09:04:48 07/04/19 25 07/04/2024 CMP14 +EGFR glucose 96 mg/dL 70-99 Not Available [facility] ([facility]) [address] [facility], [place], [address], 07/04/2024 09:04:49 07/04/19 25 07/04/2024 CMP14 +EGFR BUN 13 mg/dL 6-24 Not Available [facility] ([facility]) [address] [facility] [place], [address], 07/04/2024 09:04:49 07/04/19 25 07/04/2024 CMP14 +EGFR creatinine 0.78 mg/dL 0.57-1 .00 Not Available [facility] ([facility]) [address] [place], [address], 07/04/2024 09:04:49 07/04/19 25 07/04/2024 CMP14 +EGFR eGFR 91 mL/mi n/1.7 3 >59 Not Available [facility] ([facility]) [address] [facility], [place], [address], 07/04/2024 09:04:49 07/04/19 25 07/04/2024 CMP14 +EGFR BUN/creatini ne ratio 17 9-23 Not Available [facility] ([facility]) [address] [place], [address], 07/04/2024 09:04:49 07/04/19 25 07/04/2024 CMP14 +EGFR sodium 144 mmol/ L 134-14 4 Not Available [facility] ([facility]) [address] [place], [address], 07/04/2024 09:04:49 07/04/19 25 07/04/2024 CMP14 +EGFR potassium 5.0 mmol/ L 3.5-5. 2 Not Available [facility] ([facility]) [address] [place], [address], 07/04/2024 09:04:49 07/04/19 25 07/04/2024 CMP14 +EGFR chloride 107 mmol/ L 96-106 above high normal Not Available [facility] ([facility]) [address] [place], [address], 07/04/2024 09:04:49 07/04/1907/04/2024 CMP14 +EGFR carbon dioxide, total 23 mmol/ L 20-29 Not Available [facility] ([facility]) [address] [facility], [place], [address], 07/04/2024 09:04:49 07/04/1907/04/2024 CMP14 +EGFR calcium 9.7 mg/dL 8.7-10 .2 Not Available [facility] ([facility]) [address] [place], [address], 07/04/2024 09:04:49 07/04/1907/04/2024 CMP14 +EGFR protein, total 6.7 g/dL 6.0-8. 5 Not Available [facility] ([facility]) [address] [place], [address], 07/04/2024 09:04:49 07/04/1907/04/2024 CMP14 +EGFR albumin 4.3 g/dL 3.8-4. 9 Not Available [facility] ([facility]) [address] [place], [address], 07/04/2024 09:04:49 07/04/1907/04/2024 CMP14 +EGFR globulin, total 2.4 g/dL 1.5-4. 5 Not Available [facility] ([facility]) [address] [place], [address], 07/04/2024 09:04:49 07/04/1907/04/2024 CMP14 +EGFR bilirubin, total 0.4 mg/dL 0.0-1. 2 Not Available [facility] ([facility]) [address] [place], [address], 07/04/2024 09:04:49 07/04/1907/04/2024 CMP14 +EGFR alkaline phosphatase 116 IU/L 44-121 Not Available [facility] ([facility]) [address] [facility], [place], [address], 07/04/2024 09:04:49 07/04/1907/04/2024 CMP14 +EGFR AST (SGOT) 16 IU/L 0-40 Not Available [facility] ([facility]) [address] [facility], [place], [address], 07/04/2024 09:04:49 07/04/1907/04/2024 CMP14 +EGFR ALT (SGPT) 19 IU/L 0-32 Not Available [facility] ([facility]) [address] [facility], [place], [address], 07/04/2024 09:04:49 07/04/1907/04/2024 HEMOG LOBIN A1C hemoglobin A1C 6.1 % 4.8-5. 6 above high normal Predi abete s: 5.7 - 6.4 Diabe martin: >6.4 Glyce william contr ol for adult s with diabe martin: <7.0 Not Available [facility] ([facility]) [address] [place], [address], 07/04/2024 09:04:50 07/04/1907/04/2024 CBC, PLATE LET, NO DIFFE RENTI AL WBC 7.1 x10e3 /uL 3.4-10 .8 Not Available [facility] ([facility]) [address] [place], [address], 07/04/2024 09:04:51 07/04/1907/04/2024 CBC, PLATE LET, NO DIFFE RENTI AL RBC 4.75 x10e6 /uL 3.77-5 .28 Not Available [facility] ([facility]) [address] [facility], [place], [address], 07/04/2024 09:04:51 07/04/1907/04/2024 CBC, PLATE LET, NO DIFFE RENTI AL hemoglobin 13.8 g/dL 11.1-1 5.9 Not Available [facility] ([facility]) [address] [facility], [place], [address], 07/04/2024 09:04:51 07/04/1907/04/2024 CBC, PLATE LET, NO DIFFE RENTI AL hematocrit 42.0 % 34.0-4 6.6 Not Available [facility] ([facility]) [address] [facility], [place], [address], 07/04/2024 09:04:51 07/04/1907/04/2024 CBC, PLATE LET, NO DIFFE RENTI AL MCV 88 fL 79-97 Not Available [facility] ([facility]) [address] [facility], [place], [address], 07/04/2024 09:04:51 07/04/1907/04/2024 CBC, PLATE LET, NO DIFFE RENTI AL MCH 29.1 pg 26.6-3 3.0 Not Available [facility] ([facility]) [address] [place], [address], 07/04/2024 09:04:51 07/04/1907/04/2024 CBC, PLATE LET, NO DIFFE RENTI AL MCHC 32.9 g/dL 31.5-3 5.7 Not Available [facility] ([facility]) [address] [place], [address], 07/04/2024 09:04:51 07/04/1907/04/2024 CBC, PLATE LET, NO DIFFE RENTI AL RDW 13.6 % 11.7-1 5.4 Not Available [facility] ([facility]) [address] [place], [address], 07/04/2024 09:04:51 07/04/1907/04/2024 CBC, PLATE LET, NO DIFFE RENTI AL platelets 304 x10e3 /uL 150-45 0 Not Available [facility] ([facility]) [address] [facility], [place], [address], 07/04/2024 09:04:51 01/19/2001/19/2025 LIPID PROFI LE cholesterol, total 166 mg/dL 100-19 9 Not Available [facility] ([facility]) [address] [place], [address], 01/19/2025 08:33:52 01/19/2001/19/2025 LIPID PROFI LE triglyceride s 263 mg/dL 0-149 above high normal Not Available [facility] ([facility]) [address] [place], [address], 01/19/2025 08:33:52 01/19/2001/19/2025 LIPID PROFI LE HDL cholesterol 54 mg/dL >39 Not Available [facility] ([facility]) [address] [place], [address], 01/19/2025 08:33:52 01/19/2001/19/2025 LIPID PROFI LE VLDL cholesterol evelyne 42 mg/dL 5-40 above high normal Not Available [facility] ([facility]) [address] [place], [address], 01/19/2025 08:33:52 01/19/2001/19/2025 LIPID PROFI LE LDL chol calc ([facility]) 70 mg/dL 0-99 Not Available [facility] ([facility]) [address] [place], [address], 01/19/2025 08:33:52 01/19/2001/19/2025 CMP14 +EGFR glucose 102 mg/dL 70-99 above high normal Not Available [facility] ([facility]) [address] [facility], [place], [address], 01/19/2025 08:33:53 01/19/2001/19/2025 CMP14 +EGFR BUN 13 mg/dL 6-24 Not Available [facility] ([facility]) [address] [facility], [place], [address], 01/19/2025 08:33:53 01/19/2001/19/2025 CMP14 +EGFR creatinine 0.87 mg/dL 0.57-1 .00 Not Available [facility] ([facility]) [address] [facility], [place], [address], 01/19/2025 08:33:53 01/19/2001/19/2025 CMP14 +EGFR eGFR 80 mL/mi n/1.7 3 >59 Not Available [facility] ([facility]) [address] [facility], [place], [address], 01/19/2025 08:33:53 01/19/2001/19/2025 CMP14 +EGFR BUN/creatini ne ratio 15 9-23 Not Available [facility] ([facility]) [address] [facility], [place], [address], 01/19/2025 08:33:53 01/19/2001/19/2025 CMP14 +EGFR sodium 142 mmol/ L 134-14 4 Not Available [facility] ([facility]) [address] [facility], [place], [address], 01/19/2025 08:33:53 01/19/2001/19/2025 CMP14 +EGFR potassium 4.9 mmol/ L 3.5-5. 2 Not Available [facility] ([facility]) [address] [facility], [place], [address], 01/19/2025 08:33:53 01/19/2001/19/2025 CMP14 +EGFR chloride 106 mmol/ L 96-106 Not Available [facility] ([facility]) [address] [facility] [place], [address], 01/19/2025 08:33:53 01/19/2001/19/2025 CMP14 +EGFR carbon dioxide, total 24 mmol/ L 20-29 Not Available [facility] ([facility]) [address] [facility] [place], [address], 01/19/2025 08:33:53 01/19/2001/19/2025 CMP14 +EGFR calcium 9.4 mg/dL 8.7-10 .2 Not Available [facility] ([facility]) [address] [facility] [place], [address], 01/19/2025 08:33:53 01/19/2001/19/2025 CMP14 +EGFR protein, total 5.9 g/dL 6.0-8. 5 below low normal Not Available [facility] ([facility]) [address] [facility], [place], [address], 01/19/2025 08:33:53 01/19/2001/19/2025 CMP14 +EGFR albumin 4.0 g/dL 3.8-4. 9 Not Available [facility] ([facility]) [address] [facility] [place], [address], 01/19/2025 08:33:53 01/19/2001/19/2025 CMP14 +EGFR globulin, total 1.9 g/dL 1.5-4. 5 Not Available [facility] ([facility]) [address] [facility] [place], [address], 01/19/2025 08:33:53 01/19/2001/19/2025 CMP14 +EGFR bilirubin, total 0.2 mg/dL 0.0-1. 2 Not Available [facility] ([facility]) [address] [facility] [place], [address], 01/19/2025 08:33:53 01/19/2001/19/2025 CMP14 +EGFR alkaline phosphatase 92 IU/L 49-135 Not Available [facility] ([facility]) [address] [place], [address], 01/19/2025 08:33:53 01/19/2001/19/2025 CMP14 +EGFR AST (SGOT) 15 IU/L 0-40 Not Available [facility] ([facility]) [address] [facility], [place], [address], 01/19/2025 08:33:53 01/19/2001/19/2025 CMP14 +EGFR ALT (SGPT) 18 IU/L 0-32 Not Available [facility] ([facility]) [address] [place], [address], 01/19/2025 08:33:53 01/19/2001/19/2025 HEMOG LOBIN A1C hemoglobin A1C 5.7 % 4.8-5. 6 above high normal Predi abete s: 5.7 - 6.4 Diabe martin: >6.4 Glyce william contr ol for adult s with diabe martin: <7.0 Not Available [facility] ([facility]) [address] [place], [address], 01/19/2025 08:33:54 01/19/2001/19/2025 CBC, PLATE LET, NO DIFFE RENTI AL WBC 7.1 x10e3 /uL 3.4-10 .8 Not Available [facility] ([facility]) [address] [place], [address], 01/19/2025 08:33:55 01/19/2001/19/2025 CBC, PLATE LET, NO DIFFE RENTI AL RBC 4.26 x10e6 /uL 3.77-5 .28 Not Available [facility] ([facility]) [address] [place], [address], 01/19/2025 08:33:55 01/19/2001/19/2025 CBC, PLATE LET, NO DIFFE RENTI AL hemoglobin 12.8 g/dL 11.1-1 5.9 Not Available [facility] ([facility]) [address] [facility], [place], [address], 01/19/2025 08:33:55 01/19/2001/19/2025 CBC, PLATE LET, NO DIFFE RENTI AL hematocrit 39.8 % 34.0-4 6.6 Not Available [facility] ([facility]) [address] [facility], [place], [address], 01/19/2025 08:33:55 01/19/2001/19/2025 CBC, PLATE LET, NO DIFFE RENTI AL MCV 93 fL 79-97 Not Available [facility] ([facility]) [address] [facility], [place], [address], 01/19/2025 08:33:55 01/19/2001/19/2025 CBC, PLATE LET, NO DIFFE RENTI AL MCH 30.0 pg 26.6-3 3.0 Not Available [facility] ([facility]) [address] [facility], [place], [address], 01/19/2025 08:33:55 01/19/2001/19/2025 CBC, PLATE LET, NO DIFFE RENTI AL MCHC 32.2 g/dL 31.5-3 5.7 Not Available [facility] ([facility]) [address] [facility], [place], [address], 01/19/2025 08:33:55 01/19/2001/19/2025 CBC, PLATE LET, NO DIFFE RENTI AL RDW 13.6 % 11.7-1 5.4 Not Available [facility] ([facility]) [address] [facility], [place], [address], 01/19/2025 08:33:55 01/19/20 25 01/19/2025 CBC, PLATE LET, NO DIFFE RENTI AL platelets 310 x10e3 /uL 150-45 0 Not Available [facility] ([facility]) [address] [facility], [place], [address], 01/19/2025 08:33:55 06/21/19 25 05/31/2023 tread mill nucle ar stres s test (PROC ) No observ ation record ed. BARCODE Not Available 2024 18:03:46 06/21/19 25 05/31/2023 imagi ng/di agnos tic resul t No observ ation record ed. BARCODE Not Available 2024 18:03:46 06/29/19 25 06/28/2024 elect rocar diogr am No observ ation record ed. [place] In-Office Order Internal Use Only DO Not Attach Compendium DO Not Attach Compendium, Do Not Delete/merge, [id number] 06/28/2024 14:48:49 06/29/19 elect rocar diogr am No observ ation record ed. [email or web address] Not Available 06/28 14:48:49 07/28/19 25 07/27/2024 US, echoc ardio gram, trans thora cic, compl ete, w/ color flow No observ ation record ed. [facility] [address] [facility] [place], [address], 07/28/2024 09:54:13 Result Notes None recorded. Problems Name Problem SNOMED Code Status Onset Date Resolution Date Notes Provider Name and Address Organization Details Recorded Time Asthma 658699639 Active 2017 Kasi Zapata PA-C Attn: Paddy antoine,[address] [facility], [place], [address], [facility] 2 10:34:46 Essential hypertensio n 75004521 Active 2018 Kasi Zapata PA-C Attn: Paddy antoine,[address] [facility], [place], [address], [place] [facility] 2 10:34:43 Migraine 34550951 Active 2018 Kasi Zapata PA-C Attn: Paddy antoine,[address] [facility], [place], [address], [place] [facility] 2 14:07:21 Prediabetes 290561561 Active 2021 Kasi Zapata PA-C Attn: Paddy antoine,[address] [facility], [place], [address], [place] [facility] 2 11:54:45 Dyslipidemi a 689473473 Active 2022 Nellie Duncan RN null, [place] [facility] 3 10:56:30 Coronary arterioscle rosis 40172641 Active 2023 Kasi Zapata PA-C Attn: Paddy antoine,[address] [facility], [place], [address], [place] [facility] 4 16:36:19 Dog bite - wound 287744122 Active 2023 Sujit Jara MD Attn: Paddy antoine,[address] [facility], [place], [address], [place] [facility] 4 12:00:11 Morbid obesity 521356341 Active 2023 Sujit Jara MD Attn: Paddy antoine,[address] [facility], [place], [address], [place] [facility] 4 12:00:12 Seasonal allergic rhinitis 743605242 Active 2023 Sujit Jara MD Attn: Paddy antoine,[address] [facility], [place], [address], [place] [facility] 4 12:00:13 Hypertrigly ceridemia 684867177 Active 2023 Sujit Jara MD Attn: Paddy antoine,[address] [facility], [place], [address], [place] [facility] 4 12:00:14 Hypercholes terolemia 80040845 Active 2023 Sujit Jara MD Attn: Paddy antoine,[address] [facility], [place], [address], [place] [facility] 4 12:00:15 Atheroscler osis of coronary artery without angina pectoris 9153882147983 03 Active 2024 Orlando Gallo [place] null, [place] [facility] 5 12:39:08 Dyspnea on exertion 37819257 Active 2024 Orlando Gallo [place] null, [place] [facility] 5 12:39:11 Hyperlipide agustin 59631072 Active 2024 Orlando Gallo [place] null, [place] [facility] 5 12:39:15 Notes:Some problems listed i n Documents: #[id number], #[id number], #[id number] could not be added to this patient's chart. Please review these documents and add these problems to the patient's chart manually as needed. Problem Notes None recorded. Procedures Surgical History Date Name Laterality Status Provider Name and Address Organization Details Recorded Time 03/28/19 20 Nebulizer tx completed JUAREZ Berkowitz Attn: Accounting,[address] [facility], [place], [address], [place] [facility] 03/28/2019 12:37:44 08/27/19 18 Total hysterectomy completed Salima Sanchez MD Attn: Accounting,[address] [facility], [place], [address], [place] [facility] 10/30/2022 13:55:13 03/22/19 08 [...] Name and Address Organization Details Recorded Time 965899 Canis lupus familiari s extract environme nt wheezing mild Not available 04/13/2017 09013 4 RxNorm Kasi Zapata PA-C Attn: Paddy antoine,[address] [facility], [place], [address], [facility] 8 11:09:12 No known drug [...] 5 154.94 cm 16 /min 40.6 kg/m2 83228.3 6 g 96 % 61 /min 124/80 mm[Hg] Coty Gonzales [facility] 5 10:11:42 Date Recorded Body height Body mass index (BMI) Body weight Heart rate Oxygen saturation Systolic And Diastolic Provider Name and Address Organization Details Last Updated DateTime 5 154.94 cm 39.8 kg/m2 90108.2 7 g 74 /min 96 % 114/70 mm[Hg] Orlando Gallo MA [facility] 5 13:59:40 Date Recorded Body height Body mass index (BMI) Body weight Heart rate Oxygen saturation Systolic And Diastolic Provider Name and Address Organization Details Last Updated DateTime 154.94 cm 39.6 kg/m2 93352.2 4 g 79 /min 97 % 108/64 mm[Hg] Orlnado Gallo MA [facility] 5 14:15:11 Date Recorded Body height Oxygen saturation Heart rate Body mass index (BMI) Body weight Systolic And Diastolic Provider Name and Address Organization Details Last Updated DateTime 5 154.94 cm 95 % 70 /min 36.3 kg/m2 63137.7 4 g 118/74 mm[Hg] Pastora Phelps MA [facility] 5 09:25:28 Date Recorded Body mass index (BMI) Body weight Oxygen saturation Heart rate Systolic And Diastolic Provider Name and Address Organization Details Last Updated DateTime 02/01/2025 37.5 kg/m2 08845.73 g 97 % 71 /min 110/60 mm[Hg] Sri Gillette MA [facility] 5 15:05:44 Date Recorded Body height Provider Name an d Address Organization Details Last Updated DateTime 02/01/2025 154.94 cm Orlando Gallo MA [facility] 02/01 14:49:43 Social History Question Answer Notes LastModified by Organizat ion Details LastModified Time Tobacco Smoking Status Former Smoker Macie Palmer [place] null, [facility] 10/31/2019 14:26:39 What Is Your Level Of Caffeine Consumption? None [email or web address] Information not available 06/19/2024 What Was The Date Of Your Most Recent Tobacco Screening? 12/18/2024 [email or web address] Information not available 12/18/2024 Has Tobacco Cessation Counseling Been Provided? No Information not available 06/17/2020 Sex: Female Functional Status Question Answer Note LastModified by Organizat ion Details LastModified Time Do you use any illicit or recreational drugs? No Information not available 06/17/2020 Do you or have you ever used any other forms of tobacco or nicotine? No [email or web address] Information not available 06/19/2024 What is your level of alcohol consumption? None [email or web address] Information not available 06/19/2024 Do you or have you ever used smokeless tobacco? Never used smokeless tobacco [email or web address] Information not available 03/28/2019 Do you or have you ever used e-cigarettes or vape? Never used electronic cigarettes [email or web address] Information not available 02/28/2019 Mental Status None recorded. Family History Relationship Description Onset Age of this Age Resolved Age Notes LastModified by Organization Details LastModified Time Maternal Grandmother Myocardial infarction [email or web address] Not available 04/13 11:14:07 Maternal Aunt Myocardial infarction [email or web address] Not available 04/13 11:14:07 Maternal Aunt Diabetes mellitus [email or web address] Not available 2017 11:14:28 Brother Kidney disease [email or web address] Not available 12/19 16:16:19 Medical History Condition Response High Blood Pressure Y Depression Y Asthma Y Gynecological HistoryNo gynecological history recorded. Obstetrics History GPAL:G 0 P 0 0 0 0 Immunizations Vaccine Type Date Status Note Provider Nam e and Address Organization Details Recorded Time Influenza, split virus, quadrivalent, preservative 9 completed Not Available [facility] 04/08/2019 02:39:21 Past Encounters Encounter ID Performer Location Encounter Start Date Encounter Closed Date Diagnosis/Indication Diagnosis SNOMED-CT Code Diagnosis ICD10 Code Diagnosis IMO Codes Diagnosis Note [id number] PARI Silver (MICHAEL 104) [address] [place] [address] 04/13/2017 10:37:24 04/16/2017 11:17:54 Adult health examination 138184904 Z00.00 We will check some routine labs today. I encouraged pt to eat low-fat, low-salt diet and exercise most days of the week. Anemia 295136298 D64.9 Pt was treated for iron deficiency anemia while hospitaliz ed. No notes are available so we will check CBC and iron panel today. Screening mammography 24 558267 Z12.31 Essential hypertension 82580395 I10 Elevated BP today, but pt has not been on her medication . Will continue losartan today. Asthma 074007594 J45.90 9 Well controlled based on limited use of rescue inhaler. Will continue current regimen. [id number] MD Edison [facility] (MICHAEL 104) [address] [facility] [place] [address] 09/14/2017 11:30:12 09/20/2017 13:22:53 Anemia 228159579 D64.9 Hopefully Hgb has rebounded in light of vaginal bleeding resolution . If so, we can d/c iron supplement and repeat CBC in 1-2 months to monitor. [id number] MD Edison [facility] (MICHAEL 104) [address] [facility] [place] [address] 11/01/2017 09:29:47 11/05/2017 10:46:22 Anemia 028371472 D64.9 Suspect anemia to improve with cessation of abnormal bleeding following partial hysterecto my. Will check CBC and iron studies and contact pt when available. Insomnia 472532292 G47.0 0 Discussed good sleep hygeine practices and specifical ly recommende d limiting screen time before bed. I advised pt to limit caffeine in the evening and work on a regular exercise regimen. May also use OTC melatonin as sleep aid. RTC in 3-4 weeks if no improvemen t. [id number] MD Edison Varma e [facility] (MICHAEL 104) [address] [facility] [place] [address] 07/18/2018 14:25:42 07/19/2018 08:36:46 Acute upper respiratory infection 56572152 J06.9 Negative strep test, likely viral URI. No indication for antibiotic s at this time. Rest and plenty of fluids. Discussed OTC cold medication s and answered all questions. RTC in 10 days if no improvemen t. Asthma 699638395 J45.90 9 Well controlled based on limited use of rescue inhaler. Will continue current regimen. Blood pres sure above reference range 45078147 R03.0 Pt not feeling well and will monitor at home, has been well controlled historical ly. [id number] MD Edison [facility] (MICHAEL 104) [address] [place] [address] 08/01/2018 14:55:16 08/02/2018 08:19:17 Headache 81529446 R51 Pt's thundclap type headache has several red flags including hypertensi ve emergency, acute onset and waking her from sleep. I discussed her care with Dr. Walker and agree that she needs emergent imaging to assess for intracrani al bleeding. Pt will be transferre d to ER via EMS. [id number] MD Edison Varma [facility] (MICHAEL 104) [address] [facility] [place] [address] 08/04/2018 12:15:24 08/19/2018 08:25:09 Migraine 31247822 G43.909 Pt's new onset of severe headaches warrant evaluation by neurology, so will place referral today. I advised pt to go to ER immediatel y if headaches worsen or any other neurologic deficits develop. Essential hypertension 09947756 I10 BP still elevated so will start Lisinopril 20mg daily and see pt in 2-3 weeks to monitor BP. -Discussed lifestyle modificati ons including 150 minutes moderate intensity exercise per week, restrictin g intake of fast/proce ssed foods, sweets, sugary beverages. [id number] Zakiya Maciel NP-C Edison RUDOLPH (MICHAEL 104) [address] [place] [address] 08/09/2018 08:55:28 08/10/2018 08:36:05 Dizziness 379928963 R42 -restart flonase-ca n try meclizine as needed for dizziness- orthostati cs do show some variation when standing, should change positions slowly.-ke ep next apt with PCP [id number] MD Edison [facility] (MICHAEL 104) [address] [place] [address] 09/07/2018 11:01:04 09/08/2018 08:24:50 Migraine 25141468 G43.909 Greatly improved on current regimen and has f/u with Dr. Mares next week to discuss MRI then transferri ng to [facility] Neurology. No changes to medication s made today. Pt can f/u with me in six months or sooner if needed. [id number] MD Deya Wallace (MICHAEL 104) [address] [place] [address] 02/28/2019 16:15:47 03/16/2019 08:37:42 Asthma 279489499 J45.909 Well controlled based on limited use of rescue inhaler. Will continue current regimen. Essential hypertension 21222534 I10 At goal today with current medication s. Encouraged pt to maintain regular exercise and continue low salt, low fat diet. -Discussed lifestyle modificati ons including 150 minutes moderate intensity exercise per week, restrictin g intake of fast/proce ssed foods, sweets, sugary beverages. Active or passive immunization 289353655 Z23 [id number] Zakiya Maciel, CHAPARRO-C Edison RUDOLPH (MICHAEL 104) [address] [place] [address] 03/28/2019 10:58:58 03/29/2019 08:51:46 Acute exacerbation of asthma 797049497 J45.901 -burst with prednisone -start montelukas t for allergy/as thma coverage-w ill give nebulizer at home-on inh corticoste roid, needs pulm referral for worsening asthma-to ER for worsening shortness of breath. [id number] MD Edison [facility] (MICHAEL 104) [address] [place] [address] 04/19/2019 11:09:09 04/20/2019 11:57:32 Asthma 316536860 J45.909 Pt provided with contact informatio n to pulm at [facility]. Pt reports her asthma has not been [...] ing and agreed to this treatment plan. [id number] Darinel Her MD [facility] [address] [place] [address] 04/24/2019 10:54:07 05/02/2019 13:24:09 Asthma 660671446 J45.909 Start symbicort, stop Arnuity MDI teaching/t echnique Prednisone - complete entire course Total Ige area 8 and IgE labs Peak flow meter given with teaching and education on use PFT's Essential hypertension 72311606 I10 Continue Medication s. Continue to monitor blood pressure. Encourage low salt diet and exercise. Pulmonary hypertension 58096394 I27.20 Echo Hemoptysis 44585228 R04. 2 Small amount of pink tinged sputum with cough, most likely from coughing/ irritation . 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 Allergy to cat dander 23 0959724 J30.81 IgE class specific: Class V- Very high allergy. To prevent further asthma exacerbati ons, best method is to remove triggers from home. Avoidance/ removal of cats Allergy to dog dander 41 3117505 J30.81 IgE class specific: Class IV- Very high allergy. To prevent further asthma exacerbati ons, best method is to remove triggers from home. Avoidance/ removal of dogs. Essential hypertension 67350786 I10 Continue Medication s. Continue to monitor blood pressure. Encourage low salt diet and exercise. Body mass index 30+ - obesity 639341111 Z68.33 Encouraged -Choosing low-fat, low-calori e foods -Eating smaller portions -Drinking water instead of sugary drinks -Being physically active [id number] Darinel Her MD [facility] [address] [place] [address] 08/07/2019 09:53:08 08/25/2019 14:05:06 Asthma 162178064 J45.909 Continue symbicort as prescribed , albuterol as needed and nebulaizer MDI teaching Awaiting PFT completion Essential hypertension 16520769 I10 Managed in primary care. Continue to monitor blood pressure. Encourage low salt diet and exercise. Pulmonary hypertension 07268633 I27.20 Echo, awaiting completion . testing date 08/09/19 Obstructiv e sleep apnea syndrome 71364810 G47.33 HSAT, awaiting completion [id number] Darinel Her MD [facility] [address] [place] [address] 10/12/2019 12:13:24 10/17/2019 14:08:30 Essential hypertension 78205337 I10 Managed in primary care. Continue to monitor blood pressure. Encourage low salt diet and exercise. Pulmonary hypertension 34037110 I27.20 Echo completed, will obtain results from Aaron Obstructiv e sleep apnea syndrome 65759242 G47.33 HSAT ordered previously , Aaron is not conducting HSAT at this time. Will reorder for TRH Dyspnea 905925920 R06.00 CXR Moderate p ersistent asthma 290424174 J45.40 Continue budesonide -formotero l HFA 160/4.5 as prescribed , albuterol as needed and nebulizer Continue Montelukas t daily Prednisone MDI teaching PFT completed, will obtain results from Aaron [id number] Salima Sanchez MD [facility] (MICHAEL 104) [address] [place] [address] 10/31/2019 14:14:41 11/01/2019 08:12:12 Essential hypertension 47554295 I10 At goal today with current medication s. Encouraged pt to maintain regular exercise and continue low salt, low fat diet. -Discussed lifestyle modificati ons including 150 minutes moderate intensity exercise per week, restrictin g intake of fast/proce ssed foods, sweets, sugary beverages. Dyslipidemia 925167007 E 78.5 Continue Statin. [id number] Darinel Her MD [facility] [address] [place] [address] 12/13/2019 14:03:45 12/15/2019 14:54:44 Essential hypertension 37575352 I10 Managed in primary care. Continue to monitor blood pressure. Encourage low salt diet and exercise. Asthma 550367299 J45.90 9 Controlled Continue Symbicort as prescribed . MDI as needed. Encouraged use of albuterol 10-15 min prior to strenuous activity/e xercise, possible EIB. No refills needed at this time. [id number] Darinel Her MD [facility] [address] [place] [address] 03/13/2020 14:06:09 03/13/2020 16:50:59 Asthma 012283788 J45.909 Continue Symbicort as prescribed . MDI as needed/neb s. Asthma most likely triggered by her 3 cats. Essential hypertension 86788142 I10 Managed in primary care. Continue to monitor blood pressure. Encourage low salt diet and exercise. Allergy to cat dander 23 0401614 J30.81 IgE class specific: Class V- Very high allergy. She has 3 cats. Encouraged consistant use of montelukas t/OTC allergen tablet. Will refer to rubber heel and sole press tender Allergy to dog dander 41 5349752 J30.81 IgE class specific: Class IV- Very high allergy. Body mass index 30+ - obesity 334647792 Z68.33 Encouraged -Choosing low-fat, low-calori e foods -Eating smaller portions -Drinking water instead of sugary drinks -Being physically active [id number] Salima Sanchez MD [facility] (MICHAEL 104) [address] [place] [address] 06/17/2020 09:28:29 06/18/2020 12:52:50 Asthma 288179316 J45.909 Managed by [facility] at [facility]. Instructed pt if albuterol usage increases beyond 2-3 times per week for 2 weeks, it may been a sign of worsening control. Call office or go to ER for worsening cough, wheeze or work of breathing. Follow up in office in 6 months - pt verbalized understand ing. Essential hypertension 44997558 I10 Elevated today so will increase Lisinopril to 30mg. Check BP at home and call clinic if above 140/90 so we can adjust BP medication . Explained to pt proper BP monitoring technique and they expressed understand ing. -Discussed lifestyle modificati ons including 150 minutes moderate intensity exercise per week, restrictin g intake of fast/proce ssed foods, sweets, sugary beverages. Dyslipidemia 118335816 E 78.5 Continue Statin, will check lipids again at next visit. Numbness of toe 52839668 8 R20.0 Symptoms are not overly concerning and do not bother Ms. Ojeda very much. She is most concerned about DM, so will check A1C and other labs today. We can consider a podiatry referral if all labs are normal and this problem becomes more bothersome . [id number] Salima Sanchez MD [facility] (MICHAEL 104) [address] [place] [address] 09/18/2020 13:52:02 09/18/2020 14:19:32 Essential hypertension 05942680 I10 At goal today with current medication s. Encouraged pt to maintain regular exercise and continue low salt, low fat diet. Screening mammography 24 013775 Z12.31 Dyslipidemia 186557769 E 78.5 Continue Statin, will check lipids again today. [id number] Darinel Her MD [facility] [address] [place] [address] 09/18/2020 15:47:12 09/20/2020 07:20:40 Asthma 749808883 J45.909 Not well controlled , using albuterol 2-3x daily. Continue Symbicort as prescribed . MDI as needed/neb s. Asthma likely triggered by class V allergy to cats, she has three. Refill Referral to [facility] Intern would be beneficial Essential hypertension 99120567 I10 Managed in primary care. Continue to monitor blood pressure. Encourage low salt diet and exercise. Allergy to cat dander 23 4265300 J30.81 IgE class specific: Class V- Very high allergy. She has 3 cats. Encouraged consistant use of montelukas t/OTC allergen tablet. Will refer again to rubber heel and sole press tender Allergy to dog dander 41 2003433 J30.81 IgE class specific: Class IV- Very high allergy. Body mass index 30+ - obesity 970961233 Z68.33 Encouraged -Choosing low-fat, low-calori e foods -Eating smaller portions -Drinking water instead of sugary drinks -Being physically active [id number] Darinel Her MD [facility] [address] [place] [address] 03/20/2021 14:09:38 03/20/2021 15:33:54 Asthma 786409315 J45.909 Using albuterol dailyStop Symbicort, start wixela 250Asthma likely triggered by class V allergy to cats, she has three. Will resend referral to Validation Intern would be beneficial Essential hypertension 68566275 I10 Managed in primary care. Continue to monitor blood pressure. Encourage low salt diet and exercise. Allergy to cat dander 23 6031112 J30.81 IgE class specific: Class V- Very high allergy. She has 3 cats. Encouraged consistant use of montelukas t/OTC allergen tablet. Will refer again to rubber heel and sole press tender Allergy to dog dander 41 5241018 J30.81 IgE class specific: Class IV- Very high allergy. Body mass index 40+ - severely obese 592479767 Z68.41 [id number] MD Edison [facility] (MICHAEL 104) [address] [place] [address] 03/20/2021 09:03:51 03/23/2021 23:16:32 Essential hypertension 89302704 I10 At goal today with current medication s. Encouraged pt to maintain regular exercise and continue low salt, low fat diet. Morbid obesity 273051733 E66.01 SARS-CoV-2 mRNA vaccine declined 9150038478 Z28.21 Discussed safety and efficacy of Covid vaccine with pt and encouraged them to reconsider . Advised pt that the vaccine is one of the best defenses against Covid available and can be administer ed today. Answered all pt questions but they still refused the vaccine. [id number] MD Edison [facility] (MICHAEL 104) [address] [place] [address] 09/29/2021 13:59:16 10/01/2021 10:59:34 Essential hypertension 78560841 I10 At goal today with current medication s. Encouraged pt to maintain regular exercise and continue low salt, low fat diet. Asthma 827478448 J45.90 9 Will be establishi [facility] with [facility]m at [facility] in October. Will need replacemen t for Wixela today as it is no longer covered by her insurance so will start Dulera. Pt advised to call if using rescue inhaler more than four times per week to increase Dulera dose. Also instructed to only use MIGUEL as needed. She expressed understand ing and agreed to this treatment plan. Tachycardia 8638845 R00. 0 Likely related to excessive MIGUEL use. Pt counseled on appropriat e MIGUEL use and will continue to monitor HR at home. Overweight 228546134 E66 .3 [id number] MD Edison [facility] (MICHAEL 104) [address] [place] [address] 01/08/2022 13:39:18 01/20/2022 09:41:14 Hematochezia 263735100 K92.1 Single occurrence of scant bright red [...] to this treatment plan. Loss of hair 996200265 L 65.9 Unclear etiology, will check labs listed below and consider minoxidil vs derm referral when results are available. Discussed possible causes of hair loss and answered all pt questions. She is agreeable to this plan. Obesity 591995680 E66.9 [id number] MD Edison Wallace [facility] (MICHAEL 104) [address] [place] [address] 04/15/2022 14:42:59 04/20/2022 11:07:53 Prediabetes 191000997 R73.03 A1c increased to 5.9, will start low dose metformin today and have pt return in three months for next a1c. She expressed understand ing and agreed to this treatment plan. Essential hypertension 96917077 I10 At goal today with current medication s. Encouraged pt to maintain regular exercise and continue low salt, low fat diet. Vitamin D deficiency 347 00046 E55.9 Currently taking 50,000 unit weekly supplement . Will check Vit D and likely decrease to lower daily dose. Morbid obesity 179340154 E66.01 [id number] MD Edison Wallace [facility] (MICHAEL 104) [address] [place] [address] 07/21/2022 08:51:47 07/27/2022 11:21:20 Prediabetes 884226512 R73.03 A1c shows great pre-DM control. No medication changes at this time. Continue to work on low carb diet and increasing activity. See me in six months for next A1c or sooner if needed. Answered all pt questions and they expressed understand ing. Essential hypertension 09419727 I10 At goal today with current medication s. Encouraged pt to maintain regular exercise and continue low salt, low fat diet. Vitamin D deficiency 347 27241 E55.9 Morbid obesity 468199529 E66.01 Asthma 797249720 J45.90 9 Following with [facility]. Screening for malignant neoplasm of cervix 658335646 Z12.4 Scheduled for next week. [id number] MD Deya Wallace (MICHAEL 104) [address] [place] [address] 01/22/2023 10:47:37 02/15/2023 13:39:58 Essential hypertension 51139645 I10 At goal today with current medication s. Encouraged pt to maintain regular exercise and continue low salt, low fat diet. Prediabetes 873557228 R7 3.03 A1c shows great pre-DM control. No medication changes at this time. Continue to work on low carb diet and increasing activity. See me in six months for next A1c or sooner if needed. Answered all pt questions and they expressed understand ing. Dyslipidemia 195445563 E 78.5 Continue Statin, will check lipids again today. Vitamin D deficiency 347 66105 E55.9 Morbid obesity 047544528 E66.01 [id number] MD Edison Wallace [facility] (MICHAEL 104) [address] [place] [address] 04/02/2023 14:20:14 04/08/2023 09:06:43 Chest pain 40542686 R07.9 EKG showing junctional rhythm in pt [...] and pt expressed understand ing. Morbid obesity 786146956 E66.01 [id number] Salima Sanchez MD [facility] (MICHAEL 104) [address] [place] [address] 08/04/2023 15:45:18 08/19/2023 09:33:12 Essential hypertension 19771382 I10 At goal today with current medication s. Encouraged pt to maintain regular exercise and continue low salt, low fat diet. Morbid obesity 819924021 E66.01 [id number] Sujit Jara MD REPLACED BY [facility] [place] [facility] [address] [facility] [address] [place] [address] 12/20/2023 11:24:21 12/21/2023 10:04:13 Asthma 055247276 J45.909 conditon chronic and at goal refill the albuterol with 5 refills. continue the nebs prn Coronary arteriosclerosis 50928757 I25.10 condition chroinc and at goal with stent placement follow with dr benavides Essential hypertension 92245618 I10 condition chronic and at goal continue the lisinopril and metoprolol Migraine 69620719 G43.90 9 conditon chronic and at goal continue the excedrin migraine Prediabetes 973124672 R7 3.03 condition chroin cand at goal contineut he metformin Hypercholesterolemia 136 81922 E78.00 condition chroinc nad at goal continue the atorvastat in Hypertriglyceridemia 302 289253 E78.1 conditon chronic and at goal continue the low fat diet. Seasonal a llergic rhinitis 931400752 J30.2 conditon chronic and at goal continue the singular Morbid obesity 952398110 E66.01 conditon chronic and not at goal continue low fat diet. Dog bite - wound 7766283 05 T14.8XXA condition acute start augmentin for 7 days. [id number] Sujit Jara MD REPLACED BY [facility] [place] [facility] II [address] [facility] [address] [place] [address] 06/19/2024 09:50:14 06/20/2024 12:31:03 Coronary arteriosclerosis 83966627 I25.10 condition chroinc and at goal with stent placement refer to dr chen Essential hypertension 57223431 I10 condition chronic and at goal continue the lisinopril and metoprolol Morbid obesity 456393175 E66.01 conditon chronic and not at goal continue low fat diet. Asthma 636010462 J45.90 9 conditon chronic and at goal refill the albuterol with 5 refills. continue the nebs prn Prediabetes 266043069 R7 3.03 condition chroin cand at goal continue the metformin Dyslipidemia 007744591 E 78.5 [id number] Sebastien Taylor MD REPLACED BY [facility] [place] [facility] [address] [place] [address] 06/28/2024 13:46:07 06/29/2024 09:14:58 Atherosclerosis of coronary artery without angina pectoris 1850139968 34537 I25.10 First-degr ee Morbid obesity 937794275 E66.01 Essential hypertension 11805853 I10 Type 2 juan betes mellitus without complication 721507043 E11.9 Hyperlipidemia 50489541 E78.5 Dyspnea on exertion 6084 5006 R06.09 First degr ee atrioventricular block 836946228 I44.0 [id number] Sebastien Taylor MD REPLACED BY [facility] [place] [facility] [address] [place] [address] 08/01/2024 14:08:08 08/02/2024 16:06:38 Atherosclerosis of coronary artery without angina pectoris 5745279404 19550 I25.10 First-degr ee Dyspnea on exertion 6084 5006 R06.09 Type 2 juan betes mellitus without complication 930635111 E11.9 Essential hypertension 48229665 I10 Hyperlipidemia 32951085 E78.5 First degr ee atrioventricular block 981502257 I44.0 Obese class II 182090913 1 93331 E66.812 6852376622 History of asthma 363238 007 Z87.09 [id number] Sujit Jara MD REPLACED BY [facility] [place] [address] [place] [address] 12/18/2024 09:01:50 12/18/2024 10:07:20 Essential hypertension 02577451 I10 condition chronic and at goal continue the lisinopril and metoprolol Coronary arteriosclerosis 78053732 I25.10 condition chroinc and at goal with stent placement refer to dr chen Hypercholesterolemia 136 75103 E78.00 condition chroinc nad at goal continue the atorvastat in Hypertriglyceridemia 302 285802 E78.1 conditon chronic and at goal continue the low fat diet. Migraine 76844173 G43.90 9 conditon chronic and at goal continue the excedrin migraine Screening mammography 24 818431 Z12.31 [id number] order mammo Screening for malignant neoplasm of colon 423121202 Z12.[id number] her [id number] Sebastien Taylor MD [facility] [address] [facility] [address] [place] [address] 02/01/2025 14:47:38 02/02/2025 08:07:09 Atherosclerosis of coronary artery without angina pectoris 0209571782 72226 I25.10 First-degr ee Dyspnea on exertion 6084 5006 R06.09 Type 2 juan betes mellitus without complication 238261617 E11.9 Essential hypertension 01175096 I10 Hyperlipidemia 30130672 E78.5 First degr ee atrioventricular block 480676430 I44.0 History of asthma 164698 007 Z87.09 807792 Health Concerns Section Related Observation LastModified by Organization Detai ls LastModified Time None Recorded Concern Status LastModified by Organization Details LastModified Time None Recorded Advance Directives Directive None Recorded Payers Insurance Date Sequence Insurance Name Policy Number Policy Collazo Covered Member ID Collazo Member ID Guarantor Name 02/01/2025 1 [facility] Vandana Ojeda [id number] Vandana Ojeda 02/01/2025 1 [facility] (MEDICAID HMO) [id number] Vandana Ojeda [id number] Vandana Ojeda Notes Date Note Type Note Provider Name and Address Organization Details Recorded Time 5 text/htm l states that she is doing good the cad is under control and the asthma is under contrl has been watching her diet. has the pre diabetes colo is utd dr taina byrd is utd. Sujit Jara MD Attn: Accounting,[address] [facility], [place], [address], [facility] 06/19/2024 11:49:14 5 text/htm l 54-year-old female [...] performed over a wire passed through the [place] vessel, resulting in an excellent angiographic appearance [...] event. Sebastien Taylor MD Attn: Accounting,[address] [facility], [place], [address], [place] - [facility] 06/28/2024 14:30:32 5 text/htm l 54-year-old female [...] performed over a wire passed through the [place] vessel, resulting in an excellent angiographic appearance [...] event. Sebastien Taylor MD Attn: Accounting,[address] [place], [address], [facility] 08/01/2024 14:56:24 5 text/htm l states that she is doing good the htn and the cad is under control hte chol is treated. arcelia migraines are under control Sujit Jara MD Attn: Accounting,[address] [place], [address], [facility] 12/18/2024 13:20:33 5 text/htm l 54-year-old female who has [...] and diabetes. She had an echocardiogram on May 8 which shows normal left ventricular systolic function [...] cholesterol 169, triglycerides 286, HDL 52, LDL 713:cholesterol 138, triglycerides 230, HDL 56, LDL 36 [...] performed over a wire passed through the [place] vessel, resulting in an excellent angiographic appearance [...] event. Sebastien Taylor MD Attn: Accounting,[address] [place], [address], [facility] 02/01/2025 15:58:13 OBGyn Episode No OBEpisode recorded.
--- OUTSIDE RECORDS SUMMARY | 2025-02-25 16:56 | XMS_ITS | Clinical Summary ---
Author Organization [facility] Address [address] [place] [address] Care Team Providers Care Spinner Iron Name Role Phone Kalin Jara MD Primary Care Provider [phone] Allergies Active Allergy Reactions Criticality Noted Date [...] TABLET(75 MG) BY MOUTH DAILY 30 tablet 01/31/20 25 Active clopidogrel (PLAVIX) 75 MG tablet TAKE 1 TABLET(75 MG) BY MOUTH DAILY 30 tablet 12/26/19 25 025 Discontinued Active Problems Problem Noted [...] up in: three months with PCP Asthma 07/24/2019 Overview (05/19/2023): Last Assessment & Plan: [...] 05/31/2023, 01/29/2023, 11/07/2014 COVID-19 Vaccine (1 - 2024-2 6 season) 2024 Influenza Adult (#1) 2024 02/28/2019 Mammogram Screening 03/16/2026 03/16/2024 Hepatitis A Vaccines Aged Out No long er eligible based on patient's age to complete this topic Meningococcal B Vaccine Aged Out No l [...] DELIO SURI DIGI Routine 03/16/2024 9:04 AM [employer] Encounter for screening mammogram for malignant neoplasm of breast LIPID PANEL Routine 05/31/2023 10:53 AM CDT Angina pectoris from Last 3 Months or Most Recently Relevant to Health Maintenance Results * MG SCREENING W DELIO SURI DIGI (03/16/2024 9:04 AM [employer]) Anatomical Region Laterality Modality Breast Bilateral Mammography 03/20/2024 7:07 AM [employer] Impressions 03/20/2024 7:08 AM [employer] ===== IMPRESSION: ===== 1. Stable mammographic appearance with no new findings to suggest malignancy in either breast. Assessment: ACR BI-RADS 2 - BENIGN FINDING(S) Recommendation: 1:Routine Screening Bilateral Comments: Ordered By: NEYMAR CALDERÓN Interpreted By: Anurag Singh MD, 03/20/2024 7:07 AM Narrative 03/20/2024 7:[address] [facility] [employer] [address] [place] [address] Examination: Digital bilateral screening mammogram with 3D [...] 138 <200 MG/DL 05/31/2023 11:36 AM CDT [facility] TRIGLYCERIDES 230(H) <150 MG/DL 05/31/2023 11:36 AM CDT [facility] HDL 56 >40.0 MG/DL 05/31/2023 11:36 AM CDT [facility] LDL (CALCULATED) 36 <100 MG/DL 05/31/2023 11:36 AM CDT [facility] NON HDL CHOLESTEROL 82 <130 MG/DL 05/31/2023 11:36 AM T [facility] CHOL/HDL RATIO 2.5 0.0 - 4.5 05/31/2023 11:36 AM T [facility] VLDL CALCULATION 46 5 - 55 MG/DL 05/31/2023 11:36 AM T [facility] LIPID INTERPRETATION 05/31/2023 11:36 AM T [facility] Comment: [facility] REPORT RECOMMENDATIONS: ADULT CHILD LOW RISK: CHOLESTEROL <200 <170 TRIGLYCERIDE <150 --- HDL >=60 --- LDL <100 <110 BORDERLINE: CHOLESTEROL 200-239 170-199 TRIGLYCERIDE 150-199 --- HDL 40-59 --- LDL 100-159 110-129 HIGH RISK: CHOLESTEROL >=240 >=200 TRIGLYCERIDE >=200 --- HDL <40 --- LDL >=160 >=130 05/31/2023 10:5 3 AM CDT us Mookie Duff MD LABORATORY Final Result [facility] [address] [place] [address], from Last 3 Months or Most Recently Relevant to Health Maintenance Insurance [facility] Care Teams Spinner Iron Relationship Specialty Start Date End Date Kalin Jara MD [address] [place] [address] PCP - General FAMILY PRACTICE 01/21/24
--- OUTSIDE RECORDS SUMMARY | 2025-02-25 16:56 | XMS_ITS | Clinical Summary ---
Author Organization [facility] Address [address] [place] [address] Care Team Providers Care It Risk Advisor Name Role Phone Loli Walker MD Primary Care Provider [phone] Source Comments [facility],non-owned Affiliates and Associated Physician Practices is amultiple site organization consisting of ambulatory clinics and hospital sitesin [place], [place], [place] and [place]. This disclosure is being madepursuant to the Care Everywhere program and may not contain all information available regarding this patient. Last updated 17.[facility] Medications * Be aware that medications may [...] fluticasone propionate (FLONASE) 50 MCG/ACT nasal spray [place] 1 spray into each nostril once daily [...] on file Legal Sex Female 6:19 AM [facility] Gender Identity Not on file Sexual Orientation [...] lb 9.6 oz) 05/14/2017 1:35 P M [facility] Height 154.9 cm (5' 1) 04/23/2017 12:03 PM [facility] Body Mass Index 38.28 04/23/2017 12:03 PM [facility] Plan of Treatment Health Maintenance Due Date [...] of 3 - 19+ 3-dose series) 1990 Cervical Cancer Screening 01/22/1992 PAP SMEAR 01/22/1992 PAP with HPV 2001 SCREENING FOR DIABETES 05/14/2020 8, 04/23/2017 PNEUMOCOCCAL VACCINE 50+ (1 of 1 - PCV) 2021 ZOSTER VACCINE (1 of 2) 2021 DEPRESSION SCREENING 03/22/2024 COVID-19 VACCINE (1 - 2024-2 6 season) 2024 INFLUENZA VACCINE (#1) 2024 HIB [...] COMPREHENSIVE METABOLIC PANEL STAT 05/14/2017 1:47 PM [facility] from Last 3 Months or Most Recently Relevant to Health Maintenance Results * (ABNORMAL) COMPREHENSIVE METABOLIC PANEL (05/14/2017 1:47 PM [facility]) BUN 8 7 - 26 mg/dL [facility] Creatinine 1.0 0.6 - 1.2 mg/dL [facility] Sodium 141 136 - 145 mmol/L [facility] Potassium 4.6(H) 3.5 - 4.5 mmol/L [facility] Chloride 107 98 - 107 mmol/L [facility] CO2 23 22 - 29 mmol/L [facility] Glucose 81 70 - 115 mg/dL [facility] Calcium 9.1 8.4 - 10.2 mg/dL [facility] Protein Total 6.9 6.0 - 8.3 g/dL [facility] Albumin 3.4 3.4 - 5.0 g/dL [facility] Bilirubin Total 0.2 0.2 - 1.2 mg/dL [facility] Alkaline Phosphatase 88 40 - 150 Units/L [facility] ALT 9 0 - 55 Units/L [facility] AST 11 5 - 34 Units/L [facility] Anion Gap 16 8 - 18 [facility] BUN/Creatinine Ratio 8 7 - 23 [facility] Osmolality Calculated 289 270 - 300 mOsm/kg [facility] Albumin/Globulin Ratio 1.0(L) 1.1 - 2.3 [facility] eGFR 60(L) >60 mL/min/1.7 3 m2 [facility] Blood specimen (specimen) BLOOD SPECIMEN / Unknown 05/14/2017 1:47 PM [facility] 05/14/2017 2:05 PM [facility] us John Mariee MD LAB - CHEMISTRY [place] [address], [facility] [phone] from Last 3 Months or Most Recently Relevant to Health Maintenance Insurance [facility] [place] [address] Care Teams It Risk Advisor Relationship Specialty Start Date End Date Loli Walker MD [address] [place] [address] [place] [address] PCP - General Family Medicine 08/10/17
--- OUTSIDE RECORDS SUMMARY | 2025-02-25 16:56 | XMS_ITS | Encounter Summary ---
Author Organization [facility] Address [facility] [place] [address] Care Team Providers Care Teacher Vocal Name Role Phone Kasi Zapata Primary Care Provider [phone] Salima Sanchez MD Primary Care Provider [phone] Kalin Jara MD Primary Care Provider Encounter Details Date Type Department Care Team (Late st Contact Info) Description 05/31/2023 Hospital Orders Only [place], [place] [id number] Mookie Duff MD Three [facility] [address] [place] [address] Social History Tobacco Use Types [...] AM CDT Digna Melton RN Active * [place] Suicide Severity Rating Scale (Screener/Recent Self-Report) Question [...] on filedocumented in this encounter Care Teams Teacher Vocal Relationship Specialty Start Date End Date Kasi Zapata PA PCP - General PHYSICIAN AWNING HANGER 08/01/18 12/20/23 Salima Sanchez MD [address] [facility] [address] [place] [address] PCP - General FAMILY PRACTICE 12/21/23 01/20/24 Kalin Jara MD [address] [place] [address] [address] [place] [address] PCP - General FAMILY PRACTICE 01/21/24 documented as of this encounter
--- NOTE | 2025-02-25 17:01 | ED.SOB ---
HPI - SOB/Dyspnea General Chief Complaint: Shortness of Breath/Dyspnea Stated Complaint: sob Time Seen by Provider: 02/25/25 15:39 History of Present Illness HPI Narrative: Patient with history of asthma, start having worsening difficulty breathing a few days ago, has been using her breathing treatments at home and her at his usual inhaler, also on day 3 of her steroids, but still feels like she can not catch her breath. Related Data Home Medications ?Medication ?Instructions ?Recorded ?Confirmed ?Last Taken ?Type ipratropium 0.5 mg-albuterol 3 mg 3 ml inhalation QID PRN shortness 05/25/22 12/26/24 Unknown History (2.5 mg base)/3 mL nebulization of breath soln atorvastatin 40 mg tablet 80 mg PO DAILY 12/26/24 12/26/24 Unknown History cetirizine 10 mg tablet 10 mg PO DAILY 12/26/24 12/26/24 Unknown History clopidogrel 75 mg tablet 75 mg PO DAILY 12/26/24 12/26/24 Unknown History lisinopril 40 mg tablet 40 mg PO DAILY 12/26/24 12/26/24 Unknown History metformin 500 mg tablet,extended 1,000 mg PO QPM 12/26/24 12/26/24 Unknown History release 24 hr metoprolol succinate 25 mg 25 mg PO DAILY 12/26/24 12/26/24 Unknown History tablet,extended release 24 hr montelukast 10 mg tablet 10 mg PO QPM 12/26/24 12/26/24 Unknown History Allergies Allergy/AdvReac Type Severity Reaction Status Date / Time dog dander Allergy Wheezing Verified 02/25/25 15:49 Review of Systems Review of Systems: All systems reviewed & are unremarkable except as noted in HPI and below PMFSH Past Medical History Medical History (Updated 02/25/25 @ 17:05 by Katharine Gutierrez MD) Diabetes Screening mammogram, encounter for Pre-diabetes Screening mammogram, encounter for Anemia no iron--had IV injection Hypertension Hypercholesterolemia Asthma Surgical History Surgical History History of tubal ligation 02/01/98 History of 02/01/98 History of abdominal supracervical subtotal hysterectomy 08/26/17 Supracx abdominal hyst w/ovarian preservation--enlarged uterine fibroid 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 Lack of Transportation: No Lack of Food: Never True Current Housing: I Have Housing Concerned About Future Housing: No Difficulty Paying Gas/Electric Bills: No Difficulty Paying for Meds: No Currently Unemployed: No Education: High School Diploma/GED Difficulty w/ Childcare or Family Care: No Living arrangements: other Additional living arrangements comments: spouse Occupation/Education: other Additional occupation/education comments: housewife Gender identity (if verbalized by the patient): Female Sexual Orientation (if Verbalized by the Patient): Straight or Heterosexual Spiritual care concerns: No Exam Narrative: EXAMINATION OF ORGAN SYSTEMS/BODY AREAS: Constitutional: Vital signs per nursing GENERAL: Appears dyspneic HEAD: Normal with no signs of head trauma. EYES: EOMI, conjunctiva normal ENT: Hearing grossly intact LUNGS: Diminished breath sounds and extensive wheezing HEART: Tachycardic ABD: [Soft], [nontender to palpation] EXT: Normal range of motion SKIN: [No rashes or lesions.] NEURO: [Alert. No gross focal sensory or strength deficits.] PSYCH: Normal affect Course Vital Signs Vital signs: Vital Signs Temperature 98.2 F 02/25/25 15:45 Pulse Rate 111 H 02/25/25 15:45 Respiratory Rate 18 02/25/25 15:45 Blood Pressure 167/98 H 02/25/25 15:45 Pulse Oximetry 94 02/25/25 15:45 Oxygen Delivery Room Air 02/25/25 15:45 Temperature 98.2 F 02/25/25 15:45 Pulse Rate 101 H 02/25/25 16:30 Respiratory Rate 28 H 02/25/25 16:30 Blood Pressure 164/83 H 02/25/25 16:30 Pulse Oximetry 100 02/25/25 16:30 Oxygen Delivery BiPAP 02/25/25 16:02 [facility] MDM Narrative Medical decision making narrative: 55F with acute dyspnea and wheezing likely due to acute asthma exacerbation based on history and exam. Patient is hemodynamically stable. Nebulizer treatments are started and steroids and mag given, patient placed on BIPAP. Patient monitored in the ED for a couple of hours and on reevaluation is feeling significantly better. No respiratory distress or accessory muscle use. Good air movement bilateral lungs. Chest x-ray clear Since she has already been on all of the treatments at home and was still did here in enough to come into the ER, shared decision making with the patient, agreeable for admission at this time. Discussed with hospitalist for admission Differential Diagnosis Differential Diagnosis: Pneumonia, asthma exacerbation, pneumothorax, etc Lab Data 02/25/25 16:02 02/25/25 16:02 Labs: Lab Results 02/25/25 Range/Units 16:02 WBC 12.4 H (4.5-10.0) K/mm3 RBC 4.87 (4.2-5.4) M/mm3 Hgb 14.2 (12.0-15.0) g/dL Hct 43.0 (37.0-47.0) % MCV 88.3 (80-100) fl MCH 29.2 (26-34) pg MCHC 33.0 (32-36) g/dl RDW 13.3 (11.5-14.5) % Plt Count 389 H (150-375) k/mm3 MPV 9.1 (7.4-10.4) fl Immature Gran % (Auto) 0.6 H (0-0.5) % Neut % (Auto) 89.7 H (45.5-73.1) % Lymph % (Auto) 8.2 L (18.3-44.2) % [place] % (Auto) 1.1 L (2.6-8.5) % Eos % (Auto) 0.2 (0-4.4) % Baso % (Auto) 0.2 (0.2-1.2) % Lymph # (Auto) 1.01 (0.9-3.2) K/mm3 [place] # (Auto) 0.1 (0.1-0.6) K/mm3 Eos # (Auto) 0.0 (0-0.3) K/mm3 Baso # (Auto) 0.0 (0.0-0.1) K/mm3 Abs Immat Gran (auto) 0.07 H (0.00-0.031) K/mm3 Absolute Neuts (auto) 11.1 H (1.3-6.7) K/mm3 Absolute Nucleated RBC 0.000 (0.0-0.012) K/mm3 Nucleated RBC % 0.0 (0.0-0.2) % Sodium 138 (137-145) mmol/L Potassium 4.0 (3.4-5.0) mmol/L Chloride 108 H (98-107) mmol/L Carbon Dioxide 21 L (22-30) mmol/L Anion Gap 9 (4-12) mmol/L BUN 10 D (7-17) mg/dL Creatinine 0.89 (0.7-1.0) mg/dL Estim Creat Clear Calc 62 ml/min Estimated GFR > 60 (59 - ) Glucose 188 H (65-110) mg/dL Calcium 9.9 (8.4-10.2) mg/dL Imaging Data Radiologist's impression: ITS Impressions Chest X-Ray 02/25/25 16:04 Impression: No acute cardiopulmonary abnormality. Critical Care Time Critical Care Time Critical Care Time: Yes Indication: status asthmaticus Time Type: Intermittent Initial evaluation, discuss w/ involved parties, attempting to gather old records: 10 minutes Documenting medical record: 5 minutes Review of results (EKG's, labs, imaging): 5 minutes Serial repeat bedside evaluation: 10 minutes Discussing case with multiple memebers of the care team and consultants: 5 minutes Total Critical Care Time: 35 Discharge Plan Discharge Clinical Impression: Asthma exacerbation Patient Disposition: Still a Patient Condition: Stable Patient Language: Georgian Prescriptions: No Action ipratropium-albuterol 0.5 mg-3 mg(2.5 mg base)/3 mL solution for nebulization 3 ml inhalation QID PRN (Reason: shortness of breath) clopidogrel 75 mg tablet 75 mg PO DAILY metformin 500 mg tablet extended release 24 hr 1,000 mg PO QPM montelukast 10 mg tablet 10 mg PO QPM lisinopril 40 mg tablet 40 mg PO DAILY cetirizine 10 mg tablet 10 mg PO DAILY atorvastatin 40 mg tablet 80 mg PO DAILY metoprolol succinate 25 mg tablet extended release 24 hr 25 mg PO DAILY azithromycin [Zithromax] 250 mg Tablet 250 mg PO DAILY Qty: 2 0RF prednisone 20 mg tablet 40 mg PO DAILY 5 Days Qty: 10 0RF budesonide-formoterol [Symbicort] 160-4.5 mcg/actuation HFA aerosol inhaler 1 puff inhalation Q4-5H Qty: 10.2 0RF albuterol sulfate [Ventolin HFA] 90 mcg/actuation HFA aerosol inhaler 2 puff INHALATION Q4-6H PRN (Reason: shortness of breath or wheezing) Qty: 18 2RF Follow-up/Referrals: Marek,Kalin Espinoza MD [Primary Care Provider]
[2025-02-25 18:10] LABS: Influenza A QL RT-PCR Negative (Negative); Influenza B QL RT-PCR Negative (Negative); RSV RNA, RT-PCR Negative (Negative); SARS-CoV-2 RNA PCR Negative (Negative)
--- NOTE | 2025-02-25 18:39 | PM.IMHP2 ---
H&P: HPI History of Present Illness Date/Time: 02/25/25 18:39 Chief Complaint: Shortness of Breath Narrative: 55 y/o F with PMH of asthma, DM, HTN, HLD, and anemia presents here with shortness of breath. The patient from home on 02/25 for further evaluation of shortness of breath. She reports onset of shortness of breath on Wednesday, 02/21. shortness of breath precipitated by mild cold-like symptoms including congestion/rhinorrhea for which she has been taking axed-adu-myyfovu cold medications. she has been using her home nebulizer at least twice a day since Wednesday in his used it 3 times a day prior to arrival. She was additionally prescribed a short course of steroids, prednisone 20 mg b.i.d. x5 days. She is currently on day 4. Despite this intervention she continues to have worsening shortness of breath. She has a history significant for asthma that developed in childhood. She previously followed with pulmonology at [place], however due to insurance change she is no longer able to follow with them. Last hospitalized here for an asthma exacerbation in December of 2024. She currently denies chest pain, fever, chills, body aches, nausea, vomiting, diarrhea, cough. Initial VS at presentation: 98.2? F, HR 111, R 18, 167/98, and 94% on RA. Now on BiPAP for workup breathing. ED workup showed: WBC 12.4, no anemia, no significant electrolyte derangements, creatinine 0.89 and GFR >60, glucose 188, viral PCR negative. CXR showed no acute cardiopulmonary abnormality. Review of Systems Review of Systems: All systems reviewed & are unremarkable except as noted in HPI and below PMFSH Past Medical History Medical History Asthma Diabetes Anemia no iron--had IV injection Hypertension Hypercholesterolemia Surgical History Surgical History History of tubal ligation 02/01/98 History of 02/01/98 History of abdominal supracervical subtotal hysterectomy 08/26/17 Supracx abdominal hyst w/ovarian preservation--enlarged uterine fibroid 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 Lack of Transportation: No Lack of Food: Never True Current Housing: I Have Housing Concerned About Future Housing: No Difficulty Paying Gas/Electric Bills: No Difficulty Paying for Meds: No Currently Unemployed: No Education: High School Diploma/GED Difficulty w/ Childcare or Family Care: No Living arrangements: other Additional living arrangements comments: spouse Occupation/Education: other Additional occupation/education comments: housewife Gender identity (if verbalized by the patient): Female Sexual Orientation (if Verbalized by the Patient): Straight or Heterosexual Spiritual care concerns: No Meds Home Medications and Allergies Home Medications ?Medication ?Instructions ?Recorded ?Confirmed ?Type ipratropium 0.5 mg-albuterol 3 mg 3 ml inhalation QID PRN shortness 05/25/22 12/26/24 History (2.5 mg base)/3 mL nebulization of breath soln albuterol sulfate 90 mcg/actuation 2 puff inhalation Q4-6H PRN 08/24/23 12/26/24 Rx aerosol inhaler (Ventolin HFA) shortness of breath or wheezing #18 grams atorvastatin 40 mg tablet 80 mg PO DAILY 12/26/24 12/26/24 History cetirizine 10 mg tablet 10 mg PO DAILY 12/26/24 12/26/24 History clopidogrel 75 mg tablet 75 mg PO DAILY 12/26/24 12/26/24 History lisinopril 40 mg tablet 40 mg PO DAILY 12/26/24 12/26/24 History metformin 500 mg tablet,extended 1,000 mg PO QPM 12/26/24 12/26/24 History release 24 hr metoprolol succinate 25 mg 25 mg PO DAILY 12/26/24 12/26/24 History tablet,extended release 24 hr montelukast 10 mg tablet 10 mg PO QPM 12/26/24 12/26/24 History azithromycin 250 mg tablet 250 mg PO DAILY #2 tabs 12/29/24 Rx (Zithromax) budesonide-formoterol HFA 160 1 puff inhalation Q4-5H #10.2 grams 12/29/24 Rx mcg-4.5 mcg/actuation aerosol inhaler (Symbicort) prednisone 20 mg tablet 40 mg (2 x 20 mg) PO DAILY 5 days 12/29/24 Rx #10 tabs Allergies Allergy/AdvReac Type Severity Reaction Status Date / Time dog dander Allergy Wheezing Verified 02/25/25 15:49 Vital Signs Vital Signs - 24 hr 02/25/25 15:45 02/25/25 15:49 02/25/25 15:49 Temperature 98.2 F Pulse Rate 111 H 111 H Respiratory Rate 18 Blood Pressure 167/98 H Pulse Oximetry 94 94 Oxygen Delivery Room Air Room Air 02/25/25 16:02 02/25/25 16:02 02/25/25 16:30 Temperature Pulse Rate 104 H 104 H 101 H Respiratory Rate 17 17 28 H Blood Pressure 164/83 H Pulse Oximetry 97 100 Oxygen Delivery BiPAP 02/25/25 17:10 02/25/25 17:14 02/25/25 17:38 Temperature Pulse Rate 100 96 Respiratory Rate 25 H 24 H Blood Pressure 157/95 H Pulse Oximetry 99 99 95 Oxygen Delivery BiPAP BiPAP Exam Const: General: comfortable Other: , female, nontoxic appearance. Mild respiratory distress without accessory muscle use. Tolerating BiPAP well. HENMT: Face/Nose/Sinus: Normal nares present Mouth: Yes dry mucous membranes Eyes: General: appearance normal, both eyes and all related structures Sclera: sclerae normal Pupils: Equal, round and reactive pupils present EOM: EOMs intact bilaterally Resp: Other: Tachypneic. Loud expiratory wheeze. No crackles. Tolerating BiPAP well. Cardio: Rate: regular rate Rhythm: regular rhythm Other: S1-S2 present without murmur, rub, ectopy GI: Other: Abdomen soft, nondistended, nontender. Normoactive bowel sounds in all quadrants. Skin: General skin exam: normal color and no rashes or lesions noted Wounds: no wounds Neuro: Speech: normal speech Motor exam (neuro): 5/5 motor strength present throughout Sensory Exam: normal sensation Other: A&O x4 Extrem: General: normal to inspection Psych: Mental Status: mental status grossly normal Affect: normal affect Other: good insight and judgment, pleasant Results Labs Labs: Short CBC 02/25/25 Range/Units 16:02 WBC 12.4 H (4.5-10.0) K/mm3 Hgb 14.2 (12.0-15.0) g/dL Hct 43.0 (37.0-47.0) % Plt Count 389 H (150-375) k/mm3 BMP 02/25/25 16:02 Sodium 138 Potassium 4.0 Chloride 108 H Carbon Dioxide 21 L BUN 10 D Creatinine 0.89 Glucose 188 H Calcium 9.9 Quality VTE Prophylaxis VTE prophylaxis: mechanical ordered Assessment and Plan Assessment and plan (1) Acute asthma exacerbation: Qualifiers: Asthma severity: moderate Asthma persistence: unspecified Qualified Code(s): J45.901 - Unspecified asthma with (acute) exacerbation Code(s): J45.901 - Unspecified asthma with (acute) exacerbation Status: Acute Assessment and Plan: Patient had cold-like symptoms and asthma exacerbation starting Wednesday, 02/21. She has been treating this at home for the past few days. She has been utilizing a nebulizer at least twice a day, utilize it 3 times prior to arrival today. Patient also started on a prednisone 40 mg daily, currently on day 4 of 5. Despite interventions she has continued to worsen. Admitted for further management of her severe asthma exacerbation. Initial treatment in the ED included a nebulizer, IV fluids, IV steroids, and magnesium IV. - continue IV steroids: Solu-Medrol 40 mg IV push q.6H x5 days - levalbuterol carlos, tachy - started on BiPAP in the ED on 02/25 for WOB, will continue overnight as tolerated - viral PCR negative on 02/25 (2) Hypertension: Qualifiers: Hypertension type: primary hypertension Qualified Code(s): I10 - Essential (primary) hypertension Code(s): I10 - Essential (primary) hypertension Status: Acute Assessment and Plan: - chronic, currently 157/95, stable. - continue home medications - monitor (3) Diabetes: Qualifiers: Diabetes mellitus type: type 2 Diabetes mellitus alf insulin use: without alf use Diabetes mellitus complication status: without complication Qualified Code(s): E11.9 - Type 2 diabetes mellitus without complications Code(s): E11.9 - Type 2 diabetes mellitus without complications Status: Acute Assessment and Plan: - hypoglycemia protocol - POC blood glucose ACHS - home medication: continue Metformin - correct regimen ordered - high dose TIDWM and HS, on steroids Plan Diet: heart healthy GI Prophylaxis: n/a DVT Prophylaxis: SCDs IV fluids: 1L bolus Lines/Tubes: pIV Code Status: full code Prior Studies I have reviewed the following patient records and this information was taken into consideration when formulating the assessment and plan.: previous labs, previous ER visits, previous hospitalizations and previous clinic visits Time Spent with Patient Time with patient: less than 45 minutes Hospitalist MIPS Advance Care Plan I have confirmed that the patient's Advanced Care Plan is present, code status is documented, or surrogate decision maker is listed in patient medical record.: Yes Medication Reconciliation I have utilized all available resources to obtain, update and review the patients current medications (includes all prescriptions, OTC, herbals, cannabis, and nutritional supplements).: Yes
[2025-02-26] VITALS (40 sets, daily range): BP systolic 132–175; BP diastolic 69–101; PULSE 48–122; RESP 16–35; TEMP 36.2–36.8; O2SAT 90–99; BMI 36.7
--- NOTE | 2025-02-26 03:12 | WPCEDHO ---
ED Hand Off Checklist All vitals saved:yes IV Site documented: yes All med administrations documented: yes Triage Note Triage Note Pt to ED co SOB due to asthma 02/25/25 15:45 exacerbation that has been worsening since 02/21/25. PT states she used 3x breathing treatments today and her rescue inhaler. Pt states she has been on steroids for 2 days. Pt reports minimal relief with all interventions she has used. Pt endorses productive cough with yellow sputum. Allergies dog dander Allergy (Verified 02/25/25 15:49) Wheezing Current Diagnoses Type 2 diabetes mellitus without complications (02/25/25) Essential (primary) hypertension (02/25/25) Unspecified asthma with (acute) exacerbation (02/25/25) Family History (Last Reviewed 02/25/25 @ 18:47 by Rosy Edmond APRN) Other Acute myocardial infarction Sibling Kidney disease Active Medications including assessments/comments Insulin Aspart (Insulin Aspart (*Bkc) 100 Units/Ml) 2 - 4 units SUB-Q HS JULIANA; Protocol Last Admin: 02/25/25 21:21 Dose: Not Given Documented By: MAGEN Non-Admin Reason: BG 148 [facility] Blood Glucose Document 02/25/25 21:21 MAGEN (Rec: 02/25/25 21:21 [facility] [id number]) Bedside Glucose Verified Glucose Results Yes Verified Levalbuterol HCl (Levalbuterol Neb 1.25 Mg/3 Ml) 1.25 mg INHALATION Q6HRT [facility] Last Admin: 02/25/25 21:07 Dose: 1.25 mg Documented By: Neftaly MAR Nebulizer Assessment Document 02/25/25 21:07 [facility]Rec: 02/25/25 21:07 [id number][place] Updraft Nebulizer Treatment Method In-Line Methylprednisolone Sodium Succinate (Methylprednisolone Sod Succ 40 Mg Vial) 40 mg IV PUSH Q6H JULIANA Stop: 03/02/25 21:59 Last Admin: 02/25/25 22:09 Dose: 40 mg Documented By: MAGEN Administered/Completed Medications Discontinued Medications Albuterol (Albuterol Sulfate Neb 2.5 Mg/3 Ml Inh) 10 mg INHALATION ONCE STA Stop: 02/25/25 15:49 Last Admin: 02/25/25 15:56 Dose: 10 mg Documented By: SARATH Alprazolam (Alprazolam (*Crx) 0.25 Mg Tablet) 0.25 mg PO ONCE ONE Stop: 02/25/25 19:00 Last Admin: 02/25/25 19:42 Dose: Not Given Documented By: MAGEN Non-Admin Reason: NPO Magnesium Sulfate (Magnesium Sulf 2 Gm/Water 50ml) 2 gm in 50 mls @ 25 mls/hr IVPB ONCE ONE Stop: 02/25/25 17:47 Last Infusion: 02/25/25 19:06 Dose: Infused Documented By: Admin: 02/25/25 16:04 Dose: 25 mls/hr Documented By: JUAN Co-signed By: YANELI Lactated Ringer's (Lr - Lactated Ringers Iv) 1,000 mls @ 999 mls/hr IV CONT .Q1H1M STA Stop: 02/25/25 16:48 Last Infusion: 02/25/25 19:07 Dose: Infused Documented By: Admin: 02/25/25 16:02 Dose: 999 mls/hr Documented By: JUAN Ipratropium [place] (Ipratropium Br 0.02% Inh Soln 0.5 Mg/2.5 Ml Vial) 1 mg INHALATION ONCE ONE Stop: 02/25/25 15:49 Last Admin: 02/25/25 15:56 Dose: 1 mg Documented By: SARATH Methylprednisolone Sodium Succinate (Methylprednisolone Sod Succ 40 Mg Vial) 40 mg IV PUSH ONCE STA Stop: 02/25/25 15:49 Last Admin: 02/25/25 15:59 Dose: 40 mg Documented By: JUAN Interventions/Assessments Cardiac Monitoring Start: 02/25/25 15:34 Freq: Status: Active Protocol: Document 02/25/25 15:49 JUAN (Rec: 02/25/25 15:50 JUAN [id number]) Traveling Accountant Assessment Traveling Accountant Yes Applied Pulse Rate (60-100) 111 H EKG Rythm Sinus Tachycardia IV / Saline Lock, Insert Start: 02/25/25 15:34 Freq: Status: Active Protocol: Document 02/25/25 16:02 JUAN (Rec: 02/25/25 16:03 JUAN [id number]) IV Assessment Peripheral Access Right Forearm IV Catheter Access Initiated IV Insertion Date 02/25/25 IV Insertion Time 16:02 Catheter Gauge 18 IV Insertion 1 Attempts Ultrasound Used for No Placement IV Site Assessment WNL IV Care and WNL Maintenance PA: Cardiovascular Assessment Start: 02/25/25 15:34 Freq: Status: Active Protocol: Document 02/25/25 15:49 KED (Rec: 02/25/25 15:50 KED [id number]) Cardiovascular Assessment Cardiovascular Dyspnea Symptoms PA: Respiratory Assessment Start: 02/25/25 15:34 Freq: Status: Active Protocol: Document 02/25/25 17:26 KED (Rec: 02/25/25 17:26 KE [id number]) Respiratory Assessment Symptoms Cough,Shortness of Breath at Rest,Shortness of Breath With Exertion,Unable to Lie Flat,Wheezing Effort Short of Breath Pattern Regular Depth Shallow Chest Expansion Symmetrical Anterior Bilateral Throughout Phase Inspiratory & Expiratory Lung Sounds Wheezes Posterior Bilateral Throughout Phase Inspiratory & Expiratory Lung Sounds Wheezes Cough Description Non-Productive Sputum Amount Small Sputum Production/ Spontaneous Expectoration Suction Method Sputum Color Clear Last Vital Signs Temperature 98.2 F 02/25/25 15:45 Pulse Rate 85 02/26/25 03:01 Respiratory Rate 25 H 02/26/25 03:01 Pulse Oximetry 98 02/26/25 03:01 Blood Pressure 136/69 02/26/25 03:01 Blood Pressure Mean 87 02/26/25 03:01 Oxygen Delivery BiPAP 02/25/25 21:58 Fraction of Inspired Oxygen 30 02/25/25 19:18 Weight 87.9 kg 02/25/25 15:45 Last Result - Abnormals Only WBC 12.4 K/mm3 (4.5-10.0) H 02/25/25 16:02 Plt Count 389 k/mm3 (150-375) H 02/25/25 16:02 Immature Gran % (Auto) 0.6 % (0-0.5) H 02/25/25 16:02 Neut % (Auto) 89.7 % (45.5-73.1) H 02/25/25 16:02 Lymph % (Auto) 8.2 % (18.3-44.2) L 02/25/25 16:02 Ray % (Auto) 1.1 % (2.6-8.5) L 02/25/25 16:02 Abs Immat Gran (auto) 0.07 K/mm3 (0.00-0.031) H 02/25/25 16:02 Absolute Neuts (auto) 11.1 K/mm3 (1.3-6.7) H 02/25/25 16:02 Chloride 108 mmol/L (98-107) H 02/25/25 16:02 Carbon Dioxide 21 mmol/L (22-30) L 02/25/25 16:02 Glucose 188 mg/dL (65-110) H 02/25/25 16:02 POC Capillary Glucose 148 mg/dl (65-105) H 02/25/25 21:20 Most Recent Suicide Severity Rating Suicide Severity Rating NO RISK INDICATED 02/25/25 15:45
--- NOTE | 2025-02-26 03:28 | ADMGEN ---
This patient, Vandana Ojeda, was admitted to IMU Room 211-01. Patient/family oriented to hospital policies and general routines including ID bracelet, bed and alarms, visiting hours, pain management, procedures, bathroom and other care routines, personal items, smoking policy, room service/diet, and visiting hours. Information on how to activate the Rapid Response Team has been discussed. Patient/Family are encouraged to report perceived risks to care and to ask questions if they do not understand what they are told or what they should do.
--- NOTE | 2025-02-26 11:11 | PM.IMPN2 ---
Assessment and Plan Assessment and Plan (1) Acute asthma exacerbation: Qualifiers: Asthma severity: moderate Asthma persistence: unspecified Qualified Code(s): J45.901 - Unspecified asthma with (acute) exacerbation Code(s): J45.901 - Unspecified asthma with (acute) exacerbation Status: Acute Assessment and Plan: Patient had cold-like symptoms and asthma exacerbation starting Wednesday, 02/21. She has been treating this at home for the past few days. She has been utilizing a nebulizer at least twice a day, utilize it 3 times prior to arrival today. Patient also started on a prednisone 40 mg daily, currently on day 4 of 5. Despite interventions she has continued to worsen. Admitted for further management of her severe asthma exacerbation. Initial treatment in the ED included a nebulizer, IV fluids, IV steroids, and magnesium IV. - continue IV steroids: Solu-Medrol 40 mg IV push q.6H x5 days - levalbuterol carlos due to tachycardia - started on BiPAP in the ED on 02/25 for WOB, will continue overnight as tolerated - viral PCR negative on 02/25 Will taper off BiPAP to p.r.n. Magnesium IV P add ipratropium with levalbuterol scheduled (2) Hypertension: Qualifiers: Hypertension type: primary hypertension Qualified Code(s): I10 - Essential (primary) hypertension Code(s): I10 - Essential (primary) hypertension Status: Acute Assessment and Plan: Continue home medications - monitor (3) Diabetes: Qualifiers: Diabetes mellitus type: type 2 Diabetes mellitus senior living insulin use: without senior living use Diabetes mellitus complication status: without complication Qualified Code(s): E11.9 - Type 2 diabetes mellitus without complications Code(s): E11.9 - Type 2 diabetes mellitus without complications Status: Acute Assessment and Plan: - hypoglycemia protocol - POC blood glucose ACHS - home medication: continue Metformin - correct regimen ordered - high dose TIDWM and HS, on steroids Plan Diet: heart healthy GI Prophylaxis: n/a DVT Prophylaxis: SCDs IV fluids: 1L bolus Lines/Tubes: pIV Code Status: full code Subjective Date/time seen: 02/26/25 11:11 Interval history: 55 y/o F with PMH of asthma, DM, HTN, HLD, and anemia presents here with shortness of breath. The patient from home on 02/25 for further evaluation of shortness of breath. She reports onset of shortness of breath on Wednesday, 02/21. shortness of breath precipitated by mild cold-like symptoms including congestion/rhinorrhea for which she has been taking [id number] cold medications. she has been using her home nebulizer at least twice a day since Wednesday in his used it 3 times a day prior to arrival. She was additionally prescribed a short course of steroids, prednisone 20 mg b.i.d. x5 days. She is currently on day 4. Despite this intervention she continues to have worsening shortness of breath. She has a history significant for asthma that developed in childhood. She previously followed with pulmonology at [facility], however due to insurance change she is no longer able to follow with them. Last hospitalized here for an asthma exacerbation in December of 2024. She currently denies chest pain, fever, chills, body aches, nausea, vomiting, diarrhea, cough. Initial VS at presentation: 98.2? F, HR 111, R 18, 167/98, and 94% on RA. Now on BiPAP for workup breathing. ED workup showed: WBC 12.4, no anemia, no significant electrolyte derangements, creatinine 0.89 and GFR >60, glucose 188, viral PCR negative. CXR showed no acute cardiopulmonary abnormality. 02/26/2025: Remains on BiPAP this a.m. which was tapered off. Feeling better. Still wheezy. Review of Systems Review of Systems: All systems reviewed & are unremarkable except as noted in HPI and below Exam Narrative: GENERAL: The patient is well developed, not in acute distress HEENT: Nonicteric sclerae, PERRLA, EOMI. Oropharynx clear. Moist mucous membranes. Conjunctivae appear well perfused. CHEST: Chest wall is nontender. HEART: Regular rate and rhythm without murmur, rubs, or gallops LUNGS: Upper chest with end-expiratory wheezes no respiratory distress mildly tachypneic ABDOMEN: Soft, positive bowel sounds, non-tender, no organomegaly. SKIN: No rash, no excessive bruising, petechiae, or purpura. NEUROLOGIC: Cranial nerves II-XII intact, alert and oriented x 3, no gross motor deficits EXTREMITIES: no edema, cyanosis or clubbing Objective Data Vital Signs Vital Signs: Vital Signs - 24 hr 02/25/25 15:45 02/25/25 15:49 02/25/25 15:49 Temperature 98.2 F Pulse Rate 111 H 111 H Respiratory Rate 18 Blood Pressure 167/98 H Pulse Oximetry 94 94 Oxygen Delivery Room Air Room Air Fraction of Inspired Oxygen 02/25/25 16:02 02/25/25 16:02 02/25/25 16:30 Temperature Pulse Rate 104 H 104 H 101 H Respiratory Rate 17 17 28 H Blood Pressure 164/83 H Pulse Oximetry 97 100 Oxygen Delivery BiPAP Fraction of Inspired Oxygen 02/25/25 16:48 02/25/25 17:00 02/25/25 17:01 Temperature Pulse Rate 97 100 100 Respiratory Rate 26 H 39 H 38 H Blood Pressure 157/95 H Pulse Oximetry 99 99 99 Oxygen Delivery Fraction of Inspired Oxygen 02/25/25 17:10 02/25/25 17:14 02/25/25 17:38 Temperature Pulse Rate 100 96 Respiratory Rate 25 H 24 H Blood Pressure 157/95 H Pulse Oximetry 99 99 95 Oxygen Delivery BiPAP BiPAP Fraction of Inspired Oxygen 02/25/25 19:18 02/25/25 19:18 02/25/25 19:44 Temperature Pulse Rate 92 Respiratory Rate 34 H 31 H Blood Pressure 152/86 H Pulse Oximetry 96 96 97 Oxygen Delivery BiPAP BiPAP Fraction of Inspired Oxygen 30 02/25/25 19:51 02/25/25 20:00 02/25/25 20:05 Temperature Pulse Rate 91 99 88 Respiratory Rate 26 H 32 H 22 H Blood Pressure 149/102 H Pulse Oximetry 98 97 95 Oxygen Delivery Fraction of Inspired Oxygen 02/25/25 20:15 02/25/25 20:40 02/25/25 20:51 Temperature Pulse Rate 93 89 86 Respiratory Rate 23 H 30 H 27 H Blood Pressure Pulse Oximetry 97 96 96 Oxygen Delivery Fraction of Inspired Oxygen 02/25/25 21:00 02/25/25 21:01 02/25/25 21:08 Temperature Pulse Rate 87 86 88 Respiratory Rate 29 H 17 25 H Blood Pressure 141/93 H Pulse Oximetry 96 96 Oxygen Delivery Fraction of Inspired Oxygen 02/25/25 21:19 02/25/25 21:30 02/25/25 21:58 Temperature Pulse Rate 101 H 88 81 Respiratory Rate 29 H 33 H 26 H Blood Pressure Pulse Oximetry 97 96 98 Oxygen Delivery BiPAP Fraction of Inspired Oxygen 02/25/25 22:53 02/25/25 23:10 02/25/25 23:29 Temperature Pulse Rate 88 86 85 Respiratory Rate 23 H 26 H 23 H Blood Pressure 153/91 H Pulse Oximetry 97 98 97 Oxygen Delivery Fraction of Inspired Oxygen 02/25/25 23:30 02/25/25 23:37 02/25/25 23:45 Temperature Pulse Rate 80 74 79 Respiratory Rate 23 H 20 27 H Blood Pressure 114/67 Pulse Oximetry 97 97 96 Oxygen Delivery Fraction of Inspired Oxygen 02/26/25 00:00 02/26/25 00:01 02/26/25 00:26 Temperature Pulse Rate 88 81 91 Respiratory Rate 24 H 26 H 22 H Blood Pressure 146/91 H Pulse Oximetry 98 99 96 Oxygen Delivery Fraction of Inspired Oxygen 02/26/25 00:30 02/26/25 00:31 02/26/25 00:45 Temperature Pulse Rate 82 83 89 Respiratory Rate 16 26 H 28 H Blood Pressure 132/80 Pulse Oximetry 97 97 98 Oxygen Delivery Fraction of Inspired Oxygen 02/26/25 01:38 02/26/25 02:07 02/26/25 02:15 Temperature Pulse Rate 80 82 78 Respiratory Rate 24 H 31 H 24 H Blood Pressure Pulse Oximetry 97 98 Oxygen Delivery Fraction of Inspired Oxygen 02/26/25 02:30 02/26/25 02:31 02/26/25 02:45 Temperature Pulse Rate 83 77 78 Respiratory Rate 20 23 H 24 H Blood Pressure 136/72 Pulse Oximetry 97 98 98 Oxygen Delivery Fraction of Inspired Oxygen 02/26/25 03:00 02/26/25 03:01 02/26/25 03:25 Temperature Pulse Rate 82 85 90 Respiratory Rate 26 H 25 H 26 H Blood Pressure 136/69 Pulse Oximetry 97 98 99 Oxygen Delivery BiPAP Fraction of Inspired Oxygen 02/26/25 03:25 02/26/25 03:38 02/26/25 03:44 Temperature 97.1 F L Pulse Rate 90 85 91 Respiratory Rate 26 H 25 H 24 H Blood Pressure 136/69 150/101 H Pulse Oximetry 98 96 Oxygen Delivery Fraction of Inspired Oxygen 02/26/25 04:00 02/26/25 04:00 02/26/25 06:00 Temperature Pulse Rate 122 H 110 H Respiratory Rate Blood Pressure Pulse Oximetry 98 Oxygen Delivery BiPAP Fraction of Inspired Oxygen 02/26/25 07:37 02/26/25 07:37 02/26/25 07:40 Temperature 98.3 F Pulse Rate 91 91 86 Respiratory Rate 35 H 35 H 32 H Blood Pressure 174/100 H Pulse Oximetry 96 96 Oxygen Delivery BiPAP Fraction of Inspired Oxygen 02/26/25 07:48 Temperature Pulse Rate 88 Respiratory Rate 35 H Blood Pressure Pulse Oximetry Oxygen Delivery Fraction of Inspired Oxygen Intake/Output Intake/Output: Intake & Output 02/23/25 02/24/25 02/25/25 02/26/25 23:59 23:59 23:59 23:59 Intake Total 1050 0 Balance 1050 0 Meds/Results Medications: Active Medications Generic Name Dose Route Start Last Admin Trade Name Freq PRN Reason Stop Dose Admin Dextrose 12.5 gm 02/25/25 19:02 Dextrose 50% 25 Gm/50 Ml Syringe IV PUSH PRN PRN Hypoglycemia Protocol Glucagon 1 mg 02/25/25 19:02 Glucagon For Inj 1 Mg Vial IM PRN PRN Hypoglycemia Protocol Glucose 15 gm 02/25/25 19:02 Glucose Oral Gel 15 Gm Of Glucse In 37.5 Gm Tube PO PRN PRN Hypoglycemia Protocol Dextrose 1,000 mls @ 100 mls/hr 02/25/25 19:02 Dextrose 5% 1,000 Ml IVPB PRN PRN Hypoglycemia Protocol Insulin Aspart 4 - 8 units 02/26/25 08:00 02/26/25 08:05 Insulin Aspart (*Bkc) 100 Units/Ml SUB-Q Not Given TIDWM CARLOS Protocol Insulin Aspart 2 - 4 units 02/25/25 21:00 02/25/25 21:21 Insulin Aspart (*Bkc) 100 Units/Ml SUB-Q Not Given HS CARLOS Protocol Levalbuterol HCl 1.25 mg 02/25/25 20:00 02/26/25 07:36 Levalbuterol Neb 1.25 Mg/3 Ml INHALATION 1.25 mg Q6HRT CARLOS Administration Methylprednisolone Sodium Succinate 40 mg 02/25/25 22:00 02/26/25 09:33 Methylprednisolone Sod Succ 40 Mg Vial IV PUSH 03/02/25 21:59 40 mg Q6H CARLOS Administration Radiology Results: ITS Impressions Chest X-Ray 02/25/25 16:04 Impression: No acute cardiopulmonary abnormality. Labs Labs: Laboratory Results - last 24 hr 02/25/25 02/25/25 02/25/25 16:02 17:28 19:57 WBC 12.4 H RBC 4.87 Hgb 14.2 Hct 43.0 MCV 88.3 MCH 29.2 MCHC 33.0 RDW 13.3 Plt Count 389 H MPV 9.1 Immature Gran % (Auto) 0.6 H Neut % (Auto) 89.7 H Lymph % (Auto) 8.2 L [place] % (Auto) 1.1 L Eos % (Auto) 0.2 Baso % (Auto) 0.2 Lymph # (Auto) 1.01 [place] # (Auto) 0.1 Eos # (Auto) 0.0 Baso # (Auto) 0.0 Abs Immat Gran (auto) 0.07 H Absolute Neuts (auto) 11.1 H Absolute Nucleated RBC 0.000 Nucleated RBC % 0.0 Sodium 138 Potassium 4.0 Chloride 108 H Carbon Dioxide 21 L Anion Gap 9 BUN 10 D Creatinine 0.89 Estim Creat Clear Calc 62 Estimated GFR > 60 Glucose 188 H POC Capillary Glucose 153 H Calcium 9.9 Influenza A (RT-PCR) Negative Influenza B (RT-PCR) Negative RSV (RT-PCR) Negative SARS-CoV-2 RNA (RT-PCR) Negative 02/25/25 02/26/25 21:20 07:39 WBC RBC Hgb Hct MCV MCH MCHC RDW Plt Count MPV Immature Gran % (Auto) Neut % (Auto) Lymph % (Auto) [place] % (Auto) Eos % (Auto) Baso % (Auto) Lymph # (Auto) [place] # (Auto) Eos # (Auto) Baso # (Auto) Abs Immat Gran (auto) Absolute Neuts (auto) Absolute Nucleated RBC Nucleated RBC % Sodium Potassium Chloride Carbon Dioxide Anion Gap BUN Creatinine Estim Creat Clear Calc Estimated GFR Glucose POC Capillary Glucose 148 H 139 H Calcium Influenza A (RT-PCR) Influenza B (RT-PCR) RSV (RT-PCR) SARS-CoV-2 RNA (RT-PCR)
[2025-02-26] MEDS: METOPROLOL SUCCINATE EXT REL 25 MG TABCR PO (12:22)
[2025-02-26] MEDS: MAGNESIUM SULF 1 GM/D5W 100 ML 1 GM/100 ML BAG IVPB (12:23)
[2025-02-26] MEDS: IPRATROPIUM BR 0.02% INH SOLN 0.5 MG/2.5 ML VIAL INHALATION ×2 (14:32→21:28)
[2025-02-26] MEDS: AZITHROMYCIN 500 MG TABLET PO (17:51)
[2025-02-26] MEDS: MONTELUKAST SODIUM 10 MG TABLET PO (21:00)
[2025-02-26] MEDS: ATORVASTATIN 40 MG TABLET 80 MG PO (21:00)
[2025-02-26] MEDS: FLUTICASONE/SALMETEROL 115-21 MCG INHALER 1 PUFF 2 PUFF INHALATION (21:28)
[2025-02-27] VITALS (21 sets, daily range): BP systolic 122–157; BP diastolic 66–87; PULSE 68–93; RESP 20–24; TEMP 36.4–36.7; O2SAT 88–96
[2025-02-27] MEDS: IPRATROPIUM BR 0.02% INH SOLN 0.5 MG/2.5 ML VIAL INHALATION ×4 (02:20→20:31)
[2025-02-27 04:22] LABS: Hematocrit 42.7 % (37.0-47.0); Hemoglobin 13.9 g/dL (12.0-15.0); Immature Granulocyte Percent A 1.2 % (0-0.5); Lymphocytes Absolute Auto 1.44 K/mm3 (0.9-3.2); Mean Corpuscular HGB Conc 32.6 g/dl (32-36); Mean Corpuscular Hemoglobin 29.0 pg (26-34); Mean Corpuscular Volume 89.0 fl (80-100); Nucleated Red Blood Cells Absolute Auto 0.000 K/mm3 (0.0-0.012); Nucleated Red Blood Cells Perc 0.0 % (0.0-0.2); Platelet Count Result 407 k/mm3 (150-375); Red Blood Count 4.80 M/mm3 (4.2-5.4); White Blood Count 16.3 K/mm3 (4.5-10.0)
[2025-02-27 04:47] LABS: Alanine Aminotransferase 26 U/L (6-35); Albumin Level 4.1 g/dL (3.5-5.1); Alkaline Phosphatase 89 U/L (38-126); Anion Gap 5 mmol/L (4-12); Aspartate Amino Transferase 26 U/L (14-36); Bilirubin,Total 0.5 mg/dL (0.2-1.3); Blood Urea Nitrogen 24 mg/dL (7-17); Calcium 9.4 mg/dL (8.4-10.2); Carbon Dioxide 23 mmol/L (22-30); Chloride 107 mmol/L (98-107); Estimated CRCL calculation 62 ml/min; Estimated Glomerular Filt Rate > 60; Glucose 140 mg/dL (65-110); Magnesium 1.9 mg/dL (1.6-2.3); Potassium 4.5 mmol/L (3.4-5.0); Sodium 135 mmol/L (137-145); Total Protein 6.8 g/dL (6.3-8.2)
--- NOTE | 2025-02-27 08:33 | P.PNIM_ITS ---
Assessment and Plan Assessment and Plan (1) Acute asthma exacerbation: Qualifiers: Asthma severity: moderate Asthma persistence: unspecified Qualified Code(s): J45.901 - Unspecified asthma with (acute) exacerbation Code(s): J45.901 - Unspecified asthma with (acute) exacerbation Status: Acute Assessment and Plan: Patient had cold-like symptoms and asthma exacerbation starting Wednesday, 02/21. She has been treating this at home for the past few days. She has been uti lizing a nebulizer at least twice a day, utilize it 3 times prior to arrival today. Patient also started on a prednisone 40 mg daily, currently on day 4 of 5. Despite interventions she has continued to worsen. Admitted for further management of her severe asthma exacerbation. Initial treatment in the ED included a nebulizer, IV fluids, IV steroids, and magnesium IV. - continue IV steroids: Solu-Medrol 40 mg IV push q.6H x5 days - levalbuterol carlos due to tachycardia - started on BiPAP in the ED on 02/25 for WOB, will continue overnight as tolerated - viral PCR negative on 02/25 BiPAP tapered off 02/26/2025 Magnesium IV P add ipratropium with levalbuterol scheduled Will switch Solu-Medrol to oral prednisone (2) Hypertension: Qualifiers: Hypertension type: primary hypertension Qualified Code(s): I10 - Essential (primary) hypertension Code(s): I10 - Essential (primary) hypertension Status: Acute Assessment and Plan: Continue home medications - monitor (3) Diabetes: Qualifiers: Diabetes mellitus type: type 2 Diabetes mellitus [employer] insulin use: without [employer] use Diabetes mellitus complication status: without complication Qualified Code(s): E11.9 - Type 2 diabetes mellitus without complications Code(s): E11.9 - Type 2 diabetes mellitus without complications Status: Acute Assessment and Plan: - hypoglycemia protocol - POC blood glucose ACHS - home medication: continue Metformin - correct regimen ordered - high dose TIDWM and HS, on steroids Plan Diet: heart healthy GI Prophylaxis: n/a DVT Prophylaxis: SCDs IV fluids: 1L bolus Lines/Tubes: pIV Code Status: full code Subjective Date/time seen: 02/27/25 08:33 Interval history: 55 y/o F with PMH of asthma, DM, HTN, HLD, and anemia presents here with shortness of breath. The patient from home on 02/25 for further evaluation of shortness of breath. She reports onset of shortness of breath on Wednesday, 02/21. shortness of breath precipitated by mild cold-like symptoms including congestion/rhinorrhea for which she has been taking [id number] cold medications. she has been using her home nebulizer at least twice a day since Wednesday in his used it 3 times a day prior to arrival. She was additionally prescribed a short course o f steroids, prednisone 20 mg b.i.d. x5 days. She is currently on day 4. Despite this intervention she continues to have worsening shortness of breath. She has a history significant for asthma that developed in childhood. She previously followed with pulmonology at [facility], however due to insurance change she is no longer able to follow with them. Last hospitalized here for an asthma exacerbation in December of 2024. She currently denies chest pain, fever, chills, body aches, nausea, vomiting, diarrhea, cough. Initial VS at presentation: 98.2? F, HR 111, R 18, 167/98, and 94% on RA. Now on BiPAP for workup breathing. ED workup showed: WBC 12.4, no anemia, no significant electrolyte derangements, creatinine 0.89 and GFR >60, glucose 188, viral PCR negative. CXR showed no acute cardiopulmonary abnormality. 02/26/2025: Remains on BiPAP this a.m. which was tapered off. Feeling better. Still wheezy. 02/27/2025: Feels better. Off BiPAP. On room air. Shortness of breath with exertion with ambulation. Less wheezy Review of Systems Review of Systems: All systems reviewed & are unremarkable except as noted in HPI and below Exam Narrative: GENERAL: The patient is well developed, not in acute distress HEENT: Nonicteric sclerae, PERRLA, EOMI. Oropharynx clear. Moist mucous membranes. Conjunctivae appear well perfused. CHEST: Chest wall is nontender. HEART: Regular rate and rhythm without murmur, rubs, or gallops LUNGS: Diminished breath sounds, no wheezes, no respiratory distress ABDOMEN: Soft, positive bowel sounds, non-tender, no organomegaly. SKIN: No rash, no excessive bruising, petechiae, or purpura. NEUROLOGIC: Cranial nerves II-XII intact, alert and oriented x 3, no gross motor deficits EXTREMITIES: no edema, cyanosis or clubbing Objective Data Vital Signs Vital Signs: Vital Signs - 24 hr 02/26/25 10:00 02/26/25 11:21 02/26/25 11:22 Temperature Pulse Rate 86 96 Respiratory Rate Blood Pressure Pulse Oximetry 94 94 Oxygen Delivery Room Air 02/26/25 11:49 02/26/25 12:00 02/26/25 12:00 Temperature 97.4 F L Pulse Rate 92 97 Respiratory Rate 22 H Blood Pressure 175/95 H Pulse Oximetry 90 Oxygen Delivery Room Air 02/26/25 12:22 02/26/25 14:00 02/26/25 14:32 Temperature Pulse Rate 97 83 88 Respiratory Rate 20 Blood Pressure Pulse Oximetry Oxygen Delivery 02/26/25 14:39 02/26/25 15:14 02/26/25 16:00 Temperature 97.8 F Pulse Rate 81 86 Respiratory Rate 20 20 Blood Pressure 148/85 H Pulse Oximetry 91 Oxygen Delivery Room Air 02/26/25 16:00 02/26/25 18:00 02/26/25 20:00 Temperature 97.8 F Pulse Rate 48 L 88 90 Respiratory Rate 20 Blood Pressure 158/100 H Pulse Oximetry 91 Oxygen Delivery 02/26/25 20:00 02/26/25 20:00 02/26/25 21:27 Temperature Pulse Rate 87 Respiratory Rate Blood Pressure Pulse Oximetry 92 92 Oxygen Delivery Room Air Room Air 02/26/25 21:29 02/26/25 21:41 02/26/25 22:00 Temperature Pulse Rate 85 87 82 Respiratory Rate 20 20 Blood Pressure Pulse Oximetry Oxygen Delivery 02/27/25 00:00 02/27/25 00:00 02/27/25 00:00 Temperature 97.5 F L Pulse Rate 82 77 Respiratory Rate 20 Blood Pressure 122/66 Pulse Oximetry 90 91 Oxygen Delivery Room Air 02/27/25 02:00 02/27/25 02:20 02/27/25 02:30 Temperature Pulse Rate 76 70 68 Respiratory Rate 20 20 Blood Pressure Pulse Oximetry Oxygen Delivery 02/27/25 04:00 02/27/25 04:00 02/27/25 04:00 Temperature 97.7 F Pulse Rate 83 80 Respiratory Rate 20 Blood Pressure 135/85 Pulse Oximetry 95 90 Oxygen Delivery Room Air 02/27/25 06:00 02/27/25 08:00 Temperature 97.7 F Pulse Rate 78 93 Respiratory Rate 20 Blood Pressure 140/79 Pulse Oximetry 96 Oxygen Delivery Intake/Output Intake/Output: Intake & Output 02/24/25 02/25/25 02/26/25 02/27/25 23:59 23:59 23:59 23:59 Intake Total 1050 920 Balance 1050 920 Meds/Results Medications: Active Medications Generic Name Dose Route Start Last Admin Trade Name Freq PRN Reason Stop Dose Admin Albuterol/Ipratropium 3 ml 02/26/25 11:15 Ipratropium 0.5 Mg/Albuterol Sulfate 2.5 Mg (Base) Ampul.Neb 3 Ml INHALATION QID PRN Shortness Of Breath Atorvastatin Calcium 80 mg 02/26/25 21:00 02/26/25 21:00 Atorvastatin 40 Mg Tablet PO 80 mg HS CARLOS Administration Azithromycin 500 mg 02/26/25 17:24 02/26/25 17:51 Azithromycin 500 Mg Tablet PO 500 mg DAILY CARLOS Administration Clopidogrel Bisulfate 75 mg 02/27/25 09:00 Clopidogrel Bisulfate 75 Mg Tablet PO DAILY CARLOS Dextrose 12.5 gm 02/25/25 19:02 Dextrose 50% 25 Gm/50 Ml Syringe IV PUSH PRN PRN Hypoglycemia Protocol Glucagon 1 mg 02/25/25 19:02 Glucagon For Inj 1 Mg Vial IM PRN PRN Hypoglycemia Protocol Glucose 15 gm 02/25/25 19:02 Glucose Oral Gel 15 Gm Of Glucse In 37.5 Gm Tube PO PRN PRN Hypoglycemia Protocol Dextrose 1,000 mls @ 100 mls/hr 02/25/25 19:02 Dextrose 5% 1,000 Ml IVPB PRN PRN Hypoglycemia Protocol Insulin Aspart 4 - 8 units 02/26/25 08:00 02/26/25 17:35 Insulin Aspart (*Bkc) 100 Units/Ml SUB-Q Not Given TIDWM CARLOS Protocol Insulin Aspart 2 - 4 units 02/25/25 21:00 02/26/25 20:55 Insulin Aspart (*Bkc) 100 Units/Ml SUB-Q Not Given HS CARLOS Protocol Ipratropium [place] 0.5 mg 02/26/25 14:00 02/27/25 02:20 Ipratropium Br 0.02% Inh Soln 0.5 Mg/2.5 Ml Vial INHALATION 0.5 mg Q6HRT CARLOS Administration Levalbuterol HCl 1.25 mg 02/25/25 20:00 02/27/25 02:20 Levalbuterol Neb 1.25 Mg/3 Ml INHALATION 1.25 mg Q6HRT CAROLS Administration Lisinopril 40 mg 02/26/25 11:15 02/26/25 12:22 Lisinopril 20 Mg Tablet PO 40 mg DAILY CARLOS Administration Loratadine 10 mg 02/27/25 09:00 Loratadine 10 Mg Tablet PO QAM CARLOS Methylprednisolone Sodium Succinate 40 mg 02/25/25 22:00 02/27/25 05:00 Methylprednisolone Sod Succ 40 Mg Vial IV PUSH 03/02/25 21:59 40 mg Q6H CARLOS Administration Metoprolol Succinate 25 mg 02/26/25 11:15 02/26/25 12:22 Metoprolol Succinate Ext Rel 25 Mg Tabcr PO 25 mg DAILY CARLOS Administration Montelukast Sodium 10 mg 02/26/25 21:00 02/26/25 21:00 Montelukast Sodium 10 Mg Tablet PO 10 mg HS CARLOS Administration Fluticasone/Salmeterol 2 puff 02/26/25 20:00 02/26/25 21:28 Fluticasone/Salmeterol 115-21 Mcg Inhaler 1 Puff INHALATION 2 puff Q12HRT CARLOS Administration Radiology Results: ITS Impressions Chest X-Ray 02/25/25 16:04 Impression: No acute cardiopulmonary abnormality. Labs Labs: Laboratory Results - last 24 hr 02/26/25 02/26/25 02/26/25 11:50 15:13 20:08 WBC RBC Hgb Hct MCV MCH MCHC RDW Plt Count MPV Immature Gran % (Auto) Neut % (Auto) Lymph % (Auto) [place] % (Auto) Eos % (Auto) Baso % (Auto) Lymph # (Auto) [place] # (Auto) Eos # (Auto) Baso # (Auto) Abs Immat Gran (auto) Absolute Neuts (auto) Absolute Nucleated RBC Nucleated RBC % Sodium Potassium Chloride Carbon Dioxide Anion Gap BUN Creatinine Estim Creat Clear Calc Estimated GFR Glucose POC Capillary Glucose 137 H 137 H 128 H Calcium Magnesium Total Bilirubin AST ALT Alkaline Phosphatase Total Protein Albumin 02/27/25 03:48 WBC 16.3 H RBC 4.80 Hgb 13.9 Hct 42.7 MCV 89.0 MCH 29.0 MCHC 32.6 RDW 13.1 Plt Count 407 H MPV 9.4 Immature Gran % (Auto) 1.2 H Neut % (Auto) 86.7 H Lymph % (Auto) 8.8 L [place] % (Auto) 3.2 Eos % (Auto) 0.0 Baso % (Auto) 0.1 L Lymph # (Auto) 1.44 [place] # (Auto) 0.5 Eos # (Auto) 0.0 Baso # (Auto) 0.0 Abs Immat Gran (auto) 0.19 H Absolute Neuts (auto) 14.1 H Absolute Nucleated RBC 0.000 Nucleated RBC % 0.0 Sodium 135 L Potassium 4.5 Chloride 107 Carbon Dioxide 23 Anion Gap 5 BUN 24 H D Creatinine 0.88 Estim Creat Clear Calc 62 Estimated GFR > 60 Glucose 140 H POC Capillary Glucose Calcium 9.4 Magnesium 1.9 Total Bilirubin 0.5 AST 26 ALT 26 Alkaline Phosphatase 89 Total Protein 6.8 Albumin 4.1
[2025-02-27] MEDS: FLUTICASONE/SALMETEROL 115-21 MCG INHALER 1 PUFF 2 PUFF INHALATION ×2 (08:35→20:32)
[2025-02-27] MEDS: INSULIN ASPART (*BKC) 100 UNITS/ML SUB-Q (09:32)
[2025-02-27] MEDS: AZITHROMYCIN 500 MG TABLET PO (09:33)
[2025-02-27] MEDS: METOPROLOL SUCCINATE EXT REL 25 MG TABCR PO (09:33)
[2025-02-27] MEDS: LORATADINE 10 MG TABLET PO (09:34)
[2025-02-27] MEDS: CLOPIDOGREL BISULFATE 75 MG TABLET PO (09:34)
[2025-02-27] MEDS: predniSONE 40 MG, predniSONE 10 MG 50 MG PO (09:34)
[2025-02-27] MEDS: IPRATROPIUM 0.5 MG/ALBUTEROL SULFATE 2.5 MG (BASE) AMPUL.NEB 3 ML INHALATION (09:58)
[2025-02-27] MEDS: ATORVASTATIN 40 MG TABLET 80 MG PO (20:51)
[2025-02-27] MEDS: MONTELUKAST SODIUM 10 MG TABLET PO (20:52)
[2025-02-28] VITALS (19 sets, daily range): BP systolic 142–154; BP diastolic 78–95; PULSE 72–87; RESP 16–22; TEMP 36.4; O2SAT 92–98
--- NOTE | 2025-02-28 | ECHO_ITS ---
Patient Info Name: Vandana Ojeda Age: 55 years : 1970 Gender: Female Ht: 60 in Wt: 184 lbs BSA: 1.92 m2 HR: 87 bpm BP: 150 / 92 mmHg Technical Quality: Fair Exam Date: 02/28/2025 2:52 PM Patient Status: I Admit Date: 02/26/2025 Exam Type: CA echo doppler color flow Complete two-dimensional, color flow and Doppler transthoracic echocardiogram is performed. Staff Referring Physician: Onel Hogue Stamping [employer] Try Out Worker: [employer] Attending Provider: Tato Scott MD Summary 1. Complete two-dimensional, color flow and Doppler transthoracic echocardiogram is performed. 2. Left ventricular systolic function is normal, estimated at 60-65. 3. The left ventricular diastolic function is grade I diastolic dysfunction. 4. There is mild tricuspid valve regurgitation. 5. No pulmonary hypertension, estimated pulmonary arterial systolic pressure is 13 mmHg. Left Ventricle Left ventricular chamber dimension is normal. Left ventricular systolic function is normal, estimated at 60-65. There is no increased left ventricular wall thickness. Left ventricular septal wall motion is normal. The left ventricular diastolic function is grade I diastolic dysfunction. Right Ventricle Right ventricular chamber dimension is normal. Right ventricular systolic function is normal. Left Atria Left atrial chamber dimension is normal. Right Atria Right atrial chamber dimension is normal. Aortic Valve The aortic valve is trileaflet. There is no aortic valve sclerosis. There is no aortic valve stenosis. There is no aortic valve regurgitation. Pulmonic Valve The pulmonic valve is normal. There is no pulmonic valve stenosis. There is no pulmonic regurgitation. Mitral Valve The mitral valve has normal leaflets. There is no mitral valve stenosis. There is no mitral valve regurgitation. Tricuspid Valve The tricuspid valve leaflets are normal. There is no significant tricuspid valve stenosis. There is mild tricuspid valve regurgitation. No pulmonary hypertension, estimated pulmonary arterial systolic pressure is 13 mmHg. Pericardium/Pleural The pericardium appears normal. There is no pericardial effusion. Inferior Vena Cava Normal inferior vena cava with >50% collapse upon inspiration consistent with normal right atrial pressure, 5 mmHg. Aorta The aortic root size at the sinus of Valsalva is normal. The prox ascending aorta size is normal. Left Ventricular Outflow Tract Name Value Normal LVOT 2D LVOT Diameter 2.1 cm LVOT Doppler LVOT Peak Velocity 131 cm/s LVOT Peak Gradient 7 mmHg LVOT Mean Gradient 4 mmHg LVOT VTI 26 cm LVOT VTI/AV VTI Ratio 0.8 LVOT Stroke Volume 87 ml LVOT CO 6.8 l/min LVOT CI 3.5 l/min/m2 Pulmonic Valve Name Value Normal PV Doppler PV Peak Velocity 141 cm/s PV Peak Gradient 8 mmHg PV Mean Gradient 5 mmHg Mitral Valve Name Value Normal MV Doppler MV Peak Gradient 4 mmHg MV Mean Gradient 2 mmHg MV Area (Cont Eq VTI) 3.9 cm2 MV Diastolic Function MV E Peak Velocity 80 cm/s MV A Peak Velocity 106 cm/s MV E/A 0.8 MV Decel Time (PW) 198 ms MV Annular TDI MV E/e' (Septal) 10.2 MV E/e' (Lateral) 9.1 MV E/e' (Average) 9.6 Tricuspid Valve Name Value Normal TV Regurgitation Doppler TR Peak Velocity 143 cm/s TR Peak Gradient 8 mmHg Estimated PAP/RSVP RA Pressure 5 mmHg <=5 PA Systolic Pressure 13 mmHg <36 RV Systolic Pressure 13 mmHg <36 TV Annular TDI TV Lateral Mari s' Velocity 13.6 cm/s >=9.5 Aortic Valve Name Value Normal AV Doppler AV Peak Velocity 187 cm/s AV Peak Gradient 14 mmHg AV Mean Gradient 7 mmHg AV VTI 31 cm AV Area (Cont Eq VTI) 2.8 cm2 >=3.0 AV Area (Cont Eq Oskar) 2.3 cm2 AV DI (Oskar) 0.70 AV Regurgitation 2D LVOT Area 3.3 cm2 Ventricles Name Value Normal LV Dimensions 2D/MM LVOT Diameter 2.1 cm LV Fractional Shortening/Ejection Fraction 2D/MM LV Diastolic Volume (4C MOD) 57 ml LV EF (4C MOD) 67 % LV Diastolic Volume (2C MOD) 53 ml LV EF (2C MOD) 61 % LV Diastolic Volume (BP MOD) 55 ml 46-106 LV Diastolic Volume Index (BP MOD) 28 ml/m2 29-61 LV Systolic Volume (BP MOD) 21 ml 14-42 LV Systolic Volume Index (BP MOD) 11 ml/m2 8-24 LV EF (BP MOD) 61 % 54-74 LV Diastolic Length (4C) 7.3 cm LV Systolic Length (4C) 5.8 cm LV Stroke Volume (4C MOD) 38 ml Atria Name Value Normal LA Dimensions LA Volume (4C A-L) 24 ml LA Volume (BP A-L) 29 ml RA Dimensions RA Systolic Major Iliff Length (4C) 3.7 cm 2.2-2.8 RA Area (4C) 10.3 cm2 <=18.0 Report Signatures
[2025-02-28] MEDS: IPRATROPIUM BR 0.02% INH SOLN 0.5 MG/2.5 ML VIAL INHALATION ×4 (01:35→19:45)
[2025-02-28 04:42] LABS: Hematocrit 43.0 % (37.0-47.0); Hemoglobin 13.7 g/dL (12.0-15.0); Immature Granulocyte Percent A 1.2 % (0-0.5); Lymphocytes Absolute Auto 2.27 K/mm3 (0.9-3.2); Mean Corpuscular HGB Conc 31.9 g/dl (32-36); Mean Corpuscular Hemoglobin 28.7 pg (26-34); Mean Corpuscular Volume 90.0 fl (80-100); Nucleated Red Blood Cells Absolute Auto 0.000 K/mm3 (0.0-0.012); Nucleated Red Blood Cells Perc 0.0 % (0.0-0.2); Platelet Count Result 318 k/mm3 (150-375); Red Blood Count 4.78 M/mm3 (4.2-5.4); White Blood Count 9.4 K/mm3 (4.5-10.0)
[2025-02-28 04:55] LABS: Alanine Aminotransferase 26 U/L (6-35); Albumin Level 3.7 g/dL (3.5-5.1); Alkaline Phosphatase 73 U/L (38-126); Anion Gap 3 mmol/L (4-12); Aspartate Amino Transferase 23 U/L (14-36); Bilirubin,Total 0.4 mg/dL (0.2-1.3); Blood Urea Nitrogen 22 mg/dL (7-17); Calcium 8.9 mg/dL (8.4-10.2); Carbon Dioxide 26 mmol/L (22-30); Chloride 108 mmol/L (98-107); Estimated CRCL calculation 63 ml/min; Estimated Glomerular Filt Rate > 60; Glucose 99 mg/dL (65-110); Magnesium 1.8 mg/dL (1.6-2.3); Potassium 4.0 mmol/L (3.4-5.0); Sodium 137 mmol/L (137-145); Total Protein 6.4 g/dL (6.3-8.2)
[2025-02-28] MEDS: FLUTICASONE/SALMETEROL 115-21 MCG INHALER 1 PUFF 2 PUFF INHALATION ×2 (07:40→19:45)
--- NOTE | 2025-02-28 08:28 | P.PNIM_ITS ---
Assessment and Plan Assessment and Plan (1) Acute asthma exacerbation: Qualifiers: Asthma severity: moderate Asthma persistence: unspecified Qualified Code(s): J45.901 - Unspecified asthma with (acute) exacerbation Code(s): J45.901 - Unspecified asthma with (acute) exacerbation Status: Acute Assessment and Plan: Patient had cold-like symptoms and asthma exacerbation starting Wednesday, 02/21. She has been treating this at home for the past few days. She has been uti lizing a nebulizer at least twice a day, utilize it 3 times prior to arrival today. Patient also started on a prednisone 40 mg daily, currently on day 4 of 5. Despite interventions she has continued to worsen. Admitted for further management of her severe asthma exacerbation. Initial treatment in the ED included a nebulizer, IV fluids, IV steroids, and magnesium IV. - continue IV steroids: Solu-Medrol 40 mg IV push q.6H x5 days - levalbuterol carlos due to tachycardia - started on BiPAP in the ED on 02/25 for WOB, will continue overnight as tolerated - viral PCR negative on 02/25 BiPAP tapered off 02/26/2025 Magnesium IV P add ipratropium with levalbuterol scheduled Will switch Solu-Medrol to oral prednisone however got short of breath with hypoxia 02/27/2025 Will check CTA and restarted Solu Medrol. (2) Hypertension: Qualifiers: Hypertension type: primary hypertension Qualified Code(s): I10 - Essential (primary) hypertension Code(s): I10 - Essential (primary) hypertension Status: Acute Assessment and Plan: Continue home medications - monitor (3) Diabetes: Qualifiers: Diabetes mellitus type: type 2 Diabetes mellitus mcfp insulin use: without long chain quiller tender use Diabetes mellitus complication status: without complication Qualified Code(s): E11.9 - Type 2 diabetes mellitus without complications Code(s): E11.9 - Type 2 diabetes mellitus without complications Status: Acute Assessment and Plan: - hypoglycemia protocol - POC blood glucose ACHS - home medication: continue Metformin - correct regimen ordered - high dose TIDWM and HS, on steroids Plan Diet: heart healthy GI Prophylaxis: n/a DVT Prophylaxis: SCDs IV fluids: 1L bolus Lines/Tubes: pIV Code Status: full code Subjective Date/time seen: 02/28/25 08:28 Interval history: 55 y/o F with PMH of asthma, DM, HTN, HLD, and anemia presents here with shortness of breath. The patient from home on 02/25 for further evaluation of shortness of breath. She reports onset of shortness of breath on Wednesday, 02/21. shortness of breath precipitated by mild cold-like symptoms including congestion/rhinorrhea for which she has been taking [id number] cold medications. she has been using her home nebulizer at least twice a day since Wednesday in his used it 3 times a day prior to arrival. She was additionally prescribed a short course of steroids, prednisone 20 mg b.i.d. x5 days. She is currently on day 4. Despite this intervention she continues to have worsening shortness of breath. She has a history significant for asthma that developed in childhood. She previously followed with pulmonology at [place], however due to insurance carlos arias she is no longer able to follow with them. Last hospitalized here for an asthma exacerbation in December of 2024. She currently denies chest pain, fever, chills, body aches, nausea, vomiting, diarrhea, cough. Initial VS at presentation: 98.2? F, HR 111, R 18, 167/98, and 94% on RA. Now on BiPAP for workup breathing. ED workup showed: WBC 12.4, no anemia, no significant electrolyte derangements, creatinine 0.89 and GFR >60, glucose 188, viral PCR negative. CXR showed no acute cardiopulmonary abnormality. 02/26/2025: Remains on BiPAP this a.m. which was tapered off. Feeling better. Still wheezy. 02/27/2025: Feels better. Off BiPAP. On room air. Shortness of breath with exertion with ambulation. Less wheezy 02/28/2025: Patient became short of breath yesterday with hypoxia and oxygen was placed oxygen saturation low at 88. Feels more short of breath today. Neck with exertion. Review of Systems Review of Systems: All systems reviewed & are unremarkable except as noted in HPI and below Exam Narrative: GENERAL: The patient is well developed, not in acute distress HEENT: Nonicteric sclerae, PERRLA, EOMI. Oropharynx clear. Moist mucous membranes. Conjunctivae appear well perfused. CHEST: Chest wall is nontender. HEART: Regular rate and rhythm without murmur, rubs, or gallops LUNGS: Diminished breath sounds, wheezes bilaterally, no respiratory distress mildly tachypneic ABDOMEN: Soft, positive bowel sounds, non-tender, no organomegaly. SKIN: No rash, no excessive bruising, petechiae, or purpura. NEUROLOGIC: Cranial nerves II-XII intact, alert and oriented x 3, no gross motor deficits EXTREMITIES: no edema, cyanosis or clubbing Objective Data Vital Signs Vital Signs: Vital Signs - 24 hr 02/27/25 08:37 02/27/25 08:37 02/27/25 08:50 Temperature Pulse Rate 88 88 92 Respiratory Rate 20 20 20 Blood Pressure Pulse Oximetry 92 Oxygen Delivery Room Air Oxygen Flow Rate 02/27/25 09:32 02/27/25 09:33 02/27/25 09:58 Temperature Pulse Rate 89 85 Respiratory Rate 20 Blood Pressure Pulse Oximetry 88 L 93 Oxygen Delivery Room Air Nasal Cannula Oxygen Flow Rate 2 02/27/25 09:58 02/27/25 10:04 02/27/25 14:00 Temperature Pulse Rate 85 86 87 Respiratory Rate 20 20 24 H Blood Pressure Pulse Oximetry 95 Oxygen Delivery Nasal Cannula Oxygen Flow Rate 2 02/27/25 14:00 02/27/25 14:13 02/27/25 15:58 Temperature 98.0 F Pulse Rate 87 83 85 Respiratory Rate 24 H 20 20 Blood Pressure 157/85 H Pulse Oximetry 94 Oxygen Delivery Oxygen Flow Rate 02/27/25 20:00 02/27/25 20:30 02/27/25 20:35 Temperature Pulse Rate 82 Respiratory Rate 20 Blood Pressure Pulse Oximetry 94 95 Oxygen Delivery Room Air Nasal Cannula Oxygen Flow Rate 2 02/27/25 20:43 02/27/25 20:58 02/28/25 00:00 Temperature 97.6 F Pulse Rate 80 84 72 Respiratory Rate 20 22 H 16 Blood Pressure 153/87 H 142/78 H Pulse Oximetry 94 98 Oxygen Delivery Oxygen Flow Rate 02/28/25 01:36 02/28/25 01:45 02/28/25 07:29 Temperature Pulse Rate 78 79 Respiratory Rate 20 20 Blood Pressure Pulse Oximetry 92 Oxygen Delivery Room Air Oxygen Flow Rate 02/28/25 07:29 02/28/25 07:37 02/28/25 08:02 Temperature Pulse Rate 87 80 87 Respiratory Rate 20 20 22 H Blood Pressure 150/92 H Pulse Oximetry 98 Oxygen Delivery Oxygen Flow Rate Intake/Output Intake/Output: Intake & Output 02/25/25 02/26/25 02/27/25 02/28/25 23:59 23:59 23:59 23:59 Intake Total 1050 1020 1220 Output Total 150 300 Balance 1050 1020 1070 -300 Meds/Results Medications: Active Medications Generic Name Dose Route Start Last Admin Trade Name Freq PRN Reason Stop Dose Admin Albuterol/Ipratropium 3 ml 02/26/25 11:15 02/27/25 09:58 Ipratropium 0.5 Mg/Albuterol Sulfate 2.5 Mg (Base) Ampul.Neb 3 Ml INHALATION 3 ml QID PRN Administration Shortness Of Breath Atorvastatin Calcium 80 mg 02/26/25 21:00 02/27/25 20:51 Atorvastatin 40 Mg Tablet PO 80 mg HS CARLOS Administration Azithromycin 500 mg 02/26/25 17:24 02/27/25 09:33 Azithromycin 500 Mg Tablet PO 500 mg DAILY CARLOS Administration Clopidogrel Bisulfate 75 mg 02/27/25 09:00 02/27/25 09:34 Clopidogrel Bisulfate 75 Mg Tablet PO 75 mg DAILY CARLOS Administration Dextrose 12.5 gm 02/25/25 19:02 Dextrose 50% 25 Gm/50 Ml Syringe IV PUSH PRN PRN Hypoglycemia Protocol Glucagon 1 mg 02/25/25 19:02 Glucagon For Inj 1 Mg Vial IM PRN PRN Hypoglycemia Protocol Glucose 15 gm 02/25/25 19:02 Glucose Oral Gel 15 Gm Of Glucse In 37.5 Gm Tube PO PRN PRN Hypoglycemia Protocol Dextrose 1,000 mls @ 100 mls/hr 02/25/25 19:02 Dextrose 5% 1,000 Ml IVPB PRN PRN Hypoglycemia Protocol Insulin Aspart 4 - 8 units 02/26/25 08:00 02/27/25 17:45 Insulin Aspart (*Bkc) 100 Units/Ml SUB-Q Not Given TIDWM CARLOS Protocol Insulin Aspart 2 - 4 units 02/25/25 21:00 02/27/25 20:59 Insulin Aspart (*Bkc) 100 Units/Ml SUB-Q Not Given HS CARLOS Protocol Ipratropium Milam 0.5 mg 02/26/25 14:00 02/28/25 07:29 Ipratropium Br 0.02% Inh Soln 0.5 Mg/2.5 Ml Vial INHALATION 0.5 mg Q6HRT CARLOS Administration Levalbuterol HCl 1.25 mg 02/25/25 20:00 02/28/25 07:29 Levalbuterol Neb 1.25 Mg/3 Ml INHALATION 1.25 mg Q6HRT CARLOS Administration Lisinopril 40 mg 02/26/25 11:15 02/27/25 09:32 Lisinopril 20 Mg Tablet PO 40 mg DAILY CARLOS Administration Loratadine 10 mg 02/27/25 09:00 02/27/25 09:34 Loratadine 10 Mg Tablet PO 10 mg QAM CARLOS Administration Methylprednisolone Sodium Succinate 40 mg 02/28/25 08:30 Methylprednisolone Sod Succ 40 Mg Vial IV PUSH Q8H CARLOS Metoprolol Succinate 25 mg 02/26/25 11:15 02/27/25 09:33 Metoprolol Succinate Ext Rel 25 Mg Tabcr PO 25 mg DAILY CARLOS Administration Montelukast Sodium 10 mg 02/26/25 21:00 02/27/25 20:52 Montelukast Sodium 10 Mg Tablet PO 10 mg HS CARLOS Administration Fluticasone/Salmeterol 2 puff 02/26/25 20:00 02/28/25 07:40 Fluticasone/Salmeterol 115-21 Mcg Inhaler 1 Puff INHALATION 2 puff Q12HRT CARLOS Administration Radiology Results: ITS Impressions Chest X-Ray 02/25/25 16:04 Impression: No acute cardiopulmonary abnormality. Labs Labs: Laboratory Results - last 24 hr 02/27/25 02/27/25 02/27/25 08:00 11:33 16:01 WBC RBC Hgb Hct MCV MCH MCHC RDW Plt Count MPV Immature Gran % (Auto) Neut % (Auto) Lymph % (Auto) [place] % (Auto) Eos % (Auto) Baso % (Auto) Lymph # (Auto) [place] # (Auto) Eos # (Auto) Baso # (Auto) Abs Immat Gran (auto) Absolute Neuts (auto) Absolute Nucleated RBC Nucleated RBC % Sodium Potassium Chloride Carbon Dioxide Anion Gap BUN Creatinine Estim Creat Clear Calc Estimated GFR Glucose POC Capillary Glucose 208 H 80 198 H Calcium Magnesium Total Bilirubin AST ALT Alkaline Phosphatase Total Protein Albumin 02/27/25 02/28/25 02/28/25 20:38 04:21 07:40 WBC 9.4 RBC 4.78 Hgb 13.7 Hct 43.0 MCV 90.0 MCH 28.7 MCHC 31.9 L RDW 12.9 Plt Count 318 MPV 9.2 Immature Gran % (Auto) 1.2 H Neut % (Auto) 67.2 Lymph % (Auto) 24.1 [place] % (Auto) 7.0 Eos % (Auto) 0.3 Baso % (Auto) 0.2 Lymph # (Auto) 2.27 [place] # (Auto) 0.7 H Eos # (Auto) 0.0 Baso # (Auto) 0.0 Abs Immat Gran (auto) 0.11 H Absolute Neuts (auto) 6.3 Absolute Nucleated RBC 0.000 Nucleated RBC % 0.0 Sodium 137 Potassium 4.0 Chloride 108 H Carbon Dioxide 26 Anion Gap 3 L BUN 22 H Creatinine 0.86 Estim Creat Clear Calc 63 Estimated GFR > 60 Glucose 99 POC Capillary Glucose 143 H 133 H Calcium 8.9 Magnesium 1.8 Total Bilirubin 0.4 AST 23 ALT 26 Alkaline Phosphatase 73 Total Protein 6.4 Albumin 3.7
[2025-02-28 08:53] LABS: NT Pro B Type Natriuretic Pept 222 pg/mL (19.9-100)
[2025-02-28] MEDS: MAGNESIUM SULF 1 GM/D5W 100 ML 1 GM/100 ML BAG IVPB (09:39)
[2025-02-28] MEDS: IPRATROPIUM 0.5 MG/ALBUTEROL SULFATE 2.5 MG (BASE) AMPUL.NEB 3 ML INHALATION ×2 (09:44→21:51)
[2025-02-28] MEDS: LORATADINE 10 MG TABLET PO (09:45)
[2025-02-28] MEDS: CLOPIDOGREL BISULFATE 75 MG TABLET PO (09:45)
[2025-02-28] MEDS: METOPROLOL SUCCINATE EXT REL 25 MG TABCR PO (09:46)
[2025-02-28] MEDS: AZITHROMYCIN 500 MG TABLET PO (09:47)
[2025-02-28] MEDS: ATORVASTATIN 40 MG TABLET 80 MG PO (21:45)
[2025-02-28] MEDS: MONTELUKAST SODIUM 10 MG TABLET PO (21:45)
[2025-03-01] VITALS (14 sets, daily range): BP systolic 141–161; BP diastolic 80–104; PULSE 70–97; RESP 14–21; TEMP 36.1–36.7; O2SAT 93–98
[2025-03-01] MEDS: IPRATROPIUM BR 0.02% INH SOLN 0.5 MG/2.5 ML VIAL INHALATION ×4 (01:26→20:33)
[2025-03-01] MEDS: FLUTICASONE/SALMETEROL 115-21 MCG INHALER 1 PUFF 2 PUFF INHALATION (08:01)
[2025-03-01] MEDS: AZITHROMYCIN 500 MG TABLET PO (08:58)
[2025-03-01] MEDS: LORATADINE 10 MG TABLET PO (08:58)
[2025-03-01] MEDS: CLOPIDOGREL BISULFATE 75 MG TABLET PO (08:58)
[2025-03-01] MEDS: METOPROLOL SUCCINATE EXT REL 25 MG TABCR PO (08:58)
[2025-03-01] MEDS: INSULIN ASPART (*BKC) 100 UNITS/ML SUB-Q ×2 (12:47→21:22)
--- NOTE | 2025-03-01 13:29 | PM.CNPUL ---
Assessment and Plan Assessment and plan (1) Asthma exacerbation: Code(s): J45.901 - Unspecified asthma with (acute) exacerbation Status: Acute Assessment and Plan: Patient tells me she had asthma from age 7 and remembers being in an oxygen tent as a child. She has been on medicines all her life. Patient was on Symbicort until she lost her insurance in 2022 and since then she has been maintained on montelukast 10 q.day Which she has been on for about 3 years., cetirizine 10 q.day Which she has been on for many yearsand albuterol p.r.n. which she takes about 2 puffs a day. She has an albuterol nebulizer and usually she goes for months without this. At baseline the patient has no respiratory limitations in her activities of daily living. she takes 1 puff rescue albuterol before she walks 2 miles over an hour. This is improved over the last year because she has tried to exercise more. 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 Her baseline peak flows are 300 mL. She can walk 2 miles over 1 hour. Triggers include dust, upper respiratory infections, pollen, mold, sinusitis. She had a previous RAST blood test that was positive for dust mites, cat, dog, cockroach. She does have 2 cats and has had cats all her life. Patient was intubated in 2021. She had no exacerbations between 2021 and May of 2024. Patient was admitted to the hospital 12/25/2024 through 12/29/2024 with a rhino virus induced asthma exacerbation. patient made a full recovery. Patient ran out of her Symbicort 02/07/2025. Patient was exposed to her sick who had rhinorrhea and cough starting 02/14/2025. Patient developed rhinorrhea cough, shortness of breath and wheezing on 02/21/2025 which progressed despite prednisone at home. 03/01/25: Today the patient tells me that her rhinorrhea is 20% better. Her cough is 10% better. Her wheezing is the same as admission. Her shortness of breath at rest is the same. She has dyspnea on exertion at 2-3 steps. Overall she does not feel much benefit from the nebulizers. She denies fever, chills, rigors, leg swelling, diarrhea, stomach aches, chest pains. When I enter the room she was on 2 L nasal cannula saturations 95%. I placed her on room air and after 19 minutes her saturations were 95%. White blood cell count is 9.4. Her weight today is 82.5 kg. Plan: Agree with treatment for asthma exacerbation related to running out of Symbicort on 02/07/2025 and possible viral infection. Patient has minimal improvement and currently is on Solu-Medrol 40 q.8 hours, day 5 of steroids. Continue levalbuterol and ipratropium nebulizers q.6 hours, montelukast 10 mg p.o. q.day, Claritin 10 mg p.o. q.day. I will discontinue patient's Advair she is on adequate doses of beta agonists and on systemic steroids. Patient is on azithromycin for possible tracheobronchitis as there is no focal infiltrate on her CT scan of the chest. Agree with respiratory pathogen panel looking for viral etiologies of exacerbation. Oxygenation is back to baseline and currently she is on room air. Discussed with Dr. Hogue, will follow with you. History of Present Illness History of Present Illness Consult date: 03/01/25 Chief complaint: Asthma Exac Narrative: 03/01/2025: This is a new pulmonary consult for asthma exacerbation. Patient was previously followed in the [facility] but she stopped secondary to insurance change. I saw the patient for an inpatient consultation on 12/26/2024 for acute asthma exacerbation with a concurrent rhinoviral infection. Patient tells me she had asthma from age 7 and remembers being in an oxygen tent as a child. She has been on medicines all her life. Patient was on Symbicort until she lost her insurance in 2022 and since then she has been maintained on montelukast 10 q.day Which she has been on for about 3 years., cetirizine 10 q.day Which she has been on for many yearsand albuterol p.r.n. which she takes about 2 puffs a day. She has an albuterol nebulizer and usually she goes for months without this. At baseline the patient has no respiratory limitations in her activities of daily living. she takes 1 puff rescue albuterol before she walks 2 miles over an hour. This is improved over the last year because she has tried to exercise more. 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 Her baseline peak flows are 300 mL. She can walk 2 miles over 1 hour. Triggers include dust, upper respiratory infections, pollen, mold, sinusitis. She had a previous RAST blood test that was positive for dust mites, cat, dog, cockroach. She does have 2 cats and has had cats all her life. Patient was intubated in 2021. She had no exacerbations between 2021 and May of 2024. Patient was discharged on 12/29/2024 on these pulmonary medicines. Azithromycin 250 mg p.o. q.day x1 day Prednisone 40 mg p.o. q.day x5 days. I have told the patient if she continues to improve not to take this prednisone burst but that if she develops worsening symptoms she should initiate the prednisone. Symbicort 160-4.5 at 1 puff q.4 hours p.r.n. shortness of breath or wheezing Guaifenesin 1200 mg p.o. b.i.d. p.r.n. congestion Montelukast 10 mg p.o. q.day Claritin 10 mg p.o. q.day room air saturations were 96% Patient told me she cannot be seen in our clinic because of her insurance and she will follow-up with her PCP. patient tells me that she continued to improve and did not need to take her prednisone 40 x 5 days and was back to her baseline on 01/05/2025. She continued her Symbicort, montelukast 10, Claritin 10. 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 She does not go to the gymnasium. She was using rescue albuterol 2 puffs 2 times a week and overall she was doing well. She denies smoking, marijuana use, vaping, illicit drug use, no new pet exposures. She still has cats. No new shampoos. 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 No exposure to molds. No new shampoos. No new blankets. She has been and running her heater for a number of weeks now. On 02/07 she ran out of her Symbicort. On 02/14 her developed rhinorrhea and cough and felt like he had a cold. On 02/21 the pellet patient developed worsening shortness of breath at rest, rhinorrhea, cough, wheezing and dyspnea on exertion. Her room air sats were 93. She attempted to take her rescue albuterol nebs. She started her prednisone from 12/29/2024. Patient noted worsening in her symptoms and she presented to the ER on 02/25. 02/25/2025: Patient presented to the emergency department with worsening shortness of breath that started on 02/21/2025. This was precipitated by cold-like symptoms including congestion, rhinorrhea. She was prescribed a short course of prednisone 20 x 5 days and was on day 4 on 02/25/2025. Room air saturations were 94%. She had expiratory wheezes. White blood cell count 12.4, eosinophils 0.2%, creatinine 0.89. BNP 222.She was placed on BiPAP for work of breathing. Chest x-ray showed no acute abnormality. COVID influenza RSV RT PCR assay negative. She was treated with Solu-Medrol, bronchodilators. 02/28/2025: CT angiogram of the chest with no PE. The lungs were clear with no masses, infiltrates, nodules, interstitial lung disease, bullous emphysema or pleural disease. Echocardiogram with LVEF 60 65%. Grade 1 diastolic dysfunction. Normal RV size and function. PASP 13. 03/01/25: Today the patient tells me that her rhinorrhea is 20% better. Her cough is 10% better. Her wheezing is the same as admission. Her shortness of breath at rest is the same. She has dyspnea on exertion at 2-3 steps. Overall she does not feel much benefit from the nebulizers. She denies fever, chills, rigors, leg swelling, diarrhea, stomach aches, chest pains. When I enter the room she was on 2 L nasal cannula saturations 95%. I placed her on room air and after 19 minutes her saturations were 95%. White blood cell count is 9.4. Her weight today is 82.5 kg. DATA: 02/28/2023: Echo Summary 1. Complete two-dimensional, color flow and Doppler transthoracic echocardiogram is performed. 2. Left ventricular systolic function is normal, estimated at 60-65. 3. The left ventricular diastolic function is grade I diastolic dysfunction. 4. There is mild tricuspid valve regurgitation. 5. No pulmonary hypertension, estimated pulmonary arterial systolic pressure is 13 mmHg. Right Ventricle Right ventricular chamber dimension is normal. Right ventricular systolic function is normal. Left Atria Left atrial chamber dimension is normal. Right Atria Right atrial chamber dimension is normal. 02/28/2023: EXAMINATION: CTA chest PE protocol INDICATION: Rule out PE COMPARISON: December 26, 2024 FINDINGS: No PE or thoracic aortic aneurysm/dissection. Heart size normal with no significant pericardial effusion. Coronary artery calcifications noted. No bulky lymphadenopathy. The lungs are clear. The bones intact. No acute process seen in the visualized upper abdomen or extrathoracic soft tissues. IMPRESSION: 1. No pulmonary emboli. Stable exam compared to December 26. Room air ABG 12/25/2024: PH 7.49/32/73. 05/25/2022: Alpha 1 PIMM PFT 11/11/21 This is a pulmonary function test with pre and post-bronchodilator spirometry, plethysmography and diffusing capacity. The test was performed and results interpreted in accordance with the 2019 and 2005 ATS/ERS Task Force guidelines respectively using the Global Lung Function Initiative-2012 reference equations. Patient demonstrated good effort and cooperation. Reproducibility criteria were met. The quality of the pre bronchodilator spirometry maneuver was Grade A and post bronchodilator spirometry maneuver was Grade A. Findings: Spirometry: there is decreased maximal expiratory airflow at all lung volumes with concave expiratory flow tracing. The contour the inspiratory flow tracing is normal. The pre bronchodilator FVC is 2.52 L, 81% predicted. The pre bronchodilator FEV1 is 1.45 L, 58% predicted. The pre bronchodilator FEV1: FVC ratio is 58%. The post bronchodilator FVC is 3.10 L, representing a 23% increase. The post bronchodilator FEV1 is 1.93 L, representing a 33% increase. The post bronchodilator FEV1: FVC ratio 62%. Plethysmography: The total lung capacity is 6.34 L, 138% predicted. Functional residual capacity is 4.36 L, 171% predicted. The residual volume is 3.82 L, 233% predicted. Diffusion capacity: The diffusion capacity unadjusted for hemoglobin and carboxyhemoglobin is 18.9, 88% predicted. The diffusing capacity adjusted for alveolar volume is 4.63, 98% predicted. Impression: There is a moderately severe obstructive abnormality with significant improvement after inhaling a single dose of albuterol. The increase in residual volume is consistent with air trapping from an obstructive abnormality. Hyperinflation is present as demonstrated by the increase in functional residual capacity and total lung capacity and is consistent with an obstructive abnormality. The diffusing capacity is normal. There are no prior studies for comparison 11/11/2021: 6mw no O2 needed 09/22/2021 - CXR:?ET and NG tubes have been removed since 09/22/2019. Right upper?extremity PIC catheter tip overlies superior vena cava. No pulmonary infiltrate or consolidation, pleural effusion or pulmonary vascular congestion or pneumothorax. Normal heart size.?IMPRESSION: Removal of ET and NG tubes; no active cardiopulmonary disease? 09/26/2021 - Mod barium swallow -??Patient tolerated regular consistency oral feedings in the upright position.? Please correlate with speech pathologist findings and specific feeding recommendations.? Subtle increased soft tissue density project over the region of the piriform sinuses which based on prior CT appears to result from relatively symmetric swelling along the aryepiglottic folds but with normal-appearing epiglottis. There is may reflect response to recent intubation. Echo 08/09/19 - EF 65-70%, grade I diastolic dysfunction, no pulmHTN. RAST panel 04/24/2019 showing + to dust mites (high), cat (very high), dog (very high), cockroach (low), mouse (low); IgE 87 normal. Review of Systems Constitutional: Constitutional: Reports no additional constitutional complaints Eyes: Eyes: Reports no additional eye complaints ENT: Reports system reviewed and no additional complaints, except as documented Cardiovascular: Cardiovascular: Reports no additional cardiovascular complaints Respiratory: Respiratory: Reports no additional respiratory complaints Gastrointestinal: Gastrointestinal: Reports no additional gastrointestinal complaints Musculoskeletal: Musculoskeletal: Reports no additional musculoskeletal complaints Neurologic: Reports system reviewed and no additional complaints, except as documented Psychiatric: Psychiatric: Reports no additional psychiatric complaints Endocrine: Endocrine: Reports no additional endocrine complaints Hematologic/Lymphatic: Hematologic/Lymphatic: Reports no additional hematologic/lymphatic complaints Allergic/Immunologic: Allergic/Immunologic: Reports no additional allergic/immunologic complaints [facility] Past Medical History Medical History Asthma Diabetes Anemia no iron--had IV injection Hypertension Hypercholesterolemia Surgical History Surgical History History of tubal ligation 02/01/98 History of 02/01/98 History of abdominal supracervical subtotal hysterectomy 08/26/17 Supracx abdominal hyst w/ovarian preservation--enlarged uterine fibroid 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 Family History Family History Other Acute myocardial infarction maternal uncle Sibling Kidney disease brother--pt donated 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 Social History Social History Smoking packs per day: 0.5 Smoking cigarettes per day: 10.0 Years smoked: 2 Smoking pack-years: 1.00 Smoking status: Current every day smoker Tobacco type: cigarettes Smokeless tobacco user: other Second hand tobacco smoke exposure: Yes Smoking end date: 03/22/21 Alcohol intake: current Drinks per week: 1 Substance use: never Substance use type: former substance user and marijuana Last use: Stopped marijuana use prior to hospitalization August 2021. Lack of Transportation: No Lack of Food: Never True Current Housing: I Have Housing Concerned About Future Housing: No Difficulty Paying Gas/Electric Bills: No Difficulty Paying for Meds: No Currently Unemployed: No Education: High School Diploma/GED Difficulty w/ Childcare or Family Care: No Living arrangements: other Additional living arrangements comments: spouse Occupation/Education: other Additional occupation/education comments: housewife Gender identity (if verbalized by the patient): Female Sexual Orientation (if Verbalized by the Patient): Straight or Heterosexual Spiritual care concerns: No Meds Home Medications and Allergies Home Medications ?Medication ?Instructions ?Recorded ?Confirmed ?Type ipratropium 0.5 mg-albuterol 3 mg 3 ml inhalation QID PRN shortness 05/25/22 02/26/25 History (2.5 mg base)/3 mL nebulization of breath soln albuterol sulfate 90 mcg/actuation 2 puff inhalation Q4-6H PRN 08/24/23 02/26/25 Rx aerosol inhaler (Ventolin HFA) shortness of breath or wheezing #18 grams atorvastatin 40 mg tablet 80 mg PO DAILY 12/26/24 02/26/25 History cetirizine 10 mg tablet 10 mg PO DAILY 12/26/24 02/26/25 History clopidogrel 75 mg tablet 75 mg PO DAILY 12/26/24 02/26/25 History lisinopril 40 mg tablet 40 mg PO DAILY 12/26/24 02/26/25 History metformin 500 mg tablet,extended 1,000 mg PO QPM 12/26/24 02/26/25 History release 24 hr metoprolol succinate 25 mg 25 mg PO DAILY 12/26/24 02/26/25 History tablet,extended release 24 hr montelukast 10 mg tablet 10 mg PO QPM 12/26/24 02/26/25 History budesonide-formoterol HFA 160 1 puff inhalation Q4-5H #10.2 grams 12/29/24 02/26/25 Rx mcg-4.5 mcg/actuation aerosol inhaler (Symbicort) atorvastatin 80 mg tablet 80 mg PO QPM 02/26/25 02/26/25 History Allergies Allergy/AdvReac Type Severity Reaction Status Date / Time dog dander Allergy Wheezing Verified 02/26/25 03:51 Vital Signs Vital Signs - 24 hr 02/28/25 13:31 02/28/25 16:00 02/28/25 19:46 Temperature 36.4 C Pulse Rate 80 80 80 Respiratory Rate 20 20 20 Blood Pressure 154/95 H Pulse Oximetry 96 Oxygen Delivery Oxygen Flow Rate Fraction of Inspired Oxygen 02/28/25 19:50 02/28/25 20:00 02/28/25 21:52 Temperature Pulse Rate 80 75 Respiratory Rate 20 20 Blood Pressure Pulse Oximetry 96 96 Oxygen Delivery Nasal Cannula Nasal Cannula Oxygen Flow Rate 2 2 Fraction of Inspired Oxygen 28 02/28/25 22:03 03/01/25 01:06 03/01/25 01:27 Temperature 36.4 C Pulse Rate 77 70 73 Respiratory Rate 20 14 20 Blood Pressure 149/80 H Pulse Oximetry 93 Oxygen Delivery Oxygen Flow Rate Fraction of Inspired Oxygen 03/01/25 01:36 03/01/25 04:55 03/01/25 08:00 Temperature 36.7 C Pulse Rate 75 75 83 Respiratory Rate 20 20 20 Blood Pressure 148/87 H Pulse Oximetry 98 Oxygen Delivery Oxygen Flow Rate Fraction of Inspired Oxygen 03/01/25 08:02 03/01/25 08:09 03/01/25 13:18 Temperature Pulse Rate 85 89 Respiratory Rate 19 21 H Blood Pressure Pulse Oximetry 93 Oxygen Delivery Nasal Cannula Oxygen Flow Rate 2 Fraction of Inspired Oxygen 03/01/25 13:25 Temperature Pulse Rate 86 Respiratory Rate 19 Blood Pressure Pulse Oximetry Oxygen Delivery Oxygen Flow Rate Fraction of Inspired Oxygen Exam Const: General: cooperative, healthy appearing and comfortable Orientation/consciousness: oriented to person, oriented to place and oriented to time HENMT: Head: normal to inspection Ears: hearing grossly normal bilaterally Eyes: General: appearance normal, both eyes and all related structures Neck: Neck: normal visual inspection Chest: Chest palpation & inspection: normal inspection of the chest Resp: Effort & Inspection: normal respiratory effort and able to speak in complete sentences Auscultation: no crackles, no rales, no rhonchi, wheezes and lung sounds not diminished Other: And expiratory wheezes. Cardio: Jugular venous distension: no JVD GI: Inspection: normal to inspection GI Palp: No abdominal tenderness Skin: General skin exam: normal color Neuro: General: oriented to person, oriented to place and oriented to time Extrem: General: normal to inspection and no edema Psych: Appearance: grossly normal Results Laboratory Findings 02/28/25 04:21 02/28/25 04:21 Abnormal lab findings: Abnormal Labs 02/25/25 02/25/25 02/25/25 16:02 19:57 21:20 WBC 12.4 H MCHC Plt Count 389 H Immature Gran % (Auto) 0.6 H Neut % (Auto) 89.7 H Lymph % (Auto) 8.2 L [place] % (Auto) 1.1 L Baso % (Auto) [place] # (Auto) Abs Immat Gran (auto) 0.07 H Absolute Neuts (auto) 11.1 H Sodium Chloride 108 H Carbon Dioxide 21 L Anion Gap BUN Glucose 188 H POC Capillary Glucose 153 H 148 H NT-Pro-B Natriuret Pep 02/26/25 02/26/25 02/26/25 07:39 11:50 15:13 WBC MCHC Plt Count Immature Gran % (Auto) Neut % (Auto) Lymph % (Auto) [place] % (Auto) Baso % (Auto) [place] # (Auto) Abs Immat Gran (auto) Absolute Neuts (auto) Sodium Chloride Carbon Dioxide Anion Gap BUN Glucose POC Capillary Glucose 139 H 137 H 137 H NT-Pro-B Natriuret Pep 02/26/25 02/27/25 02/27/25 20:08 03:48 08:00 WBC 16.3 H MCHC Plt Count 407 H Immature Gran % (Auto) 1.2 H Neut % (Auto) 86.7 H Lymph % (Auto) 8.8 L [place] % (Auto) Baso % (Auto) 0.1 L [place] # (Auto) Abs Immat Gran (auto) 0.19 H Absolute Neuts (auto) 14.1 H Sodium 135 L Chloride Carbon Dioxide Anion Gap BUN 24 H D Glucose 140 H POC Capillary Glucose 128 H 208 H NT-Pro-B Natriuret Pep 02/27/25 02/27/25 02/28/25 16:01 20:38 04:21 WBC MCHC 31.9 L Plt Count Immature Gran % (Auto) 1.2 H Neut % (Auto) Lymph % (Auto) [place] % (Auto) Baso % (Auto) [place] # (Auto) 0.7 H Abs Immat Gran (auto) 0.11 H Absolute Neuts (auto) Sodium Chloride 108 H Carbon Dioxide Anion Gap 3 L BUN 22 H Glucose POC Capillary Glucose 198 H 143 H NT-Pro-B Natriuret Pep 222 H 02/28/25 02/28/25 02/28/25 07:40 11:22 16:40 WBC MCHC Plt Count Immature Gran % (Auto) Neut % (Auto) Lymph % (Auto) [place] % (Auto) Baso % (Auto) [place] # (Auto) Abs Immat Gran (auto) Absolute Neuts (auto) Sodium Chloride Carbon Dioxide Anion Gap BUN Glucose POC Capillary Glucose 133 H 158 H 191 H NT-Pro-B Natriuret Pep 02/28/25 03/01/25 03/01/25 21:28 08:26 11:25 WBC MCHC Plt Count Immature Gran % (Auto) Neut % (Auto) Lymph % (Auto) [place] % (Auto) Baso % (Auto) [place] # (Auto) Abs Immat Gran (auto) Absolute Neuts (auto) Sodium Chloride Carbon Dioxide Anion Gap BUN Glucose POC Capillary Glucose 184 H 149 H 219 H NT-Pro-B Natriuret Pep Diagnostic Findings Additional studies: ITS Impressions Chest X-Ray 02/25/25 16:04 Impression: No acute cardiopulmonary abnormality. Chest CTA 02/28/25 12:03
--- NOTE | 2025-03-01 14:48 | P.PNIM_ITS ---
Assessment and Plan Assessment and Plan (1) Acute asthma exacerbation: Qualifiers: Asthma severity: moderate Asthma persistence: unspecified Qualified Code(s): J45.901 - Unspecified asthma with (acute) exacerbation Code(s): J45.901 - Unspecified asthma with (acute) exacerbation Status: Acute Assessment and Plan: Patient had cold-like symptoms and asthma exacerbation starting Wednesday, 02/21. She has been treating this at home for the past few days. She has been uti lizing a nebulizer at least twice a day, utilize it 3 times prior to arrival today. Patient also started on a prednisone 40 mg daily, currently on day 4 of 5. Despite interventions she has continued to worsen. Admitted for further management of her severe asthma exacerbation. Initial treatment in the ED included a nebulizer, IV fluids, IV steroids, and magnesium IV. - continue IV steroids: Solu-Medrol 40 mg IV push q.6H x5 days - levalbuterol carlos due to tachycardia - started on BiPAP in the ED on 02/25 for WOB, will continue overnight as tolerated - viral PCR negative on 02/25 BiPAP tapered off 02/26/2025 Magnesium IV P add ipratropium with levalbuterol scheduled Will switch Solu-Medrol to oral prednisone however got short of breath with hypoxia 02/27/2025 cta negative for pe will consult pulmonary (2) Hypertension: Qualifiers: Hypertension type: primary hypertension Qualified Code(s): I10 - Essential (primary) hypertension Code(s): I10 - Essential (primary) hypertension Status: Acute Assessment and Plan: Continue home medications - monitor (3) Diabetes: Qualifiers: Diabetes mellitus type: type 2 Diabetes mellitus intermodal owner operator truck driver insulin use: without intermodal owner operator truck driver use Diabetes mellitus complication status: without complication Qualified Code(s): E11.9 - Type 2 diabetes mellitus without complications Code(s): E11.9 - Type 2 diabetes mellitus without complications Status: Acute Assessment and Plan: - hypoglycemia protocol - POC blood glucose ACHS - home medication: continue Metformin - correct regimen ordered - high dose TIDWM and HS, on steroids Plan Diet: heart healthy GI Prophylaxis: n/a DVT Prophylaxis: SCDs IV fluids: 1L bolus Lines/Tubes: pIV Code Status: full code Subjective Date/time seen: 03/01/25 14:48 Interval history: 55 y/o F with PMH of asthma, DM, HTN, HLD, and anemia presents here with shortness of breath. The patient from home on 02/25 for further evaluation of shortness of breath. She reports onset of shortness of breath on Wednesday, 02/21. shortness of breath precipitated by mild cold-like symptoms including congestion/rhinorrhea for which she has been taking [id number] cold medications. she has been using her home nebulizer at least twice a day since Wednesday in his used it 3 times a day prior to arrival. She was additionally prescribed a short course of steroids, prednisone 20 mg b.i.d. x5 days. She is currently on day 4. Despite this intervention she continues to have worsening shortness of breath. She has a history significant for asthma that developed in childhood. She previously followed with pulmonology at [facility], however due to insurance change she is no longer able to follow with them. Last hospitalized here for an asthma exacerbation in December of 2024. She currently denies chest pain, fever, chills, body aches, nausea, vomiting, diarrhea, cough. Initial VS at presentation: 98.2? F, HR 111, R 18, 167/98, and 94% on RA. Now on BiPAP for workup breathing. ED workup showed: WBC 12.4, no anemia, no significant electrolyte derangements, creatinine 0.89 and GFR >60, glucose 188, viral PCR negative. CXR showed no acute cardiopulmonary abnormality. 02/26/2025: Remains on BiPAP this a.m. which was tapered off. Feeling better. Still wheezy. 02/27/2025: Feels better. Off BiPAP. On room air. Shortness of breath with exertion with ambulation. Less wheezy 02/28/2025: Patient became short of breath yesterday with hypoxia and oxygen was placed oxygen saturation low at 88. Feels more short of breath today. Neck with exertion. 03/01/2025: no overnight events. still requires oxygen. still wheezes. feels duoneb does not help her with the breathing. no leg swelling. no cehst pain. Review of Systems Review of Systems: All systems reviewed & are unremarkable except as noted in HPI and below Exam Narrative: GENERAL: The patient is well developed, not in acute distress HEENT: Nonicteric sclerae, PERRLA, EOMI. Oropharynx clear. Moist mucous membranes. Conjunctivae appear well perfused. CHEST: Chest wall is nontender. HEART: Regular rate and rhythm without murmur, rubs, or gallops LUNGS: Diminished breath sounds, wheezes bilaterally, no respiratory distress mildly tachypneic ABDOMEN: Soft, positive bowel sounds, non-tender, no organomegaly. SKIN: No rash, no excessive bruising, petechiae, or purpura. NEUROLOGIC: Cranial nerves II-XII intact, alert and oriented x 3, no gross motor deficits EXTREMITIES: no edema, cyanosis or clubbing Objective Data Vital Signs Vital Signs: Vital Signs - 24 hr 02/28/25 16:00 02/28/25 19:46 02/28/25 19:50 Temperature 97.6 F Pulse Rate 80 80 80 Respiratory Rate 20 20 20 Blood Pressure 154/95 H Pulse Oximetry 96 96 Oxygen Delivery Nasal Cannula Oxygen Flow Rate 2 Fraction of Inspired Oxygen 28 02/28/25 20:00 02/28/25 21:52 02/28/25 22:03 Temperature Pulse Rate 75 77 Respiratory Rate 20 20 Blood Pressure Pulse Oximetry 96 Oxygen Delivery Nasal Cannula Oxygen Flow Rate 2 Fraction of Inspired Oxygen 03/01/25 01:06 03/01/25 01:27 03/01/25 01:36 Temperature 97.6 F Pulse Rate 70 73 75 Respiratory Rate 14 20 20 Blood Pressure 149/80 H Pulse Oximetry 93 Oxygen Delivery Oxygen Flow Rate Fraction of Inspired Oxygen 03/01/25 04:55 03/01/25 08:00 03/01/25 08:02 Temperature 98.1 F Pulse Rate 75 83 Respiratory Rate 20 20 Blood Pressure 148/87 H Pulse Oximetry 98 93 Oxygen Delivery Nasal Cannula Oxygen Flow Rate 2 Fraction of Inspired Oxygen 03/01/25 08:09 03/01/25 13:18 03/01/25 13:25 Temperature Pulse Rate 85 89 86 Respiratory Rate 19 21 H 19 Blood Pressure Pulse Oximetry Oxygen Delivery Oxygen Flow Rate Fraction of Inspired Oxygen Intake/Output Intake/Output: Intake & Output 02/26/25 02/27/25 02/28/25 03/01/25 23:59 23:59 23:59 23:59 Intake Total 1020 1220 1510 100 Output Total 150 400 Balance 1020 1070 1110 100 Meds/Results Medications: Active Medications Generic Name Dose Route Start Last Admin Trade Name Freq PRN Reason Stop Dose Admin Albuterol/Ipratropium 3 ml 02/26/25 11:15 02/28/25 21:51 Ipratropium 0.5 Mg/Albuterol Sulfate 2.5 Mg (Base) Ampul.Neb 3 Ml INHALATION 3 ml QID PRN Administration Shortness Of Breath Atorvastatin Calcium 80 mg 02/26/25 21:00 02/28/25 21:45 Atorvastatin 40 Mg Tablet PO 80 mg HS CARLOS Administration Azithromycin 500 mg 02/26/25 17:24 03/01/25 08:58 Azithromycin 500 Mg Tablet PO 500 mg DAILY CARLOS Administration Clopidogrel Bisulfate 75 mg 02/27/25 09:00 03/01/25 08:58 Clopidogrel Bisulfate 75 Mg Tablet PO 75 mg DAILY CARLOS Administration Dextrose 12.5 gm 02/25/25 19:02 Dextrose 50% 25 Gm/50 Ml Syringe IV PUSH PRN PRN Hypoglycemia Protocol Glucagon 1 mg 02/25/25 19:02 Glucagon For Inj 1 Mg Vial IM PRN PRN Hypoglycemia Protocol Glucose 15 gm 02/25/25 19:02 Glucose Oral Gel 15 Gm Of Glucse In 37.5 Gm Tube PO PRN PRN Hypoglycemia Protocol Dextrose 1,000 mls @ 100 mls/hr 02/25/25 19:02 Dextrose 5% 1,000 Ml IVPB PRN PRN Hypoglycemia Protocol Insulin Aspart 4 - 8 units 02/26/25 08:00 03/01/25 12:47 Insulin Aspart (*Bkc) 100 Units/Ml SUB-Q 4 units TIDWM CARLOS Administration Protocol Insulin Aspart 2 - 4 units 02/25/25 21:00 02/28/25 23:00 Insulin Aspart (*Bkc) 100 Units/Ml SUB-Q Not Given HS [facility] Protocol Ipratropium [place] 0.5 mg 02/26/25 14:00 03/01/25 13:18 Ipratropium Br 0.02% Inh Soln 0.5 Mg/2.5 Ml Vial INHALATION 0.5 mg Q6HRT CARLOS Administration Levalbuterol HCl 1.25 mg 02/25/25 20:00 03/01/25 13:18 Levalbuterol Neb 1.25 Mg/3 Ml INHALATION 1.25 mg Q6HRT CARLOS Administration Lisinopril 40 mg 02/26/25 11:15 03/01/25 08:58 Lisinopril 20 Mg Tablet PO 40 mg DAILY CARLOS Administration Loratadine 10 mg 02/27/25 09:00 03/01/25 08:58 Loratadine 10 Mg Tablet PO 10 mg QAM CARLOS Administration Methylprednisolone Sodium Succinate 40 mg 02/28/25 08:30 03/01/25 13:08 Methylprednisolone Sod Succ 40 Mg Vial IV PUSH 40 mg Q8HR CARLOS Administration Metoprolol Succinate 25 mg 02/26/25 11:15 03/01/25 08:58 Metoprolol Succinate Ext Rel 25 Mg Tabcr PO 25 mg DAILY CARLOS Administration Montelukast Sodium 10 mg 02/26/25 21:00 02/28/25 21:45 Montelukast Sodium 10 Mg Tablet PO 10 mg HS CARLOS Administration Perflutren Lipid Microsphere 0 ml 02/28/25 08:29 Perflutren Lipid Microspheres 1.5 Ml Vial Diluted To 10 Ml Total Volume IV PUSH 03/03/25 08:29 ONCE PRN adequate visualization Protocol Radiology Results: ITS Impressions Chest X-Ray 02/25/25 16:04 Impression: No acute cardiopulmonary abnormality. Chest CTA 02/28/25 12:03 IMPRESSION: 1. No pulmonary emboli. Stable exam compared to December 26. Labs Labs: Laboratory Results - last 24 hr 02/28/25 02/28/25 02/28/25 13:59 16:40 21:28 POC Capillary Glucose 191 H 184 H Nasal RSV Type A (PCR) Cancelled Nasal RSV Type B (PCR) Cancelled Chlamy pneumoniae PCR Cancelled Adenovirus DNA Cancelled Human Bocavirus (ZAHEER) Cancelled Coronavirus Type OC43 Cancelled Coronavirus Type HKU1 Cancelled Coronavirus Type 229E Cancelled Coronavirus Type NL63 Cancelled Human Metapneumovir PCR Cancelled Influenza A (PCR) Cancelled Influenza A (H1) RNA Cancelled Influenza A (H3) PCR Cancelled M. pneumoniae DNA Cancelled Parainfluenza PCR Cancelled Parainfluenza 2 (PCR) Cancelled Parainfluenza 3 RNA (PCR) Cancelled Parainfluenza 4 (PCR) Cancelled Rhino/Enterovirus (ZAHEER) Cancelled SARS-CoV-2 RNA (RT-PCR) Cancelled Influenza Type B (PCR) Cancelled Misc Test Comment Cancelled 03/01/25 03/01/25 08:26 11:25 POC Capillary Glucose 149 H 219 H Nasal RSV Type A (PCR) Nasal RSV Type B (PCR) Chlamy pneumoniae PCR Adenovirus DNA Human Bocavirus (ZAHEER) Coronavirus Type OC43 Coronavirus Type HKU1 Coronavirus Type 229E Coronavirus Type NL63 Human Metapneumovir PCR Influenza A (PCR) Influenza A (H1) RNA Influenza A (H3) PCR M. pneumoniae DNA Parainfluenza PCR Parainfluenza 2 (PCR) Parainfluenza 3 RNA (PCR) Parainfluenza 4 (PCR) Rhino/Enterovirus (ZAHEER) SARS-CoV-2 RNA (RT-PCR) Influenza Type B (PCR) Misc Test Comment
[2025-03-01] MEDS: ATORVASTATIN 40 MG TABLET 80 MG PO (21:22)
[2025-03-01] MEDS: MONTELUKAST SODIUM 10 MG TABLET PO (21:23)
[2025-03-02] VITALS (10 sets, daily range): BP systolic 122–140; BP diastolic 78–99; PULSE 72–104; RESP 16–20; TEMP 36.3–36.9; O2SAT 96–98
[2025-03-02] MEDS: IPRATROPIUM BR 0.02% INH SOLN 0.5 MG/2.5 ML VIAL INHALATION ×3 (01:53→14:26)
[2025-03-02 05:43] LABS: Hematocrit 46.9 % (37.0-47.0); Hemoglobin 14.9 g/dL (12.0-15.0); Immature Granulocyte Percent A 1.2 % (0-0.5); Lymphocytes Absolute Auto 1.49 K/mm3 (0.9-3.2); Mean Corpuscular HGB Conc 31.8 g/dl (32-36); Mean Corpuscular Hemoglobin 29.1 pg (26-34); Mean Corpuscular Volume 91.6 fl (80-100); Nucleated Red Blood Cells Absolute Auto 0.020 K/mm3 (0.0-0.012); Nucleated Red Blood Cells Perc 0.1 % (0.0-0.2); Platelet Count Result 365 k/mm3 (150-375); Red Blood Count 5.12 M/mm3 (4.2-5.4); White Blood Count 15.7 K/mm3 (4.5-10.0)
[2025-03-02 06:05] LABS: Alanine Aminotransferase 31 U/L (6-35); Albumin Level 3.8 g/dL (3.5-5.1); Alkaline Phosphatase 82 U/L (38-126); Anion Gap 5 mmol/L (4-12); Aspartate Amino Transferase 19 U/L (14-36); Bilirubin,Total 0.5 mg/dL (0.2-1.3); Blood Urea Nitrogen 22 mg/dL (7-17); Calcium 9.7 mg/dL (8.4-10.2); Carbon Dioxide 24 mmol/L (22-30); Chloride 105 mmol/L (98-107); Estimated CRCL calculation 65 ml/min; Estimated Glomerular Filt Rate > 60; Glucose 140 mg/dL (65-110); Magnesium 2.1 mg/dL (1.6-2.3); Potassium 4.9 mmol/L (3.4-5.0); Sodium 134 mmol/L (137-145); Total Protein 6.2 g/dL (6.3-8.2)
[2025-03-02] MEDS: METOPROLOL SUCCINATE EXT REL 25 MG TABCR PO (09:31)
[2025-03-02] MEDS: LORATADINE 10 MG TABLET PO (09:31)
[2025-03-02] MEDS: AZITHROMYCIN 500 MG TABLET PO (09:31)
[2025-03-02] MEDS: CLOPIDOGREL BISULFATE 75 MG TABLET PO (09:31)
--- NOTE | 2025-03-02 09:36 | PM.PNPUL ---
Progress Note: A&P Assessment and Plan (1) Asthma exacerbation: Code(s): J45.901 - Unspecified asthma with (acute) exacerbation Status: Acute Assessment and Plan: Patient tells me she had asthma from age 7 and remembers being in an oxygen tent as a child. She has been on medicines all her life. Patient was on Symbicort until she lost her insurance in 2022 and since then she has been maintained on montelukast 10 q.day Which she has been on for about 3 years., cetirizine 10 q.day Which she has been on for many yearsand albuterol p.r.n. which she takes about 2 puffs a day. She has an albuterol nebulizer and usually she goes for months without this. At baseline the patient has no respiratory limitations in her activities of daily living. she takes 1 puff rescue albuterol before she walks 2 miles over an hour. This is improved over the last year because she has tried to exercise more. 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 Her baseline peak flows are 300 mL. She can walk 2 miles over 1 hour. Triggers include dust, upper respiratory infections, pollen, mold, sinusitis. She had a previous RAST blood test that was positive for dust mites, cat, dog, cockroach. She does have 2 cats and has had cats all her life. Patient was intubated in 2021. She had no exacerbations between 2021 and May of 2024. Patient was admitted to the hospital 12/25/2024 through 12/29/2024 with a rhino virus induced asthma exacerbation. patient made a full recovery. Patient ran out of her Symbicort 02/07/2025. Patient was exposed to her sick who had rhinorrhea and cough starting 02/14/2025. Patient developed rhinorrhea cough, shortness of breath and wheezing on 02/21/2025 which progressed despite prednisone at home. 03/01/25: Today the patient tells me that her rhinorrhea is 20% better. Her cough is 10% better. Her wheezing is the same as admission. Her shortness of breath at rest is the same. She has dyspnea on exertion at 2-3 steps. Overall she does not feel much benefit from the nebulizers. She denies fever, chills, rigors, leg swelling, diarrhea, stomach aches, chest pains. When I enter the room she was on 2 L nasal cannula saturations 95%. I placed her on room air and after 19 minutes her saturations were 95%. White blood cell count is 9.4. Her weight today is 82.5 kg. Plan: Agree with treatment for asthma exacerbation related to running out of Symbicort on 02/07/2025 and possible viral infection. Patient has minimal improvement and currently is on Solu-Medrol 40 q.8 hours, day 5 of steroids. Continue levalbuterol and ipratropium nebulizers q.6 hours, montelukast 10 mg p.o. q.day, Claritin 10 mg p.o. q.day. I will discontinue patient's Advair she is on adequate doses of beta agonists and on systemic steroids. Patient is on azithromycin for possible tracheobronchitis as there is no focal infiltrate on her CT scan of the chest. Agree with respiratory pathogen panel looking for viral etiologies of exacerbation. Oxygenation is back to baseline and currently she is on room air. 03/02/2025: The patient tells me she has improved. She is breathing 60% back to her baseline. Her rhinorrhea is 60% back to her baseline. Her cough is 40% back to her baseline. She still has rest shortness of breath. Her dyspnea on exertion is improved but persistent. She is on room air with saturation 96%. She is afebrile. White blood cell count 15.7, creatinine 0.82. Her weight today is 82.5 kg. Her respiratory pathogen panel returned positive for rhinovirus. Plan: patient has an asthma exacerbation precipitated by rhino virus infection. Is unclear if systemic steroids are beneficial or detrimental to rhino viral infection and at this time she has received a total of 6 days of systemic steroids and I will discontinue. I will discontinue nebulizers. I will start the patient on Advair 230-21 of puff 1 puff b.i.d.. I will continue azithromycin day 4 of 5. Continue montelukast 10 and Claritin 10 a day. If the patient continues to improve possible discharge home on 03/03/2025. Discussed with Dr. Hogue, will follow with you. (2) Rhinovirus infection: Code(s): B34.8 - Other viral infections of unspecified site Status: Acute Assessment and Plan: 03/02/2025: Respiratory pathogen panel has returned positive for rhino virus. This fits the clinical situation in which her was sick with an upper respiratory tract infection prior to her illness. Plan: There is no specific treatment for right a viral infection. Will continue supportive measures at this time. Subjective Date/time seen: 03/02/25 09:36 Interval history: 03/01/2025: This is a new pulmonary consult for asthma exacerbation. Patient was previously followed in the [facility] but she stopped secondary to insurance change. I saw the patient for an inpatient consultation on 12/26/2024 for acute asthma exacerbation with a concurrent rhinoviral infection. Patient tells me she had asthma from age 7 and remembers being in an oxygen tent as a child. She has been on medicines all her life. Patient was on Symbicort until she lost her insurance in 2022 and since then she has been maintained on montelukast 10 q.day Which she has been on for about 3 years., cetirizine 10 q.day Which she has been on for many yearsand albuterol p.r.n. which she takes about 2 puffs a day. She has an albuterol nebulizer and usually she goes for months without this. At baseline the patient has no respiratory limitations in her activities of daily living. she takes 1 puff rescue albuterol before she walks 2 miles over an hour. This is improved over the last year because she has tried to exercise more. 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 Her baseline peak flows are 300 mL. She can walk 2 miles over 1 hour. Triggers include dust, upper respiratory infections, pollen, mold, sinusitis. She had a previous RAST blood test that was positive for dust mites, cat, dog, cockroach. She does have 2 cats and has had cats all her life. Patient was intubated in 2021. She had no exacerbations between 2021 and May of 2024. Patient was discharged on 12/29/2024 on these pulmonary medicines. Azithromycin 250 mg p.o. q.day x1 day Prednisone 40 mg p.o. q.day x5 days. I have told the patient if she continues to improve not to take this prednisone burst but that if she develops worsening symptoms she should initiate the prednisone. Symbicort 160-4.5 at 1 puff q.4 hours p.r.n. shortness of breath or wheezing Guaifenesin 1200 mg p.o. b.i.d. p.r.n. congestion Montelukast 10 mg p.o. q.day Claritin 10 mg p.o. q.day room air saturations were 96% Patient told me she cannot be seen in our clinic because of her insurance and she will follow-up with her PCP. patient tells me that she continued to improve and did not need to take her prednisone 40 x 5 days and was back to her baseline on 01/05/2025. She continued her Symbicort, montelukast 10, Claritin 10. 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 She does not go to the gymnasium. She was using rescue albuterol 2 puffs 2 times a week and overall she was doing well. She denies smoking, marijuana use, vaping, illicit drug use, no new pet exposures. She still has cats. No new shampoos. 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 No exposure to molds. No new shampoos. No new blankets. She has been and running her heater for a number of weeks now. On 02/07 she ran out of her Symbicort. On 02/14 her developed rhinorrhea and cough and felt like he had a cold. On 02/21 the pellet patient developed worsening shortness of breath at rest, rhinorrhea, cough, wheezing and dyspnea on exertion. Her room air sats were 93. She attempted to take her rescue albuterol nebs. She started her prednisone from 12/29/2024. Patient noted worsening in her symptoms and she presented to the ER on 02/25. 02/25/2025: Patient presented to the emergency department with worsening shortness of breath that started on 02/21/2025. This was precipitated by cold-like symptoms including congestion, rhinorrhea. She was prescribed a short course of prednisone 20 x 5 days and was on day 4 on 02/25/2025. Room air saturations were 94%. She had expiratory wheezes. White blood cell count 12.4, eosinophils 0.2%, creatinine 0.89. BNP 222.She was placed on BiPAP for work of breathing. Chest x-ray showed no acute abnormality. COVID influenza RSV RT PCR assay negative. She was treated with Solu-Medrol, bronchodilators. 02/28/2025: CT angiogram of the chest with no PE. The lungs were clear with no masses, infiltrates, nodules, interstitial lung disease, bullous emphysema or pleural disease. Echocardiogram with LVEF 60 65%. Grade 1 diastolic dysfunction. Normal RV size and function. PASP 13. 03/01/25: Today the patient tells me that her rhinorrhea is 20% better. Her cough is 10% better. Her wheezing is the same as admission. Her shortness of breath at rest is the same. She has dyspnea on exertion at 2-3 steps. Overall she does not feel much benefit from the nebulizers. She denies fever, chills, rigors, leg swelling, diarrhea, stomach aches, chest pains. When I enter the room she was on 2 L nasal cannula saturations 95%. I placed her on room air and after 19 minutes her saturations were 95%. White blood cell count is 9.4. Her weight today is 82.5 kg. 03/02/2025: The patient tells me she has improved. She is breathing 60% back to her baseline. Her rhinorrhea is 60% back to her baseline. Her cough is 40% back to her baseline. She still has rest shortness of breath. Her dyspnea on exertion is improved but persistent. She is on room air with saturation 96%. She is afebrile. White blood cell count 15.7, creatinine 0.82. Her weight today is 82.5 kg. Her respiratory pathogen panel returned positive for rhinovirus. DATA: 02/28/2023: Echo Summary 1. Complete two-dimensional, color flow and Doppler transthoracic echocardiogram is performed. 2. Left ventricular systolic function is normal, estimated at 60-65. 3. The left ventricular diastolic function is grade I diastolic dysfunction. 4. There is mild tricuspid valve regurgitation. 5. No pulmonary hypertension, estimated pulmonary arterial systolic pressure is 13 mmHg. Right Ventricle Right ventricular chamber dimension is normal. Right ventricular systolic function is normal. Left Atria Left atrial chamber dimension is normal. Right Atria Right atrial chamber dimension is normal. 02/28/2023: EXAMINATION: CTA chest PE protocol INDICATION: Rule out PE COMPARISON: December 26, 2024 FINDINGS: No PE or thoracic aortic aneurysm/dissection. Heart size normal with no significant pericardial effusion. Coronary artery calcifications noted. No bulky lymphadenopathy. The lungs are clear. The bones intact. No acute process seen in the visualized upper abdomen or extrathoracic soft tissues. IMPRESSION: 1. No pulmonary emboli. Stable exam compared to December 26. Room air ABG 12/25/2024: PH 7.49/32/73. 05/25/2022: Alpha 1 PIMM PFT 11/11/21 This is a pulmonary function test with pre and post-bronchodilator spirometry, plethysmography and diffusing capacity. The test was performed and results interpreted in accordance with the 2019 and 2005 ATS/ERS Task Force guidelines respectively using the Global Lung Function Initiative-2012 reference equations. Patient demonstrated good effort and cooperation. Reproducibility criteria were met. The quality of the pre bronchodilator spirometry maneuver was Grade A and post bronchodilator spirometry maneuver was Grade A. Findings: Spirometry: there is decreased maximal expiratory airflow at all lung volumes with concave expiratory flow tracing. The contour the inspiratory flow tracing is normal. The pre bronchodilator FVC is 2.52 L, 81% predicted. The pre bronchodilator FEV1 is 1.45 L, 58% predicted. The pre bronchodilator FEV1: FVC ratio is 58%. The post bronchodilator FVC is 3.10 L, representing a 23% increase. The post bronchodilator FEV1 is 1.93 L, representing a 33% increase. The post bronchodilator FEV1: FVC ratio 62%. Plethysmography: The total lung capacity is 6.34 L, 138% predicted. Functional residual capacity is 4.36 L, 171% predicted. The residual volume is 3.82 L, 233% predicted. Diffusion capacity: The diffusion capacity unadjusted for hemoglobin and carboxyhemoglobin is 18.9, 88% predicted. The diffusing capacity adjusted for alveolar volume is 4.63, 98% predicted. Impression: There is a moderately severe obstructive abnormality with significant improvement after inhaling a single dose of albuterol. The increase in residual volume is consistent with air trapping from an obstructive abnormality. Hyperinflation is present as demonstrated by the increase in functional residual capacity and total lung capacity and is consistent with an obstructive abnormality. The diffusing capacity is normal. There are no prior studies for comparison 11/11/2021: 6mw no O2 needed 09/22/2021 - CXR:?ET and NG tubes have been removed since 09/22/2019. Right upper?extremity PIC catheter tip overlies superior vena cava. No pulmonary infiltrate or consolidation, pleural effusion or pulmonary vascular congestion or pneumothorax. Normal heart size.?IMPRESSION: Removal of ET and NG tubes; no active cardiopulmonary disease? 09/26/2021 - Mod barium swallow -??Patient tolerated regular consistency oral feedings in the upright position.? Please correlate with speech pathologist findings and specific feeding recommendations.? Subtle increased soft tissue density project over the region of the piriform sinuses which based on prior CT appears to result from relatively symmetric swelling along the aryepiglottic folds but with normal-appearing epiglottis. There is may reflect response to recent intubation. Echo 08/09/19 - EF 65-70%, grade I diastolic dysfunction, no pulmHTN. RAST panel 04/24/2019 showing + to dust mites (high), cat (very high), dog (very high), cockroach (low), mouse (low); IgE 87 normal. Review of Systems Constitutional: Constitutional: Reports no additional constitutional complaints Eyes: Eyes: Reports no additional eye complaints ENT: Reports system reviewed and no additional complaints, except as documented Cardiovascular: Cardiovascular: Reports no additional cardiovascular complaints Respiratory: Respiratory: Reports no additional respiratory complaints Gastrointestinal: Gastrointestinal: Reports no additional gastrointestinal complaints Musculoskeletal: Musculoskeletal: Reports no additional musculoskeletal complaints Neurologic: Reports system reviewed and no additional complaints, except as documented Psychiatric: Psychiatric: Reports no additional psychiatric complaints Endocrine: Endocrine: Reports no additional endocrine complaints Hematologic/Lymphatic: Hematologic/Lymphatic: Reports no additional hematologic/lymphatic complaints Allergic/Immunologic: Allergic/Immunologic: Reports no additional allergic/immunologic complaints Exam Const: General: cooperative, healthy appearing and comfortable Orientation/consciousness: oriented to person, oriented to place and oriented to time HENMT: Head: normal to inspection Ears: hearing grossly normal bilaterally Eyes: General: appearance normal, both eyes and all related structures Neck: Neck: normal visual inspection Chest: Chest palpation & inspection: normal inspection of the chest Resp: Effort & Inspection: normal respiratory effort and able to speak in complete sentences Auscultation: no crackles, no rales, no rhonchi, wheezes and lung sounds not diminished Other: Improved but persistent faint expiratory wheezes Cardio: Jugular venous distension: no JVD GI: Inspection: normal to inspection Skin: General skin exam: normal color Neuro: General: oriented to person, oriented to place and oriented to time Extrem: General: normal to inspection and no edema Psych: Appearance: grossly normal Objective Data Vital Signs Vital Signs: Vital Signs - 24 hr 03/01/25 13:18 03/01/25 13:25 03/01/25 14:00 Temperature 36.1 C L Pulse Rate 89 86 97 Respiratory Rate 21 H 19 16 Blood Pressure 141/89 H Pulse Oximetry 97 Oxygen Delivery Fraction of Inspired Oxygen 03/01/25 20:00 03/01/25 20:30 03/01/25 20:34 Temperature 36.4 C Pulse Rate 94 90 Respiratory Rate 16 20 Blood Pressure 161/104 H Pulse Oximetry 94 Oxygen Delivery Room Air Fraction of Inspired Oxygen 03/01/25 20:41 03/01/25 20:47 03/02/25 01:54 Temperature Pulse Rate 90 88 74 Respiratory Rate 20 20 Blood Pressure Pulse Oximetry 95 Oxygen Delivery Room Air Fraction of Inspired Oxygen 21 03/02/25 02:02 03/02/25 04:35 03/02/25 07:52 Temperature 36.9 C Pulse Rate 77 72 104 H Respiratory Rate 20 16 20 Blood Pressure 122/79 Pulse Oximetry 96 Oxygen Delivery Fraction of Inspired Oxygen 03/02/25 08:01 Temperature Pulse Rate 95 Respiratory Rate 20 Blood Pressure Pulse Oximetry Oxygen Delivery Fraction of Inspired Oxygen Intake/Output Intake/Output: Intake & Output 02/27/25 02/28/25 03/01/25 03/02/25 23:59 23:59 23:59 23:59 Intake Total 1220 1510 664 100 Output Total 150 400 Balance 1070 1110 664 100 Meds/Results Medications: Active Medications Generic Name Dose Route Start Last Admin Trade Name Freq PRN Reason Stop Dose Admin Albuterol/Ipratropium 3 ml 02/26/25 11:15 02/28/25 21:51 Ipratropium 0.5 Mg/Albuterol Sulfate 2.5 Mg (Base) Ampul.Neb 3 Ml INHALATION 3 ml QID PRN Administration Shortness Of Breath Atorvastatin Calcium 80 mg 02/26/25 21:00 03/01/25 21:22 Atorvastatin 40 Mg Tablet PO 80 mg HS JULIANA Administration Azithromycin 500 mg 02/26/25 17:24 03/02/25 09:31 Azithromycin 500 Mg Tablet PO 500 mg DAILY JULIANA Administration Clopidogrel Bisulfate 75 mg 02/27/25 09:00 03/02/25 09:31 Clopidogrel Bisulfate 75 Mg Tablet PO 75 mg DAILY JULIANA Administration Dextrose 12.5 gm 02/25/25 19:02 Dextrose 50% 25 Gm/50 Ml Syringe IV PUSH PRN PRN Hypoglycemia Protocol Glucagon 1 mg 02/25/25 19:02 Glucagon For Inj 1 Mg Vial IM PRN PRN Hypoglycemia Protocol Glucose 15 gm 02/25/25 19:02 Glucose Oral Gel 15 Gm Of Glucse In 37.5 Gm Tube PO PRN PRN Hypoglycemia Protocol Dextrose 1,000 mls @ 100 mls/hr 02/25/25 19:02 Dextrose 5% 1,000 Ml IVPB PRN PRN Hypoglycemia Protocol Insulin Aspart 4 - 8 units 02/26/25 08:00 03/02/25 09:30 Insulin Aspart (*Bkc) 100 Units/Ml SUB-Q Not Given TIDWM JULIANA Protocol Insulin Aspart 2 - 4 units 02/25/25 21:00 03/01/25 21:22 Insulin Aspart (*Bkc) 100 Units/Ml SUB-Q 2 units HS JULIANA Administration Protocol Ipratropium [place] 0.5 mg 02/26/25 14:00 03/02/25 07:49 Ipratropium Br 0.02% Inh Soln 0.5 Mg/2.5 Ml Vial INHALATION 03/02/25 15:00 0.5 mg Q6HRT JULIANA Administration Levalbuterol HCl 1.25 mg 02/25/25 20:00 03/02/25 07:49 Levalbuterol Neb 1.25 Mg/3 Ml INHALATION 03/02/25 15:00 1.25 mg Q6HRT JULIANA Administration Lisinopril 40 mg 02/26/25 11:15 03/02/25 09:31 Lisinopril 20 Mg Tablet PO 40 mg DAILY JULIANA Administration Loratadine 10 mg 02/27/25 09:00 03/02/25 09:31 Loratadine 10 Mg Tablet PO 10 mg QAM JULIANA Administration Metoprolol Succinate 25 mg 02/26/25 11:15 03/02/25 09:31 Metoprolol Succinate Ext Rel 25 Mg Tabcr PO 25 mg DAILY JULIANA Administration Montelukast Sodium 10 mg 02/26/25 21:00 03/01/25 21:23 Montelukast Sodium 10 Mg Tablet PO 10 mg HS JULIANA Administration Perflutren Lipid Microsphere 0 ml 02/28/25 08:29 Perflutren Lipid Microspheres 1.5 Ml Vial Diluted To 10 Ml Total Volume IV PUSH 03/03/25 08:29 ONCE PRN adequate visualization Protocol Fluticasone/Salmeterol 1 puff 03/02/25 20:00 Fluticasone/Salmeterol 230-21 Mcg Inhaler 1 Puff INHALATION Q12HRT [facility] Radiology Results: ITS Impressions Chest X-Ray 02/25/25 16:04 Impression: No acute cardiopulmonary abnormality. Chest CTA 02/28/25 12:03 IMPRESSION: 1. No pulmonary emboli. Stable exam compared to December 26. Labs Labs: Laboratory Results - last 24 hr 02/28/25 03/01/25 03/01/25 13:59 11: 16:56 WBC RBC Hgb Hct MCV MCH MCHC RDW Plt Count MPV Immature Gran % (Auto) Neut % (Auto) Lymph % (Auto) [place] % (Auto) Eos % (Auto) Baso % (Auto) Lymph # (Auto) [place] # (Auto) Eos # (Auto) Baso # (Auto) Abs Immat Gran (auto) Absolute Neuts (auto) Absolute Nucleated RBC Nucleated RBC % Sodium Potassium Chloride Carbon Dioxide Anion Gap BUN Creatinine Estim Creat Clear Calc Estimated GFR Glucose POC Capillary Glucose 219 H 150 H Calcium Magnesium Total Bilirubin AST ALT Alkaline Phosphatase Total Protein Albumin Chlamy pneumoniae PCR Not detected Adenovirus (PCR) Not detected B. pertussis DNA (PCR) Not detected B.parapertussis DNA PCR Not detected Coronavirus OC43 (PCR) Not detected Coronavirus HKU1 (PCR) Not detected Coronavirus 229E (PCR) Not detected Coronavirus NL63 (PCR) Not detected Human Metapneumovir PCR Not detected Influenza A (H1) PCR Not detected Influ A () PCR Not detected Influenza A (H3) PCR Not detected Influenza Type A (PCR) Not detected Influenza Type B (PCR) Not detected M. pneumoniae (PCR) Not detected Parainfluenza 1 (PCR) Not detected Parainfluenza 2 (PCR) Not detected Parainfluenza 3 (PCR) Not detected Parainfluenza 4 (PCR) Not detected RSV (PCR) Not detected Entero/Rhino (PCR) Detected A SARS-CoV-2 (PCR) Not detected 03/01/25 03/02/25 03/02/25 20:33 05:34 07:45 WBC 15.7 H RBC 5.12 Hgb 14.9 Hct 46.9 MCV 91.6 MCH 29.1 MCHC 31.8 L RDW 12.6 Plt Count 365 MPV 9.2 Immature Gran % (Auto) 1.2 H Neut % (Auto) 85.7 H Lymph % (Auto) 9.5 L [place] % (Auto) 3.4 Eos % (Auto) 0.0 Baso % (Auto) 0.2 Lymph # (Auto) 1.49 [place] # (Auto) 0.5 Eos # (Auto) 0.0 Baso # (Auto) 0.0 Abs Immat Gran (auto) 0.19 H Absolute Neuts (auto) 13.5 H Absolute Nucleated RBC 0.020 H Nucleated RBC % 0.1 Sodium 134 L Potassium 4.9 Chloride 105 Carbon Dioxide 24 Anion Gap 5 BUN 22 H Creatinine 0.82 Estim Creat Clear Calc 65 Estimated GFR > 60 Glucose 140 H POC Capillary Glucose 208 H 116 H Calcium 9.7 Magnesium 2.1 Total Bilirubin 0.5 AST 19 ALT 31 Alkaline Phosphatase 82 Total Protein 6.2 L Albumin 3.8 Chlamy pneumoniae PCR Adenovirus (PCR) B. pertussis DNA (PCR) B.parapertussis DNA PCR Coronavirus OC43 (PCR) Coronavirus HKU1 (PCR) Coronavirus 229E (PCR) Coronavirus NL63 (PCR) Human Metapneumovir PCR Influenza A (H1) PCR Influ A () PCR Influenza A (H3) PCR Influenza Type A (PCR) Influenza Type B (PCR) M. pneumoniae (PCR) Parainfluenza 1 (PCR) Parainfluenza 2 (PCR) Parainfluenza 3 (PCR) Parainfluenza 4 (PCR) RSV (PCR) Entero/Rhino (PCR) SARS-CoV-2 (PCR)
--- NOTE | 2025-03-02 15:50 | P.PNIM_ITS ---
Assessment and Plan Assessment and Plan (1) Acute asthma exacerbation: Qualifiers: Asthma severity: moderate Asthma persistence: unspecified Qualified Code(s): J45.901 - Unspecified asthma with (acute) exacerbation Code(s): J45.901 - Unspecified asthma with (acute) exacerbation Status: Acute Assessment and Plan: Patient had cold-like symptoms and asthma exacerbation starting Wednesday, 02/21. She has been treating this at home for the past few days. She has been uti lizing a nebulizer at least twice a day, utilize it 3 times prior to arrival today. Patient also started on a prednisone 40 mg daily, currently on day 4 of 5. Despite interventions she has continued to worsen. Admitted for further management of her severe asthma exacerbation. Initial treatment in the ED included a nebulizer, IV fluids, IV steroids, and magnesium IV. - continue IV steroids: Solu-Medrol 40 mg IV push q.6H x5 days - levalbuterol carlos due to tachycardia - started on BiPAP in the ED on 02/25 for WOB, will continue overnight as tolerated - viral PCR negative on 02/25 BiPAP tapered off 02/26/2025 Magnesium IV P add ipratropium with levalbuterol scheduled Will switch Solu-Medrol to oral prednisone however got short of breath with hypoxia 02/27/2025 cta negative for pe Pulmonary on board Respiratory pathogen panel positive for rhinovirus Steroid has been discontinued. Echo EF 60-65% grade 1 diastolic dysfunction (2) Hypertension: Qualifiers: Hypertension type: primary hypertension Qualified Code(s): I10 - Essential (primary) hypertension Code(s): I10 - Essential (primary) hypertension Status: Acute Assessment and Plan: Continue home medications - monitor (3) Diabetes: Qualifiers: Diabetes mellitus type: type 2 Diabetes mellitus jail insulin use: without buttermaker continuous churn use Diabetes mellitus complication status: without complication Qualified Code(s): E11.9 - Type 2 diabetes mellitus without complications Code(s): E11.9 - Type 2 diabetes mellitus without complications Status: Acute Assessment and Plan: - hypoglycemia protocol - POC blood glucose ACHS - home medication: continue Metformin - correct regimen ordered - high dose TIDWM and HS, on steroids Plan Diet: heart healthy GI Prophylaxis: n/a DVT Prophylaxis: SCDs IV fluids: 1L bolus Lines/Tubes: pIV Code Status: full code Subjective Date/time seen: 03/02/25 15:50 Interval history: 55 y/o F with PMH of asthma, DM, HTN, HLD, and anemia presents here with shortness of breath. The patient from home on 02/25 for further evaluation of shortness of breath. She reports onset of shortness of breath on Wednesday, 02/21. shortness of breath precipitated by mild cold-like symptoms including congestion/rhinorrhea for which she has been taking [id number] cold medications. she has been using her home nebulizer at least twice a day since Wednesday in his used it 3 times a day prior to arrival. She was additionally prescribed a short course of steroids, prednisone 20 mg b.i.d. x5 days. She is currently on day 4. Despite this intervention she continues to have worsening shortness of breath. She has a history significant for asthma that developed in childhood. She previously followed with pulmonology at [place], however due to insurance change she is no longer able to follow with them. Last hospitalized here for an asthma exacerbation in December of 2024. She currently denies chest pain, fever, chills, body aches, nausea, vomiting, diarrhea, cough. Initial VS at presentation: 98.2? F, HR 111, R 18, 167/98, and 94% on RA. Now on BiPAP for workup breathing. ED workup showed: WBC 12.4, no anemia, no significant electrolyte derangements, creatinine 0.89 and GFR >60, glucose 188, viral PCR negative. CXR showed no acute cardiopulmonary abnormality. 02/26/2025: Remains on BiPAP this a.m. which was tapered off. Feeling better. Still wheezy. 02/27/2025: Feels better. Off BiPAP. On room air. Shortness of breath with exertion with ambulation. Less wheezy 02/28/2025: Patient became short of breath yesterday with hypoxia and oxygen was placed oxygen saturation low at 88. Feels more short of breath today. Neck with exertion. 03/01/2025: no overnight events. still requires oxygen. still wheezes. feels duoneb does not help her with the breathing. no leg swelling. no cehst pain. 03/02/2025: Feels better. Off oxygen. Less wheezy. Ambulating in the hallways. Respiratory panel positive for rhinovirus Review of Systems Review of Systems: All systems reviewed & are unremarkable except as noted in HPI and below Exam Narrative: GENERAL: The patient is well developed, not in acute distress HEENT: Nonicteric sclerae, PERRLA, EOMI. Oropharynx clear. Moist mucous membranes. Conjunctivae appear well perfused. CHEST: Chest wall is nontender. HEART: Regular rate and rhythm without murmur, rubs, or gallops LUNGS: Diminished breath sounds, mild wheezes on left, no respiratory distress ABDOMEN: Soft, positive bowel sounds, non-tender, no organomegaly. SKIN: No rash, no excessive bruising, petechiae, or purpura. NEUROLOGIC: Cranial nerves II-XII intact, alert and oriented x 3, no gross motor deficits EXTREMITIES: no edema, cyanosis or clubbing Objective Data Vital Signs Vital Signs: Vital Signs - 24 hr 03/01/25 20:00 03/01/25 20:30 03/01/25 20:34 Temperature 97.6 F Pulse Rate 94 90 Respiratory Rate 16 20 Blood Pressure 161/104 H Pulse Oximetry 94 Oxygen Delivery Room Air Fraction of Inspired Oxygen 03/01/25 20:41 03/01/25 20:47 03/02/25 01:54 Temperature Pulse Rate 90 88 74 Respiratory Rate 20 20 Blood Pressure Pulse Oximetry 95 Oxygen Delivery Room Air Fraction of Inspired Oxygen 21 03/02/25 02:02 03/02/25 04:35 03/02/25 07:52 Temperature 98.4 F Pulse Rate 77 72 104 H Respiratory Rate 20 16 20 Blood Pressure 122/79 Pulse Oximetry 96 Oxygen Delivery Fraction of Inspired Oxygen 03/02/25 08:01 03/02/25 14:34 Temperature Pulse Rate 95 91 Respiratory Rate 20 20 Blood Pressure Pulse Oximetry Oxygen Delivery Fraction of Inspired Oxygen Intake/Output Intake/Output: Intake & Output 02/27/25 02/28/25 03/01/25 03/02/25 23:59 23:59 23:59 23:59 Intake Total 1220 1510 664 580 Output Total 150 400 Balance 1070 1110 664 580 Meds/Results Medications: Active Medications Generic Name Dose Route Start Last Admin Trade Name Freq PRN Reason Stop Dose Admin Albuterol/Ipratropium 3 ml 02/26/25 11:15 02/28/25 21:51 Ipratropium 0.5 Mg/Albuterol Sulfate 2.5 Mg (Base) Ampul.Neb 3 Ml INHALATION 3 ml QID PRN Administration Shortness Of Breath Atorvastatin Calcium 80 mg 02/26/25 21:00 03/01/25 21:22 Atorvastatin 40 Mg Tablet PO 80 mg HS CARLOS Administration Clopidogrel Bisulfate 75 mg 02/27/25 09:00 03/02/25 09:31 Clopidogrel Bisulfate 75 Mg Tablet PO 75 mg DAILY CARLOS Administration Dextrose 12.5 gm 02/25/25 19:02 Dextrose 50% 25 Gm/50 Ml Syringe IV PUSH PRN PRN Hypoglycemia Protocol Glucagon 1 mg 02/25/25 19:02 Glucagon For Inj 1 Mg Vial IM PRN PRN Hypoglycemia Protocol Glucose 15 gm 02/25/25 19:02 Glucose Oral Gel 15 Gm Of Glucse In 37.5 Gm Tube PO PRN PRN Hypoglycemia Protocol Dextrose 1,000 mls @ 100 mls/hr 02/25/25 19:02 Dextrose 5% 1,000 Ml IVPB PRN PRN Hypoglycemia Protocol Insulin Aspart 4 - 8 units 02/26/25 08:00 03/02/25 12:06 Insulin Aspart (*Bkc) 100 Units/Ml SUB-Q Not Given TIDWM CARLOS Protocol Insulin Aspart 2 - 4 units 02/25/25 21:00 03/01/25 21:22 Insulin Aspart (*Bkc) 100 Units/Ml SUB-Q 2 units HS CARLOS Administration Protocol Lisinopril 40 mg 02/26/25 11:15 03/02/25 09:31 Lisinopril 20 Mg Tablet PO 40 mg DAILY CARLOS Administration Loratadine 10 mg 02/27/25 09:00 03/02/25 09:31 Loratadine 10 Mg Tablet PO 10 mg QAM CARLOS Administration Metoprolol Succinate 25 mg 02/26/25 11:15 03/02/25 09:31 Metoprolol Succinate Ext Rel 25 Mg Tabcr PO 25 mg DAILY CARLOS Administration Montelukast Sodium 10 mg 02/26/25 21:00 03/01/25 21:23 Montelukast Sodium 10 Mg Tablet PO 10 mg HS CARLOS Administration Perflutren Lipid Microsphere 0 ml 02/28/25 08:29 Perflutren Lipid Microspheres 1.5 Ml Vial Diluted To 10 Ml Total Volume IV PUSH 03/03/25 08:29 ONCE PRN adequate visualization Protocol Fluticasone/Salmeterol 1 puff 03/02/25 20:00 Fluticasone/Salmeterol 230-21 Mcg Inhaler 1 Puff INHALATION Q12HRT [facility] Radiology Results: ITS Impressions Chest X-Ray 02/25/25 16:04 Impression: No acute cardiopulmonary abnormality. Chest CTA 02/28/25 12:03 IMPRESSION: 1. No pulmonary emboli. Stable exam compared to December 26. Labs Labs: Laboratory Results - last 24 hr 02/28/25 03/01/25 03/01/25 13:59 16:56 20:33 WBC RBC Hgb Hct MCV MCH MCHC RDW Plt Count MPV Immature Gran % (Auto) Neut % (Auto) Lymph % (Auto) [place] % (Auto) Eos % (Auto) Baso % (Auto) Lymph # (Auto) [place] # (Auto) Eos # (Auto) Baso # (Auto) Abs Immat Gran (auto) Absolute Neuts (auto) Absolute Nucleated RBC Nucleated RBC % Sodium Potassium Chloride Carbon Dioxide Anion Gap BUN Creatinine Estim Creat Clear Calc Estimated GFR Glucose POC Capillary Glucose 150 H 208 H Calcium Magnesium Total Bilirubin AST ALT Alkaline Phosphatase Total Protein Albumin Chlamy pneumoniae PCR Not detected Adenovirus (PCR) Not detected B. pertussis DNA (PCR) Not detected B.parapertussis DNA PCR Not detected Coronavirus OC43 (PCR) Not detected Coronavirus HKU1 (PCR) Not detected Coronavirus 229E (PCR) Not detected Coronavirus NL63 (PCR) Not detected Human Metapneumovir PCR Not detected Influenza A (H1) PCR Not detected Influ A (H1/09) PCR Not detected Influenza A (H3) PCR Not detected Influenza Type A (PCR) Not detected Influenza Type B (PCR) Not detected M. pneumoniae (PCR) Not detected Parainfluenza 1 (PCR) Not detected Parainfluenza 2 (PCR) Not detected Parainfluenza 3 (PCR) Not detected Parainfluenza 4 (PCR) Not detected RSV (PCR) Not detected Entero/Rhino (PCR) Detected A SARS-CoV-2 (PCR) Not detected 03/02/25 03/02/25 03/02/25 05:34 07:45 11:56 WBC 15.7 H RBC 5.12 Hgb 14.9 Hct 46.9 MCV 91.6 MCH 29.1 MCHC 31.8 L RDW 12.6 Plt Count 365 MPV 9.2 Immature Gran % (Auto) 1.2 H Neut % (Auto) 85.7 H Lymph % (Auto) 9.5 L [place] % (Auto) 3.4 Eos % (Auto) 0.0 Baso % (Auto) 0.2 Lymph # (Auto) 1.49 [place] # (Auto) 0.5 Eos # (Auto) 0.0 Baso # (Auto) 0.0 Abs Immat Gran (auto) 0.19 H Absolute Neuts (auto) 13.5 H Absolute Nucleated RBC 0.020 H Nucleated RBC % 0.1 Sodium 134 L Potassium 4.9 Chloride 105 Carbon Dioxide 24 Anion Gap 5 BUN 22 H Creatinine 0.82 Estim Creat Clear Calc 65 Estimated GFR > 60 Glucose 140 H POC Capillary Glucose 116 H 113 H Calcium 9.7 Magnesium 2.1 Total Bilirubin 0.5 AST 19 ALT 31 Alkaline Phosphatase 82 Total Protein 6.2 L Albumin 3.8 Chlamy pneumoniae PCR Adenovirus (PCR) B. pertussis DNA (PCR) B.parapertussis DNA PCR Coronavirus OC43 (PCR) Coronavirus HKU1 (PCR) Coronavirus 229E (PCR) Coronavirus NL63 (PCR) Human Metapneumovir PCR Influenza A (H1) PCR Influ A (H1/09) PCR Influenza A (H3) PCR Influenza Type A (PCR) Influenza Type B (PCR) M. pneumoniae (PCR) Parainfluenza 1 (PCR) Parainfluenza 2 (PCR) Parainfluenza 3 (PCR) Parainfluenza 4 (PCR) RSV (PCR) Entero/Rhino (PCR) SARS-CoV-2 (PCR)
[2025-03-02] MEDS: ACETAMINOPHEN 325 MG TABLET 650 MG PO (17:14)
[2025-03-02] MEDS: FLUTICASONE/SALMETEROL 230-21 MCG INHALER 1 PUFF INHALATION (19:55)
[2025-03-02] MEDS: MONTELUKAST SODIUM 10 MG TABLET PO (20:49)
[2025-03-02] MEDS: ATORVASTATIN 40 MG TABLET 80 MG PO (20:49)
[2025-03-02] MEDS: INSULIN ASPART (*BKC) 100 UNITS/ML SUB-Q (20:51)
[2025-03-03 05:05] VITALS: BP 120/82; PULSE 80; RESP 16; TEMP 36.2; O2SAT 100
[2025-03-03] MEDS: FLUTICASONE/SALMETEROL 230-21 MCG INHALER 1 PUFF INHALATION (08:09)
[2025-03-03 08:42] VITALS: PULSE 84
[2025-03-03] MEDS: CLOPIDOGREL BISULFATE 75 MG TABLET PO (08:42)
[2025-03-03] MEDS: METOPROLOL SUCCINATE EXT REL 25 MG TABCR PO (08:42)
[2025-03-03] MEDS: LORATADINE 10 MG TABLET PO (08:45)
--- NOTE | 2025-03-03 09:20 | P.PNPL_ITS ---
Progress Note: A&P Assessment and Plan (1) Asthma exacerbation: Code(s): J45.901 - Unspecified asthma with (acute) exacerbation Status: Acute Assessment and Plan: Patient tells me she had asthma from age 7 and remembers being in an oxygen tent as a child. She has been on medicines all her life. Patient was on Symbicort until she lost her insurance in 2022 and since then she has been maintained on montelukast 10 q.day Which she has been on for about 3 years., cetirizine 10 q.day Which she has been on for many yearsand albuterol p.r.n. which she takes about 2 puffs a day. She has an albuterol nebulizer and usually she goes for months without this. At baseline the patient has no respiratory limitations in her activities of daily living. she takes 1 puff rescue albuterol before she walks 2 miles over an hour. This is improved over the last year because she has tried to exercise more. 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 Her baseline peak flows are 300 mL. She can walk 2 miles over 1 hour. Triggers include dust, upper respiratory infections, pollen, mold, sinusitis. She had a previous RAST blood test that was positive for dust mites, cat, dog, cockroach. She does have 2 cats and has had cats all her life. Patient was intubated in 2021. She had no exacerbations between 2021 and May of 2024. Patient was admitted to the hospital 12/25/2024 through 12/29/2024 with a rhino virus induced asthma exacerbation. patient made a full recovery. Patient ran out of her Symbicort 02/07/2025. Patient was exposed to her sick who had rhinorrhea and cough starting 02/14/2025. Patient developed rhinorrhea cough, shortness of breath and wheezing on 02/21/2025 which progressed despite prednisone at home. 03/01/25: Today the patient tells me that her rhinorrhea is 20% better. Her cough is 10% better. Her wheezing is the same as admission. Her shortness of breath at rest is the same. She has dyspnea on exertion at 2-3 steps. Overall she does not feel much benefit from the nebulizers. She denies fever, chills, rigors, leg swelling, diarrhea, stomach aches, chest pains. When I enter the room she was on 2 L nasal cannula saturations 95%. I placed her on room air and after 19 minutes her saturations were 95%. White blood cell count is 9.4. Her weight today is 82.5 kg. Plan: Agree with treatment for asthma exacerbation related to running out of Symbicort on 02/07/2025 and possible viral infection. Patient has minimal improvement and currently is on Solu-Medrol 40 q.8 hours, day 5 of steroids. Continue levalbuterol and ipratropium nebulizers q.6 hours, montelukast 10 mg p.o. q.day, Claritin 10 mg p.o. q.day. I will discontinue patient's Advair she is on adequate doses of beta agonists and on systemic steroids. Patient is on azithromycin for possible tracheobronchitis as there is no focal infiltrate on her CT scan of the chest. Agree with respiratory pathogen panel looking for viral etiologies of exacerbation. Oxygenation is back to baseline and currently she is on room air. 03/02/2025: The patient tells me she has improved. She is breathing 60% back to her baseline. Her rhinorrhea is 60% back to her baseline. Her cough is 40% back to her baseline. She still has rest shortness of breath. Her dyspnea on exertion is improved but persistent. She is on room air with saturation 96%. She is afebrile. White blood cell count 15.7, creatinine 0.82. Her weight today is 82.5 kg. Her respiratory pathogen panel returned positive for rhinovirus. Plan: patient has an asthma exacerbation precipitated by rhinovirus infection. Is unclear if systemic steroids are beneficial or detrimental to rhino viral infection and at this time she has received a total of 6 days of systemic steroids and I will discontinue. I will discontinue nebulizers. I will start the patient on Advair 230-21 of puff 1 puff b.i.d.. I will continue azithromycin day 4 of 5. Continue montelukast 10 and Claritin 10 a day. If the patient continues to improve possible discharge home on 03/03/2025. 03/03/25: Patient tells me that she is much improved. Overall she feels she is 80% back to her normal. She slept well. She has no rest shortness of breath and no dyspnea on exertion walking in the room. Her room air saturations are 98%. She is afebrile. Her weight is 83.8 kg. From a pulmonary perspective patient is ready to be discharged on these pulmonary medications: Symbicort 160-4.5 at 2 puffs b.i.d. Rescue albuterol 2 puffs q.4 hours p.r.n. shortness of breath or wheezing Montelukast 10 mg p.o. q.day Claritin 10 mg p.o. q.day Patient to follow-up with her PCP, Dr. Jara. Patient's insurance is not accepted by the [facility]monary [facility]. Discussed with Dr. Hogue, will sign off, call with questions (2) Rhinovirus infection: Code(s): B34.8 - Other viral infections of unspecified site Status: Acute Assessment and Plan: 03/02/2025: Respiratory pathogen panel has returned positive for rhino virus. This fits the clinical situation in which her was sick with an upper respiratory tract infection prior to her illness. Plan: There is no specific treatment for right a viral infection. Will continue supportive measures at this time. 03/03/2025: Patient continues to improve off of systemic steroids. Plan: Will continue to monitor patient off systemic steroids. Subjective Date/time seen: 03/03/25 09:20 Interval history: 03/01/2025: This is a new pulmonary consult for asthma exacerbation. Patient was previously followed in the Pulmonary Clinic but she stopped secondary to insurance change. I saw the patient for an inpatient consultation on 12/26/2024 for acute asthma exacerbation with a concurrent rhinoviral infection. Patient tells me she had asthma from age 7 and remembers being in an oxygen tent as a child. She has been on medicines all her life. Patient was on Symbicort until she lost her insurance in 2022 and since then she has been maintained on montelukast 10 q.day Which she has been on for about 3 years., cetirizine 10 q.day Which she has been on for many yearsand albuterol p.r.n. which she takes about 2 puffs a day. She has an albuterol nebulizer and usually she goes for months without this. At baseline the patient has no respiratory limitations in her activities of daily living. she takes 1 puff rescue albuterol before she walks 2 miles over an hour. This is improved over the last year because she has tried to exercise more. 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 Her baseline peak flows are 300 mL. She can walk 2 miles over 1 hour. Triggers include dust, upper respiratory infections, pollen, mold, sinusitis. She had a previous RAST blood test that was positive for dust mites, cat, dog, cockroach. She does have 2 cats and has had cats all her life. Patient was intubated in 2021. She had no exacerbations between 2021 and May of 2024. Patient was discharged on 12/29/2024 on these pulmonary medicines. Azithromycin 250 mg p.o. q.day x1 day Prednisone 40 mg p.o. q.day x5 days. I have told the patient if she continues to improve not to take this prednisone burst but that if she develops worsening symptoms she should initiate the prednisone. Symbicort 160-4.5 at 1 puff q.4 hours p.r.n. shortness of breath or wheezing Guaifenesin 1200 mg p.o. b.i.d. p.r.n. congestion Montelukast 10 mg p.o. q.day Claritin 10 mg p.o. q.day room air saturations were 96% Patient told me she cannot be seen in our clinic because of her insurance and she will follow-up with her PCP. patient tells me that she continued to improve and did not need to take her prednisone 40 x 5 days and was back to her baseline on 01/05/2025. She continued her Symbicort, montelukast 10, Claritin 10. 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 She does not go to the gymnasium. She was using rescue albuterol 2 puffs 2 times a week and overall she was doing well. She denies smoking, marijuana use, vaping, illicit drug use, no new pet exposures. She still has cats. No new shampoos. 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 No exposure to molds. No new shampoos. No new blankets. She has been and running her heater for a number of weeks now. On 02/07 she ran out of her Symbicort. On 02/14 her developed rhinorrhea and cough and felt like he had a cold. On 02/21 the misty patient developed worsening shortness of breath at rest, rhinorrhea, cough, wheezing and dyspnea on exertion. Her room air sats were 93. She attempted to take her rescue albuterol nebs. She started her prednisone from 12/29/2024. Patient noted worsening in her symptoms and she presented to the ER on 02/25. 02/25/2025: Patient presented to the emergency department with worsening shortness of breath that started on 02/21/2025. This was precipitated by cold- like symptoms including congestion, rhinorrhea. She was prescribed a short course of prednisone 20 x 5 days and was on day 4 on 02/25/2025. Room air saturations were 94%. She had expiratory wheezes. White blood cell count 12.4, eosinophils 0.2%, creatinine 0.89. BNP 222.She was placed on BiPAP for work of breathing. Chest x-ray showed no acute abnormality. COVID influenza RSV RT PCR assay negative. She was treated with Solu-Medrol, bronchodilators. 02/28/2025: CT angiogram of the chest with no PE. The lungs were clear with no masses, infiltrates, nodules, interstitial lung disease, bullous emphysema or pleural disease. Echocardiogram with LVEF 60 65%. Grade 1 diastolic dysfunction. Normal RV size and function. PASP 13. 03/01/25: Today the patient tells me that her rhinorrhea is 20% better. Her cough is 10% better. Her wheezing is the same as admission. Her shortness of breath at rest is the same. She has dyspnea on exertion at 2-3 steps. Overall she does not feel much benefit from the nebulizers. She denies fever, chills, rigors, leg swelling, diarrhea, stomach aches, chest pains. When I enter the room she was on 2 L nasal cannula saturations 95%. I placed her on room air and after 19 minutes her saturations were 95%. White blood cell count is 9.4. Her weight today is 82.5 kg. 03/02/2025: The patient tells me she has improved. She is breathing 60% back to her baseline. Her rhinorrhea is 60% back to her baseline. Her cough is 40% back to her baseline. She still has rest shortness of breath. Her dyspnea on exertion is improved but persistent. She is on room air with saturation 96%. She is afebrile. White blood cell count 15.7, creatinine 0.82. Her weight today is 82.5 kg. Her respiratory pathogen panel returned positive for rhinovirus. systemic steroids discontinued 03/03/25: patient tells me that she is much improved. Overall she feels she is 80% back to her normal. She slept well. She has no rest shortness of breath and no dyspnea on exertion walking in the room. Her room air saturations are 98%. She is afebrile. Her weight is 83.8 kg. DATA: 02/28/2023: Echo Summary 1. Complete two-dimensional, color flow and Doppler transthoracic echocardiogram is performed. 2. Left ventricular systolic function is normal, estimated at 60-65. 3. The left ventricular diastolic function is grade I diastolic dysfunction. 4. There is mild tricuspid valve regurgitation. 5. No pulmonary hypertension, estimated pulmonary arterial systolic pressure is 13 mmHg. Right Ventricle Right ventricular chamber dimension is normal. Right ventricular systolic function is normal. Left Atria Left atrial chamber dimension is normal. Right Atria Right atrial chamber dimension is normal. 02/28/2023: EXAMINATION: CTA chest PE protocol INDICATION: Rule out PE COMPARISON: December 26, 2024 FINDINGS: No PE or thoracic aortic aneurysm/dissection. Heart size normal with no significant pericardial effusion. Coronary artery calcifications noted. No bulky lymphadenopathy. The lungs are clear. The bones intact. No acute process seen in the visualized upper abdomen or extrathoracic soft tissues. IMPRESSION: 1. No pulmonary emboli. Stable exam compared to December 26. Room air ABG 12/25/2024: PH 7.49/32/73. 05/25/2022: Alpha 1 PIMM PFT 11/11/21 This is a pulmonary function test with pre and post-bronchodilator spirometry, plethysmography and diffusing capacity. The test was performed and results interpreted in accordance with the 2019 and 2005 ATS/ERS Task Force guidelines respectively using the Global Lung Function Initiative-2012 reference equations. Patient demonstrated good effort and cooperation. Reproducibility criteria were met. The quality of the pre bronchodilator spirometry maneuver was Grade A and post bronchodilator spirometry maneuver was Grade A. Findings: Spirometry: there is decreased maximal expiratory airflow at all lung volumes with concave expiratory flow tracing. The contour the inspiratory flow tracing is normal. The pre bronchodilator FVC is 2.52 L, 81% predicted. The pre bronchodilator FEV1 is 1.45 L, 58% predicted. The pre bronchodilator FEV1: FVC ratio is 58%. The post bronchodilator FVC is 3.10 L, representing a 23% increase. The post bronchodilator FEV1 is 1.93 L, representing a 33% increase. The post bronchodilator FEV1: FVC ratio 62%. Plethysmography: The total lung capacity is 6.34 L, 138% predicted. Functional residual capacity is 4.36 L, 171% predicted. The residual volume is 3.82 L, 233% predicted. Diffusion capacity: The diffusion capacity unadjusted for hemoglobin and carboxyhemoglobin is 18.9, 88% predicted. The diffusing capacity adjusted for alveolar volume is 4.63, 98% predicted. Impression: There is a moderately severe obstructive abnormality with significant improvement after inhaling a single dose of albuterol. The increase in residual volume is consistent with air trapping from an obstructive abnormality. Hyperinflation is present as demonstrated by the increase in functional residual capacity and total lung capacity and is consistent with an obstructive abnormality. The diffusing capacity is normal. There are no prior studies for comparison 11/11/2021: 6mw no O2 needed 09/22/2021 - CXR:?ET and NG tubes have been removed since 09/22/2019. Right upper?extremity PIC catheter tip overlies superior vena cava. No pulmonary infiltrate or consolidation, pleural effusion or pulmonary vascular congestion or pneumothorax. Normal heart size.?IMPRESSION: Removal of ET and NG tubes; no active cardiopulmonary disease? 09/26/2021 - Mod barium swallow -??Patient tolerated regular consistency oral feedings in the upright position.? Please correlate with speech pathologist findings and specific feeding recommendations.? Subtle increased soft tissue density project over the region of the piriform sinuses which based on prior CT appears to result from relatively symmetric swelling along the aryepiglottic folds but with normal-appearing epiglottis. There is may reflect response to recent intubation. Echo 08/09/19 - EF 65-70%, grade I diastolic dysfunction, no pulmHTN. RAST panel 04/24/2019 showing + to dust mites (high), cat (very high), dog (very high), cockroach (low), mouse (low); IgE 87 normal. Review of Systems Constitutional: Constitutional: Reports no additional constitutional complaints Eyes: Eyes: Reports no additional eye complaints ENT: Reports system reviewed and no additional complaints, except as documented Cardiovascular: Cardiovascular: Reports no additional cardiovascular complaints Respiratory: Respiratory: Reports no additional respiratory complaints Gastrointestinal: Gastrointestinal: Reports no additional gastrointestinal complaints Musculoskeletal: Musculoskeletal: Reports no additional musculoskeletal complaints Neurologic: Reports system reviewed and no additional complaints, except as documented Psychiatric: Psychiatric: Reports no additional psychiatric complaints Endocrine: Endocrine: Reports no additional endocrine complaints Hematologic/Lymphatic: Hematologic/Lymphatic: Reports no additional hemato logic/lymphatic complaints Allergic/Immunologic: Allergic/Immunologic: Reports no additional allergic/immunologic complaints Exam Const: General: cooperative, healthy appearing and comfortable Orientation/consciousness: oriented to person, oriented to place and oriented to time HENMT: Head: normal to inspection Ears: hearing grossly normal bilaterally Eyes: General: appearance normal, both eyes and all related structures Neck: Neck: normal visual inspection Chest: Chest palpation & inspection: normal inspection of the chest Resp: Effort & Inspection: normal respiratory effort and able to speak in complete sentences Auscultation: no crackles, no rales, no rhonchi, wheezes and lung sounds not diminished Other: few faint expiratory wheezes in the right base Cardio: Jugular venous distension: no JVD GI: Inspection: normal to inspection Skin: General skin exam: normal color Neuro: General: oriented to person, oriented to place and oriented to time Extrem: General: normal to inspection and no edema Psych: Appearance: grossly normal Objective Data Vital Signs Vital Signs: Vital Signs - 24 hr 03/02/25 14:00 03/02/25 14:34 03/02/25 19:58 Temperature 36.3 C L Pulse Rate 90 91 93 Respiratory Rate 18 20 Blood Pressure 140/99 H Pulse Oximetry 96 98 Oxygen Delivery Room Air Fraction of Inspired Oxygen 03/02/25 20:00 03/02/25 21:28 03/03/25 05:05 Temperature 36.7 C 36.2 C L Pulse Rate 95 95 80 Respiratory Rate 16 16 16 Blood Pressure 125/78 120/82 Pulse Oximetry 97 97 100 Oxygen Delivery Room Air Fraction of Inspired Oxygen 03/03/25 08:42 Temperature Pulse Rate 84 Respiratory Rate Blood Pressure Pulse Oximetry Oxygen Delivery Fraction of Inspired Oxygen Intake/Output Intake/Output: Intake & Output 02/28/25 03/01/25 03/02/25 03/03/25 23:59 23:59 23:59 23:59 Intake Total 1510 664 580 450 Output Total 400 Balance 1110 664 580 450 Meds/Results Medications: Active Medications Generic Name Dose Route Start Last Admin Trade Name Freq PRN Reason Stop Dose Admin Acetaminophen 650 mg 03/02/25 17:08 03/02/25 17:14 Acetaminophen 325 Mg Tablet PO 650 mg Q4H PRN Administration Headache Albuterol/Ipratropium 3 ml 02/26/25 11:15 02/28/25 21:51 Ipratropium 0.5 Mg/Albuterol Sulfate 2.5 Mg (Base) Ampul.Neb 3 Ml INHALATION 3 ml QID PRN Administration Shortness Of Breath Atorvastatin Calcium 80 mg 02/26/25 21:00 03/02/25 20:49 Atorvastatin 40 Mg Tablet PO 80 mg HS JULIANA Administration Clopidogrel Bisulfate 75 mg 02/27/25 09:00 03/03/25 08:42 Clopidogrel Bisulfate 75 Mg Tablet PO 75 mg DAILY JULIANA Administration Dextrose 12.5 gm 02/25/25 19:02 Dextrose 50% 25 Gm/50 Ml Syringe IV PUSH PRN PRN Hypoglycemia Protocol Glucagon 1 mg 02/25/25 19:02 Glucagon For Inj 1 Mg Vial IM PRN PRN Hypoglycemia Protocol Glucose 15 gm 02/25/25 19:02 Glucose Oral Gel 15 Gm Of Glucse In 37.5 Gm Tube PO PRN PRN Hypoglycemia Protocol Dextrose 1,000 mls @ 100 mls/hr 02/25/25 19:02 Dextrose 5% 1,000 Ml IVPB PRN PRN Hypoglycemia Protocol Insulin Aspart 4 - 8 units 02/26/25 08:00 03/03/25 08:40 Insulin Aspart (*Bkc) 100 Units/Ml SUB-Q Not Given TIDWM [facility] Protocol Insulin Aspart 2 - 4 units 02/25/25 21:00 03/02/25 20:51 Insulin Aspart (*Bkc) 100 Units/Ml SUB-Q 2 units HS JULIANA Administration Protocol Lisinopril 40 mg 02/26/25 11:15 03/03/25 08:42 Lisinopril 20 Mg Tablet PO 40 mg DAILY JULIANA Administration Loratadine 10 mg 02/27/25 09:00 03/03/25 08:45 Loratadine 10 Mg Tablet PO 10 mg QAM JULIANA Administration Metoprolol Succinate 25 mg 02/26/25 11:15 03/03/25 08:42 Metoprolol Succinate Ext Rel 25 Mg Tabcr PO 25 mg DAILY JULIANA Administration Montelukast Sodium 10 mg 02/26/25 21:00 03/02/25 20:49 Montelukast Sodium 10 Mg Tablet PO 10 mg HS [facility] Administration Fluticasone/Salmeterol 1 puff 03/02/25 20:00 03/03/25 08:09 Fluticasone/Salmeterol 230-21 Mcg Inhaler 1 Puff INHALATION 1 puff Q12HRT JULIANA Administration Radiology Results: ITS Impressions Chest X-Ray 02/25/25 16:04 Impression: No acute cardiopulmonary abnormality. Chest CTA 02/28/25 12:03 IMPRESSION: 1. No pulmonary emboli. Stable exam compared to December 26. Labs Labs: Laboratory Results - last 24 hr 03/02/25 03/02/25 03/02/25 11:56 17:34 19:54 POC Capillary Glucose 113 H 83 213 H 03/03/25 07:34 POC Capillary Glucose 91
--- NOTE | 2025-03-03 11:05 | P.DS_ITS ---
DS: Admitting Diagnosis Discharge Date 03/03/2025 Admitting Diagnosis Shortness of breath DS: Discharge Diagnosis Discharge Diagnosis (1) Acute asthma exacerbation: Qualifiers: Asthma persistence: unspecified Asthma severity: moderate Qualified Code(s): J45.901 - Unspecified asthma with (acute) exacerbation Code(s): J45.901 - Unspecified asthma with (acute) exacerbation Status: Acute (2) Hypertension: Qualifiers: Hypertension type: primary hypertension Qualified Code(s): I10 - Essent ial (primary) hypertension Code(s): I10 - Essential (primary) hypertension Status: Acute (3) Diabetes: Qualifiers: Diabetes mellitus complication status: without complication Diabetes mellitus detention 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 She has been treating this at home for the past few days. She has been utilizing a nebulizer at least twice a day, utilize it 3 times prior to arrival today. Patient also started on a prednisone 40 mg daily, currently on day 4 of 5. Despite interventions she has continued to worsen. Admitted for further management of her severe asthma exacerbation. Initial treatment in the ED included a nebulizer, IV fluids, IV steroids, and magnesium IV. - continue IV steroids: Solu-Medrol 40 mg IV push q.6H x5 days - levalbuterol carlos due to tachycardia - started on BiPAP in the ED on 02/25 for WOB, will continue overnight as tolerated - viral PCR negative on 02/25 BiPAP tapered off 02/26/2025 Magnesium IV P add ipratropium with levalbuterol scheduled Patient continued to get worse with hypoxia 02/27/2025 and Solu Medrol was restarted. CTA was performed which ruled out PE. Pulmonary was consulted Respiratory pathogen panel positive for rhino virus. Steroid discontinued.. Seen continued to improve and will be discharged home. Echo EF 60-65% grade 1 diastolic dysfunction # Hypertension: Continue home medications - monitor # Diabetes: - hypoglycemia protocol - POC blood glucose ACHS - home medication: continue Metformin - correct regimen ordered - high dose TIDWM and HS, on steroids Diet: heart healthy GI Prophylaxis: n/a DVT Prophylaxis: SCDs IV fluids: 1L bolus Lines/Tubes: pIV Code Status: full code Time Spent with Patient Time attestation: Total time spent providing and/or coordinating discharge services: 45 minutes Exam Narrative: GENERAL: The patient is well developed, not in acute distress HEENT: Nonicteric sclerae, PERRLA, EOMI. Oropharynx clear. Moist mucous membranes. Conjunctivae appear well perfused. CHEST: Chest wall is nontender. HEART: Regular rate and rhythm without murmur, rubs, or gallops LUNGS: Diminished breath sounds, mild wheezes on left, no respiratory distress ABDOMEN: Soft, positive bowel sounds, non-tender, no organomegaly. SKIN: No rash, no excessive bruising, petechiae, or purpura. NEUROLOGIC: Cranial nerves II-XII intact, alert and oriented x 3, no gross motor deficits EXTREMITIES: no edema, cyanosis or clubbing DS: Data Data Completed and Pending Labs on day of discharge: Labs from last 24 hours 03/03/25 03/02/25 03/02/25 07:34 19:54 17:34 POC Capillary Glucose 91 213 H 83 03/02/25 11:56 POC Capillary Glucose 113 H Imaging Radiologist's impression: ITS Impressions Chest X-Ray 02/25/25 16:04 Impression: No acute cardiopulmonary abnormality. Chest CTA 02/28/25 12:03 IMPRESSION: 1. No pulmonary emboli. Stable exam compared to December 26. Discharge Plan Discharge Attending physician on discharge: Onel Hogue Consulting providers: Manuelito Motley Discharging Clinician: Onel Hogue Anticipated Discharge Date/Time: 03/03/25 11:08 Patient Disposition: Home Activity: as tolerated Diet: heart healthy Discharge Instructions: 5 days course of prednisone ordered if breathing gets worse with another asthma exacerbation Patient Instructions: Antibiotic Form Patient Language: [place] Stand Alone Forms: General Discharge Information Follow-up/Referrals: Marek,Kalin Espinoza MD [Primary Care Provider] - 1 Week Discharge Medications: New prednisone 20 mg tablet 40 mg PO DAILY 5 Days Qty: 10 0RF Continued ipratropium-albuterol 0.5 mg-3 mg(2.5 mg base)/3 mL solution for nebulization 3 ml inhalation QID PRN (Reason: shortness of breath) clopidogrel 75 mg tablet 75 mg PO DAILY metformin 500 mg tablet extended release 24 hr 1,000 mg PO QPM montelukast 10 mg tablet 10 mg PO QPM lisinopril 40 mg tablet 40 mg PO DAILY cetirizine 10 mg tablet 10 mg PO DAILY metoprolol succinate 25 mg tablet extended release 24 hr 25 mg PO DAILY atorvastatin 80 mg tablet 80 mg PO QPM albuterol sulfate [Ventolin HFA] 90 mcg/actuation HFA aerosol inhaler 2 puff INHALATION Q4-6H PRN (Reason: shortness of breath or wheezing) Qty: 18 2RF budesonide-formoterol [Symbicort] 160-4.5 mcg/actuation HFA aerosol inhaler 1 puff inhalation Q4-5H Qty: 10.2 1RF Discontinued atorvastatin 40 mg tablet 80 mg PO DAILY Date of admission: 02/26/25 08:55 Primary Care Provider: MarekKalin Admitting Provider: Tato Scott Attending physician on admission: Tato Scott Condition: Stable
== END 2025-03-03 13:05 | disposition home or self-care (01) | DRG 203 ==
LOC: ANHED 17:05 → ANH3MEDSUR 18:49 → ANHIMU 02-26 03:07 → ANH3MEDSUR 03-03 11:08 → ANHIMU 03-06 09:17
PROVIDERS: Admitting Provider Internal Medicine; Emergency Provider Emergency Medicine; PCP Family Medicine; Visit Provider Internal Medicine
DX: J45.901 Unspecified asthma with (acute) exacerbation (principal); I10 Essential (primary) hypertension; E11.9 Type 2 diabetes mellitus without complications; Z87.891 Personal history of nicotine dependence; E78.5 Hyperlipidemia, unspecified; D64.9 Anemia, unspecified; Z20.822 Contact with and (suspected) exposure to COVID-19; Z79.02 Long term (current) use of antithrombotics/antiplatelets; Z79.84 Long term (current) use of oral hypoglycemic drugs
CPT/HCPCS: 0202U; 36415; 71045; 71275; 80048; 80053; 82948; 83735; 83880; 85025; 87637; 93306; 94002; 94003; 94640; 96365; 96366; 96375; 99285; A9270; G0378; J1815; J2919; J3475; J7120; J7512; Q9967